=== PATIENT | male | born 1945 | race Caucasian/White ===

== ENCOUNTER → 2016-09-03 | Outpatient (CLI) | payer MEDICARE, OTHER ==
[~2016-09-03] MED LIST: BACL10TA PO; CHLORZOXAZONE PO; FAMO20TA3 PO; GEMF600T3 PO; HYDR-2890 PO; HYDR-3714 PO; LISI10TA2 PO; LISI20TA PO; LORA10TA7 PO; METH4TAB PO; NAPR220C PO; OMEG1CAP51 PO; OXYC-465 PO; OXYC10TA55 PO; PROP40TA5 PO; RELAFEN 750MG; SPRN25T PO; SULF1TAB35 PO
--- NOTE | 2016-09-03 14:09 | Diagnostic Imaging Report ---
PROCEDURE: US Bilateral lower extremity arterial. TECHNIQUE: Multiple real-time grayscale images are obtained through both lower extremity arterial systems with color Doppler imaging and color Doppler spectral analysis. INDICATION: Peripheral vascular disease, leg pain. There are no prior studies available for comparison. FINDINGS: There is diminished arterial blood flow in the right common femoral and proximal superficial femoral arteries. Monophasic waveforms are also seen in this area. This may be related to aortoiliac disease proximal to the common femoral artery on the right. Furthermore, there is occlusion of the mid and distal superficial femoral artery. There are a few collaterals providing some blood flow to the right lower leg but the arterial supply to the right lower leg is severely limited. There is atherosclerotic plaque involving the arterial system of the left lower extremity. There is some narrowing of the midportion of the superficial femoral artery but I'm not convinced that this is a hemodynamically significant stenosis. Triphasic and biphasic waveforms were seen otherwise and there is no abrupt alteration of velocities to suggest a hemodynamically significant stenosis. There seems to be fairly good arterial blood flow to the left lower extremity. IMPRESSION: 1. There is severely diminished arterial blood flow to the right lower extremity due to occlusion of the mid and distal superficial femoral artery. There is also diminished arterial blood flow with dampened monophasic waveforms in the common femoral and proximal superficial femoral artery. This may be related to aortoiliac disease. 2. There may be mild narrowing of the midportion of superficial femoral artery on the left. However, there is no sign of a hemodynamically significant stenosis in this area and there seems to be fairly good arterial blood flow to the left lower leg. 3. CTA of the aorta with bilateral run-offs would be recommended for further evaluation of both lower extremity arterial systems. Dictated by: Dictated on workstation # [id number]
== END ==
LOC: RAD 08:56
PROVIDERS: ATTEND Nurse Practitioner Community Health
DX: I73.9 Peripheral vascular disease, unspecified (principal)
CPT/HCPCS: 93925

== ENCOUNTER → 2016-09-16 | Outpatient (CLI) | payer MEDICARE, OTHER ==
[2016-09-16 08:47] LABS: BASOPHILS % (AUTO) 1 % (0-10); EOSINOPHILS # (AUTO) 0.2 10^3/uL (0.0-0.3); EOSINOPHILS % (AUTO) 3 % (0-10); LYMPHOCYTES # (AUTO) 2.9 X 10^3 (1.0-4.0); LYMPHOCYTES % (AUTO) 35 % (12-44); MEAN CORPUSCULAR HEMOGLOBIN 30 PG (25-34); MEAN CORPUSCULAR HGB CONC 34 G/DL (32-36); MEAN CORPUSCULAR VOLUME 89 FL (80-99); MEAN PLATELET VOLUME 10.1 FL (7.4-10.4); MONOCYTES # (AUTO) 0.8 X 10^3 (0.0-1.0); MONOCYTES % (AUTO) 9 % (0-12); NEUTROPHILS # (AUTO) 4.4 X 10^3 (1.8-7.8); NEUTROPHILS % (AUTO) 53 % (42-75); PLATELET COUNT 253 10^3/uL (130-400); RED BLOOD COUNT 5.64 10^6/uL (4.35-5.85); RED CELL DISTRIBUTION WIDTH 14.4 % (10.0-14.5); WHITE BLOOD COUNT 8.3 10^3/uL (4.3-11.0)
[2016-09-16 08:52] LABS: BILIRUBIN,URINE NEGATIVE (NEGATIVE); KETONES,URINE NEGATIVE (NEGATIVE); LEUKOCYTE ESTERASE ,URINE NEGATIVE (NEGATIVE); NITRITE,URINE NEGATIVE (NEGATIVE); PH,URINE 5 (5-9); PROTEIN,URINE NEGATIVE (NEGATIVE); UROBILINOGEN,URINE NORMAL (NORMAL)
[2016-09-16 09:19] LABS: ALBUMIN 4.2 G/DL (3.2-4.5); BILIRUBIN,TOTAL 0.4 MG/DL (0.1-1.0); CALCIUM 9.7 MG/DL (8.5-10.1); CREATININE SERUM 1.84 MG/DL (0.60-1.30); POTASSIUM 4.4 MMOL/L (3.6-5.0); TOTAL PROTEIN 7.3 G/DL (6.4-8.2)
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
== END ==
LOC: CARD 08:24
PROVIDERS: ATTEND Thoracic Surgery (Cardiothoracic Vascular Surgery)
DX: Z01.810 Encounter for preprocedural cardiovascular examination (principal); Z01.811 Encounter for preprocedural respiratory examination; Z01.812 Encounter for preprocedural laboratory examination; I73.9 Peripheral vascular disease, unspecified
CPT/HCPCS: 36415; 71010; 80053; 81000; 85025; 93005

== ENCOUNTER → 2016-10-30 | Outpatient (CLI) | payer MEDICARE, OTHER ==
--- NOTE | 2016-11-04 13:04 | Diagnostic Imaging Report ---
Renal ultrasound. INDICATION: Chronic renal failure. FINDINGS: The right kidney is 11.3 cm and the left kidney is 11.3 cm in length. There is no hydronephrosis or focal lesion. The parenchymal echogenicity is within normal limits. The urinary bladder appears unremarkable. IMPRESSION: Unremarkable exam. Dictated by: Dictated on workstation # [id number]
== END ==
LOC: RAD 15:12
PROVIDERS: ATTEND Internal Medicine Nephrology
DX: N18.3 Chronic kidney disease, stage 3 (moderate) (principal)

== ENCOUNTER → 2017-01-09 | Outpatient (CLI) | payer MEDICARE, OTHER ==
[2017-01-09 13:07] LABS: BASOPHILS # (AUTO) 0.1 10^3/uL (0.0-0.1); BASOPHILS % (AUTO) 1 % (0-10); EOSINOPHILS # (AUTO) 0.3 10^3/uL (0.0-0.3); EOSINOPHILS % (AUTO) 3 % (0-10); LYMPHOCYTES # (AUTO) 3.1 X 10^3 (1.0-4.0); LYMPHOCYTES % (AUTO) 33 % (12-44); MEAN CORPUSCULAR HEMOGLOBIN 30 PG (25-34); MEAN CORPUSCULAR HGB CONC 34 G/DL (32-36); MEAN CORPUSCULAR VOLUME 88 FL (80-99); MEAN PLATELET VOLUME 10.6 FL (7.4-10.4); MONOCYTES # (AUTO) 0.8 X 10^3 (0.0-1.0); MONOCYTES % (AUTO) 8 % (0-12); NEUTROPHILS # (AUTO) 5.3 X 10^3 (1.8-7.8); NEUTROPHILS % (AUTO) 56 % (42-75); PLATELET COUNT 254 10^3/uL (130-400); RED BLOOD COUNT 5.45 10^6/uL (4.35-5.85); RED CELL DISTRIBUTION WIDTH 14.2 % (10.0-14.5); WHITE BLOOD COUNT 9.6 10^3/uL (4.3-11.0)
[2017-01-09 13:09] LABS: BILIRUBIN,URINE NEGATIVE (NEGATIVE); KETONES,URINE NEGATIVE (NEGATIVE); LEUKOCYTE ESTERASE ,URINE NEGATIVE (NEGATIVE); NITRITE,URINE NEGATIVE (NEGATIVE); PH,URINE 6 (5-9); PROTEIN,URINE NEGATIVE (NEGATIVE); UROBILINOGEN,URINE 1 MG/DL (NORMAL)
[2017-01-09 13:27] LABS: PROTEIN/CREATININE RATIO 0.11
[2017-01-09 13:28] LABS: ALBUMIN 4.4 GM/DL (3.2-4.5); CREATININE SERUM 1.57 MG/DL (0.60-1.30); POTASSIUM 4.5 MMOL/L (3.6-5.0)
[2017-01-09 14:09] LABS: SQUAMOUS EPITHELIAL CELL,UR 0-2 /HPF
[2017-01-10 09:13] LABS: CALCIUM PARA THYROID HORMONE 9.8 mg/dL (8.5-10.5)
[2017-01-10 15:37] LABS: FOLIC ACID 6.9 ng/mL (1.5-24.0)
== END ==
LOC: LAB 12:37
PROVIDERS: ATTEND Internal Medicine Nephrology
DX: I12.9 Hypertensive chronic kidney disease with stage 1 through stage 4 chronic kidney disease, or unspecified chronic kidney disease (principal); N18.3 Chronic kidney disease, stage 3 (moderate); E87.2 Acidosis; F17.200 Nicotine dependence, unspecified, uncomplicated
CPT/HCPCS: 36415; 80069; 81000; 82306; 82570; 82607; 82728; 82746; 83540; 83970; 84156; 85025

== ENCOUNTER → 2017-02-03 | Outpatient (CLI) | payer MEDICARE, OTHER ==
[2017-02-03 13:08] LABS: BILIRUBIN,URINE NEGATIVE (NEGATIVE); KETONES,URINE NEGATIVE (NEGATIVE); LEUKOCYTE ESTERASE ,URINE 1+ (NEGATIVE); NITRITE,URINE NEGATIVE (NEGATIVE); PH,URINE 5 (5-9); PROTEIN,URINE NEGATIVE (NEGATIVE); UROBILINOGEN,URINE NORMAL (NORMAL)
[2017-02-03 13:12] LABS: MEAN PLATELET VOLUME 9.8 FL (7.4-10.4); RED BLOOD COUNT 5.32 10^6/uL (4.35-5.85); RED CELL DISTRIBUTION WIDTH 14.1 % (10.0-14.5); WHITE BLOOD COUNT 8.6 10^3/uL (4.3-11.0)
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
[2017-02-03 13:20] LABS: SQUAMOUS EPITHELIAL CELL,UR 0-2 /HPF; WBC,URINE RARE /HPF
[2017-02-03 13:35] LABS: ALBUMIN 4.1 GM/DL (3.2-4.5); BILIRUBIN,TOTAL 0.4 MG/DL (0.1-1.0); CALCIUM 9.6 MG/DL (8.5-10.1); CREATININE SERUM 1.63 MG/DL (0.60-1.30); POTASSIUM 4.7 MMOL/L (3.6-5.0); TOTAL PROTEIN 7.6 GM/DL (6.4-8.2)
== END ==
LOC: CARD 12:33
PROVIDERS: ATTEND Thoracic Surgery (Cardiothoracic Vascular Surgery)
DX: Z01.810 Encounter for preprocedural cardiovascular examination (principal); Z01.811 Encounter for preprocedural respiratory examination; Z01.812 Encounter for preprocedural laboratory examination; I73.9 Peripheral vascular disease, unspecified
CPT/HCPCS: 36415; 71020; 80053; 81000; 85027; 93005

== ENCOUNTER → 2017-04-24 | Outpatient (CLI) | payer MEDICARE, OTHER ==
[2017-04-24 12:58] LABS: BILIRUBIN,URINE NEGATIVE (NEGATIVE); KETONES,URINE NEGATIVE (NEGATIVE); LEUKOCYTE ESTERASE ,URINE 1+ (NEGATIVE); NITRITE,URINE NEGATIVE (NEGATIVE); PH,URINE 6 (5-9); PROTEIN,URINE NEGATIVE (NEGATIVE); UROBILINOGEN,URINE NORMAL (NORMAL)
[2017-04-24 12:59] LABS: SQUAMOUS EPITHELIAL CELL,UR RARE /HPF; WBC,URINE RARE /HPF
[2017-04-24 13:12] LABS: PROTEIN/CREATININE RATIO 0.11
[2017-04-24 13:32] LABS: BASOPHILS % (AUTO) 0 % (0-10); EOSINOPHILS # (AUTO) 0.2 10^3/uL (0.0-0.3); EOSINOPHILS % (AUTO) 3 % (0-10); LYMPHOCYTES # (AUTO) 3.2 X 10^3 (1.0-4.0); LYMPHOCYTES % (AUTO) 34 % (12-44); MEAN CORPUSCULAR HEMOGLOBIN 30 PG (25-34); MEAN CORPUSCULAR HGB CONC 34 G/DL (32-36); MEAN CORPUSCULAR VOLUME 90 FL (80-99); MEAN PLATELET VOLUME 10.2 FL (7.4-10.4); MONOCYTES # (AUTO) 0.7 X 10^3 (0.0-1.0); MONOCYTES % (AUTO) 7 % (0-12); NEUTROPHILS # (AUTO) 5.2 X 10^3 (1.8-7.8); NEUTROPHILS % (AUTO) 56 % (42-75); PLATELET COUNT 285 10^3/uL (130-400); RED BLOOD COUNT 5.46 10^6/uL (4.35-5.85); RED CELL DISTRIBUTION WIDTH 14.5 % (10.0-14.5); WHITE BLOOD COUNT 9.2 10^3/uL (4.3-11.0)
[2017-04-24 13:53] LABS: ALBUMIN 4.2 GM/DL (3.2-4.5); CALCIUM 9.9 MG/DL (8.5-10.1); CREATININE SERUM 1.56 MG/DL (0.60-1.30); MAGNESIUM 2.3 MG/DL (1.8-2.4); PHOSPHORUS 3.8 MG/DL (2.3-4.7); POTASSIUM 4.7 MMOL/L (3.6-5.0); URIC ACID 6.8 MG/DL (2.6-7.2)
[2017-04-25 07:00] LABS: FOLIC ACID 5.9 ng/mL (1.5-24.0)
== END ==
LOC: LAB 12:21
PROVIDERS: ATTEND Internal Medicine Nephrology
DX: E55.9 Vitamin D deficiency, unspecified (principal); I12.9 Hypertensive chronic kidney disease with stage 1 through stage 4 chronic kidney disease, or unspecified chronic kidney disease; N18.3 Chronic kidney disease, stage 3 (moderate); F17.200 Nicotine dependence, unspecified, uncomplicated
CPT/HCPCS: 36415; 80069; 81000; 82306; 82570; 82607; 82746; 83735; 83970; 84156; 84550; 85025

== ENCOUNTER → 2017-10-27 | Outpatient (CLI) | payer MEDICARE, OTHER ==
[~2017-10-27] MED LIST changes: +CLOP75TA28; +INHA1INH59 MC; +PRD20T PO; +PROP60TA17 PO; +RT-ALBUINH IH; +SODI650T
[2017-10-27 13:39] LABS: BASOPHILS % (AUTO) 0 % (0-10); EOSINOPHILS # (AUTO) 0.2 10^3/uL (0.0-0.3); EOSINOPHILS % (AUTO) 2 % (0-10); HEMATOCRIT 48 % (40-54); HEMOGLOBIN 16.2 G/DL (13.3-17.7); LYMPHOCYTES # (AUTO) 2.1 X 10^3 (1.0-4.0); LYMPHOCYTES % (AUTO) 20 % (12-44); MEAN CORPUSCULAR HEMOGLOBIN 31 PG (25-34); MEAN CORPUSCULAR HGB CONC 34 G/DL (32-36); MEAN CORPUSCULAR VOLUME 90 FL (80-99); MEAN PLATELET VOLUME 9.7 FL (7.4-10.4); MONOCYTES # (AUTO) 0.9 X 10^3 (0.0-1.0); MONOCYTES % (AUTO) 8 % (0-12); NEUTROPHILS # (AUTO) 7.4 X 10^3 (1.8-7.8); NEUTROPHILS % (AUTO) 70 % (42-75); PLATELET COUNT 303 10^3/uL (130-400); RED BLOOD COUNT 5.29 10^6/uL (4.35-5.85); RED CELL DISTRIBUTION WIDTH 14.3 % (10.0-14.5); WHITE BLOOD COUNT 10.7 10^3/uL (4.3-11.0)
[2017-10-27 13:45] LABS: BILIRUBIN,URINE NEGATIVE (NEGATIVE); CLARITY,URINE CLEAR; COLOR,URINE YELLOW; GLUCOSE, URINE (UA) NEGATIVE (NEGATIVE); KETONES,URINE NEGATIVE (NEGATIVE); LEUKOCYTE ESTERASE ,URINE NEGATIVE (NEGATIVE); NITRITE,URINE NEGATIVE (NEGATIVE); PH,URINE 5 (5-9); PROTEIN,URINE 1+ (NEGATIVE); UROBILINOGEN,URINE 1 MG/DL (NORMAL)
[2017-10-27 13:54] LABS: ALBUMIN 4.5 GM/DL (3.2-4.5); CALCIUM 10.3 MG/DL (8.5-10.1); CREATININE SERUM 1.66 MG/DL (0.60-1.30); MAGNESIUM 2.1 MG/DL (1.8-2.4); PHOSPHORUS 3.2 MG/DL (2.3-4.7); POTASSIUM 4.4 MMOL/L (3.6-5.0); URIC ACID 6.8 MG/DL (2.6-7.2)
[2017-10-27 13:56] LABS: BACTERIA,URINE NEGATIVE /HPF; SQUAMOUS EPITHELIAL CELL,UR RARE /HPF
== END ==
LOC: LAB 13:15
PROVIDERS: ATTEND Internal Medicine Nephrology
DX: I12.9 Hypertensive chronic kidney disease with stage 1 through stage 4 chronic kidney disease, or unspecified chronic kidney disease (principal); N18.3 Chronic kidney disease, stage 3 (moderate); E21.1 Secondary hyperparathyroidism, not elsewhere classified; F17.200 Nicotine dependence, unspecified, uncomplicated
CPT/HCPCS: 36415; 80069; 81000; 82306; 82570; 83735; 83970; 84156; 84550; 85025

== ENCOUNTER 2017-11-13 20:49 | Emergency (ER) | payer MEDICARE, OTHER ==
[~2017-11-13] VITALS: Ht 185.4 cm; Wt 80.3 kg
[~2017-11-13 20:49] MED LIST changes: -CLOP75TA28; -INHA1INH59 MC; -PRD20T PO; -PROP60TA17 PO; -RT-ALBUINH IH; -SODI650T
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
--- OUTSIDE RECORDS SUMMARY | 2017-11-13 20:54 | XMS REPORT ---
Author Author TOYA LANDRUM Organization [employer] Address Unknown Phone Unavailable Care Team Providers Care Inspector Electromechanical Name Role Phone TOYA LANDRUM CP Unavailable Allergies No Known Allergies Problems No Known Problems Medications Medication Code System Code Instructions Start Date End Date Status Dosage [facility] [address]-22 10-325 MG every 6 hrs Sep 09, 2014 1 tablet as needed Results No Known Results Summary Purpose [employer] Submission
--- OUTSIDE RECORDS SUMMARY | 2017-11-13 20:55 | XMS REPORT ---
Author Author JOHANA OWEN [facility] [employer] Address Unknown Phone Unavailable Care Team Providers Care Mammography Technologist Name Role Phone JOHANA OWEN CP Unavailable Allergies, Adverse Reactions, Alerts Substance Reaction Event Type Hydrochlorothiazide Info Not Available Drug Allergy Problems Problem Type Condition Code Onset Dates Condition Status Assessment Impacted cerumen of left ear H61.22 Active Medications Medication Code System Code Instructions Start Date End Date Status Dosage Linneus [facility] [address]-89 10-325 MG every 6 hrs Sep 09, 2014 1 tablet as needed Famotidine [facility] 10266-2017-16 20 MG Twice a day Sep 08, 2014 1 tablet Lopid [facility] 74743713594 600 Twice a day 1 tablet Lisinopril [facility] [address]-61 10 MG Orally Once a day Feb 22, 2015 1 tablet Spironolactone [facility] [address]-62 25 MG Once a day Aug 12, 2014 1 tablet Loratadine [facility] [address]-67 10 MG Once a day Aug 12, 2014 1 capsule Fish Oil [facility] [address]-66 1000 MG Orally Once a day 1 capsule Propranolol HCl [facility] [address]-51 40 MG Orally Twice a day Mar 15, 2015 1 tablet Procedures Procedure Coding System Code Date Office Visit, Est Pt., Level 2 CPT-4 78441 Jul 27, 2015 EAR IRRIGATION CPT-4 11688 Jul 27, 2015 [facility] VISIT ESTABLISHED PATIENT CPT-4 G0467 Jul 27, 2015 Vital Signs Date/Time: Jul 27, 2015 Temperature 97.4 F Weight 185.7 lbs Height 71 in BMI 25.90 Index Blood Pressure Diastolic 88 mmHg Blood Pressure Systolic 136 mmHg Cardiac Monitoring Heart Rate 84 bpm Results Name Result Date Reference Range Unit Abnormality Flag CERUMEN REMOVAL Summary Purpose [employer] Submission
--- OUTSIDE RECORDS SUMMARY | 2017-11-13 20:55 | XMS REPORT ---
Author Author ROWAN OSCAR Organization [facility] Address [address] [place] [address] Care Team Providers Care Placement Officer Name Role Phone ROWAN OSCAR Unavailable PROBLEMS Type Condition ICD9-CM Code [id number]-UW Code Onset Dates Condition Status SNOMED Code Problem Dysuria R30.0 Active 75292454 Problem PAD (peripheral artery disease) I73.9 Active 432324863 Problem PVD (peripheral vascular disease) I73.9 Active 255743825 Problem Back pain with left-sided sciatica M54.32 Active 56333811 Problem Hypertension, benign I10 Active 58237525 Problem Claudication of lower extremity I73.9 Active 394605585 Problem Other chronic gastritis without hemorrhage K29.50 Active 2372514 ALLERGIES Substance Reaction Event Type Date Status Hydrochlorothiazide Unknown Drug Allergy November, Active SOCIAL HISTORY Never Assessed PLAN OF CARE Activity Details Follow Up prn Reason: VITAL SIGNS Height 73 in 2016-12-05 Weight 177 lbs 2016-12-05 Temperature 97.8 degrees Fahrenheit 2016-12-05 Heart Rate 86 bpm 2016-12-05 Respiratory Rate 16 2016-12-05 BMI 23.35 kg/m2 2016-12-05 Blood pressure systolic 138 mmHg 2016-12-05 Blood pressure diastolic 78 mmHg 2016-12-05 MEDICATIONS Medication Instructions Dosage Frequency Start Date End Date Duration Status Loratadine 10 mg 1 capsule 24h Jul, 90 Active Fish Oil 1000 MG Orally Once a day 1 capsule 24h Active Lopid 600 1 tablet 12h 90 Active [place] 10-325 MG Orally every 6 hrs 1 tablet as needed 6h May, 28 days Active Propranolol HCl 40 1 tablet 12h 90 Active Lisinopril 10 mg Orally Once a day 1 tablet 24h Feb, 90 Active Meloxicam 15 MG Orally Once a day 1 tablet 24h May, Active Sodium Bicarbonate Active RESULTS No Results PROCEDURES Procedure Date Ordered Result Body Site [facility] VISIT ESTABLISHED PATIENT December 05, 2016 IMMUNIZATIONS No Known Immunizations MEDICAL (GENERAL) HISTORY [...]
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
--- OUTSIDE RECORDS SUMMARY | 2017-11-13 20:55 | XMS REPORT ---
Author Author TOYA LANDRUM Organization [employer] Address Unknown Phone Unavailable Care Team Providers Care Cane Piler Name Role Phone TOYA LANDRUM CP Unavailable Allergies No Known Allergies Problems No Known Problems Medications Medication Code System Code Instructions Start Date End Date Status Dosage [facility] [place] [address]-48 10-325 MG every 6 hrs Sep 09, 2014 1 tablet as needed Results No Known Results Summary Purpose [employer] Submission
--- OUTSIDE RECORDS SUMMARY | 2017-11-13 20:55 | XMS REPORT ---
Author Author TOYA LANDRUM Organization [employer] Address Unknown Phone Unavailable Care Team Providers Care Sewage Disposal Engineer Name Role Phone TOYA LANDRUM CP Unavailable Allergies, Adverse Reactions, Alerts Substance Reaction Event Type Hydrochlorothiazide Info Not Available Drug Allergy Problems Problem Type Condition Code Onset Dates Condition Status Problem Back pain with left-sided sciatica M54.32 Active Problem Hypertension, benign I10 Active Problem Other chronic gastritis without hemorrhage K29.50 Active Assessment Back pain with left-sided sciatica M54.32 Active Assessment Other chronic gastritis without hemorrhage K29.50 Active Problem Dysuria R30.0 Active Assessment Hypertension, benign I10 Active Medications Medication Code System Code Instructions Start Date End Date Status Dosage Meloxicam [facility] [address]-79 15 MG Orally Once a day Jun 07, 2016October 1 tablet Acidophilus [facility] [address]68 100 MG Orally Once a day Jun 07, 2016 1 capsule Loratadine [facility] [address]-35 10 mg Once a day Aug 12, 2014 1 capsule Propranolol HCl [facility] 71686787902 40 Twice a day 1 tablet Fish Oil [facility] [address]-24 1000 MG Orally Once a day 1 capsule Lopid [facility] 93675901837 600 Twice a day 1 tablet [place] [facility] [address]-30 10-325 MG every 6 hrs Jun 07, 2016 1 tablet as needed Lisinopril [facility] [address]-79 10 mg Orally Once a day Feb 22, 2015 1 tablet Procedures Procedure Coding System Code Date Office Visit, Est Pt., Level 3 CPT-4 45103 Jun 07, 2016 [facility] VISIT ESTABLISHED PATIENT CPT-4 G0467 Jun 07, 2016 Vital Signs Date/Time: Jun 07, 2016 Cardiac Monitoring Heart Rate 94 bpm Weight 173.0 lbs Height 73 in BMI 22.82 Index Blood Pressure Diastolic 68 mmHg Blood Pressure Systolic 144 mmHg Results No Known Results Summary Purpose [employer] Submission
--- OUTSIDE RECORDS SUMMARY | 2017-11-13 20:55 | XMS REPORT ---
Author Author TOYA LANDRUM Organization [employer] Address Unknown Phone Unavailable Care Team Providers Care Hat Model Name Role Phone TOYA LANDRUM CP Unavailable Allergies No Known Allergies Problems Problem Type Condition Code Onset Dates Condition Status Problem Hypertension, benign I10 Active Assessment Renal insufficiency N28.9 Active Problem Back pain with left-sided sciatica M54.32 Active Medications Medication Code System Code Instructions Start Date End Date Status Dosage Oxycodone HCl [facility] [address]-81 10 MG Orally every 6 hrs Sep 01, 2015 1 tablet as needed Results No Known Results Summary Purpose [employer] Submission
--- OUTSIDE RECORDS SUMMARY | 2017-11-13 20:56 | XMS REPORT ---
Author TOYA Polo [facility] eClinicalWorks Address Unknown Phone Unavailable Care Team Providers Care Dentistry Professor Name Role Phone TOYA LANDRUM CP Unavailable Allergies, Adverse Reactions, Alerts Substance Reaction Event Type Hydrochlorothiazide Info Not Available Drug Allergy Problems Problem Type Condition Code Onset Dates Condition Status Problem Hypertension, benign I10 Active Assessment Renal insufficiency N28.9 Active Problem Back pain with left-sided sciatica M54.32 Active Medications Medication Code System Code Instructions Start Date End Date Status Dosage Flonase NDC 0 50 mcg/actuation Jul 27, 2014 1 sprays by Nasal route 2 times per day in each nostril Lisinopril [facility] [address]-56 10 mg Orally Once a day Feb 22, 2015 1 tablet Loratadine [facility] [address]-23 10 MG Once a day Aug 12, 2014 1 capsule Propranolol HCl [facility] 87554268480 40 Twice a day 1 tablet Lopid [facility] 72500169423 600 Twice a day 1 tablet Oxycodone HCl [facility] [address]-33 10 MG Orally every 6 hrs Sep 01, 2015 1 tablet as needed Fish Oil [facility] [address]-76 1000 MG Orally Once a day 1 capsule Procedures Procedure Coding System Code Date Office Visit, Est Pt., Level 3 CPT-4 36022 October 30, 2015 [facility] CPT-4 NOBLL October 30, 2015 ON LICENSE OF [facility] VISIT ESTABLISHED PATIENT CPT-4 G0467 October 30, 2015 VENIPUNCT, ROUTINE* CPT-4 45036 October 30, 2015 Vital Signs Date/Time: October 30, 2015 Temperature 98.0 F Weight 174.2 lbs Height 71 in BMI 24.29 Index Blood Pressure Diastolic 68 mmHg Blood Pressure Systolic 112 mmHg Cardiac Monitoring Heart Rate 80 bpm Results Name Result Date Reference Range Unit Abnormality Flag ROUTINE VENIPUNCTURE CBC ----MCHC 31.6 58316788 31.5-35.7 g/dL ----MCH 29.4 73677982 26.6-33.0 pg ----Platelets 429 32265720 150-379 x10E3/uL H ----RDW 14.6 28454020 12.3-15.4 % ----Immature Granulocytes 0 68344679 % ----Immature Grans (Abs) 0.0 50746318 0.0-0.1 x10E3/uL ----Lymphs 32 99923378 % ----Monocytes 8 29711414 % ----Neutrophils 57 55477626 % ----Neutrophils (Absolute) 5.1 36176924 1.4-7.0 x10E3/uL ----Hematocrit 45.5 79765381 37.5-51.0 % ----Lymphs (Absolute) 2.8 49283299 0.7-3.1 x10E3/uL ----MCV 93 24935648 79-97 fL ----RBC 4.90 [id number] 4.14-5.80 x10E6/uL ----Eos 2 61372168 % ----Basos 1 47326029 % ----Hemoglobin 14.4 87667677 12.6-17.7 g/dL ----Baso (Absolute) 0.1 21074265 0.0-0.2 x10E3/uL ----WBC 8.8 61923257 3.4-10.8 x10E3/uL ----Monocytes(Absolute) 0.7 69091589 0.1-0.9 x10E3/uL ----Eos (Absolute) 0.2 54561754 0.0-0.4 x10E3/uL Summary Purpose eClinicalWorks Submission
--- OUTSIDE RECORDS SUMMARY | 2017-11-13 20:56 | XMS REPORT ---
Author Author TOYA LANDRUM Organization [employer] Address Unknown Phone Unavailable Care Team Providers Care Bdr Name Role Phone TOYA LANDRUM CP Unavailable Allergies No Known Allergies Problems No Known Problems Medications Medication Code System Code Instructions Start Date End Date Status Dosage [facility] [place] [address]-64 10-325 MG every 6 hrs Sep 09, 2014 1 tablet as needed Results No Known Results Summary Purpose eClinicalWorks Submission
--- OUTSIDE RECORDS SUMMARY | 2017-11-13 20:56 | XMS REPORT ---
Author Author TOYA LANDRUM Organization [facility] Address [address] [place] [address] Care Team Providers Care Documentation Analyst Name Role Phone TOYA LANDRUM Unavailable PROBLEMS Type Condition ICD9-CM Code LFX24-NW Code Onset Dates Condition Status SNOMED Code Problem Dysuria R30.0 Active 54893413 Problem PAD (peripheral artery disease) I73.9 Active 336891695 Problem PVD (peripheral vascular disease) I73.9 Active 942825376 Problem Back pain with left-sided sciatica M54.32 Active 26855270 Problem Hypertension, benign I10 Active 92973717 Problem Claudication of lower extremity I73.9 Active 167784435 Problem Other chronic gastritis without hemorrhage K29.50 Active 1456985 ALLERGIES No Information ENCOUNTERS Encounter Location Date Diagnosis [facility] [id number] [place] [address] 76498- 1784 Oct, [facility] [id number] [place] [address] 82546 -5610 Sep, Cough R05 and Viral URI J06.9 [facility] [id number] [place] [address] 18493- 6512 14 Aug, 2017 Medicare welcome exam Z00.00 [facility] [id number] [place] [address] 50762- 1125 Jun, Medicare welcome exam Z00.00 ; Medicare annual wellness visit, initial Z00.00 and Medicare annual wellness visit, subsequent Z00.00 [facility] [id number] [place] [address] 44535- 2199 May, [facility] [id number] [place] [address] 14355- 3494 Apr, Encounter for immunization Z23 [facility] [id number] [address] 67[address] 14 Mar, 2017 PAD (peripheral artery disease) I73.9 [facility] [id number] [place] [address] 90381- 5232 11 Mar, 2017 PAD (peripheral artery disease) I73.9 [facility] [id number] [place] [address] 68751- 8419 08 Feb, 2017 Hypertension, benign I10 [facility] [id number] [place] [address] 82413- 0828 Feb, PVD (peripheral vascular disease) I73.9 [facility] [id number] [place] [address] 38868- 7099 Feb, PVD (peripheral vascular disease) I73.9 [facility] [id number] [place] [address] 85807 -8633 Jan, Cutaneous horn L85.8 [facility] [id number] [place] [address] 72487- 0707 Dec, Hypertension, benign I10 [facility] [id number] [place] [address] 91620 -8332 November, Puncture wound of right eyeball, initial encounter S05.61XA [facility] [id number] [place] [address] 94132- 7157 Oct, Hypertension, benign I10 [facility] [address] [place] [address] 85519- 6499 Aug, [facility] [address] [place] [address] 75729- 8027 Aug, [facility] [id number] [place] [address] 21166- 1818 Aug, [facility] [address] [place] [address] 67102- 3884 Aug, [facility] [id number] [place] [address] 43373- 6164 17 Aug, 2016 PVD (peripheral vascular disease) I73.9 ; Claudication of lower extremity I73.9 and Back pain with left-sided sciatica M54.32 [facility] [id number] [place] [address] 49526- 4867 May, Hypertension, benign I10 ; Back pain with left-sided sciatica M54.32 and Other chronic gastritis without hemorrhage K29.50 [facility] [id number] [place] [address] 36207- 8360 Apr, [facility] [address] 41392- 9285 29 Mar, 2016 [facility] [id number] [place] [address] 17256- 8452 27 Mar, 2016 Hypertension, benign I10 [facility] [id number] [place] [address] 50013- 3642 26 Mar, 2016 Hypertension, benign I10 ; Back pain with left-sided sciatica M54.32 and Encounter for immunization Z23 [facility] [id number] [place] [address] 28661- 4233 16 Mar, 2016 [facility] [id number] [place] [address] 87727- 1014 14 Mar, 2016 [facility] [id number] [place] [address] 07908- 2925 Feb, [facility] [id number] [place] [address] 12218- 4651 Jan, Renal insufficiency N28.9 [facility] [id number] [place] [address] 05144- 4005 Dec, Renal insufficiency N28.9 [facility] [id number] [place] [address] 57224- 0100 Dec, Pre-op evaluation Z01.818 [facility] [id number] [place] [address] 70775- 7554 November, Renal insufficiency N28.9 [facility] [address] 71785- 7212 Oct, [facility] [id number] [place] [address] 13829- 6190 Oct, Renal insufficiency N28.9 [facility] [address] 94325- 7692 Sep, Bursitis of left elbow M70.32 [facility] [id number] [place] [address] 85226- 6591 Sep, Renal insufficiency N28.9 and Rhinitis J31.0 [facility] [id number] [place] [address] 64952 -2838 Sep, Back pain with left-sided sciatica M54.32 [facility] [address] 79287- 9005 Sep, Pharyngitis, unspecified etiology J02.9 [facility] [id number] [place] [address] 20923- 3559 Aug, [facility] [id number] [place] [address] 60556- 8469 Aug, Renal insufficiency N28.9 [facility] [id number] [place] [address] 80927- 4384 Aug, Hypertension, benign I10 [facility] [id number] [place] [address] 20117- 9941 08 Aug, 2015 Hypertension, benign I10 [facility] [id number] [place] [address] 07283- 6825 Jul, [facility] [id number] [place] [address] 67364- 5038 Jul, Impacted cerumen of left ear H61.22 [facility] [id number] [address]- 6796 May, [facility] [id number] [place] [address] 480123- 4540 Apr, Low back pain M54.5 [facility] [id number] [place] [address] 52779- 1683 Apr, [facility] [id number] [place] [address] 913536- 8680 Apr, Encounter for immunization Z23 and Low back pain M54.5 [facility] [id number] [place] [address] 47540- 8774 Mar, Tremor 781.0 and Arthritis 716.90 [facility] [id number] [place] [address] 08190- 3391 Feb, [facility] [id number] [place] [address] 13189- 6928 Jan, [facility] [id number] [place] [address] 84482- 4496 Dec, [facility] [id number] [place] [address] 73657- 8341 Oct, [facility] [address] [address]- 6619 Oct, [facility] [id number] [place] [address] 58922- 3310 Sep, [facility] [address] [place] [address] 44564- 0896 Sep, [facility] [id number] [place] [address] 28684- 7072 Aug, [facility] [address] [address]- 2096 Aug, [facility] [id number] [place] [address] 172330- 3386 Aug, [facility] [place] [facility] [address] [id number] [place] [address]- 7111 Aug, [facility] [place] [facility] [address] [id number] [place] [address]- 0530 Jul, [facility] [place] [facility] [address] [facility] [id number] [place] [address]- 9447 Jul, [facility] [place] [facility] [address] [id number] [place] [address]- 5033 Jul, [facility] [place] [facility] [address] [id number] [place] [address]- 8952 Jul, [facility] [place] [facility] [address] [id number] [place] [address]- 7534 Jul, [facility] [place] [facility] [address] [id number] [place] [address]- 1775 Jul, [facility] [place] [facility] [address] [id number] [place] [address]- 4347 Jul, [facility] [place] [facility] [address] [id number] [place] [address]- 7479 Jul, [facility] [place] [facility] [address] [id number] [place] [address]- 1373 Jun, [facility] [place] [facility] [address] [id number], [place] [address]- 1839 Jun, [facility] [place] [facility] [address] [id number], [place] [address] 1951 May, [facility] [place] [facility] [address] [id number] [place] [address]- 1998 May, [facility] [place] [facility] [address] [id number], [place] [address]- 4586 May, [facility] [place] [facility] [address] [id number] [place] [address]- 7833 May, [facility] [place] [facility] [address] [id number] [place] [address]- 7615 Apr, [facility] [place] [facility] [address] [id number] [place] [address]- 3407 Apr, [facility] [place] [facility] [address] [id number] [place] [address]- 7366 Apr, [facility] [place] [facility] [address] [id number] [place] [address]- 1760 Apr, [facility] [place] [facility] [address] [id number] [place] [address]- 5116 Mar, [facility] [place] [facility] [address] [id number] [place] [address]- 7936 Mar, [facility] [place] [facility] [address] [id number] [place] [address]- 6727 Jan, [facility] [place] [facility] [address] [id number] [place] [address]- 4300 Jan, [facility] [place] [facility] [address] [id number] [place] [address]- 5590 November, [facility] [place] [facility] [address] [id number] [place] [address]- 8433 November, [facility] [place] [facility] [address] [id number] [place] [address]- 0825 November, [facility] [place] [facility] [address] [id number] [place] [address]- 5793 November, [facility] [place] [facility] [address] [id number] [place] [address]- 7521 Sep, [facility] [place] [facility] [address] [id number] [place] [address]- 8667 Sep, [facility] [place] [facility] [address] [id number] [place] [address]- 4413 Sep, [facility] [place] [facility] [address] [id number] [place] [address]- 2937 Sep, [facility] [place] [facility] [address] [id number] [place] [address]- 3233 10 Sep, 2013 [facility] [place] [facility] [address] [id number] [place] [address]- 6091 10 Sep, 2013 [facility] [place] [facility] [address] [id number] [place] [address]- 9005 07 Sep, 2013 [facility] [place] [facility] [address] [id number] [place] [address]- 7864 07 Sep, 2013 [facility] [place] [facility] [address] [id number] [place] [address]- 4877 03 Aug, 2013 [facility] [place] [facility] [address] [id number] [place] [address]- 2699 03 Aug, 2013 [facility] [place] [facility] [address] [id number] [place] [address]- 7871 14 Jul, 2013 [facility] [place] [facility] [address] [id number] [place] [address]- 2166 14 Jul, 2013 [facility] [place] [facility] [address] [id number] [place] [address]- 5522 Jul, [facility] [place] [facility] [address] [id number] [place] [address]- 6879 13 Jul, 2013 [facility] [place] [facility] [address] [id number] [place] [address]- 3767 13 Jul, 2013 [facility] [place] [facility] [address] [id number], [place] [address]- 9337 13 Jul, 2013 [facility] [place] [facility] [address] [id number] [place] [address]- 4728 10 Jul, 2013 [facility] [place] [facility] [address] [id number] [place] [address]- 3130 10 Jul, 2013 [facility] [place] [facility] [address] [id number], [place] [address]- 2827 08 May, 2013 [facility] [place] [facility] [address] [id number], [place] [address]- 6071 May, [facility] [place] [facility] [address] [id number] [place] [address]- 8199 May, [facility] [place] [facility] [address] [id number] [place] [address]- 6254 May, [facility] [place] [facility] [address] [facility] [id number] [place] [address]- 8552 Apr, [facility] [place] [facility] [address] [id number] [place] [address]- 8825 10 Apr, 2013 [facility] [place] [facility] [address] [id number] [place] [address]- 2015 Apr, [facility] [place] [facility] [address] [id number] [place] [address]- 3562 Apr, [facility] [address] [place] [address]- 2848 16 Mar, 2013 [facility] [place] [facility] [address] [id number] [place] [address]- 3419 16 Mar, 2013 [facility] [place] [facility] [id number] [place] [address]- 5733 13 Mar, 2013 [facility] [place] [facility] [id number] [place] [address]- 0375 Feb, [facility] [place] [facility] [address] [facility] [id number] [place] [address]- 3660 Jan, [facility] [place] [facility] [address] [facility] [id number], [place] [address]- 8552 Aug, [facility] [place] [facility] [address] [facility] [id number] [place] [address]- 0291 Aug, [facility] [place] [facility] [address] [facility] [id number], [place] [address]- 9928 Jul, [facility] [place] [facility] [address] [facility] [id number], [place] [address]- 6427 Jul, [facility] [place] [facility] [address] [id number] [place] [address]- 3560 Jul, [facility] [place] [facility] [address] [id number] [place] [address]- 1484 Jul, [facility] [place] [facility] [address] [id number] [place] [address]- 7838 Jul, [facility] [place] [facility] [address] [id number] [place] [address]- 6020 Jun, [facility] [place] [facility] [address] [id number] [place] [address]- 0165 Jun, [facility] [place] [facility] [address] [id number] [place] [address]- 1551 May, [facility] [place] [facility] [address] [id number] [place] [address]- 8296 May, [facility] [place] [facility] [address] [id number] [place] [address]- 1578 May, [facility] [place] [facility] [address] [id number] [place] [address]- 1043 May, [facility] [place] [facility] [address] [id number] [place] [address]- 3582 May, [facility] [place] [facility] [address] [id number] [place] [address]- 6664 May, [facility] [place] [facility] [address] [id number] [place] [address]- 0145 Jan, [facility] [place] [facility] [address] [id number] [place] [address]- 7742 Jan, [facility] [place] [facility] [address] [id number] [place] [address]- 6249 Jan, [facility] [place] [facility] [address] [id number] [place] [address]- 4204 Jan, [facility] [place] [facility] [address] [id number] [place] [address]- 3194 Oct, [facility] [place] [facility] [address] [id number] [place] [address]- 6077 Oct, [facility] [place] [facility] [address] [id number] [place] [address]- 4066 Oct, [facility] [place] [facility] [address] [id number] [place] [address]- 1137 Sep, [facility] [place] [facility] [address] [id number] [place] [address]- 7284 Sep, [facility] [place] [facility] [address] [id number] [place] [address]- 0048 Aug, [facility] [place] [facility] [address] [id number] [place] [address]- 2959 Aug, [facility] [place] [facility] [address] [id number] [place] [address]- 9238 Jul, [facility] [place] [facility] [address] [id number] [place] [address]- 2534 Jul, [facility] [place] [facility] [address] [id number] [place] [address]- 9168 Jul, [facility] [place] [facility] [address] [id number] [place] [address]- 1994 Jul, [facility] [place] [facility] [address] [id number] [place] [address]- 4294 Jun, [facility] [place] [facility] [address] [id number] [place] [address]- 4335 Jun, [facility] [place] [facility] [address] [id number] [place] [address]- 0985 Jun, [facility] [place] [facility] [address] [id number] [place] [address]- 6848 May, [facility] [place] [facility] [address] [id number] [place] [address]- 1996 May, [facility] [place] [facility] [address] [id number] [place] [address] 10 May, 2011 [facility] [address] [id number] [place] [address] May, [facility] [address] [id number] [place] [address] May, [facility] [address] [id number] [place] [address], [place] [address] May, [facility] [address] [id number] [place] [address] Apr, [facility] [address] [id number] [place] [address], [place] [address] Sep, [facility] [address] [facility] [id number] [place] [address] Jul, [facility] [address] [facility] [id number] [place] [address], [place] [address] May, [facility] [address] [id number] [place] [address] 16 May, 2010 [facility] [address] [facility] [id number] [place] [address] November, [facility] [address] [facility] [id number] [place] [address] Jun, [facility] [address] [facility] [id number] [place] [address] May, [facility] [address] [id number] [place] [address] May, [facility] [address] [facility] [id number] [place] [address] 07 May, 2009 [facility] [address] [facility] [id number] [place] [address] 06 May, 2009 [facility] [address] [facility] [id number] [place] [address] Apr, IMMUNIZATIONS No Known Immunizations SOCIAL HISTORY Never Assessed REASON FOR VISIT Lab (walk-in)--[facility] PLAN OF CARE VITAL SIGNS MEDICATIONS Unknown Medications RESULTS No Results PROCEDURES Procedure Date Ordered Result Body Site [facility] Mar [facility], 2017 ROB, ROUTINE* Mar 27, 2017 INSTRUCTIONS MEDICATIONS ADMINISTERED No Known Medications [...]
--- OUTSIDE RECORDS SUMMARY | 2017-11-13 20:56 | XMS REPORT ---
Author Author TOYA LANDRUM [facility] Address [address] [place] [address] Care Team Providers Care Packing Attendant Name Role Phone TOYA LANDRUM Unavailable PROBLEMS Type Condition ICD9-CM Code [id number] Code Onset Dates Condition Status SNOMED Code Problem Dysuria R30.0 Active 65913588 Problem PAD (peripheral artery disease) I73.9 Active 561673942 Problem PVD (peripheral vascular disease) I73.9 Active 725269902 Problem Back pain with left-sided sciatica M54.32 Active 63179185 Problem Hypertension, benign I10 Active 00255678 Problem Claudication of lower extremity I73.9 Active 383625217 Problem Other chronic gastritis without hemorrhage K29.50 Active 0147918 ALLERGIES Substance Reaction Event Type Date Status Hydrochlorothiazide Unknown Drug Allergy Aug, Active SOCIAL HISTORY Never Assessed PLAN OF CARE VITAL SIGNS Height 73 in 2016-08-30 Weight 182.0 lbs 2016-08-30 Temperature 97.7 degrees Fahrenheit 2016-08-30 Heart Rate 80 bpm 2016-08-30 Respiratory Rate 20 2016-08-30 BMI 24.01 kg/m2 2016-08-30 Blood pressure systolic 126 mmHg 2016-08-30 Blood pressure diastolic 70 mmHg 2016-08-30 MEDICATIONS Medication Instructions Dosage Frequency Start Date End Date Duration Status Loratadine 10 mg 1 capsule 24h Jul, 90 Active Lopid 600 1 tablet 12h 90 Active Meloxicam 15 MG Orally Once a day 1 tablet 24h May, Active Propranolol HCl 40 1 tablet 12h 90 Active [facility] 10-325 MG 1 tablet as needed 6h May, Active Lisinopril 10 mg Orally Once a day 1 tablet 24h Feb, 90 Active Fish Oil 1000 MG Orally Once a day 1 capsule 24h Active RESULTS Name Result Date Reference Range AMERITOX 2016-08-30 PROCEDURES Procedure Date Ordered Result Body Site [facility] VISIT ESTABLISHED PATIENT Aug 30, 2016 No Charge Aug 30, 2016 IMMUNIZATIONS No Known Immunizations MEDICAL (GENERAL) [...]
--- OUTSIDE RECORDS SUMMARY | 2017-11-13 20:56 | XMS REPORT ---
Author Author TOYA LANDRUM [facility] eClinicalWorks Address Unknown Phone Unavailable Care Team Providers Care Radio Station Engineer Name Role Phone TOYA LANDRUM CP Unavailable Allergies, Adverse Reactions, Alerts Substance Reaction Event Type N.K.D.A. Info Not Available Non Drug Allergy Problems Problem Type Condition Code Onset Dates Condition Status Assessment Encounter for immunization Z23 Active Assessment Low back pain M54.5 Active Medications Medication Code System Code Instructions Start Date End Date Status Dosage Lisinopril [facility] [address]-22 10 MG Orally Once a day Feb 22, 2015 1 tablet Spironolactone [facility] [address]-88 25 MG Once a day Aug 12, 2014 1 tablet Propranolol HCl [facility] [address]-11 40 MG Orally Twice a day Mar 15, 2015 1 tablet [place] [facility] [address]-64 10-325 MG every 6 hrs Sep 09, 2014 1 tablet as needed Famotidine [facility] [address]-88 20 MG Twice a day Sep 08, 2014 1 tablet Loratadine [facility] [address]-13 10 MG Once a day Aug 12, 2014 1 capsule Flonase [facility] [address]-24 50 mcg/actuation Jul 27, 2014 1 sprays by Nasal route 2 times per day in each nostril Lopid [facility] 52146131777 600 Twice a day 1 tablet Procedures Procedure Coding System Code Date Office Visit, Est Pt., Level 3 CPT-4 71930 Apr 17, 2015 FLUZONE QUAD (3 & UP)-SINGLE DOSE VIAL-SANOFI PASTEUR-2014 CPT-4 03586 Apr 17, 2015 [facility] VISIT ESTABLISHED PATIENT CPT-4 G0467 Apr 17, 2015 SINGLE IMMUNIZATION ADMIN CPT-4 89178 Apr 17, 2015 Vital Signs Date/Time: Apr 17, 2015 Temperature 98.2 F Weight 177.8 lbs Height 71 in BMI 24.80 Index Blood Pressure Diastolic 75 mmHg Blood Pressure Systolic 100 mmHg Cardiac Monitoring Heart Rate 72 bpm Results No Known Results Immunizations Vaccine Administration Date FLUZONE QUAD (3 & UP)-SINGLE DOSE VIAL-S[employer]OFI PASTEUR-2014Apr 17, 2015 Summary Purpose eClinicalWorks Submission
--- OUTSIDE RECORDS SUMMARY | 2017-11-13 20:56 | XMS REPORT ---
Author Author TOYA LANDRUM Organization eClinical[employer] Address Unknown Phone Unavailable Care Team Providers Care Energy Director Name Role Phone TOYA LANDRUM CP Unavailable Allergies No Known Allergies Problems Problem Type Condition Code Onset Dates Condition Status Problem Hypertension, benign I10 Active Problem Dysuria R30.0 Active Problem Back pain with left-sided sciatica M54.32 Active Medications Medication Code System Code Instructions Start Date End Date Status Dosage Oxycodone HCl [facility] [address]-32 10 MG Orally every 6 hrs Sep 01, 2015 1 tablet as needed Results No Known Results Summary Purpose eClinicalWorks Submission
--- OUTSIDE RECORDS SUMMARY | 2017-11-13 20:57 | XMS REPORT ---
Author Author TOYA LANDRUM [facility] Address [address] [place] [address] Care Team Providers Care Retoucher Name Role Phone TOYA LANDRUM Unavailable PROBLEMS Type Condition ICD9-CM Code [id number] Code Onset Dates Condition Status SNOMED Code Problem Back pain with left-sided sciatica M54.32 Active 33910406 Problem Hypertension, benign I10 Active 97153897 Problem Dysuria R30.0 Active 20629651 ALLERGIES No Known Allergies SOCIAL HISTORY No smoking Hx information available PLAN OF CARE VITAL SIGNS MEDICATIONS Medication Instructions Dosage Frequency Start Date End Date Duration Status [place] 10-325 MG 1 tablet as needed 6h Aug, Active RESULTS No Results PROCEDURES No Known procedures IMMUNIZATIONS No Known Immunizations
--- OUTSIDE RECORDS SUMMARY | 2017-11-13 20:57 | XMS REPORT ---
Author Author TOYA LANDRUM Organization eClinicalWorks Address Unknown Phone Unavailable Care Team Providers Care Monumental Stonemason Name Role Phone TOYA LANDRUM CP Unavailable Allergies, Adverse Reactions, Alerts Substance Reaction Event Type Hydrochlorothiazide Info Not Available Drug Allergy Problems Problem Type Condition Code Onset Dates Condition Status Assessment Hypertension, benign I10 Active Problem Hypertension, benign I10 Active Medications Medication Code System Code Instructions Start Date End Date Status Dosage Propranolol HCl [facility] 97321459067 40 TAKE ONE TABLET BY MOUTH TWICE A DAY Fish Oil [facility] [address]-73 1000 MG Orally Once a day 1 capsule [place] [facility] [address]-27 10-325 MG every 6 hrs Sep 09, 2014 1 tablet as needed Lisinopril [facility] [address]-99 10 MG Orally Once a day Feb 22, 2015 1 tablet Famotidine [facility] [address]-50 20 MG Twice a day Sep 08, 2014 1 tablet Spironolactone [facility] [address]-83 25 MG Once a day Aug 12, 2014 1 tablet Loratadine [facility] [address]-64 10 MG Once a day Aug 12, 2014 1 capsule Lopid [facility] 05220815005 600 Twice a day 1 tablet Procedures Procedure Coding System Code Date Office Visit, Est Pt., Level 3 CPT-4 81120 Aug 21, 2015 [facility] VISIT ESTABLISHED PATIENT CPT-4 G0467 Aug 21, 2015 Vital Signs Date/Time: Aug 21, 2015 Temperature 97.8 F Weight 186.9 lbs Height 71 in BMI 26.06 Index Blood Pressure Diastolic 78 mmHg Blood Pressure Systolic 112 mmHg Cardiac Monitoring Heart Rate 72 bpm Results No Known Results Summary Purpose eClinicalWorks Submission
--- OUTSIDE RECORDS SUMMARY | 2017-11-13 20:57 | XMS REPORT ---
Author Author TOYA LANDRUM Organization e[employer] Address Unknown Phone Unavailable Care Team Providers Care Fishing Accessories Maker Name Role Phone TOYA LANDRUM CP Unavailable Allergies No Known Allergies Problems Problem Type Condition Code Onset Dates Condition Status Problem Hypertension, benign I10 Active Problem Back pain with left-sided sciatica M54.32 Active Medications No Known Medications Results No Known Results Summary Purpose [employer] Submission
--- OUTSIDE RECORDS SUMMARY | 2017-11-13 20:57 | XMS REPORT ---
Author Author TOYA LANDRUM Organization [facility] Address [address] [place] [address] Care Team Providers Care Campaign Consultant Name Role Phone TOYA LANDRUM Unavailable PROBLEMS Type Condition ICD9-CM Code TUU05-KC Code Onset Dates Condition Status SNOMED Code Problem Dysuria R30.0 Active 19601318 Problem PAD (peripheral artery disease) I73.9 Active 542420229 Problem PVD (peripheral vascular disease) I73.9 Active 117640558 Problem Back pain with left-sided sciatica M54.32 Active 93176613 Problem Hypertension, benign I10 Active 80283959 Problem Claudication of lower extremity I73.9 Active 588020487 Problem Other chronic gastritis without hemorrhage K29.50 Active 4314717 ALLERGIES No Information ENCOUNTERS Encounter Location Date Diagnosis [facility] [id number] [place] [address] 49879- 2249 Oct, [facility] [id number] [place] [address] 32671 -0021 Sep, Cough R05 and Viral URI J06.9 [facility] [id number] [place] [address] 71982- 1965 14 Aug, 2017 Medicare welcome exam Z00.00 [facility] [id number] [place] [address] 99019- 0257 Jun, Medicare welcome exam Z00.00 ; Medicare annual wellness visit, initial Z00.00 and Medicare annual wellness visit, subsequent Z00.00 [facility] [id number] [place] [address] 66283- 9919 May, [facility] [id number] [place] [address] 44305- 7074 Apr, Encounter for immunization Z23 [facility] [id number] [address] 3036 14 Mar, 2017 PAD (peripheral artery disease) I73.9 [facility] [id number] [place] [address] 99875- 8947 11 Mar, 2017 PAD (peripheral artery disease) I73.9 [facility] [id number] [place] [address] 69159- 6828 08 Feb, 2017 Hypertension, benign I10 [facility] [id number] [place] [address] 31212- 4494 Feb, PVD (peripheral vascular disease) I73.9 [place] [facility] [id number] [place] [address] 89951- 7529 Feb, PVD (peripheral vascular disease) I73.9 [facility] [id number] [place] [address] 98797 -2642 Jan, Cutaneous horn L85.8 [facility] [id number] [place] [address] 82870- 2488 Dec, Hypertension, benign I10 [facility] [id number] [place] [address] 72362 -5737 November, Puncture wound of right eyeball, initial encounter S05.61XA [facility] [facility] [id number] [place] [address] 82071- 4510 Oct, Hypertension, benign I10 [facility] [id number] [place] [address] 32496- 8458 Aug, [facility] [id number] [place] [address] 19394- 2835 Aug, [place] [id number] [place] [address] 21851- 0677 Aug, [facility] [id number] [place] [address] 09318- 1594 Aug, [place] [id number] [place] [address] 55990- 2582 17 Aug, 2016 PVD (peripheral vascular disease) I73.9 ; Claudication of lower extremity I73.9 and Back pain with left-sided sciatica M54.32 [place] [id number] [place] [address] 10988- 9446 May, Hypertension, benign I10 ; Back pain with left-sided sciatica M54.32 and Other chronic gastritis without hemorrhage K29.50 [place] [id number] [place] [address] 15207- 3052 Apr, [place] [address] 89380- 1289 29 Mar, 2016 [place] [id number] [place] [address] 25768- 7791 27 Mar, 2016 Hypertension, benign I10 [facility] [facility] [id number] [place] [address] 15296- 1141 26 Mar, 2016 Hypertension, benign I10 ; Back pain with left-sided sciatica M54.32 and Encounter for immunization Z23 [place] [facility] [id number] [place] [address] 38079- 8982 16 Mar, 2016 [place] [id number] [place] [address] 61213- 3948 14 Mar, 2016 [place] [id number] [place] [address] 77799- 4454 Feb, [place] [id number] [place] [address] 29772- 8057 Jan, Renal insufficiency N28.9 [place] [id number] [place] [address] 35653- 6182 Dec, Renal insufficiency N28.9 [place] [id number] [place] [address] 99713- 3141 Dec, Pre-op evaluation Z01.818 [place] [id number] [place] [address] 99215- 2187 November, Renal insufficiency N28.9 [facility] [address] 72611- 0125 Oct, [facility] [id number] [place] [address] 78123- 7373 Oct, Renal insufficiency N28.9 [facility] [address] 00274- 0658 Sep, Bursitis of left elbow M70.32 [facility] [id number] [place] [address] 42090- 5424 Sep, Renal insufficiency N28.9 and Rhinitis J31.0 [facility] [id number] [place] [address] 98960 -7449 Sep, Back pain with left-sided sciatica M54.32 [facility] [address] 02526- 4172 Sep, Pharyngitis, unspecified etiology J02.9 [facility] [id number] [place] [address] 15839- 2680 Aug, [facility] [id number] [place] [address] 61040- 0281 Aug, Renal insufficiency N28.9 [facility] [id number] [place] [address] 94005- 6932 Aug, Hypertension, benign I10 [facility] [id number] [place] [address] 99464- 0621 08 Aug, 2015 Hypertension, benign I10 [facility] [id number] [place] [address] 50693- 3652 Jul, [facility] [id number] [place] [address] 27249- 8727 Jul, Impacted cerumen of left ear H61.22 [facility] [id number] [address]- 8951 May, [facility] [id number] [place] [address] 45046- 8381 Apr, Low back pain M54.5 [facility] [id number] [place] [address] 78411- 0699 Apr, [facility] [address] 50600- 1816 Apr, Low back pain M54.5 and Encounter for immunization Z23 [facility] [address] 19433- 9421 Mar, Tremor 781.0 and Arthritis 716.90 [facility] [id number] [place] [address] 38603- 2994 Feb, [facility] [id number] [place] [address] 54560- 5796 Jan, [facility] [id number] [place] [address] 64720- 2837 Dec, [facility] [id number] [place] [address] 64406- 7246 Oct, [facility] [id number] [place] [address] 55084- 0076 Oct, [facility] [id number] [place] [address] 10790- 5658 Sep, [facility] [id number] [place] [address] 53217- 2458 Sep, [facility] [id number] [place] [address] 497682- 5701 Aug, [facility] [address] [address]- 6926 Aug, [facility] [id number] [place] [address] 23905- 9319 Aug, [facility] [place] [facility] [address] [id number] [place] [address]- 2925 Aug, [facility] [place] [facility] [address] [id number] [place] [address]- 8195 Jul, [facility] [place] [facility] [address] [facility] [id number] [place] [address]- 2138 Jul, [facility] [place] [facility] [address] [id number] [place] [address]- 6311 Jul, [facility] [place] [facility] [address] [id number] [place] [address]- 9166 Jul, [facility] [place] [facility] [address] [id number] [place] [address]- 8012 Jul, [facility] [place] [facility] [address] [id number] [place] [address]- 4526 Jul, [facility] [place] [facility] [address] [id number] [place] [address]- 8051 Jul, [facility] [place] [facility] [address] [id number] [place] [address]- 7212 Jul, [facility] [place] [facility] [address] [id number] [place] [address]- 5294 Jun, [facility] [place] [facility] [address] [id number] [address]- 6428 Jun, [facility] [place] [facility] [address] [id number] [address]- 6864 May, [facility] [place] [facility] [address] [id number] [place] [address]- 0823 May, [facility] [place] [facility] [address] [id number] [address]- 5735 May, [facility] [place] [facility] [address] [id number] [place] [address]- 5576 May, [facility] [place] [facility] [address] [id number] [place] [address]- 0746 Apr, [facility] [place] [facility] [address] [id number] [place] [address]- 7462 Apr, [facility] [place] [facility] [address] [id number] [place] [address]- 5186 Apr, [facility] [place] [facility] [address] [id number] [place] [address]- 9651 Apr, [facility] [place] [facility] [address] [id number] [place] [address]- 3621 Mar, [facility] [place] [facility] [address] [id number] [place] [address]- 3878 Mar, [facility] [place] [facility] [address] [id number] [place] [address]- 2259 Jan, [facility] [place] [facility] [address] [id number] [place] [address]- 3246 Jan, [facility] [place] [facility] [address] [id number] [place] [address]- 9239 November, [facility] [place] [facility] [address] [id number] [place] [address]- 7420 November, [facility] [place] [facility] [address] [id number] [place] [address]- 0277 November, [facility] [place] [facility] [address] [id number] [place] [address]- 8427 November, [facility] [place] [facility] [address] [id number] [place] [address]- 1264 Sep, [facility] [place] [facility] [address] [id number] [place] [address]- 9569 Sep, [facility] [place] [facility] [address] [id number] [place] [address]- 0050 Sep, [facility] [place] [facility] [address] [id number] [place] [address]- 3941 Sep, [facility] [place] [facility] [address] [id number] [place] [address]- 5305 10 Sep, 2013 [facility] [place] [facility] [address] [id number] [place] [address]- 0908 10 Sep, 2013 [facility] [place] [facility] [address] [id number] [place] [address]- 0193 07 Sep, 2013 [facility] [place] [facility] [address] [id number] [place] [address]- 1845 07 Sep, 2013 [facility] [place] [facility] [address] [id number] [place] [address]- 1180 03 Aug, 2013 [facility] [place] [facility] [address] [id number] [place] [address]- 9078 03 Aug, 2013 [facility] [place] [facility] [address] [id number] [place] [address]- 1348 14 Jul, 2013 [facility] [place] [facility] [address] [id number] [place] [address]- 2210 14 Jul, 2013 [facility] [place] [facility] [address] [id number] [place] [address]- 8593 Jul, [facility] [place] [facility] [address] [id number] [place] [address]- 1324 13 Jul, 2013 [facility] [place] [facility] [address] [id number] [place] [address]- 3209 13 Jul, 2013 [facility] [place] [facility] [address] [id number] [address]- 7961 13 Jul, 2013 [facility] [place] [facility] [address] [id number] [place] [address]- 2413 10 Jul, 2013 [facility] [place] [facility] [address] [id number] [place] [address]- 0440 10 Jul, 2013 [facility] [place] [facility] [address] [id number] [address]- 5534 08 May, 2013 [facility] [place] [facility] [address] [id number] [address]- 1284 May, [facility] [place] [facility] [address] [id number] [place] [address]- 9879 May, [facility] [place] [facility] [address] [id number] [place] [address]- 1518 May, [facility] [place] [facility] [address] [facility] [id number] [place] [address]- 7688 Apr, [facility] [place] [facility] [address] [id number] [place] [address]- 2843 10 Apr, 2013 [facility] [place] [facility] [address] [id number] [place] [address]- 4234 Apr, [facility] [place] [facility] [address] [id number] [place] [address]- 2814 Apr, [facility] [address] [place] [address]- 3372 16 Mar, 2013 [facility] [place] [facility] [address] [id number] [place] [address]- 0121 16 Mar, 2013 [facility] [place] [facility] [id number] [place] [address]- 9435 13 Mar, 2013 [facility] [place] [facility] [id number] [place] [address]- 6683 Feb, [facility] [place] [facility] [address] [facility] [id number] [place] [address]- 9385 Jan, [facility] [place] [facility] [address] [facility] [id number] [address]- 6340 Aug, [facility] [place] [facility] [address] [facility] [id number] [place] [address]- 8609 Aug, [facility] [place] [facility] [address] [facility] [id number] [address]- 0354 Jul, [facility] [place] [facility] [address] [facility] [id number] [place] [address]- 2071 Jul, [facility] [place] [facility] [address] [id number] [place] [address]- 3783 Jul, [facility] [place] [facility] [address] [id number] [place] [address]- 7728 Jul, [facility] [place] [facility] [address] [id number] [place] [address]- 8655 Jul, [facility] [place] [facility] [address] [id number] [place] [address]- 3131 Jun, [facility] [place] [facility] [address] [id number] [place] [address]- 4328 Jun, [facility] [place] [facility] [address] [id number] [place] [address]- 7063 May, [facility] [place] [facility] [address] [id number] [place] [address]- 3913 May, [facility] [place] [facility] [address] [id number] [place] [address]- 3573 May, [facility] [place] [facility] [address] [id number] [place] [address]- 9344 May, [facility] [place] [facility] [address] [id number] [place] [address]- 9357 May, [facility] [place] [facility] [address] [id number] [place] [address]- 8412 May, [facility] [place] [facility] [address] [id number] [place] [address]- 4020 Jan, [facility] [place] [facility] [address] [id number] [place] [address]- 9643 Jan, [facility] [place] [facility] [address] [id number] [place] [address]- 0426 Jan, [facility] [place] [facility] [address] [id number] [place] [address]- 8385 Jan, [facility] [place] [facility] [address] [id number] [place] [address]- 0877 Oct, [facility] [place] [facility] [address] [id number] [place] [address]- 7203 Oct, [facility] [place] [facility] [address] [id number] [place] [address]- 9656 Oct, [facility] [place] [facility] [address] [id number] [place] [address]- 6225 Sep, [facility] [place] [facility] [address] [id number] [place] [address]- 3455 Sep, [facility] [place] [facility] [address] [id number] [place] [address]- 0280 Aug, [facility] [place] [facility] [address] [id number] [place] [address]- 0590 Aug, [facility] [place] [facility] [address] [id number] [place] [address]- 8939 Jul, [facility] [place] [facility] [address] [id number] [place] [address]- 3729 Jul, [facility] [place] [facility] [address] [id number] [place] [address]- 1692 Jul, [facility] [place] [facility] [address] [id number] [place] [address]- 5301 Jul, [facility] [place] [facility] [address] [id number] [place] [address]- 7536 Jun, [facility] [place] [facility] [address] [id number] [place] [address]- 9325 Jun, [facility] [place] [facility] [address] [id number] [place] [address]- 6635 Jun, [facility] [place] [facility] [address] [id number] [place] [address]- 3106 May, [facility] [place] [facility] [address] [id number] [place] [address]- 6333 May, [facility] [place] [facility] [address] [id number] [place] [address]- 4708 10 May, 2011 [facility] [address] [id number] [place] [address]- 7268 May, [facility] [address] [id number] [place] [address]- 4212 May, [facility] [address] [id number] [place] [address], [place] [address]- 0124 May, [facility] [address] [id number] [place] [address]- 1558 Apr, [facility] [address] [id number] [place] [address], [place] [address]- 0600 Sep, [facility] [address] [facility] [id number] [place] [address]- 8496 Jul, [facility] [address] [facility] [id number] [place] [address], [place] [address]- 0554 May, [facility] [address] [id number] [place] [address]- 8140 16 May, 2010 [facility] [address] [facility] [id number] [place] [address]- 7727 November, [facility] [address] [facility] [id number] [place] [address]- 5366 Jun, [facility] [address] [facility] [id number] [place] [address]- 7841 May, [facility] [address] [id number] [place] [address]- 3494 May, [facility] [address] [facility] [id number] [place] [address]- 5059 07 May, 2009 [facility] [address] [facility] [id number] [place] [address] 06 May, 2009 [facility] [address] [facility] [id number] [place] [address] Apr, IMMUNIZATIONS No Known Immunizations SOCIAL HISTORY Never Assessed REASON FOR VISIT LAB PLAN OF CARE VITAL SIGNS MEDICATIONS Unknown Medications RESULTS No Results PROCEDURES Procedure Date Ordered Result Body Site [facility] Feb 14, 2017 MELISSA RIVAS* Feb 14, 2017 INSTRUCTIONS MEDICATIONS ADMINISTERED No Known Medications [...]
--- OUTSIDE RECORDS SUMMARY | 2017-11-13 20:57 | XMS REPORT ---
Author Author TOYA LANDRUM [facility] Address [address] [place] [address] Care Team Providers Care Scorer Single Name Role Phone TOYA LANDRUM Unavailable PROBLEMS Type Condition ICD9-CM Code [id number] Code Onset Dates Condition Status SNOMED Code Problem Dysuria R30.0 Active 02536688 Problem PAD (peripheral artery disease) I73.9 Active 894603437 Problem PVD (peripheral vascular disease) I73.9 Active 673719717 Problem Back pain with left-sided sciatica M54.32 Active 43529453 Problem Hypertension, benign I10 Active 13247607 Problem Claudication of lower extremity I73.9 Active 400789044 Problem Other chronic gastritis without hemorrhage K29.50 Active 9072609 ALLERGIES No Information SOCIAL HISTORY Never Assessed [...]
--- OUTSIDE RECORDS SUMMARY | 2017-11-13 20:57 | XMS REPORT ---
Author Author TOYA LANDRUM [facility] Address [address] [place] [address] Care Team Providers Care Special Education Aide Name Role Phone TOYA LANDRUM Unavailable PROBLEMS Type Condition ICD9-CM Code [id number] Code Onset Dates Condition Status SNOMED Code Problem Back pain with left-sided sciatica M54.32 Active 34713051 Problem Hypertension, benign I10 Active 52071144 Problem Dysuria R30.0 Active 02892868 Assessment Hypertension, benign I10 Mar, Active 59253057 ALLERGIES No Known Allergies SOCIAL HISTORY No smoking Hx information available PLAN OF CARE VITAL SIGNS MEDICATIONS No Known Medications RESULTS Name Result Date Reference Range TESTOSTERONE, TOTAL 2016-04-09 Testosterone, Serum [phone] Comment: CBC 2016-04-09 WBC 7.2 3.4-10.8 RBC 5.21 4.14-5.80 Hemoglobin 15.8 12.6-17.7 Hematocrit 46.0 37.5-51.0 MCV 88 79-97 MCH 30.3 26.6-33.0 MCHC 34.3 31.5-35.7 RDW 14.0 12.3-15.4 Platelets 287 150-379 Neutrophils 57 Lymphs 30 Monocytes 9 Eos 3 Basos 1 Neutrophils (Absolute) 4.1 1.4-7.0 Lymphs (Absolute) 2.2 0.7-3.1 Monocytes(Absolute) 0.6 0.1-0.9 Eos (Absolute) 0.2 0.0-0.4 Baso (Absolute) 0.1 0.0-0.2 Immature Granulocytes 0 Immature Grans (Abs) 0.0 0.0-0.1 LIPID PANEL 2016-04-09 Cholesterol, Total 177 100-199 Triglycerides 176 0-149 HDL Cholesterol 27 >39 VLDL Cholesterol Zoran 35 5-40 LDL Cholesterol Calc 115 0-99 Comment: CMP 2016-04-09 Glucose, Serum 94 65-99 BUN 26 8-27 Creatinine, Serum 1.67 0.76-1.27 eGFR If NonAfricn Am 41 >59 eGFR If Africn Am 47 >59 BUN/Creatinine Ratio 16 10-22 Sodium, Serum 142 134-144 Potassium, Serum 5.2 3.5-5.2 Chloride, Serum 103 97-108 Carbon Dioxide, Total 20 18-29 Calcium, Serum 10.1 8.6-10.2 Protein, Total, Serum 8.1 6.0-8.5 Albumin, Serum 4.8 3.5-4.8 Globulin, Total 3.3 1.5-4.5 A/G Ratio 1.5 1.1-2.5 Bilirubin, Total 0.5 0.0-1.2 Alkaline Phosphatase, S 142 39-117 AST (SGOT) 18 0-40 ALT (SGPT) 15 0-44 PROCEDURES Procedure Date Ordered Related Diagnosis Body Site LAB NOT BILLED BY [facility] Apr 09, 2016 VENIPUNCT, ROUTINE* Apr 09, 2016 IMMUNIZATIONS No Known Immunizations
--- OUTSIDE RECORDS SUMMARY | 2017-11-13 20:57 | XMS REPORT ---
Author Author TOYA LANDRUM Organization [employer] Address Unknown Phone Unavailable Care Team Providers Care Prepress Supervisor Name Role Phone TOYA LANDRUM CP Unavailable Allergies No Known Allergies Problems Problem Type Condition Code Onset Dates Condition Status Assessment Low back pain M54.5 Active Medications Medication Code System Code Instructions Start Date End Date Status Dosage Propranolol HCl [facility] [address]-50 40 MG Orally Twice a day Mar 15, 2015 1 tablet Results No Known Results Summary Purpose [employer] Submission
--- OUTSIDE RECORDS SUMMARY | 2017-11-13 20:58 | XMS REPORT ---
Author Author TOYA LANDRUM Organization [employer] Address Unknown Phone Unavailable Care Team Providers Care Farm Product Purchaser Name Role Phone TOYA LANDRUM CP Unavailable Allergies No Known Allergies Problems Problem Type Condition Code Onset Dates Condition Status Problem Hypertension, benign I10 Active Problem Dysuria R30.0 Active Problem Back pain with left-sided sciatica M54.32 Active Medications Medication Code System Code Instructions Start Date End Date Status Dosage [facility] [address]-30 10-325 MG every 6 hrs Sep 09, 2014 1 tablet as needed Results No Known Results Summary Purpose [employer] Submission
--- OUTSIDE RECORDS SUMMARY | 2017-11-13 20:58 | XMS REPORT ---
Author Author TOYA LANDRUM Organization [facility] Address [address] [place] [address] Care Team Providers Care Supervisor Paint Department Name Role Phone TOYA LANDRUM Unavailable PROBLEMS Type Condition ICD9-CM Code JOD02-YX Code Onset Dates Condition Status SNOMED Code Problem Dysuria R30.0 Active 44008423 Problem PAD (peripheral artery disease) I73.9 Active 443357819 Problem PVD (peripheral vascular disease) I73.9 Active 934167555 Problem Back pain with left-sided sciatica M54.32 Active 40227164 Problem Hypertension, benign I10 Active 35906934 Problem Claudication of lower extremity I73.9 Active 587540978 Problem Other chronic gastritis without hemorrhage K29.50 Active 4271907 ALLERGIES No Information ENCOUNTERS Encounter Location Date Diagnosis [facility] [id number] [place] [address] 24758- 9046 Oct, [facility] [address] 12193 -4648 Sep, Cough R05 and Viral URI J06.9 [facility] [id number] [place] [address] 80126- 7860 14 Aug, 2017 Medicare welcome exam Z00.00 [facility] [id number] [place] [address] 94342- 9672 Jun, Medicare welcome exam Z00.00 ; Medicare annual wellness visit, initial Z00.00 and Medicare annual wellness visit, subsequent Z00.00 [facility] [id number] [place] [address] 33746- 6585 May, [facility] [id number] [place] [address] 44284- 0972 Apr, Encounter for immunization Z23 [facility] [address] [id number] [address] 8182 14 Mar, 2017 PAD (peripheral artery disease) I73.9 [facility] [id number] [place] [address] 72222- 5461 11 Mar, 2017 PAD (peripheral artery disease) I73.9 [facility] [id number] [place] [address] 78769- 2921 08 Feb, 2017 Hypertension, benign I10 [facility] [id number] [place] [address] 11698- 6903 Feb, PVD (peripheral vascular disease) I73.9 [place] [id number] [place] [address] 92159- 4063 Feb, PVD (peripheral vascular disease) I73.9 [facility] [id number] [place] [address] 86000 -7317 Jan, Cutaneous horn L85.8 [facility] [id number] [place] [address] 45920- 9853 Dec, Hypertension, benign I10 [facility] [id number] [place] [address] 84067 -4100 November, Puncture wound of right eyeball, initial encounter S05.61XA [place] [id number] [place] [address] 17582- 7247 Oct, Hypertension, benign I10 [facility] [id number] [place] [address] 55287- 8269 Aug, [facility] [id number] [place] [address] 99042- 5487 Aug, [place] [id number] [place] [address] 08953- 2146 Aug, [facility] [id number] [place] [address] 44077- 3003 Aug, [place] [id number] [place] [address] 84860- 3690 17 Aug, 2016 PVD (peripheral vascular disease) I73.9 ; Claudication of lower extremity I73.9 and Back pain with left-sided sciatica M54.32 [place] [id number] [place] [address] 26131- 8387 May, Hypertension, benign I10 ; Back pain with left-sided sciatica M54.32 and Other chronic gastritis without hemorrhage K29.50 [place] [id number] [place] [address] 77776- 1051 Apr, [place] [address] 76042- 4344 29 Mar, 2016 [place] [id number] [place] [address] 67829- 4323 27 Mar, 2016 Hypertension, benign I10 [place] [id number] [place] [address] 01256- 5922 26 Mar, 2016 Hypertension, benign I10 ; Back pain with left-sided sciatica M54.32 and Encounter for immunization Z23 [place] [id number] [place] [address] 91089- 3569 16 Mar, 2016 [place] [id number] [place] [address] 60274- 2421 14 Mar, 2016 [place] [id number] [place] [address] 94499- 8160 Feb, [place] [id number] [place] [address] 49844- 1360 Jan, Renal insufficiency N28.9 [place] [id number] [place] [address] 42993- 5882 Dec, Renal insufficiency N28.9 [place] [id number] [place] [address] 59151- 9435 Dec, Pre-op evaluation Z01.818 [place] [id number] [place] [address] 50768- 5565 November, Renal insufficiency N28.9 [facility] [address] 86563- 1089 Oct, [facility] [id number] [place] [address] 30591- 8193 Oct, Renal insufficiency N28.9 [facility] [address] 95701- 9150 Sep, Bursitis of left elbow M70.32 [facility] [id number] [place] [address] 70370- 1663 Sep, Renal insufficiency N28.9 and Rhinitis J31.0 [facility] [id number] [place] [address] 87733 -0833 Sep, Back pain with left-sided sciatica M54.32 [facility] [address] 47527- 1739 Sep, Pharyngitis, unspecified etiology J02.9 [facility] [id number] [place] [address] 24822- 8326 Aug, [facility] [id number] [place] [address] 42570- 6844 Aug, Renal insufficiency N28.9 [facility] [id number] [place] [address] 80064- 6166 Aug, Hypertension, benign I10 [facility] [id number] [place] [address] 35357- 2190 08 Aug, 2015 Hypertension, benign I10 [facility] [id number] [place] [address] 92495- 8654 Jul, [facility] [id number] [place] [address] 22807- 4012 Jul, Impacted cerumen of left ear H61.22 [facility] [id number] [address]- 9383 May, [facility] [id number] [place] [address] 25234- 2482 Apr, Low back pain M54.5 [facility] [id number] [place] [address] 33675- 0220 Apr, [facility] [address] 35292- 5452 Apr, Low back pain M54.5 and Encounter for immunization Z23 [facility] [address] 25767- 6000 Mar, Tremor 781.0 and Arthritis 716.90 [facility] [id number] [place] [address] 90073- 6342 Feb, [facility] [id number] [place] [address] 06349- 0434 Jan, [facility] [id number] [place] [address] 21943- 9093 Dec, [facility] [id number] [place] [address] 46540- 0210 Oct, [facility] [address] [place] [address] 28385- 2419 Oct, [facility] [id number] [place] [address] 09271- 7112 Sep, [facility] [address] [place] [address] 44705- 2598 Sep, [facility] [id number] [place] [address] 147707- 1498 Aug, [facility] [address] [address]- 3016 Aug, [facility] [id number] [place] [address] 80210- 9687 Aug, [facility] [place] [facility] [address] [id number] [place] [address]- 1319 Aug, [facility] [place] [facility] [address] [id number] [place] [address]- 1103 Jul, [facility] [place] [facility] [address] [facility] [id number] [place] [address]- 1009 Jul, [facility] [place] [facility] [address] [id number] [place] [address]- 0355 Jul, [facility] [place] [facility] [address] [id number] [place] [address]- 9237 Jul, [facility] [place] [facility] [address] [id number] [place] [address]- 9060 Jul, [facility] [place] [facility] [address] [id number] [place] [address]- 7555 Jul, [facility] [place] [facility] [address] [id number] [place] [address]- 8006 Jul, [facility] [place] [facility] [address] [id number] [place] [address]- 2413 Jul, [facility] [place] [facility] [address] [id number] [place] [address]- 3722 Jun, [facility] [place] [facility] [address] [id number] [address]- 3303 Jun, [facility] [place] [facility] [address] [id number] [address]- 2189 May, [facility] [place] [facility] [address] [id number] [place] [address]- 5317 May, [facility] [place] [facility] [address] [id number] [address]- 7052 May, [facility] [place] [facility] [address] [id number] [place] [address]- 5119 May, [facility] [place] [facility] [address] [id number] [place] [address]- 8668 Apr, [facility] [place] [facility] [address] [id number] [place] [address]- 7203 Apr, [facility] [place] [facility] [address] [id number] [place] [address]- 4516 Apr, [facility] [place] [facility] [address] [id number] [place] [address]- 2984 Apr, [facility] [place] [facility] [address] [id number] [place] [address]- 5506 Mar, [facility] [place] [facility] [address] [id number] [place] [address]- 6294 Mar, [facility] [place] [facility] [address] [id number] [place] [address]- 7786 Jan, [facility] [place] [facility] [address] [id number] [place] [address]- 9300 Jan, [facility] [place] [facility] [address] [id number] [place] [address]- 9473 November, [facility] [place] [facility] [address] [id number] [place] [address]- 0504 November, [facility] [place] [facility] [address] [id number] [place] [address]- 8869 November, [facility] [place] [facility] [address] [id number] [place] [address]- 5962 November, [facility] [place] [facility] [address] [id number] [place] [address]- 8213 Sep, [facility] [place] [facility] [address] [id number] [place] [address]- 7919 Sep, [facility] [place] [facility] [address] [id number] [place] [address]- 0839 Sep, [facility] [place] [facility] [address] [id number] [place] [address]- 4723 Sep, [facility] [place] [facility] [address] [id number] [place] [address]- 7486 10 Sep, 2013 [facility] [place] [facility] [address] [id number] [place] [address]- 3707 10 Sep, 2013 [facility] [place] [facility] [address] [id number] [place] [address]- 0599 07 Sep, 2013 [facility] [place] [facility] [address] [id number] [place] [address]- 9292 07 Sep, 2013 [facility] [place] [facility] [address] [id number] [place] [address]- 0264 03 Aug, 2013 [facility] [place] [facility] [address] [id number] [place] [address]- 1668 03 Aug, 2013 [facility] [place] [facility] [address] [id number] [place] [address]- 9360 14 Jul, 2013 [facility] [place] [facility] [address] [id number] [place] [address]- 3423 14 Jul, 2013 [facility] [place] [facility] [address] [id number] [place] [address]- 7427 Jul, [facility] [place] [facility] [address] [id number] [place] [address]- 0770 13 Jul, 2013 [facility] [place] [facility] [address] [id number] [place] [address]- 9109 13 Jul, 2013 [facility] [place] [facility] [address] [id number] [address]- 4462 13 Jul, 2013 [facility] [place] [facility] [address] [id number] [place] [address]- 7082 10 Jul, 2013 [facility] [place] [facility] [address] [id number] [place] [address]- 5194 10 Jul, 2013 [facility] [place] [facility] [address] [id number] [place] [address]- 4063 08 May, 2013 [facility] [place] [facility] [address] [id number] [place] [address]- 0474 May, [facility] [place] [facility] [address] [id number] [place] [address]- 8775 May, [facility] [place] [facility] [address] [id number] [place] [address]- 8592 May, [facility] [place] [facility] [address] [facility] [id number] [place] [address]- 1878 Apr, [facility] [place] [facility] [address] [id number] [place] [address]- 1647 10 Apr, 2013 [facility] [place] [facility] [address] [id number] [place] [address]- 1738 Apr, [facility] [place] [facility] [address] [id number] [place] [address]- 1603 Apr, [facility] [address] [place] [address]- 8048 16 Mar, 2013 [facility] [place] [facility] [address] [id number] [place] [address]- 0199 16 Mar, 2013 [facility] [place] [facility] [id number] [place] [address]- 9965 13 Mar, 2013 [facility] [place] [facility] [id number] [place] [address]- 9330 Feb, [facility] [place] [facility] [address] [facility] [id number] [place] [address]- 1778 Jan, [facility] [place] [facility] [address] [facility] [id number] [place] [address]- 2401 Aug, [facility] [place] [facility] [address] [facility] [id number] [place] [address]- 7756 Aug, [facility] [place] [facility] [address] [facility] [id number] [place] [address]- 4649 Jul, [facility] [place] [facility] [address] [facility] [id number] [place] [address]- 0295 Jul, [facility] [place] [facility] [address] [id number] [place] [address]- 7654 Jul, [facility] [place] [facility] [address] [id number] [place] [address]- 1802 Jul, [facility] [place] [facility] [address] [id number] [place] [address]- 7932 Jul, [facility] [place] [facility] [address] [id number] [place] [address]- 0060 Jun, [facility] [place] [facility] [address] [id number] [place] [address]- 3465 Jun, [facility] [place] [facility] [address] [id number] [place] [address]- 1028 May, [facility] [place] [facility] [address] [id number] [place] [address]- 4085 May, [facility] [place] [facility] [address] [id number] [place] [address]- 6931 May, [facility] [place] [facility] [address] [id number] [place] [address]- 6055 May, [facility] [place] [facility] [address] [id number] [place] [address]- 9063 May, [facility] [place] [facility] [address] [id number] [place] [address]- 2747 May, [facility] [place] [facility] [address] [id number] [place] [address]- 8509 Jan, [facility] [place] [facility] [address] [id number] [place] [address]- 6315 Jan, [facility] [place] [facility] [address] [id number] [place] [address]- 6946 Jan, [facility] [place] [facility] [address] [id number] [place] [address]- 7991 Jan, [facility] [place] [facility] [address] [id number] [place] [address]- 6196 Oct, [facility] [place] [facility] [address] [id number] [place] [address]- 3020 Oct, [facility] [place] [facility] [address] [id number] [place] [address]- 1376 Oct, [facility] [place] [facility] [address] [id number] [place] [address]- 4991 Sep, [facility] [place] [facility] [address] [id number] [place] [address]- 4094 Sep, [facility] [place] [facility] [address] [id number] [place] [address]- 4359 Aug, [facility] [place] [facility] [address] [id number] [place] [address]- 1658 Aug, [facility] [place] [facility] [address] [id number] [place] [address]- 1102 Jul, [facility] [place] [facility] [address] [id number] [place] [address]- 0832 Jul, [facility] [place] [facility] [address] [id number] [place] [address]- 5684 Jul, [facility] [place] [facility] [address] [id number] [place] [address]- 3899 Jul, [facility] [place] [facility] [address] [id number] [place] [address]- 1565 Jun, [facility] [place] [facility] [address] [id number] [place] [address]- 1173 Jun, [facility] [place] [facility] [address] [id number] [place] [address]- 3725 Jun, [facility] [place] [facility] [address] [id number] [place] [address]- 8641 May, [facility] [place] [facility] [address] [id number] [place] [address]- 2676 May, [facility] [place] [facility] [address] [id number] [place] [address]- 7488 10 May, 2011 [facility] [address] [id number] [place] [address]- 8578 May, [facility] [address] [id number] [place] [address]- 4456 May, [facility] [id number] [place] [address], [place] [address]- 0000 May, [facility] [address] [id number] [place] [address]- 3066 Apr, [facility] [address] [id number] [place] [address], [place] [address]- 2569 Sep, [facility] [address] [facility] [id number] [place] [address]- 5106 Jul, [facility] [address] [facility] [id number] [place] [address], [place] [address]- 7936 May, [facility] [address] [id number] [place] [address]- 0664 16 May, 2010 [facility] [address] [facility] [id number] [place] [address]- 6860 November, [facility] [address] [facility] [id number] [place] [address]- 6447 Jun, [facility] [address] [facility] [id number] [place] [address]- 4817 May, [facility] [address] [id number] [place] [address]- 8848 May, [facility] [address] [facility] [id number] [place] [address]- 8002 07 May, 2009 [facility] [address] [facility] [id number] [place] [address]- 9950 06 May, 2009 [facility] [address] [facility] [id number] [place] [address]- 6113 Apr, IMMUNIZATIONS No Known Immunizations SOCIAL HISTORY Never Assessed REASON FOR VISIT lab PLAN OF CARE VITAL SIGNS MEDICATIONS Unknown Medications RESULTS No Results PROCEDURES No Known procedures INSTRUCTIONS MEDICATIONS ADMINISTERED No Known Medications MEDICAL [...]
--- OUTSIDE RECORDS SUMMARY | 2017-11-13 20:58 | XMS REPORT ---
Author Author TOYA LANDRUM [facility] Address [address] [place] [address] Care Team Providers Care Fountain Dispenser Name Role Phone TOYA LANDRUM Unavailable PROBLEMS Type Condition ICD9-CM Code ICR62-DE Code Onset Dates Condition Status SNOMED Code Problem Dysuria R30.0 Active 76773192 Problem PAD (peripheral artery disease) I73.9 Active 527845280 Problem PVD (peripheral vascular disease) I73.9 Active 603449011 Problem Back pain with left-sided sciatica M54.32 Active 43033619 Problem Hypertension, benign I10 Active 57804499 Problem Claudication of lower extremity I73.9 Active 630458853 Problem Other chronic gastritis without hemorrhage K29.50 Active 0146332 ALLERGIES No Information SOCIAL HISTORY Never Assessed [...]
--- OUTSIDE RECORDS SUMMARY | 2017-11-13 20:58 | XMS REPORT ---
Author Author TOYA LANDRUM [facility] Address [address] [place] [address] Care Team Providers Care Gum Cook Name Role Phone TOYA LANDRUM Unavailable PROBLEMS Type Condition ICD9-CM Code VYE89-PT Code Onset Dates Condition Status SNOMED Code Problem Dysuria R30.0 Active 39199714 Problem PAD (peripheral artery disease) I73.9 Active 704388544 Problem PVD (peripheral vascular disease) I73.9 Active 840873303 Problem Back pain with left-sided sciatica M54.32 Active 78540256 Problem Hypertension, benign I10 Active 61314452 Problem Claudication of lower extremity I73.9 Active 297218273 Problem Other chronic gastritis without hemorrhage K29.50 Active 7493559 ALLERGIES No Information SOCIAL HISTORY Never Assessed [...]
--- OUTSIDE RECORDS SUMMARY | 2017-11-13 21:00 | XMS REPORT | Continuity of Care Document ---
Author Author Formerly [facility] Address Unknown Phone Unavailable Allergies Active Description Code Type Severity Reaction Onset Reported/Identified Relationship to Patient Clinical Status Yes aspirin [id number] Drug Allergy Unknown N/A 03/31/2008 Yes hydrochlorothiazide Drug Allergy N/A N/A 06/12/2011 Yes naproxen Drug Allergy N/A N/A 06/12/2011 Yes hydrochlorothiazide Drug Allergy 06/12/2011 Yes naproxen Drug Allergy 06/12/2011 Yes hydrochlorothiazide [id number] Drug Allergy Unknown N/A 01/18/2016 Medications There is no data. 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 05/10/2009 272.4 DYSLIPIDEMIA 05/10/2009 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 05/10/2009 272.4 DYSLIPIDEMIA 05/10/2009 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 05/10/2009 272.4 DYSLIPIDEMIA 05/10/2009 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 05/10/2009 TOYA LANDRUM APRN 272.4 DYSLIPIDEMIA 05/10/2009 TOYA LANDRUM APRN 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 05/10/2009 272.4 DYSLIPIDEMIA 05/10/2009 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 05/10/2009 BRAYDEN G[employer]ERN[employer] OPERATIONS CONSULTANT, JOHANA S 272.4 DYSLIPIDEMIA 05/10/2009 BRAYDEN GOVERNMENT OPERATIONS CONSULTANT, JOHANA S 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 05/10/2009 DAIVLA DO, DAPHNE K 272.4 DYSLIPIDEMIA 05/10/2009 DAVILA DO, DAPHNE K 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 05/10/2009 DIALLO MOSER TOYA T 272.4 DYSLIPIDEMIA 05/10/2009 DIALLO MOSER TOYA T 401.9 COMBINED SYSTOLIC AND DIASTOLIC ELEVATION 05/10/2009 DAVILA DO, DAPHNE K 272.4 DYSLIPIDEMIA 05/10/2009 DAVILA DO, DAPHNE K 401.9 COMBINED SYSTOLIC AND DIASTOLIC ELEVATION 05/10/2009 DIALLO MOSER TOYA T 272.4 DYSLIPIDEMIA 05/10/2009 DIALLO MOSER TOYA T 401.9 COMBINED SYSTOLIC AND DIASTOLIC ELEVATION 05/10/2009 DAVILA DO, DAPHNE K 272.4 DYSLIPIDEMIA 05/10/2009 DAVILA DO, DAPHNE K 401.9 COMBINED SYSTOLIC AND DIASTOLIC ELEVATION 05/10/2009 BRAYDEN GOVERNMENT OPERATIONS CONSULTANT JOHANA S 272.4 DYSLIPIDEMIA 05/10/2009 BRAYDEN GOVERNMENT OPERATIONS CONSULTANT, JOHANA S 401.9 COMBINED SYSTOLIC AND DIASTOLIC ELEVATION 05/10/2009 DIALLO MOSER TOYA T 272.4 DYSLIPIDEMIA 05/10/2009 TOYA LANDRUM APRN T 401.9 COMBINED SYSTOLIC AND DIASTOLIC ELEVATION 05/10/2009 TOYA LANDRUM APRN T 272.4 DYSLIPIDEMIA 05/10/2009 TOYA LANDRUM APRN T 401.9 COMBINED SYSTOLIC AND DIASTOLIC ELEVATION 05/10/2009 TOYA LANDRUM APRN T 272.4 DYSLIPIDEMIA 05/10/2009 DIALLO MOSER TOYA T 401.9 COMBINED SYSTOLIC AND DIASTOLIC ELEVATION 05/10/2009 DAVILA DO, DAPHNE K 272.4 DYSLIPIDEMIA 05/10/2009 DAVILA DO, DAPHNE K 401.9 COMBINED SYSTOLIC AND DIASTOLIC ELEVATION 05/10/2009 ERICA HASSAN MD 272.4 DYSLIPIDEMIA 05/10/2009 ERICA HASSAN MD 401.9 COMBINED SYSTOLIC AND DIASTOLIC ELEVATION 05/10/2009 TOYA LANDRUM APRN T 272.4 DYSLIPIDEMIA 05/10/2009 TOYA LANDRUM APRN T 401.9 COMBINED SYSTOLIC AND DIASTOLIC ELEVATION 05/10/2009 TOYA LANDRUM APRN T 272.4 DYSLIPIDEMIA 05/10/2009 TOYA LANDRUM APRN T 401.9 COMBINED SYSTOLIC AND DIASTOLIC ELEVATION 05/10/2009 TOYA LANDRUM APRN T 272.4 DYSLIPIDEMIA 05/10/2009 TOYA LANDRUM APRN 401.9 COMBINED SYSTOLIC AND DIASTOLIC ELEVATION 05/10/2009 TIMMY DINERO APRNIA R 272.4 DYSLIPIDEMIA 05/10/2009 MELVI DINERO APRN R 401.9 COMBINED SYSTOLIC AND DIASTOLIC ELEVATION 05/10/2009 TOYA LANDRUM APRN 272.4 DYSLIPIDEMIA 05/10/2009 TOYA LANDRUM APRN 401.9 COMBINED SYSTOLIC AND DIASTOLIC ELEVATION 09/01/2009 V72.86 ENCOUNTER FOR BLOOD TYPING 09/01/2009 V72.86 ENCOUNTER FOR BLOOD TYPING 09/01/2009 V72.86 ENCOUNTER FOR BLOOD TYPING 09/01/2009 V72.86 ENCOUNTER FOR BLOOD TYPING 09/01/2009 V72.86 ENCOUNTER FOR BLOOD TYPING 09/01/2009 TOYA LANDRUM APRN V72.86 ENCOUNTER FOR BLOOD TYPING 09/01/2009 V72.86 ENCOUNTER FOR BLOOD TYPING 09/01/2009 V72.86 ENCOUNTER FOR BLOOD TYPING 09/01/2009 V72.86 ENCOUNTER FOR BLOOD TYPING 09/01/2009 TOYA LANDRUM APRN V72.86 ENCOUNTER FOR BLOOD TYPING 09/01/2009 V72.86 ENCOUNTER FOR BLOOD TYPING 09/01/2009 JOHANA OWEN APRN S V72.86 ENCOUNTER FOR BLOOD TYPING 09/01/2009 DAVILA DO, DAPHNE K V72.86 ENCOUNTER FOR BLOOD TYPING 09/01/2009 TOYA LANDRUM APRN V72.86 ENCOUNTER FOR BLOOD TYPING 09/01/2009 LOLA DO, DAPHNE K V72.86 ENCOUNTER FOR BLOOD TYPING 09/01/2009 TOYA LANDRUM APRN V72.86 ENCOUNTER FOR BLOOD TYPING 09/01/2009 DAVILA DO, DAPHNE K V72.86 ENCOUNTER FOR BLOOD TYPING 09/01/2009 JOHANA OWEN APRN S V72.86 ENCOUNTER FOR BLOOD TYPING 09/01/2009 TOYA LANDRUM APRN V72.86 ENCOUNTER FOR BLOOD TYPING 09/01/2009 TOYA LANDRUM APRN V72.86 ENCOUNTER FOR BLOOD TYPING 09/01/2009 TOYA LANDRUM APRN V72.86 ENCOUNTER FOR BLOOD TYPING 09/01/2009 DAVILA DO, DAPHNE K V72.86 ENCOUNTER FOR BLOOD TYPING 09/01/2009 ERICA HASSAN MD V72.86 ENCOUNTER FOR BLOOD TYPING 09/01/2009 TOYA LANDRUM APRN V72.86 ENCOUNTER FOR BLOOD TYPING 09/01/2009 TOYA LANDRUM APRN V72.86 ENCOUNTER FOR BLOOD TYPING 09/01/2009 TOYA LANDRUM APRN V72.86 ENCOUNTER FOR BLOOD TYPING 09/01/2009 MELVI DINERO APRN V72.86 ENCOUNTER FOR BLOOD TYPING 09/01/2009 TOYA LANDRUM APRN V72.86 ENCOUNTER FOR BLOOD TYPING 09/12/2009 465.9 UPPER RESPIRATORY INFECTION 09/12/2009 465.9 UPPER RESPIRATORY INFECTION 09/12/2009 465.9 UPPER RESPIRATORY INFECTION 09/12/2009 465.9 UPPER RESPIRATORY INFECTION 09/12/2009 465.9 UPPER RESPIRATORY INFECTION 09/12/2009 TOYA LANDRUM APRN 465.9 UPPER RESPIRATORY INFECTION 09/12/2009 465.9 UPPER RESPIRATORY INFECTION 09/12/2009 465.9 UPPER RESPIRATORY INFECTION 09/12/2009 465.9 UPPER RESPIRATORY INFECTION 09/12/2009 TOYA LANDRUM APRN 465.9 UPPER RESPIRATORY INFECTION 09/12/2009 465.9 UPPER RESPIRATORY INFECTION 09/12/2009 JOHANA OWEN APRN S 465.9 UPPER RESPIRATORY INFECTION 09/12/2009 DAVILA DO, DAPHNE K 465.9 UPPER RESPIRATORY INFECTION 09/12/2009 TOYA LANDRUM APRN T 465.9 UPPER RESPIRATORY INFECTION 09/12/2009 DAVILA DO, DAPHNE K 465.9 UPPER RESPIRATORY INFECTION 09/12/2009 TOYA LANDRUM APRN T 465.9 UPPER RESPIRATORY INFECTION 09/12/2009 DAVILA DO, DAPHNE K 465.9 UPPER RESPIRATORY INFECTION 09/12/2009 TORRES OWEN APRNA S 465.9 UPPER RESPIRATORY INFECTION 09/12/2009 TOYA LANDRUM APRN 465.9 UPPER RESPIRATORY INFECTION 09/12/2009 TOYA LANDRUM APRN 465.9 UPPER RESPIRATORY INFECTION 09/12/2009 TOYA LANDRUM APRN T 465.9 UPPER RESPIRATORY INFECTION 09/12/2009 DAVILA DO, DAPHNE K 465.9 UPPER RESPIRATORY INFECTION 09/12/2009 ERICA HASSAN MD 465.9 UPPER RESPIRATORY INFECTION 09/12/2009 TOYA LANDRUM APRN 465.9 UPPER RESPIRATORY INFECTION 09/12/2009 TOYA LANDRUM APRN T 465.9 UPPER RESPIRATORY INFECTION 09/12/2009 TOYA LANDRUM APRN T 465.9 UPPER RESPIRATORY INFECTION 09/12/2009 MELVI DINERO APRN 465.9 UPPER RESPIRATORY INFECTION 09/12/2009 DIALLO GOVERNMENT OPERATIONS CONSULTANT, TOYA T 465.9 UPPER RESPIRATORY INFECTION 11/25/2009 466.0 ACUTE BRONCHITIS 11/25/2009 466.0 ACUTE BRONCHITIS 11/25/2009 466.0 ACUTE BRONCHITIS 11/25/2009 466.0 ACUTE BRONCHITIS 11/25/2009 466.0 ACUTE BRONCHITIS 11/25/2009 DIALLO MOSER, TOYA T 466.0 ACUTE BRONCHITIS 11/25/2009 466.0 ACUTE BRONCHITIS 11/25/2009 466.0 ACUTE BRONCHITIS 11/25/2009 466.0 ACUTE BRONCHITIS 11/25/2009 TOYA LANDRUM APRN T 466.0 ACUTE BRONCHITIS 11/25/2009 466.0 ACUTE BRONCHITIS 11/25/2009 BRAYDEN GOVERNMENT OPERATIONS CONSULTANT, JOHANA S 466.0 ACUTE BRONCHITIS 11/25/2009 DAVILA DO, DAPHNE K 466.0 ACUTE BRONCHITIS 11/25/2009 TOYA LANDRUM APRN T 466.0 ACUTE BRONCHITIS 11/25/2009 DAVILA DO, DAPHNE K 466.0 ACUTE BRONCHITIS 11/25/2009 TOYA LANDRUM APRN T 466.0 ACUTE BRONCHITIS 11/25/2009 DAVILA DO, DAPHNE K 466.0 ACUTE BRONCHITIS 11/25/2009 BRAYDEN MOSER JOHANA S 466.0 ACUTE BRONCHITIS 11/25/2009 TOYA LANDRUM APRN T 466.0 ACUTE BRONCHITIS 11/25/2009 TOYA LANDRUM APRN T 466.0 ACUTE BRONCHITIS 11/25/2009 TOYA LANDRUM APRN T 466.0 ACUTE BRONCHITIS 11/25/2009 DAVILA DO, DAPHNE K 466.0 ACUTE BRONCHITIS 11/25/2009 ERICA HASSAN MD 466.0 ACUTE BRONCHITIS 11/25/2009 TOYA LANDRUM APRN T 466.0 ACUTE BRONCHITIS 11/25/2009 TOYA LANDRUM APRN T 466.0 ACUTE BRONCHITIS 11/25/2009 TOYA LANDRUM APRN T 466.0 ACUTE BRONCHITIS 11/25/2009 MELVI DINERO APRN 466.0 ACUTE BRONCHITIS 11/25/2009 TOYA LANDRMU APRN 466.0 ACUTE BRONCHITIS 07/25/2010 V70.0 GENERAL MEDICAL EXAM, ROUTINE, AT HEALTH CARE FACILITY 07/25/2010 V70.0 GENERAL MEDICAL EXAM, ROUTINE, AT HEALTH CARE FACILITY 07/25/2010 V70.0 GENERAL MEDICAL EXAM, ROUTINE, AT HEALTH CARE FACILITY 07/25/2010 V70.0 GENERAL MEDICAL EXAM, ROUTINE, AT HEALTH CARE FACILITY 07/25/2010 V70.0 GENERAL MEDICAL EXAM, ROUTINE, AT HEALTH CARE FACILITY 07/25/2010 TOYA LANDRUM APRN V70.0 GENERAL MEDICAL EXAM, ROUTINE, AT HEALTH CARE FACILITY 07/25/2010 V70.0 GENERAL MEDICAL EXAM, ROUTINE, AT HEALTH CARE FACILITY 07/25/2010 V70.0 GENERAL MEDICAL EXAM, ROUTINE, AT HEALTH CARE FACILITY 07/25/2010 V70.0 GENERAL MEDICAL EXAM, ROUTINE, AT HEALTH CARE FACILITY 07/25/2010 TOYA LANDRUM APRN V70.0 GENERAL MEDICAL EXAM, ROUTINE, AT HEALTH CARE FACILITY 07/25/2010 V70.0 GENERAL MEDICAL EXAM, ROUTINE, AT HEALTH CARE FACILITY 07/25/2010 JOHANA OWEN APRN S V70.0 GENERAL MEDICAL EXAM, ROUTINE, AT HEALTH CARE FACILITY 07/25/2010 JORDON DAVILA DOA K V70.0 GENERAL MEDICAL EXAM, ROUTINE, AT HEALTH CARE FACILITY 07/25/2010 TOYA LANDRUM APRN V70.0 GENERAL MEDICAL EXAM, ROUTINE, AT HEALTH CARE FACILITY 07/25/2010 DAPHNE DAVILA DO K V70.0 GENERAL MEDICAL EXAM, ROUTINE, AT HEALTH CARE FACILITY 07/25/2010 TOYA LANDRUM APRN V70.0 GENERAL MEDICAL EXAM, ROUTINE, AT HEALTH CARE FACILITY 07/25/2010 DAPHNE DAVILA DO K V70.0 GENERAL MEDICAL EXAM, ROUTINE, AT HEALTH CARE FACILITY 07/25/2010 JOHANA OWEN APRN S V70.0 GENERAL MEDICAL EXAM, ROUTINE, AT HEALTH CARE FACILITY 07/25/2010 TOYA LANDRUM APRN V70.0 GENERAL MEDICAL EXAM, ROUTINE, AT HEALTH CARE FACILITY 07/25/2010 TOYA LANDRUM APRN V70.0 GENERAL MEDICAL EXAM, ROUTINE, AT HEALTH CARE FACILITY 07/25/2010 TOYA LANDRUM APRN V70.0 GENERAL MEDICAL EXAM, ROUTINE, AT HEALTH CARE FACILITY 07/25/2010 DAPHNE DAVILA DO K V70.0 GENERAL MEDICAL EXAM, ROUTINE, AT HEALTH CARE FACILITY 07/25/2010 ERICA HASSAN MD V70.0 GENERAL MEDICAL EXAM, ROUTINE, AT HEALTH CARE FACILITY 07/25/2010 TOYA LANDRUM APRN V70.0 GENERAL MEDICAL EXAM, ROUTINE, AT HEALTH CARE FACILITY 07/25/2010 TOYA LANDRUM APRN V70.0 GENERAL MEDICAL EXAM, ROUTINE, AT HEALTH CARE FACILITY 07/25/2010 DIALLO GOVERNMENT OPERATIONS CONSULTANT, TOYA T V70.0 GENERAL MEDICAL EXAM, ROUTINE, AT HEALTH CARE FACILITY 07/25/2010 MELVI DINERO APRN V70.0 GENERAL MEDICAL EXAM, ROUTINE, AT HEALTH CARE FACILITY 07/25/2010 TOYA LANDRUM APRN V70.0 GENERAL MEDICAL EXAM, ROUTINE, AT HEALTH CARE FACILITY 07/26/2010 V03.82 PCV7 PCV13 PCV23, STREPTOCOCCUS PNEUMONIAE [PNEUMOCOCCUS] 07/26/2010 V03.82 PCV7 PCV13 PCV23, STREPTOCOCCUS PNEUMONIAE [PNEUMOCOCCUS] 07/26/2010 V03.82 PCV7 PCV13 PCV23, STREPTOCOCCUS PNEUMONIAE [PNEUMOCOCCUS] 07/26/2010 V03.82 PCV7 PCV13 PCV23, STREPTOCOCCUS PNEUMONIAE [PNEUMOCOCCUS] 07/26/2010 V03.82 PCV7 PCV13 PCV23, STREPTOCOCCUS PNEUMONIAE [PNEUMOCOCCUS] 07/26/2010 TOYA LANDRUM APRN V03.82 PCV7 PCV13 PCV23, STREPTOCOCCUS PNEUMONIAE [PNEUMOCOCCUS] 07/26/2010 V03.82 PCV7 PCV13 PCV23, STREPTOCOCCUS PNEUMONIAE [PNEUMOCOCCUS] 07/26/2010 V03.82 PCV7 PCV13 PCV23, STREPTOCOCCUS PNEUMONIAE [PNEUMOCOCCUS] 07/26/2010 V03.82 PCV7 PCV13 PCV23, STREPTOCOCCUS PNEUMONIAE [PNEUMOCOCCUS] 07/26/2010 TOYA LANDRUM APRN V03.82 PCV7 PCV13 PCV23, STREPTOCOCCUS PNEUMONIAE [PNEUMOCOCCUS] 07/26/2010 V03.82 PCV7 PCV13 PCV23, STREPTOCOCCUS PNEUMONIAE [PNEUMOCOCCUS] 07/26/2010 JOHANA OWEN APRN V03.82 PCV7 PCV13 PCV23, STREPTOCOCCUS PNEUMONIAE [PNEUMOCOCCUS] 07/26/2010 DAPHNE DAVILA DO V03.82 PCV7 PCV13 PCV23, STREPTOCOCCUS PNEUMONIAE [PNEUMOCOCCUS] 07/26/2010 TOYA LANDRUM APRN V03.82 PCV7 PCV13 PCV23, STREPTOCOCCUS PNEUMONIAE [PNEUMOCOCCUS] 07/26/2010 DAPHNE DAVILA DO V03.82 PCV7 PCV13 PCV23, STREPTOCOCCUS PNEUMONIAE [PNEUMOCOCCUS] 07/26/2010 TOYA LANDRUM APRN V03.82 PCV7 PCV13 PCV23, STREPTOCOCCUS PNEUMONIAE [PNEUMOCOCCUS] 07/26/2010 DAPHNE DAVILA DO V03.82 PCV7 PCV13 PCV23, STREPTOCOCCUS PNEUMONIAE [PNEUMOCOCCUS] 07/26/2010 JOHANA OWEN APRN V03.82 PCV7 PCV13 PCV23, STREPTOCOCCUS PNEUMONIAE [PNEUMOCOCCUS] 07/26/2010 TOYA LANDRUM APRN V03.82 PCV7 PCV13 PCV23, STREPTOCOCCUS PNEUMONIAE [PNEUMOCOCCUS] 07/26/2010 TYOA LANDRUM APRN V03.82 PCV7 PCV13 PCV23, STREPTOCOCCUS PNEUMONIAE [PNEUMOCOCCUS] 07/26/2010 TOYA LANDRUM APRN V03.82 PCV7 PCV13 PCV23, STREPTOCOCCUS PNEUMONIAE [PNEUMOCOCCUS] 07/26/2010 DAPHNE DAVILA DO V03.82 PCV7 PCV13 PCV23, STREPTOCOCCUS PNEUMONIAE [PNEUMOCOCCUS] 07/26/2010 ERICA HASSAN MD V03.82 PCV7 PCV13 PCV23, STREPTOCOCCUS PNEUMONIAE [PNEUMOCOCCUS] 07/26/2010 TOYA LANDRUM APRN V03.82 PCV7 PCV13 PCV23, STREPTOCOCCUS PNEUMONIAE [PNEUMOCOCCUS] 07/26/2010 TOYA LANDRUM APRN V03.82 PCV7 PCV13 PCV23, STREPTOCOCCUS PNEUMONIAE [PNEUMOCOCCUS] 07/26/2010 TOYA LANDRUM APRN V03.82 PCV7 PCV13 PCV23, STREPTOCOCCUS PNEUMONIAE [PNEUMOCOCCUS] 07/26/2010 MELVI DINERO APRN V03.82 PCV7 PCV13 PCV23, STREPTOCOCCUS PNEUMONIAE [PNEUMOCOCCUS] 07/26/2010 TOYA LANDRUM APRN V03.82 PCV7 PCV13 PCV23, STREPTOCOCCUS PNEUMONIAE [PNEUMOCOCCUS] 09/18/2010 305.1 TOBACCO ABUSE 09/18/2010 305.1 TOBACCO ABUSE 09/18/2010 305.1 TOBACCO ABUSE 09/18/2010 305.1 TOBACCO ABUSE 09/18/2010 305.1 TOBACCO ABUSE 09/18/2010 TOYA LANDRUM APRN 305.1 TOBACCO ABUSE 09/18/2010 305.1 TOBACCO ABUSE 09/18/2010 305.1 TOBACCO ABUSE 09/18/2010 305.1 TOBACCO ABUSE 09/18/2010 TOYA LANDRUM APRN 305.1 TOBACCO ABUSE 09/18/2010 305.1 TOBACCO ABUSE 09/18/2010 JOHANA OWEN APRN 305.1 TOBACCO ABUSE 09/18/2010 DAPHNE DAVILA DO 305.1 TOBACCO ABUSE 09/18/2010 TOYA LANDRUM APRN 305.1 TOBACCO ABUSE 09/18/2010 DAPHNE DAVILA DO 305.1 TOBACCO ABUSE 09/18/2010 TOYA LANDRUM APRN 305.1 TOBACCO ABUSE 09/18/2010 DAVILA DO, DAPHNE K 305.1 TOBACCO ABUSE 09/18/2010 JOHANA OWEN APRN 305.1 TOBACCO ABUSE 09/18/2010 TOYA LANDRUM APRN 305.1 TOBACCO ABUSE 09/18/2010 TOYA LANDRUM APRN 305.1 TOBACCO ABUSE 09/18/2010 TOYA LANDRUM APRN T 305.1 TOBACCO ABUSE 09/18/2010 DAVILA DO DAPHNE K 305.1 TOBACCO ABUSE 09/18/2010 ERICA HASSAN MD 305.1 TOBACCO ABUSE 09/18/2010 TOYA LANDRUM APRN 305.1 TOBACCO ABUSE 09/18/2010 TOYA LANDRUM APRN 305.1 TOBACCO ABUSE 09/18/2010 TOYA LANDRUM APRN 305.1 TOBACCO ABUSE 09/18/2010 MELVI DINERO APRN 305.1 TOBACCO ABUSE 09/18/2010 TOYA LANDRUM APRN 305.1 TOBACCO ABUSE 06/12/2011 586 RENAL FAILURE UNSPECIFIED 06/12/2011 719.47 FOOT PAIN 06/12/2011 586 RENAL FAILURE UNSPECIFIED 06/12/2011 719.47 FOOT PAIN 06/12/2011 586 RENAL FAILURE UNSPECIFIED 06/12/2011 719.47 FOOT PAIN 06/12/2011 586 RENAL FAILURE UNSPECIFIED 06/12/2011 719.47 FOOT PAIN 06/12/2011 586 RENAL FAILURE UNSPECIFIED 06/12/2011 719.47 FOOT PAIN 06/12/2011 TOYA LANDRUM APRN 586 RENAL FAILURE UNSPECIFIED 06/12/2011 TOYA LANDRUM APRN 719.47 FOOT PAIN 06/12/2011 586 RENAL FAILURE UNSPECIFIED 06/12/2011 719.47 FOOT PAIN 06/12/2011 586 RENAL FAILURE UNSPECIFIED 06/12/2011 719.47 FOOT PAIN 06/12/2011 586 RENAL FAILURE UNSPECIFIED 06/12/2011 719.47 FOOT PAIN 06/12/2011 TOYA LANDRUM APRN 586 RENAL FAILURE UNSPECIFIED 06/12/2011 TOYA LANDRUM APRN 719.47 FOOT PAIN 06/12/2011 586 RENAL FAILURE UNSPECIFIED 06/12/2011 719.47 FOOT PAIN 06/12/2011 JOHANA OWEN APRN S 586 RENAL FAILURE UNSPECIFIED 06/12/2011 BRADYEN GOVERNMENT OPERATIONS CONSULTANT, JOHANA S 719.47 FOOT PAIN 06/12/2011 DAVILA DO, DAPHNE K 586 RENAL FAILURE UNSPECIFIED 06/12/2011 DAVILA DO, DAPHNE K 719.47 FOOT PAIN 06/12/2011 TOYA LANDRUM APRN T 586 RENAL FAILURE UNSPECIFIED 06/12/2011 TOYA LANDRUM APRN T 719.47 FOOT PAIN 06/12/2011 DAVILA DO, DAPHNE K 586 RENAL FAILURE UNSPECIFIED 06/12/2011 DAVILA DO, DAPHNE K 719.47 FOOT PAIN 06/12/2011 TOYA LANDRUM APRN T 586 RENAL FAILURE UNSPECIFIED 06/12/2011 TOYA LANDRUM APRN T 719.47 FOOT PAIN 06/12/2011 DAVILA DO, DAPHNE K 586 RENAL FAILURE UNSPECIFIED 06/12/2011 DAVILA DO, DAPHNE K 719.47 FOOT PAIN 06/12/2011 BRAYDEN MOSER JOHANA S 586 RENAL FAILURE UNSPECIFIED 06/12/2011 BRAYDEN MOSER JOHANA S 719.47 FOOT PAIN 06/12/2011 TOYA LANDRUM APRN T 586 RENAL FAILURE UNSPECIFIED 06/12/2011 TOYA LANDRUM APRN 719.47 FOOT PAIN 06/12/2011 TOYA LANDRUM APRN T 586 RENAL FAILURE UNSPECIFIED 06/12/2011 TOYA LANDRUM APRN T 719.47 FOOT PAIN 06/12/2011 TOYA LANDRUM APRN T 586 RENAL FAILURE UNSPECIFIED 06/12/2011 TOYA LANDRUM APRN 719.47 FOOT PAIN 06/12/2011 DAVILA DO, DAPHNE K 586 RENAL FAILURE UNSPECIFIED 06/12/2011 DAVILA DO, DAPHNE K 719.47 FOOT PAIN 06/12/2011 ERICA HASSAN MD RENAL FAILURE UNSPECIFIED 06/12/2011 ERICA HASSAN MD 719.47 FOOT PAIN 06/12/2011 TOYA LANDRUM APRN T 586 RENAL FAILURE UNSPECIFIED 06/12/2011 TOYA LANDRUM APRN 719.47 FOOT PAIN 06/12/2011 TOYA LANDRUM APRN T 586 RENAL FAILURE UNSPECIFIED 06/12/2011 TOYA LANDRUM APRN 719.47 FOOT PAIN 06/12/2011 TOYA LANDRUM APRN T 586 RENAL FAILURE UNSPECIFIED 06/12/2011 TOYA LANDRUM APRN 719.47 FOOT PAIN 06/12/2011 ROSETTE MOSER, MELVI R 586 RENAL FAILURE UNSPECIFIED 06/12/2011 ROSETTE MOSER, MELVI R 719.47 FOOT PAIN 06/12/2011 TOYA LANDRUM APRN T 586 RENAL FAILURE UNSPECIFIED 06/12/2011 DIALLO MOSER TOYA T 719.47 FOOT PAIN 06/24/2011 465.9 UPPER RESPIRATORY INFECTION 06/24/2011 465.9 UPPER RESPIRATORY INFECTION 06/24/2011 465.9 UPPER RESPIRATORY INFECTION 06/24/2011 465.9 UPPER RESPIRATORY INFECTION 06/24/2011 465.9 UPPER RESPIRATORY INFECTION 06/24/2011 TOYA LANDRUM APRN T 465.9 UPPER RESPIRATORY INFECTION 06/24/2011 465.9 UPPER RESPIRATORY INFECTION 06/24/2011 465.9 UPPER RESPIRATORY INFECTION 06/24/2011 465.9 UPPER RESPIRATORY INFECTION 06/24/2011 TOYA LANDRUM APRN T 465.9 UPPER RESPIRATORY INFECTION 06/24/2011 465.9 UPPER RESPIRATORY INFECTION 06/24/2011 BRAYDEN HUTCHISONN JOHANA S 465.9 UPPER RESPIRATORY INFECTION 06/24/2011 DAVILA DO, DAPHNE K 465.9 UPPER RESPIRATORY INFECTION 06/24/2011 DIALLO MOSER TOYA T 465.9 UPPER RESPIRATORY INFECTION 06/24/2011 DAVILA DO, DAPHNE K 465.9 UPPER RESPIRATORY INFECTION 06/24/2011 TOYA LANDRUM APRN T 465.9 UPPER RESPIRATORY INFECTION 06/24/2011 DAVILA DO, DAPHNE K 465.9 UPPER RESPIRATORY INFECTION 06/24/2011 BRAYDEN HUTCHISONN JOHANA S 465.9 UPPER RESPIRATORY INFECTION 06/24/2011 TOYA LANDRUM APRN T 465.9 UPPER RESPIRATORY INFECTION 06/24/2011 TOYA LANDRUM APRN T 465.9 UPPER RESPIRATORY INFECTION 06/24/2011 DIALLO MOSER TOYA T 465.9 UPPER RESPIRATORY INFECTION 06/24/2011 DAVILA DO, DAPHNE K 465.9 UPPER RESPIRATORY INFECTION 06/24/2011 ERICA HASSAN MD 465.9 UPPER RESPIRATORY INFECTION 06/24/2011 TOYA LANDRUM APRN T 465.9 UPPER RESPIRATORY INFECTION 06/24/2011 TOYA LANDRUM APRN T 465.9 UPPER RESPIRATORY INFECTION 06/24/2011 TOYA LANDRUM APRN T 465.9 UPPER RESPIRATORY INFECTION 06/24/2011 TIMMY DINERO APRNIA R 465.9 UPPER RESPIRATORY INFECTION 06/24/2011 TOYA LANDRUM APRN T 465.9 UPPER RESPIRATORY INFECTION 10/11/2011 735.0 HALLUX VALGUS (ACQUIRED) 10/11/2011 735.2 HALLUX RIGIDUS 10/11/2011 735.4 HAMMER TOE ( ACQUIRED) 10/11/2011 735.0 HALLUX VALGUS (ACQUIRED) 10/11/2011 735.2 HALLUX RIGIDUS 10/11/2011 735.4 HAMMER TOE ( ACQUIRED) 10/11/2011 735.0 HALLUX VALGUS (ACQUIRED) 10/11/2011 735.2 HALLUX RIGIDUS 10/11/2011 735.4 HAMMER TOE ( ACQUIRED) 10/11/2011 735.0 HALLUX VALGUS (ACQUIRED) 10/11/2011 735.2 HALLUX RIGIDUS 10/11/2011 735.4 HAMMER TOE ( ACQUIRED) 10/11/2011 735.0 HALLUX VALGUS (ACQUIRED) 10/11/2011 735.2 HALLUX RIGIDUS 10/11/2011 735.4 HAMMER TOE ( ACQUIRED) 10/11/2011 TOYA LANDRUM APRN 735.0 HALLUX VALGUS (ACQUIRED) 10/11/2011 TOYA LANDRUM APRN 735.2 HALLUX RIGIDUS 10/11/2011 TOYA LANDRUM APRN 735.4 HAMMER TOE (ACQUIRED) 10/11/2011 735.0 HALLUX VALGUS (ACQUIRED) 10/11/2011 735.2 HALLUX RIGIDUS 10/11/2011 735.4 HAMMER TOE ( ACQUIRED) 10/11/2011 735.0 HALLUX VALGUS (ACQUIRED) 10/11/2011 735.2 HALLUX RIGIDUS 10/11/2011 735.4 HAMMER TOE ( ACQUIRED) 10/11/2011 735.0 HALLUX VALGUS (ACQUIRED) 10/11/2011 735.2 HALLUX RIGIDUS 10/11/2011 735.4 HAMMER TOE ( ACQUIRED) 10/11/2011 TOYA LANDRUM APRN 735.0 HALLUX VALGUS (ACQUIRED) 10/11/2011 TOYA LANDRUM APRN 735.2 HALLUX RIGIDUS 10/11/2011 TOYA LANDRUM APRN 735.4 HAMMER TOE (ACQUIRED) 10/11/2011 735.0 HALLUX VALGUS (ACQUIRED) 10/11/2011 735.2 HALLUX RIGIDUS 10/11/2011 735.4 HAMMER TOE ( ACQUIRED) 10/11/2011 TORRES OWEN APRNA S 735.0 HALLUX VALGUS (ACQUIRED) 10/11/2011 BRAYDEN MOSER JOHANA S 735.2 HALLUX RIGIDUS 10/11/2011 BRAYDEN MOSER JOHANA S 735.4 HAMMER TOE (ACQUIRED) 10/11/2011 DAVILA DO DAPHNE K 735.0 HALLUX VALGUS (ACQUIRED) 10/11/2011 DAVILA DO, DAPHNE K 735.2 HALLUX RIGIDUS 10/11/2011 DAVILA DO, DAPHNE K 735.4 HAMMER TOE (ACQUIRED) 10/11/2011 TOYA LANDRUM APRN 735.0 HALLUX VALGUS (ACQUIRED) 10/11/2011 TOYA LANDRUM APRN 735.2 HALLUX RIGIDUS 10/11/2011 TOYA LANDRUM APRN 735.4 HAMMER TOE (ACQUIRED) 10/11/2011 LOLA GAYTAN DAPHNE K 735.0 HALLUX VALGUS (ACQUIRED) 10/11/2011 DAVILA DO DAPHNE K 735.2 HALLUX RIGIDUS 10/11/2011 LOLA GAYTAN DAPHNE K 735.4 HAMMER TOE (ACQUIRED) 10/11/2011 TOYA LANDRUM APRN 735.0 HALLUX VALGUS (ACQUIRED) 10/11/2011 TOYA LANDRUM APRN 735.2 HALLUX RIGIDUS 10/11/2011 TOYA LANDRUM APRN 735.4 HAMMER TOE (ACQUIRED) 10/11/2011 LOLA GAYTAN DAPHNE K 735.0 HALLUX VALGUS (ACQUIRED) 10/11/2011 DAVILA DO DAPHNE K 735.2 HALLUX RIGIDUS 10/11/2011 DAVILA DO DAPHNE K 735.4 HAMMER TOE (ACQUIRED) 10/11/2011 ELE OWEN APRNNDA S 735.0 HALLUX VALGUS (ACQUIRED) 10/11/2011 ELE OWEN APRNNDA S 735.2 HALLUX RIGIDUS 10/11/2011 ELE OWEN APRNNDA S 735.4 HAMMER TOE (ACQUIRED) 10/11/2011 TOYA LANDRUM APRN 735.0 HALLUX VALGUS (ACQUIRED) 10/11/2011 TOYA LANDRUM APRN 735.2 HALLUX RIGIDUS 10/11/2011 TOYA LANDRUM APRN 735.4 HAMMER TOE (ACQUIRED) 10/11/2011 TOYA LANDRUM APRN 735.0 HALLUX VALGUS (ACQUIRED) 10/11/2011 TOYA LANDRUM APRN 735.2 HALLUX RIGIDUS 10/11/2011 TOYA LANDRUM APRN 735.4 HAMMER TOE (ACQUIRED) 10/11/2011 TOYA LANDRUM APRN 735.0 HALLUX VALGUS (ACQUIRED) 10/11/2011 TOYA LANDRUM APRN 735.2 HALLUX RIGIDUS 10/11/2011 TOYA LANDRUM APRN 735.4 HAMMER TOE (ACQUIRED) 10/11/2011 DAVILA DO DAPHNE K 735.0 HALLUX VALGUS (ACQUIRED) 10/11/2011 DAVILA DO DAPHNE K 735.2 HALLUX RIGIDUS 10/11/2011 DAVILA DO DAPHNE K 735.4 HAMMER TOE (ACQUIRED) 10/11/2011 ERICA HASSAN MD 735.0 HALLUX VALGUS (ACQUIRED) 10/11/2011 ERICA HASSAN MD 735.2 HALLUX RIGIDUS 10/11/2011 ERICA HASSAN MD 735.4 HAMMER TOE (ACQUIRED) 10/11/2011 TOYA LANDRUM APRN 735.0 HALLUX VALGUS (ACQUIRED) 10/11/2011 TOYA LANDRUM APRN 735.2 HALLUX RIGIDUS 10/11/2011 TOYA LANDRUM APRN 735.4 HAMMER TOE (ACQUIRED) 10/11/2011 TOYA LANDRUM APRN 735.0 HALLUX VALGUS (ACQUIRED) 10/11/2011 TOYA LANDRUM APRN 735.2 HALLUX RIGIDUS 10/11/2011 TOYA LANDRUM APRN 735.4 HAMMER TOE (ACQUIRED) 10/11/2011 TOYA LANDRUM APRN 735.0 HALLUX VALGUS (ACQUIRED) 10/11/2011 TOYA LANDRUM APRN 735.2 HALLUX RIGIDUS 10/11/2011 TOYA LANDRUM APRN 735.4 HAMMER TOE (ACQUIRED) 10/11/2011 MELVI DINERO APRN 735.0 HALLUX VALGUS (ACQUIRED) 10/11/2011 MELVI DINERO APRN R 735.2 HALLUX RIGIDUS 10/11/2011 MELVI DINERO APRN R 735.4 HAMMER TOE (ACQUIRED) 10/11/2011 TOYA LANDRUM APRN 735.0 HALLUX VALGUS (ACQUIRED) 10/11/2011 TOYA LANDRUM APRN 735.2 HALLUX RIGIDUS 10/11/2011 TOYA LANDRUM APRN 735.4 HAMMER TOE (ACQUIRED) 12/23/2011 Ot 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 12/23/2011 Ot 735.0 HALLUX VALGUS 12/23/2011 Ot 735.2 HALLUX RIGIDUS 12/23/2011 Ot 735.4 OTHER HAMMER TOE 12/23/2011 Ot V58.69 OTH MED,LT, CURRENT USE 06/09/2012 V04.81 FLU DX ( MEDICARE ONLY) 06/09/2012 V04.81 FLU DX ( MEDICARE ONLY) 06/09/2012 V04.81 FLU DX ( MEDICARE ONLY) 06/09/2012 V04.81 FLU DX ( MEDICARE ONLY) 06/09/2012 V04.81 FLU DX ( MEDICARE ONLY) 06/09/2012 TOYA LANDRUM APRN V04.81 FLU DX (MEDICARE ONLY) 06/09/2012 V04.81 FLU DX ( MEDICARE ONLY) 06/09/2012 V04.81 FLU DX ( MEDICARE ONLY) 06/09/2012 V04.81 FLU DX ( MEDICARE ONLY) 06/09/2012 TOYA LANDRUM APRN V04.81 FLU DX (MEDICARE ONLY) 06/09/2012 V04.81 FLU DX ( MEDICARE ONLY) 06/09/2012 JOHANA OWEN APRN V04.81 FLU DX (MEDICARE ONLY) 06/09/2012 LOLA DOJORDONA K V04.81 FLU DX (MEDICARE ONLY) 06/09/2012 TOYA LANDRUM APRN V04.81 FLU DX (MEDICARE ONLY) 06/09/2012 LOLA DOJORDONA K V04.81 FLU DX (MEDICARE ONLY) 06/09/2012 TOYA LANDRUM APRN V04.81 FLU DX (MEDICARE ONLY) 06/09/2012 DAVILA DO DAPHNE K V04.81 FLU DX (MEDICARE ONLY) 06/09/2012 BRAYDEN GOVERNMENT OPERATIONS CONSULTANT, JOHANA S V04.81 FLU DX (MEDICARE ONLY) 06/09/2012 TOYA LANDRUM APRN V04.81 FLU DX (MEDICARE ONLY) 06/09/2012 TOYA LANDRUM APRN V04.81 FLU DX (MEDICARE ONLY) 06/09/2012 TOYA LANDRUM APRN V04.81 FLU DX (MEDICARE ONLY) 06/09/2012 DAPHNE DAVILA DO V04.81 FLU DX (MEDICARE ONLY) 06/09/2012 ERICA HASSAN MD V04.81 FLU DX (MEDICARE ONLY) 06/09/2012 TOYA LANDRUM APRN V04.81 FLU DX (MEDICARE ONLY) 06/09/2012 TOYA LANDRUM APRN V04.81 FLU DX (MEDICARE ONLY) 06/09/2012 TOYA LANDRUM APRN V04.81 FLU DX (MEDICARE ONLY) 06/09/2012 MELVI DINERO APRN V04.81 FLU DX (MEDICARE ONLY) 06/09/2012 TOYA LANDRUM APRN V04.81 FLU DX (MEDICARE ONLY) 07/20/2012 V81.1 HYPERTENSION SCREENING 07/20/2012 V81.1 HYPERTENSION SCREENING 07/20/2012 V81.1 HYPERTENSION SCREENING 07/20/2012 TOYA LANDRUM APRN V81.1 HYPERTENSION SCREENING 07/20/2012 V81.1 HYPERTENSION SCREENING 07/20/2012 V81.1 HYPERTENSION SCREENING 07/20/2012 V81.1 HYPERTENSION SCREENING 07/20/2012 V81.1 HYPERTENSION SCREENING 07/20/2012 JOHANA OWEN APRN S V81.1 HYPERTENSION SCREENING 07/20/2012 DAVILA DAPHNE GAYTAN K V81.1 HYPERTENSION SCREENING 07/20/2012 TOYA LANDRUM APRN T V81.1 HYPERTENSION SCREENING 07/20/2012 DAVILA DOJORDONA K V81.1 HYPERTENSION SCREENING 07/20/2012 TOYA LANDRUM APRN V81.1 HYPERTENSION SCREENING 07/20/2012 DAVILA DOJORDONA K V81.1 HYPERTENSION SCREENING 07/20/2012 JOHANA OWEN APRN S V81.1 HYPERTENSION SCREENING 07/20/2012 TOYA LANDRUM APRN V81.1 HYPERTENSION SCREENING 07/20/2012 TOYA LANDRUM APRN V81.1 HYPERTENSION SCREENING 07/20/2012 TOYA LANDRUM APRN V81.1 HYPERTENSION SCREENING 07/20/2012 DAVILA DO, DAPHNE K V81.1 HYPERTENSION SCREENING 07/20/2012 ERICA HASSAN MD V81.1 HYPERTENSION SCREENING 07/20/2012 TOYA LANDRUM APRN V81.1 HYPERTENSION SCREENING 07/20/2012 TOYA LANDRUM APRN V81.1 HYPERTENSION SCREENING 07/20/2012 TOYA LANDRUM APRN V81.1 HYPERTENSION SCREENING 07/20/2012 MELVI DINERO APRN R V81.1 HYPERTENSION SCREENING 07/20/2012 TOYA LANDRUM APRN V81.1 HYPERTENSION SCREENING 08/04/2012 TOYA LANDRUM APRN T 401.1 HYPERTENSION, BENIGN ESSENTIAL 08/04/2012 401.1 HYPERTENSION, BENIGN ESSENTIAL 08/04/2012 401.1 HYPERTENSION, BENIGN ESSENTIAL 08/04/2012 401.1 HYPERTENSION, BENIGN ESSENTIAL 08/04/2012 401.1 HYPERTENSION, BENIGN ESSENTIAL 08/04/2012 TORRES OWEN APRNA S 401.1 HYPERTENSION, BENIGN ESSENTIAL 08/04/2012 DAVILA DO, DAPHNE K 401.1 HYPERTENSION, BENIGN ESSENTIAL 08/04/2012 TOYA LANDRUM APRN T 401.1 HYPERTENSION, BENIGN ESSENTIAL 08/04/2012 LOLA DO, DAPHNE K 401.1 HYPERTENSION, BENIGN ESSENTIAL 08/04/2012 TOYA LANDRUM APRN T 401.1 HYPERTENSION, BENIGN ESSENTIAL 08/04/2012 DAVILA DO, DAPHNE K 401.1 HYPERTENSION, BENIGN ESSENTIAL 08/04/2012 TORRES OWEN APRNA S 401.1 HYPERTENSION, BENIGN ESSENTIAL 08/04/2012 TOYA LANDRUM APRN T 401.1 HYPERTENSION, BENIGN ESSENTIAL 08/04/2012 TOYA LANDRUM APRN 401.1 HYPERTENSION, BENIGN ESSENTIAL 08/04/2012 TOYA LANDRUM APRN T 401.1 HYPERTENSION, BENIGN ESSENTIAL 08/04/2012 DAVILA DO, DAPHNE K 401.1 HYPERTENSION, BENIGN ESSENTIAL 08/04/2012 ERICA HASSAN MD 401.1 HYPERTENSION, BENIGN ESSENTIAL 08/04/2012 TOYA LANDRUM APRN T 401.1 HYPERTENSION, BENIGN ESSENTIAL 08/04/2012 TOYA LANDRUM APRN T 401.1 HYPERTENSION, BENIGN ESSENTIAL 08/04/2012 TOYA LANDRUM APRN 401.1 HYPERTENSION, BENIGN ESSENTIAL 08/04/2012 MELVI DINERO APRN R 401.1 HYPERTENSION, BENIGN ESSENTIAL 08/04/2012 TOYA LANDRUM APRN T 401.1 HYPERTENSION, BENIGN ESSENTIAL 01/27/2013 692.6 POISON MONICA 01/27/2013 692.6 POISON MONICA 01/27/2013 JOHANA OWEN APRN S 692.6 POISON MONICA 01/27/2013 DAVILA DO, DAPHNE K 692.6 POISON MONICA 01/27/2013 TOYA LANDRUM APRN 692.6 POISON MONICA 01/27/2013 DAVILA DO, DAPHNE K 692.6 POISON MONICA 01/27/2013 TOYA LANDRUM APRN 692.6 POISON MONICA 01/27/2013 DAVILA DO, DAPHNE K 692.6 POISON MONICA 01/27/2013 JOHANA OWEN APRN 692.6 POISON MONICA 01/27/2013 TOYA LANDRUM APRN 692.6 POISON MONICA 01/27/2013 TOYA LANDRUM APRN 692.6 POISON MONICA 01/27/2013 TOYA LANDRUM APRN 692.6 POISON MONICA 01/27/2013 DAVILA DO, DAPHNE K 692.6 POISON MONICA 01/27/2013 ERICA HASSAN MD 692.6 POISON MONICA 01/27/2013 TOYA LANDRUM APRN 692.6 POISON MONICA 01/27/2013 TOYA LANDRUM APRN 692.6 POISON MONICA 01/27/2013 TOYA LANDRUM APRN 692.6 POISON MONICA 01/27/2013 MELVI DINERO APRN 692.6 POISON MONICA 01/27/2013 TOYA LANDRUM APRN 692.6 POISON MONICA 03/26/2013 724.3 SCIATICA 03/26/2013 783.21 WEIGHT LOSS 03/26/2013 JOHANA OWEN APRN S 724.3 SCIATICA 03/26/2013 JOHANA OWEN APRN S 783.21 WEIGHT LOSS 03/26/2013 DAVILA DO, DAPHNE K 724.3 SCIATICA 03/26/2013 DAVILA DO, DAPHNE K 783.21 WEIGHT LOSS 03/26/2013 TOYA LANDRUM APRN 724.3 SCIATICA 03/26/2013 TOYA LANDRUM APRN 783.21 WEIGHT LOSS 03/26/2013 DAVILA DO, DAPHNE K 724.3 SCIATICA 03/26/2013 DAVILA DO, DAPHNE K 783.21 WEIGHT LOSS 03/26/2013 TOYA LANDRUM APRN 724.3 SCIATICA 03/26/2013 TOYA LANDRUM APRN 783.21 WEIGHT LOSS 03/26/2013 DAVILA DO, DAPNHE K 724.3 SCIATICA 03/26/2013 DAVILA DO, DAPHNE K 783.21 WEIGHT LOSS 03/26/2013 BRAYDEN MOSER JOHANA S 724.3 SCIATICA 03/26/2013 BRAYDEN MOSER JOHANA S 783.21 WEIGHT LOSS 03/26/2013 TOYA LANDRUM APRN 724.3 SCIATICA 03/26/2013 TOYA LANDRUM APRN 783.21 WEIGHT LOSS 03/26/2013 TOYA LANDRUM APRN 724.3 SCIATICA 03/26/2013 TOYA LANDRUM APRN 783.21 WEIGHT LOSS 03/26/2013 TOYA LANDRUM APRN 724.3 SCIATICA 03/26/2013 TOYA LANDRUM APRN 783.21 WEIGHT LOSS 03/26/2013 DAVILA DO, DAPHNE K 724.3 SCIATICA 03/26/2013 DAVILA DO, DAPHNE K 783.21 WEIGHT LOSS 03/26/2013 ERICA HASSAN MD 724.3 SCIATICA 03/26/2013 ERICA HASSAN MD 783.21 WEIGHT LOSS 03/26/2013 TOYA LANDRUM APRN 724.3 SCIATICA 03/26/2013 TOYA LANDRUM APRN 783.21 WEIGHT LOSS 03/26/2013 TOYA LANDRUM APRN 724.3 SCIATICA 03/26/2013 TOYA LANDRUM APRN 783.21 WEIGHT LOSS 03/26/2013 TOYA LANDRUM APRN 724.3 SCIATICA 03/26/2013 TOYA LANDRUM APRN 783.21 WEIGHT LOSS 03/26/2013 MELVI DINERO APRN R 724.3 SCIATICA 03/26/2013 MELVI DINERO APRN R 783.21 WEIGHT LOSS 03/26/2013 TOYA LANDRUM APRN 724.3 SCIATICA 03/26/2013 TOYA LANDRUM APRN 783.21 WEIGHT LOSS 09/24/2013 TOYA LANDRUM APRN 724.2 BACK PAIN, LOWER 09/24/2013 DAVILA DO, DAPHNE K 724.2 BACK PAIN, LOWER 09/24/2013 JOHANA OWEN APRN S 724.2 BACK PAIN, LOWER 09/24/2013 TOYA LANDRUM APRN T 724.2 BACK PAIN, LOWER 09/24/2013 TOYA LANDRUM APRN T 724.2 BACK PAIN, LOWER 09/24/2013 TOYA LANDRUM APRN T 724.2 BACK PAIN, LOWER 09/24/2013 LOLA GAYTAN, DAPHNE K 724.2 BACK PAIN, LOWER 09/24/2013 ERICA HASSAN MD 724.2 BACK PAIN, LOWER 09/24/2013 TOYA LANDRUM APRN T 724.2 BACK PAIN, LOWER 09/24/2013 TOYA LANDRUM APRN T 724.2 BACK PAIN, LOWER 09/24/2013 TOYA LANDRUM APRN T 724.2 BACK PAIN, LOWER 09/24/2013 MELVI DINERO APRN 724.2 BACK PAIN, LOWER 09/24/2013 TOYA LANDRUM APRN T 724.2 BACK PAIN, LOWER 11/16/2013 JOHANA OWEN APRN S 702.19 OTHER SEBORRHEIC KERATOSIS 11/16/2013 JOHANA OWEN APRN S 719.45 PAIN IN JOINT INVOLVING PELVIC REGION AND THIGH 11/16/2013 TOYA LANDRUM APRN 702.19 OTHER SEBORRHEIC KERATOSIS 11/16/2013 TOYA LANDRUM APRN 719.45 PAIN IN JOINT INVOLVING PELVIC REGION AND THIGH 11/16/2013 TOYA LANDRUM APRN T 702.19 OTHER SEBORRHEIC KERATOSIS 11/16/2013 TOYA LANDRUM APRN 719.45 PAIN IN JOINT INVOLVING PELVIC REGION AND THIGH 11/16/2013 TOYA LANDRUM APRN T 702.19 OTHER SEBORRHEIC KERATOSIS 11/16/2013 TOYA LANDRUM APRN 719.45 PAIN IN JOINT INVOLVING PELVIC REGION AND THIGH 11/16/2013 DAVILA DO, DAPHNE K 702.19 OTHER SEBORRHEIC KERATOSIS 11/16/2013 DAVILA DO DAPHNE K 719.45 PAIN IN JOINT INVOLVING PELVIC REGION AND THIGH 11/16/2013 ERICA HASSAN MD 702.19 OTHER SEBORRHEIC KERATOSIS 11/16/2013 ERICA HASSAN MD 719.45 PAIN IN JOINT INVOLVING PELVIC REGION AND THIGH 11/16/2013 TOYA LANDRUM APRN 702.19 OTHER SEBORRHEIC KERATOSIS 11/16/2013 TOYA LANDRUM APRN 719.45 PAIN IN JOINT INVOLVING PELVIC REGION AND THIGH 11/16/2013 TOYA LANDRUM APRN 702.19 OTHER SEBORRHEIC KERATOSIS 11/16/2013 TOYA LANDRUM APRN 719.45 PAIN IN JOINT INVOLVING PELVIC REGION AND THIGH 11/16/2013 TOYA LANDRUM APRN 702.19 OTHER SEBORRHEIC KERATOSIS 11/16/2013 TOYA LANDRUM APRN 719.45 PAIN IN JOINT INVOLVING PELVIC REGION AND THIGH 11/16/2013 MELVI DINERO APRN R 702.19 OTHER SEBORRHEIC KERATOSIS 11/16/2013 MELVI DINERO APRN R 719.45 PAIN IN JOINT INVOLVING PELVIC REGION AND THIGH 11/16/2013 TOYA LANDRUM APRN 702.19 OTHER SEBORRHEIC KERATOSIS 11/16/2013 TOYA LANDRUM APRN 719.45 PAIN IN JOINT INVOLVING PELVIC REGION AND THIGH 03/25/2014 CHASTITY DEL ROSARIO, FARNKY Lopes Ot 574.20 CHOLELITHIASIS NOS 03/25/2014 FRANKY HAYWOOD MD Ot 592.0 CALCULUS OF KIDNEY 03/25/2014 FRANKY HAYWOOD MD Ot 789.00 ABDOMINAL PAIN, UNSPECIFIED SITE 03/28/2014 TOYA LANDRUM APRN 465.9 UPPER RESPIRATORY INFECTION 03/28/2014 TOYA LANDRUM APRN 465.9 UPPER RESPIRATORY INFECTION 03/28/2014 DAPHNE DAVILA DO 465.9 UPPER RESPIRATORY INFECTION 03/28/2014 ERICA HASSAN MD 465.9 UPPER RESPIRATORY INFECTION 03/28/2014 TOYA LANDRUM APRN 465.9 UPPER RESPIRATORY INFECTION 03/28/2014 TOYA LANDRUM APRN 465.9 UPPER RESPIRATORY INFECTION 03/28/2014 TOYA LANDRUM APRN 465.9 UPPER RESPIRATORY INFECTION 03/28/2014 MELVI DINERO APRN R 465.9 UPPER RESPIRATORY INFECTION 03/28/2014 TOYA LANDRUM APRN 465.9 UPPER RESPIRATORY INFECTION 05/20/2014 ERICA HASSAN MD9.00 ABDOMINAL PAIN UNSPECIFIED SITE 05/20/2014 TOYA LANDRUM APRN 789.00 ABDOMINAL PAIN UNSPECIFIED SITE 05/20/2014 DIALLO GOVERNMENT OPERATIONS CONSULTANT, TOYA T 789.00 ABDOMINAL PAIN UNSPECIFIED SITE 05/20/2014 TOYA LANDRUM APRN 789.00 ABDOMINAL PAIN UNSPECIFIED SITE 05/20/2014 MELVI DINERO APRN R 789.00 ABDOMINAL PAIN UNSPECIFIED SITE 05/20/2014 TOYA LANDRUM APRN 789.00 ABDOMINAL PAIN UNSPECIFIED SITE 05/27/2014 TOYA LANDRUM APRN T 465.9 UPPER RESPIRATORY INFECTION 05/27/2014 TOYA LANDRUM APRN 465.9 UPPER RESPIRATORY INFECTION 05/27/2014 TOYA LANDRUM APRN 465.9 UPPER RESPIRATORY INFECTION 05/27/2014 MELVI DINERO APRN R 465.9 UPPER RESPIRATORY INFECTION 05/27/2014 TOYA LANDRUM APRN 465.9 UPPER RESPIRATORY INFECTION 06/21/2014 TOYA LANDRUM APRN 685.1 PILONIDAL CYST WITHOUT ABSCESS 06/21/2014 TOYA LANDRUM APRN 685.1 PILONIDAL CYST WITHOUT ABSCESS 06/21/2014 MELVI DINERO APRN R 685.1 PILONIDAL CYST WITHOUT ABSCESS 06/21/2014 TOYA LANDRUM APRN 685.1 PILONIDAL CYST WITHOUT ABSCESS 07/27/2014 MELVI DINERO APRN R 473.9 SINUSITIS (CHRONIC) 07/27/2014 TOYA LANDRUM APRN 473.9 SINUSITIS (CHRONIC) 08/12/2014 TOAY LANDRUM APRN 112.2 CANDIDIASIS OF OTHER UROGENITAL SITES 10/05/2014 TOYA LANDRUM APRN 578.1 BLOOD IN STOOL 10/05/2014 TOYA LANDRUM APRN V76.51 SPECIAL SCREENING FOR MALIGNANT NEOPLASMS COLON 10/25/2014 JORDYN KERN DO Ot 211.3 10/25/2014 JORDYN KERN DO Ot 558.9 NONINF GASTROENTERIT NEC 10/25/2014 JORDYN KERN DO Ot 560.9 INTESTINAL OBSTRUCT NOS 10/25/2014 JORDYN KERN DO Ot 569.0 ANAL RECTAL POLYP 12/22/2014 MALINI ALONSO DO Ot 555.9 12/22/2014 MALINI ALONSO DO Ot 560.89 12/29/2014 Ot 586 12/29/2014 Ot 735.0 12/29/2014 Ot 735.2 12/29/2014 Ot 735.4 12/29/2014 Ot V72.81 12/29/2014 Ot V74.8 12/29/2014 KERN DOJORDYN D Ot V72.84 12/29/2014 JESSICABAMUKESH DO, MALINI D Ot 555.9 12/29/2014 JESSICABAMUKESH DO, MALINI D Ot 560.89 12/29/2014 JESSICABAMUKESH DO, MALINI D Ot 574.20 12/29/2014 JESSICABAMUKESH DO, MALINI D Ot 592.0 12/29/2014 JESSICABAMUKESH DO, MALINI D Ot 574.20 12/29/2014 JESSICABAMUKESH DO, MALINI D Ot 789.00 12/29/2014 CELESTE DO, MALINI D Ot 793.4 01/02/2015 THADDEUS DEL ROSARIO, FELIPA S Ot 272.4 HYPERLIPIDEMIA NEC/NOS 01/02/2015 THADDEUS DEL ROSARIO, FELIPA Jack Ot 401.9 HYPERTENSION NOS 01/02/2015 THADDEUS DEL ROSARIO, FELIPA Jack Ot 574.10 CHOLELITH W CHOLECYS NEC 01/02/2015 THADDEUS DEL ROSARIO, FELIPA Jack Ot V12.72 PERSONAL HISTORY OF COLONIC POLYPS 01/04/2015 CELESTE GAYTAN, MALINI D Ot 574.20 01/04/2015 MALINI ALONSO DO D Ot 592.0 01/09/2015 CELESTE GAYTAN, MALINI D Ot 574.20 01/09/2015 CELESTE GAYTAN, MALINI D Ot 789.00 01/09/2015 ADARIANNAERON , MALINI D Ot 793.4 01/20/2015 THADDEUS DEL ROSARIO, FELIPA S Ot 560.9 01/20/2015 THADDEUS DEL ROSARIO, FELIPA S Ot 574.20 01/20/2015 THADDEUS DEL ROSARIO, FELIPA S Ot 575.8 01/20/2015 THADDEUS DEL ROSARIO, FELIPA Jack Ot V72.63 01/20/2015 THADDEUS DEL ROSARIO, FELIPA S Ot V72.83 01/20/2015 THADDEUS DEL ROSARIO, FELIPA S Ot V74.8 02/02/2015 Ot 780.60 02/02/2015 Ot 786.2 02/02/2015 Ot V15.59 02/02/2015 Ot 496 02/02/2015 Ot 515 02/02/2015 Ot 780.60 02/02/2015 Ot V15.59 02/02/2015 Ot 735.0 02/02/2015 Ot 735.2 02/02/2015 Ot 735.4 02/02/2015 Ot V72.81 02/02/2015 Ot V74.8 02/02/2015 JORDYN KERN DO Ot V72.84 02/02/2015 DEFFENBAMUKESH DO, MALINI D Ot 555.9 02/02/2015 DEFRIANNABAMUKESH DO, MALINI D Ot 560.89 02/02/2015 DEFFENBAUGH DO, MALINI D Ot 574.20 02/02/2015 DEFFENBAUGH DO, MALINI D Ot 592.0 02/02/2015 DEFFENBAMUKESH DO, MALINI D Ot 574.20 02/02/2015 ADAFENBAMUKESH DO MALINI D Ot 789.00 02/02/2015 ADAFENBAMUKESH DO, MALINI D Ot 793.4 02/02/2015 THADDEUS DEL ROSARIO, FELIPA S Ot 560.9 02/02/2015 THADDEUS DEL ROSARIO, FELIPA S Ot 574.20 02/02/2015 THADDEUS DEL ROSARIO, FELIPA S Ot 575.8 02/02/2015 THADDEUS DEL ROSARIO, FELIPA S Ot V72.63 02/02/2015 THADDEUS DEL ROSARIO, FELIPA S Ot V72.83 02/02/2015 THADDEUS DEL ROSARIO, FELIPA S Ot V74.8 03/02/2015 THADDEUS DEL ROSARIO, FELIPA S Ot 560.9 03/02/2015 THADDEUS DEL ROSARIO, FELIPA S Ot 574.20 03/02/2015 THADDEUS DEL ROSARIO, FELIPA S Ot 575.8 03/02/2015 THADDEUS DEL ROSARIO, FELIPA S Ot V72.63 03/02/2015 THADDEUS DEL ROSARIO, FELIPA S Ot V72.83 03/02/2015 THADDEUS DEL ROSARIO, FELIPA S Ot V74.8 10/07/2015 PRINCESS DIGGS DO Ot F17.210 NICOTINE DEPENDENCE, CIGARETTES, UNCOMPL 10/07/2015 PRINCESS DIGGS DO Ot I10 ESSENTIAL (PRIMARY) HYPERTENSION 10/07/2015 PRINCESS DIGGS DO Ot M70.32 OTHER BURSITIS OF ELBOW, LEFT ELBOW 10/09/2015 PRINCESS DIGGS DO Ot F17.210 10/09/2015 PRINCESS DIGGS DO, Ot I10 10/09/2015 PRINCESS DIGGS DO Ot M70.32 01/18/2016 Ot 586 RENAL FAILURE NOS 01/18/2016 Ot 735.0 HALLUX VALGUS 01/18/2016 Ot 735.2 HALLUX RIGIDUS 01/18/2016 Ot 735.4 OTHER HAMMER TOE 01/18/2016 Ot V72.81 EXAM-PRE- OPERATIVE CARDIOVASCULAR 01/18/2016 Ot V74.8 SCREEN- BACTERIAL DIS NEC 01/18/2016 JORDYN KERN DO Ot V72.84 EXAM PRE-OPERATIVE NOS 01/18/2016 MALINI ALONSO DO Ot 555.9 REGIONAL ENTERITIS NOS 01/18/2016 MALINI ALONSO DO Ot 560.89 INTESTINAL OBSTRUCT NEC 01/18/2016 MALINI ALONSO DO Ot 574.20 CHOLELITHIASIS NOS 01/18/2016 MALINI ALONSO DO Ot 592.0 CALCULUS OF KIDNEY 01/18/2016 MALINI ALONSO DO Ot 574.20 CHOLELITHIASIS NOS 01/18/2016 MALINI ALONSO DO Ot 789.00 ABDOMINAL PAIN, UNSPECIFIED SITE 01/18/2016 MALINI ALONSO DO Ot 793.4 NOSP (ABN) FINDINGS ON RADIOLOGICAL OT 01/18/2016 THADDEUS DEL ROSARIO, FELIPA Jack Ot 560.9 INTESTINAL OBSTRUCT NOS 01/18/2016 THADDEUS DEL ROSARIO, FELIPA Jack Ot 574.20 CHOLELITHIASIS NOS 01/18/2016 THADDEUS DEL ROSARIO, FELIPA Jack Ot 575.8 DIS OF GALLBLADDER NEC 01/18/2016 THADDEUS DEL ROSARIO, FELIPA Jack Ot V72.63 PRE-PROCEDURAL LABORATORY EXAMINATION 01/18/2016 THADDEUS DEL ROSARIO, FELIPA Jack Ot V72.83 EXAM PRE-OPERATIVE NEC 01/18/2016 THADDEUS DEL ROSARIO, FELIPA Jack Ot V74.8 SCREEN-BACTERIAL DIS NEC 01/18/2016 STEVE DEL ROSARIO, UJDITH Singh Ot M94.262 CHONDROMALACIA, LEFT KNEE 01/18/2016 STEVE DEL ROSARIO, JUDITH Singh Ot Z01.818 ENCOUNTER FOR OTHER PREPROCEDURAL EXAMIN 01/18/2016 STEVE DEL ROSARIO, JUDITH Singh Ot Z11.2 ENCOUNTER FOR SCREENING FOR OTHER BACTER 01/19/2016 JUDITH WILSON MD Ot M94.262 CHONDROMALACIA, LEFT KNEE 01/19/2016 JUDITH WILSON MD Ot Z01.818 ENCOUNTER FOR OTHER PREPROCEDURAL EXAMIN 01/19/2016 JUDITH WILSON MD Ot Z11.2 ENCOUNTER FOR SCREENING FOR OTHER BACTER 01/24/2016 JUDITH WILSON MD Ot E78.5 HYPERLIPIDEMIA, UNSPECIFIED 01/24/2016 JUDITH WILSON MD Ot I10 ESSENTIAL (PRIMARY) HYPERTENSION 01/24/2016 JUDITH WILSON MD Ot I25.10 ATHSCL HEART DISEASE OF [place] CORONARY 01/24/2016 JUDITH WILSON MD Ot M22.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, RIGHT KNEE 01/24/2016 JUDITH WILSON MD Ot M23.222 DERANG OF POST HORN OF MEDIAL MENSC D/T 01/24/2016 JUDITH WILSON MD Ot M23.252 DERANG OF POST HORN OF LAT MENSC DUE TO 01/25/2016 JUDITH WILSON MD Ot E78.5 HYPERLIPIDEMIA, UNSPECIFIED 01/25/2016 JUDITH WILSON MD Ot I10 ESSENTIAL (PRIMARY) HYPERTENSION 01/25/2016 JUDITH WILSON MD Ot I25.10 ATHSCL HEART DISEASE OF [place] CORONARY 01/25/2016 JUDITH WILSON MD Ot M22.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, RIGHT KNEE 01/25/2016 JUDITH WILSON MD Ot M23.222 DERANG OF POST HORN OF MEDIAL MENSC D/T 01/25/2016 JUDITH WILSON MD Ot M23.252 DERANG OF POST HORN OF LAT MENSC DUE TO 02/02/2016 JUDITH WILSON MD Ot E78.5 HYPERLIPIDEMIA, UNSPECIFIED 02/02/2016 JUDITH WILSON MD Ot I10 ESSENTIAL (PRIMARY) HYPERTENSION 02/02/2016 JUDITH WILSON MD Ot I25.10 ATHSCL HEART DISEASE OF [place] CORONARY 02/02/2016 JUDITH WILSON MD Ot M22.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, RIGHT KNEE 02/02/2016 JUDITH WILSON MD Ot M23.222 DERANG OF POST HORN OF MEDIAL MENSC D/T 02/02/2016 JUDITH WILSON MD Ot M23.252 DERANG OF POST HORN OF LAT MENSC DUE TO 05/10/2016 KERNJORDYN AVERY DO Ot Z01.818 ENCOUNTER FOR OTHER PREPROCEDURAL EXAMIN 05/10/2016 ERLIN GAYTANJORDYN Ot Z87.19 PERSONAL HISTORY OF OTHER DISEASES OF 05/10/2016 ERLIN GAYTAN JORDYN Lopes Ot Z01.818 ENCOUNTER FOR OTHER PREPROCEDURAL EXAMIN 05/10/2016 KERN JORDYN Ot Z87.19 PERSONAL HISTORY OF OTHER DISEASES OF 05/10/2016 ERLIN GAYTAN JORDYN Lopes Ot Z01.818 ENCOUNTER FOR OTHER PREPROCEDURAL EXAMIN 05/10/2016 ERLIN GAYTANJORDYN Ot Z87.19 PERSONAL HISTORY OF OTHER DISEASES OF 05/13/2016 ERLIN GAYTANJORDYN Ot Z01.818 ENCOUNTER FOR OTHER PREPROCEDURAL EXAMIN 05/13/2016 ERLIN GAYTANJORDYN Ot Z87.19 PERSONAL HISTORY OF OTHER DISEASES OF 05/14/2016 Ot 586 RENAL FAILURE NOS 05/14/2016 Ot 735.0 HALLUX VALGUS 05/14/2016 Ot 735.2 HALLUX RIGIDUS 05/14/2016 Ot 735.4 OTHER HAMMER TOE 05/14/2016 Ot V72.81 EXAM-PRE- OPERATIVE CARDIOVASCULAR 05/14/2016 Ot V74.8 SCREEN- BACTERIAL DIS NEC 05/14/2016 JORDYN KERN DO Ot V72.84 EXAM PRE-OPERATIVE NOS 05/14/2016 MALINI ALONSO DO Ot 555.9 REGIONAL ENTERITIS NOS 05/14/2016 MALINI ALONSO DO Ot 560.89 INTESTINAL OBSTRUCT NEC 05/14/2016 MALINI ALONSO DO Ot 574.20 CHOLELITHIASIS NOS 05/14/2016 MALINI ALONSO DO Ot 592.0 CALCULUS OF KIDNEY 05/14/2016 MALINI ALONSO DO Ot 574.20 CHOLELITHIASIS NOS 05/14/2016 MALINI ALONSO DO Ot 789.00 ABDOMINAL PAIN, UNSPECIFIED SITE 05/14/2016 MALINI ALONSO DO Ot 793.4 NOSP (ABN) FINDINGS ON RADIOLOGICAL OT 05/14/2016 THADDEUS DEL ROSARIO, FELIPA Jack Ot 560.9 INTESTINAL OBSTRUCT NOS 05/14/2016 THADDEUS DEL ROSARIO, FELIPA Jack Ot 574.20 CHOLELITHIASIS NOS 05/14/2016 THADDEUS DEL ROSARIO, FELIPA Jack Ot 575.8 DIS OF GALLBLADDER NEC 05/14/2016 THADDEUS DEL ROSARIO, FELIPA Jack Ot V72.63 PRE-PROCEDURAL LABORATORY EXAMINATION 05/14/2016 FELIPA TRAVIS MD Ot V72.83 EXAM PRE-OPERATIVE NEC 05/14/2016 THADDEUS DEL ROSARIO, FELIPA Jack Ot V74.8 SCREEN-BACTERIAL DIS NEC 05/15/2016 JORDYN KERN DO Ot K56.60 UNSPECIFIED INTESTINAL OBSTRUCTION 05/15/2016 JORDYN KERN DO Ot K57.30 DVRTCLOS OF LG INT W/O PERFORATION OR AB 05/30/2016 JORDYN KERN DO Ot K56.60 UNSPECIFIED INTESTINAL OBSTRUCTION 05/30/2016 JORDYN KERN DO Ot K57.30 DVRTCLOS OF LG INT W/O PERFORATION OR AB 06/11/2016 JORDYN KERN DO Ot K56.60 UNSPECIFIED INTESTINAL OBSTRUCTION 06/11/2016 JORDYN KERN DO Ot K57.30 DVRTCLOS OF LG INT W/O PERFORATION OR AB 06/14/2016 JORDYN KERN DO Ot K56.60 UNSPECIFIED INTESTINAL OBSTRUCTION 06/14/2016 JORDYN KERN DO Ot K57.30 DVRTCLOS OF LG INT W/O PERFORATION OR AB 09/03/2016 Ot 586 RENAL FAILURE NOS 09/03/2016 Ot 735.0 HALLUX VALGUS 09/03/2016 Ot 735.2 HALLUX RIGIDUS 09/03/2016 Ot 735.4 OTHER HAMMER TOE 09/03/2016 Ot V72.81 EXAM-PRE- OPERATIVE CARDIOVASCULAR 09/03/2016 Ot V74.8 SCREEN- BACTERIAL DIS NEC 09/03/2016 JORDYN KERN DO Ot V72.84 EXAM PRE-OPERATIVE NOS 09/03/2016 MALINI ALONSO DO Ot 555.9 REGIONAL ENTERITIS NOS 09/03/2016 MALINI ALONSO DO Ot 560.89 INTESTINAL OBSTRUCT NEC 09/03/2016 MALINI ALONSO DO Ot 574.20 CHOLELITHIASIS NOS 09/03/2016 MALINI ALONSO DO Ot 592.0 CALCULUS OF KIDNEY 09/03/2016 MALINI ALONSO DO Ot 574.20 CHOLELITHIASIS NOS 09/03/2016 ADANILESHMALINI MAYORGA DO Ot 789.00 ABDOMINAL PAIN, UNSPECIFIED SITE 09/03/2016 HADLEYMALINI MAYORGA DO Ot 793.4 NOSP (ABN) FINDINGS ON RADIOLOGICAL OT 09/03/2016 THADDEUS DEL ROSARIO, FELIPA Jack Ot 560.9 INTESTINAL OBSTRUCT NOS 09/03/2016 THADDEUS DEL ROSARIO, FELIPA Jack Ot 574.20 CHOLELITHIASIS NOS 09/03/2016 THADDEUS DEL ROSARIO, FELIPA Jack Ot 575.8 DIS OF GALLBLADDER NEC 09/03/2016 THADDEUS DEL ROSARIO, FELIPA Jack Ot V72.63 PRE-PROCEDURAL LABORATORY EXAMINATION 09/03/2016 THADDEUS DEL ROSARIO, FELIPA Jack Ot V72.83 EXAM PRE-OPERATIVE NEC 09/03/2016 THADDEUS DEL ROSARIO, FELIPA Jack Ot V74.8 SCREEN-BACTERIAL DIS NEC 09/03/2016 JORDYN KERN DO Ot K56.60 UNSPECIFIED INTESTINAL OBSTRUCTION 09/03/2016 JORDYN KERN DO Ot K57.30 DVRTCLOS OF LG INT W/O PERFORATION OR AB 09/04/2016 TOYA LANDRUM Ot I73.9 PERIPHERAL VASCULAR DISEASE, UNSPECIFIED 09/04/2016 TOYA LANDRUM Ot I73.9 PERIPHERAL VASCULAR DISEASE, UNSPECIFIED 09/09/2016 TOYA LANDRUM Ot I73.9 PERIPHERAL VASCULAR DISEASE, UNSPECIFIED 09/24/2016 TOYA LANDRUM Ot I73.9 PERIPHERAL VASCULAR DISEASE, UNSPECIFIED 10/10/2016 TY JOHNSON MD Ot I73.9 PERIPHERAL VASCULAR DISEASE, UNSPECIFIED 10/10/2016 ELIZABETH DEL ROSARIO, TY Ot Z01.810 ENCOUNTER FOR PREPROCEDURAL CARDIOVASCUL 10/10/2016 TY JOHNSON MD Ot Z01.811 ENCOUNTER FOR PREPROCEDURAL RESPIRATORY 10/10/2016 TY JOHNSON MD Ot Z01.812 ENCOUNTER FOR PREPROCEDURAL LABORATORY E 11/06/2016 AMERICO DEL ROSARIO, EBONY Garvin Ot N18.3 CHRONIC KIDNEY DISEASE, STAGE 3 (MODERAT 01/10/2017 AMERICO DEL ROSARIO, EBONY R Ot E87.2 ACIDOSIS 01/10/2017 AMERICO DEL ROSARIO, EBONY R Ot F17.200 NICOTINE DEPENDENCE, UNSPECIFIED, UNCOMP 01/10/2017 AMERICO DEL ROSARIO, EBONY R Ot I12.9 HYPERTENSIVE CHRONIC KIDNEY DISEASE W ST 01/10/2017 AMERICO DEL ROSARIO, EBONY R Ot N18.3 CHRONIC KIDNEY DISEASE, STAGE 3 (MODERAT 02/03/2017 AMERICO DEL ROSARIO, EBONY Garvin Ot E87.2 ACIDOSIS 02/03/2017 AMERICO DEL ROSARIO, EBONY R Ot F17.200 NICOTINE DEPENDENCE, UNSPECIFIED, UNCOMP 02/03/2017 AMERICO DEL ROSARIO, EBONY R Ot I12.9 HYPERTENSIVE CHRONIC KIDNEY DISEASE W ST 02/03/2017 AMERICO DEL ROSARIO, EBONY R Ot N18.3 CHRONIC KIDNEY DISEASE, STAGE 3 (MODERAT 03/07/2017 ELIZABETH DEL ROSARIO, TY Ot I73.9 PERIPHERAL VASCULAR DISEASE, UNSPECIFIED 03/07/2017 ELIZABETH DEL ROSRAIO, TY Ot Z01.810 ENCOUNTER FOR PREPROCEDURAL CARDIOVASCUL 03/07/2017 TY JOHNSON MD Ot Z01.811 ENCOUNTER FOR PREPROCEDURAL RESPIRATORY 03/07/2017 ELIZABETH DEL ROSARIO, TY Ot Z01.812 ENCOUNTER FOR PREPROCEDURAL LABORATORY E 04/25/2017 AMERICO DEL ROSARIO, EBONY Garvin Ot E55.9 VITAMIN D DEFICIENCY, UNSPECIFIED 04/25/2017 AMERICO DEL ROSARIO, EBONY Garvin Ot F17.200 NICOTINE DEPENDENCE, UNSPECIFIED, UNCOMP 04/25/2017 AMERICO DEL ROSARIO, EBONY R Ot I12.9 HYPERTENSIVE CHRONIC KIDNEY DISEASE W ST 04/25/2017 AMERICO DEL ROSARIO, EBONY R Ot N18.3 CHRONIC KIDNEY DISEASE, STAGE 3 (MODERAT 05/15/2017 AMERICO DEL ROSARIO, EBONY Garvin Ot E55.9 VITAMIN D DEFICIENCY, UNSPECIFIED 05/15/2017 AMERICO DEL ROSARIO, EBONY R Ot F17.200 NICOTINE DEPENDENCE, UNSPECIFIED, UNCOMP 05/15/2017 AMERICO DEL ROSARIO, EBONY R Ot I12.9 HYPERTENSIVE CHRONIC KIDNEY DISEASE W ST 05/15/2017 AMERICO DEL ROSARIO, EBONY R Ot N18.3 CHRONIC KIDNEY DISEASE, STAGE 3 (MODERAT 10/28/2017 AMERICO DEL ROSARIO, EBONY Garvin Ot E21.1 SECONDARY HYPERPARATHYROIDISM, NOT ELSEW 10/28/2017 EBONY DRISCOLL MD, Ot F17.200 NICOTINE DEPENDENCE, UNSPECIFIED, UNCOMP 10/28/2017 EBONY DRISCOLL MD, Ot I12.9 HYPERTENSIVE CHRONIC KIDNEY DISEASE W ST 10/28/2017 EBONY DRISCOLL MD, Ot N18.3 CHRONIC KIDNEY DISEASE, STAGE 3 (MODERAT Procedures Code Description [place] [address] XRAY FOOT LEFT 2 VIEWS 10/11/2011 19870 ROUTINE VENIPUNCTURE 06/10/2012 39508 A1C (IN-HOUSE) 06/10/2012 07420 CBC 06/10/2012 53699 CMP 06/10/2012 16027 LIPID PANEL 06/10/2012 [id number] GFR CALC (RESULT ONLY) 06/10/2012 32374 TSH 06/10/2012 Q2038 FLUZONE (MEDICARE OFFICE VISIT ONLY) 06/10/2012 19796 BLOOD PRESSURE CHECK 07/31/2012 31282 ROUTINE VENIPUNCTURE 09/04/2012 34993 BMP 09/04/2012 [id number] GFR CALC (RESULT ONLY) 09/04/2012 Cardiolog Radha Hernandez 09/07/2012 78753 ROUTINE VENIPUNCTURE 03/29/2013 84223 A1C (IN-HOUSE) 03/29/2013 28109 CBC 03/29/2013 08692 LIPID PANEL 03/29/2013 35379 CMP 03/29/2013 [id number] GFR CALC (RESULT ONLY) 03/29/2013 G0008 FLU ADMINISTRATION ( MEDICARE ONLY) 05/18/2013 30333 THERAPUTIC INJ SQ/IM 05/21/2013 J1885 TORADOL INJ 05/21/2013 27233 ROUTINE VENIPUNCTURE 07/23/2013 57237 CBC 07/23/2013 [id number] GFR CALC (RESULT ONLY) 07/23/2013 39757 CMP 07/23/2013 93793 XRAY LUMBAR SPINE 2 OR 3 VIEWS 09/24/2013 03817 THERAPUTIC INJ SQ/IM 09/24/2013 J1885 TORADOL INJ 09/24/2013 68243 THERAPUTIC INJ SQ/IM 04/13/2014 J1885 TORADOL INJ 04/13/2014 20996 ROUTINE VENIPUNCTURE 07/25/2014 15604 CMP 07/25/2014 16075 CBC 07/25/2014 11988 OXIMETRY 07/27/[address] [facility] KERN 10/05/2014 51.23 LAPAROSCOPIC CHOLECYSTECTOMY 01/02/2015 Results Test Result Range CBC With Differential/Platelet - 04/09/16 08:43 WBC 7.2 x10E3/uL 3.4-10.8 RBC 5.21 x10E6/uL 4.14-5.80 Hemoglobin 15.8 g/dL 12.6-17.7 Hematocrit 46.0 % 37.5-51.0 MCV 88 fL 79-97 MCH 30.3 pg 26.6-33.0 MCHC 34.3 g/dL 31.5-35.7 RDW 14.0 % 12.3-15.4 Platelets 287 x10E3/uL 150-379 Neutrophils 57 % Lymphs 30 % Monocytes 9 % Eos 3 % Basos 1 % Neutrophils (Absolute) 4.1 x10E3/uL 1.4-7.0 Lymphs (Absolute) 2.2 x10E3/uL 0.7-3.1 Monocytes(Absolute) 0.6 x10E3/uL 0.1-0.9 Eos (Absolute) 0.2 x10E3/uL 0.0-0.4 Baso (Absolute) 0.1 x10E3/uL 0.0-0.2 Immature Granulocytes 0 % Immature Grans (Abs) 0.0 x10E3/uL 0.0-0.1 Comp. Metabolic Panel (14) - 04/09/16 08:43 Glucose, Serum 94 mg/dL 65-99 BUN 26 mg/dL 8-27 Creatinine, Serum 1.67 mg/dL 0.76-1.27 eGFR If NonAfricn Am 41 mL/min/1.73 >59 eGFR If Africn Am 47 mL/min/1.73 >59 BUN/Creatinine Ratio 16 10-22 Sodium, Serum 142 mmol/L 134-144 Potassium, Serum 5.2 mmol/L 3.5-5.2 Chloride, Serum 103 mmol/L 97-108 Carbon Dioxide, Total 20 mmol/L 18-29 Calcium, Serum 10.1 mg/dL 8.6-10.2 Protein, Total, Serum 8.1 g/dL 6.0-8.5 Albumin, Serum 4.8 g/dL 3.5-4.8 Globulin, Total 3.3 g/dL 1.5-4.5 A/G Ratio 1.5 1.1-2.5 Bilirubin, Total 0.5 mg/dL 0.0-1.2 Alkaline Phosphatase, S 142 IU/L 39-117 AST (SGOT) 18 IU/L 0-40 ALT (SGPT) 15 IU/L 0-44 Lipid Panel - 04/09/16 08:43 Cholesterol, Total 177 mg/dL 100-199 Triglycerides 176 mg/dL 0-149 HDL Cholesterol 27 mg/dL >39 VLDL Cholesterol Zoran 35 mg/dL 5-40 LDL Cholesterol Calc 115 mg/dL 0-99 Testosterone, Serum - 04/09/16 08:43 Testosterone, Serum 582 ng/dL [phone] Comment: Comment Complete urinalysis with reflex to culture - 09/16/16 08:40 Urine color determination YELLOW NRG Urine clarity determination CLEAR NRG Urine pH measurement by test strip 5 5-9 Specific gravity of urine by test strip 1.020 1.016- 1.022 Urine protein assay by test strip, semi-quantitative NEGATIVE NEGATIVE Urine glucose detection by automated test strip NEGATIVE NEGATIVE Erythrocytes detection in urine sediment by light microscopy NEGATIVE NEGATIVE Urine ketones detection by automated test strip NEGATIVE NEGATIVE Urine nitrite detection by test strip NEGATIVE NEGATIVE Urine total bilirubin detection by test strip NEGATIVE NEGATIVE Urine urobilinogen measurement by automated test strip (mass/volume) NORMAL NORMAL Urine leukocyte esterase detection by dipstick NEGATIVE NEGATIVE Automated urine sediment erythrocyte count by microscopy (number/high power field) RARE NRG Automated urine sediment leukocyte count by microscopy (number/high power field ) NONE NRG Bacteria detection in urine sediment by light microscopy NEGATIVE NRG Squamous epithelial cells detection in urine sediment by light microscopy 2-5 NRG Crystals detection in urine sediment by light microscopy NONE NRG Casts detection in urine sediment by light microscopy NONE NRG Mucus detection in urine sediment by light microscopy NEGATIVE NRG Complete urinalysis with reflex to culture NO NRG Complete blood count (CBC) with automated white blood cell (WBC) differential - 09/16/16 08:43 Blood leukocytes automated count (number/volume) 8.3 10*3/uL 4.3-11.0 Blood erythrocytes automated count (number/volume) 5.64 10*6/uL 4.35-5.85 Venous blood hemoglobin measurement (mass/volume) 17.1 g/dL 13.3-17.7 Blood hematocrit (volume fraction) 50 % 40-54 Automated erythrocyte mean corpuscular volume 89 [foz_us] 80-99 Automated erythrocyte mean corpuscular hemoglobin (mass per erythrocyte) 30 pg 25-34 Automated erythrocyte mean corpuscular hemoglobin concentration measurement ( mass/volume) 34 g/dL 32-36 Automated erythrocyte distribution width ratio 14.4 % 10.0-14.5 Automated blood platelet count (count/volume) 253 10*3/uL 130-400 Automated blood platelet mean volume measurement 10.1 [foz_us] 7.4-10.4 Automated blood neutrophils/100 leukocytes 53 % 42-75 Automated blood lymphocytes/100 leukocytes 35 % 12-44 Blood monocytes/100 leukocytes 9 % 0-12 Automated blood eosinophils/100 leukocytes 3 % 0-10 Automated blood basophils/100 leukocytes 1 % 0-10 Blood neutrophils automated count (number/volume) 4.4 10*3 1.8-7.8 Blood lymphocytes automated count (number/volume) 2.9 10*3 1.0-4.0 Blood monocytes automated count (number/volume) 0.8 10*3 0.0-1.0 Automated eosinophil count 0.2 10*3/uL 0.0-0.3 Automated blood basophil count (count/volume) 0.0 10*3/uL 0.0-0.1 Comprehensive metabolic panel - 09/16/16 08:43 Serum or plasma sodium measurement (moles/volume) 139 mmol/L 135-145 Serum or plasma potassium measurement (moles/volume) 4.4 mmol/L 3.6-5.0 Serum or plasma chloride measurement (moles/volume) 110 mmol/L 98-107 Carbon dioxide 18 mmol/L 21-32 Serum or plasma anion gap determination (moles/volume) 11 mmol/L 5-14 Serum or plasma urea nitrogen measurement (mass/volume) 26 mg/dL 7-18 Serum or plasma creatinine measurement (mass/volume) 1.84 mg/dL 0.60-1.30 Serum or plasma urea nitrogen/creatinine mass ratio 14 NRG Serum or plasma creatinine measurement with calculation of estimated glomerular filtration rate 36 NRG Serum or plasma glucose measurement (mass/volume) 92 mg/dL 70-105 Serum or plasma calcium measurement (mass/volume) 9.7 mg/dL 8.5-10.1 Serum or plasma total bilirubin measurement (mass/volume) 0.4 mg/dL 0.1-1.0 Serum or plasma alkaline phosphatase measurement (enzymatic activity/volume) 113 U/L 40-136 Serum or plasma aspartate aminotransferase measurement (enzymatic activity/ volume) 24 U/L 5-34 Serum or plasma alanine aminotransferase measurement (enzymatic activity/volume ) 24 U/L 0-55 Serum or plasma protein measurement (mass/volume) 7.3 g/dL 6.4-8.2 Serum or plasma albumin measurement (mass/volume) 4.2 g/dL 3.2-4.5 Complete blood count (CBC) with automated white blood cell (WBC) differential - 01/09/17 12:53 Blood leukocytes automated count (number/volume) 9.6 10*3/uL 4.3-11.0 Blood erythrocytes automated count (number/volume) 5.45 10*6/uL 4.35-5.85 Venous blood hemoglobin measurement (mass/volume) 16.3 g/dL 13.3-17.7 Blood hematocrit (volume fraction) 48 % 40-54 Automated erythrocyte mean corpuscular volume 88 [foz_us] 80-99 Automated erythrocyte mean corpuscular hemoglobin (mass per erythrocyte) 30 pg 25-34 Automated erythrocyte mean corpuscular hemoglobin concentration measurement ( mass/volume) 34 g/dL 32-36 Automated erythrocyte distribution width ratio 14.2 % 10.0-14.5 Automated blood platelet count (count/volume) 254 10*3/uL 130-400 Automated blood platelet mean volume measurement 10.6 [foz_us] 7.4-10.4 Automated blood neutrophils/100 leukocytes 56 % 42-75 Automated blood lymphocytes/100 leukocytes 33 % 12-44 Blood monocytes/100 leukocytes 8 % 0-12 Automated blood eosinophils/100 leukocytes 3 % 0-10 Automated blood basophils/100 leukocytes 1 % 0-10 Blood neutrophils automated count (number/volume) 5.3 10*3 1.8-7.8 Blood lymphocytes automated count (number/volume) 3.1 10*3 1.0-4.0 Blood monocytes automated count (number/volume) 0.8 10*3 0.0-1.0 Automated eosinophil count 0.3 10*3/uL 0.0-0.3 Automated blood basophil count (count/volume) 0.1 10*3/uL 0.0-0.1 Urine protein/creatinine mass ratio - 01/09/17 12:53 Urine protein measurement (mass/volume) 15 mg/dL 6-12 Urine creatinine measurement (mass/volume) 137 mg/dL 30- 125 Urine protein/creatinine mass ratio 0.11 NRG Serum or plasma renal function panel (Na, K, Cl, CO2, BUN, Cr, glucose,Ca, phos , alb) - 01/09/17 12:53 Serum or plasma sodium measurement (moles/volume) 139 mmol/L 135-145 Serum or plasma potassium measurement (moles/volume) 4.5 mmol/L 3.6-5.0 Serum or plasma chloride measurement (moles/volume) 107 mmol/L 98-107 Carbon dioxide 21 mmol/L 21-32 Serum or plasma anion gap determination (moles/volume) 11 mmol/L 5-14 Serum or plasma urea nitrogen measurement (mass/volume) 22 mg/dL 7-18 Serum or plasma creatinine measurement (mass/volume) 1.57 mg/dL 0.60-1.30 Serum or plasma urea nitrogen/creatinine mass ratio 14 NRG Serum or plasma creatinine measurement with calculation of estimated glomerular filtration rate 44 NRG Serum or plasma glucose measurement (mass/volume) 101 mg/dL 70-105 Serum or plasma calcium measurement (mass/volume) 10.0 mg/dL 8.5-10.1 Serum or plasma albumin measurement (mass/volume) 4.4 g/dL 3.2-4.5 Serum or plasma phosphate measurement (mass/volume) 3.0 mg/dL 2.3-4.7 Complete urinalysis with reflex to culture - 01/09/17 12:53 Urine color determination YELLOW NRG Urine clarity determination CLEAR NRG Urine pH measurement by test strip 6 5-9 Specific gravity of urine by test strip 1.020 1.016- 1.022 Urine protein assay by test strip, semi-quantitative NEGATIVE NEGATIVE Urine glucose detection by automated test strip NEGATIVE NEGATIVE Erythrocytes detection in urine sediment by light microscopy NEGATIVE NEGATIVE Urine ketones detection by automated test strip NEGATIVE NEGATIVE Urine nitrite detection by test strip NEGATIVE NEGATIVE Urine total bilirubin detection by test strip NEGATIVE NEGATIVE Urine urobilinogen measurement by automated test strip (mass/volume) 1 mg/dL NORMAL Urine leukocyte esterase detection by dipstick NEGATIVE NEGATIVE Automated urine sediment erythrocyte count by microscopy (number/high power field) NONE NRG Automated urine sediment leukocyte count by microscopy (number/high power field ) NONE NRG Bacteria detection in urine sediment by light microscopy NEGATIVE NRG Squamous epithelial cells detection in urine sediment by light microscopy 0-2 NRG Crystals detection in urine sediment by light microscopy NONE NRG Casts detection in urine sediment by light microscopy NONE NRG Mucus detection in urine sediment by light microscopy NEGATIVE NRG Complete urinalysis with reflex to culture NO NRG Serum iron and total iron binding capacity panel - 01/09/17 12:53 Serum or plasma iron measurement (mass/volume) 102 % 40- 180 Total iron binding capacity and transferrin saturation measurement 26 % 15-50 Iron binding capacity [mass/volume] in serum or plasma 399 % 280-380 UIBC (unsaturated iron binding capacity) 297 % NRG Serum or plasma folate measurement (mass/volume) - 01/09/17 12:53 Serum or plasma folate measurement (mass/volume) 6.9 % 1.5-24.0 Serum or plasma intact pararthyroid hormone measurement (mass/volume) - 12:53 Serum or plasma intact parathyroid hormone measurement (mass/volume) 70.0 pg/mL 10.0-65.0 Bio-intact parathyroid hormone (PTH) measurement with calcium 9.8 % 8.5-10.5 Serum iron and total iron binding capacity panel - 01/09/17 12:53 Serum or plasma iron measurement (mass/volume) 102 % 40- 180 Total iron binding capacity and transferrin saturation measurement 26 % 15-50 Iron binding capacity [mass/volume] in serum or plasma 399 % 280-380 UIBC (unsaturated iron binding capacity) 297 % NRG Serum or plasma ferritin measurement (mass/volume) 174.0 % 25.0-300.0 25-hydroxyvitamin D measurement - 01/09/17 12:53 25-hydroxy vitamin D measurement 12 % 30-100 Serum or plasma intact pararthyroid hormone measurement (mass/volume) - 12:53 Serum or plasma intact parathyroid hormone measurement (mass/volume) 70.0 pg/mL 10.0-65.0 Bio-intact parathyroid hormone (PTH) measurement with calcium 9.8 % 8.5-10.5 Cyanocobalamin measurement - 01/09/17 12:53 Vitamin B12 555 pg/mL 200-1000 25-hydroxyvitamin D measurement - 01/09/17 12:53 25-hydroxy vitamin D measurement 12 % 30-100 Complete urinalysis with reflex to culture - 02/03/17 13:05 Urine color determination YELLOW NRG Urine clarity determination CLEAR NRG Urine pH measurement by test strip 5 5-9 Specific gravity of urine by test strip 1.015 1.016- 1.022 Urine protein assay by test strip, semi-quantitative NEGATIVE NEGATIVE Urine glucose detection by automated test strip NEGATIVE NEGATIVE Erythrocytes detection in urine sediment by light microscopy NEGATIVE NEGATIVE Urine ketones detection by automated test strip NEGATIVE NEGATIVE Urine nitrite detection by test strip NEGATIVE NEGATIVE Urine total bilirubin detection by test strip NEGATIVE NEGATIVE Urine urobilinogen measurement by automated test strip (mass/volume) NORMAL NORMAL Urine leukocyte esterase detection by dipstick 1+ NEGATIVE Automated urine sediment erythrocyte count by microscopy (number/high power field) NONE NRG Automated urine sediment leukocyte count by microscopy (number/high power field ) RARE NRG Bacteria detection in urine sediment by light microscopy NEGATIVE NRG Squamous epithelial cells detection in urine sediment by light microscopy 0-2 NRG Crystals detection in urine sediment by light microscopy NONE NRG Casts detection in urine sediment by light microscopy NONE NRG Mucus detection in urine sediment by light microscopy NEGATIVE NRG Complete urinalysis with reflex to culture NO NRG Automated blood complete blood count (hemogram) panel - 02/03/17 13:09 Blood leukocytes automated count (number/volume) 8.6 10*3/uL 4.3-11.0 Blood erythrocytes automated count (number/volume) 5.32 10*6/uL 4.35-5.85 Venous blood hemoglobin measurement (mass/volume) 15.9 g/dL 13.3-17.7 Blood hematocrit (volume fraction) 48 % 40-54 Automated erythrocyte mean corpuscular volume 90 [foz_us] 80-99 Automated erythrocyte mean corpuscular hemoglobin (mass per erythrocyte) 30 pg 25-34 Automated erythrocyte mean corpuscular hemoglobin concentration measurement ( mass/volume) 33 g/dL 32-36 Automated erythrocyte distribution width ratio 14.1 % 10.0-14.5 Automated blood platelet count (count/volume) 291 10*3/uL 130-400 Automated blood platelet mean volume measurement 9.8 [foz_us] 7.4-10.4 Comprehensive metabolic panel - 02/03/17 13:09 Serum or plasma sodium measurement (moles/volume) 139 mmol/L 135-145 Serum or plasma potassium measurement (moles/volume) 4.7 mmol/L 3.6-5.0 Serum or plasma chloride measurement (moles/volume) 108 mmol/L 98-107 Carbon dioxide 23 mmol/L 21-32 Serum or plasma anion gap determination (moles/volume) 8 mmol/L 5-14 Serum or plasma urea nitrogen measurement (mass/volume) 22 mg/dL 7-18 Serum or plasma creatinine measurement (mass/volume) 1.63 mg/dL 0.60-1.30 Serum or plasma urea nitrogen/creatinine mass ratio 13 NRG Serum or plasma creatinine measurement with calculation of estimated glomerular filtration rate 42 NRG Serum or plasma glucose measurement (mass/volume) 103 mg/dL 70-105 Serum or plasma calcium measurement (mass/volume) 9.6 mg/dL 8.5-10.1 Serum or plasma total bilirubin measurement (mass/volume) 0.4 mg/dL 0.1-1.0 Serum or plasma alkaline phosphatase measurement (enzymatic activity/volume) 115 U/L 40-136 Serum or plasma aspartate aminotransferase measurement (enzymatic activity/ volume) 19 U/L 5-34 Serum or plasma alanine aminotransferase measurement (enzymatic activity/volume ) 21 U/L 0-55 Serum or plasma protein measurement (mass/volume) 7.6 g/dL 6.4-8.2 Serum or plasma albumin measurement (mass/volume) 4.1 g/dL 3.2-4.5 Renal Panel (10) - 02/14/17 10:14 Glucose, Serum 91 mg/dL 65-99 BUN 17 mg/dL 8-27 Creatinine, Serum 1.58 mg/dL 0.76-1.27 eGFR If NonAfricn Am 43 mL/min/1.73 >59 eGFR If Africn Am 50 mL/min/1.73 >59 BUN/Creatinine Ratio 11 10-24 Sodium, Serum 139 mmol/L 134-144 Potassium, Serum 4.2 mmol/L 3.5-5.2 Chloride, Serum 99 mmol/L 96-106 Carbon Dioxide, Total 20 mmol/L 18-29 Calcium, Serum 9.5 mg/dL 8.6-10.2 Albumin, Serum 4.2 g/dL 3.5-4.8 Phosphorus, Serum 3.5 mg/dL 2.5-4.5 CBC With Differential/Platelet - 03/27/17 08:09 WBC 7.9 x10E3/uL 3.4-10.8 RBC 5.25 x10E6/uL 4.14-5.80 Hemoglobin 15.9 g/dL 12.6-17.7 Hematocrit 47.1 % 37.5-51.0 MCV 90 fL 79-97 MCH 30.3 pg 26.6-33.0 MCHC 33.8 g/dL 31.5-35.7 RDW 14.0 % 12.3-15.4 Platelets 328 x10E3/uL 150-379 Neutrophils 54 % Lymphs 35 % Monocytes 7 % Eos 3 % Basos 1 % Neutrophils (Absolute) 4.3 x10E3/uL 1.4-7.0 Lymphs (Absolute) 2.7 x10E3/uL 0.7-3.1 Monocytes(Absolute) 0.6 x10E3/uL 0.1-0.9 Eos (Absolute) 0.2 x10E3/uL 0.0-0.4 Baso (Absolute) 0.1 x10E3/uL 0.0-0.2 Immature Granulocytes 0 % Immature Grans (Abs) 0.0 x10E3/uL 0.0-0.1 Comp. Metabolic Panel () - 03/27/17 08:09 Glucose, Serum 95 mg/dL 65-99 BUN 20 mg/dL 8-27 Creatinine, Serum 1.47 mg/dL 0.76-1.27 eGFR If NonAfricn Am 47 mL/min/1.73 >59 eGFR If Africn Am 55 mL/min/1.73 >59 BUN/Creatinine Ratio 14 10-24 Sodium, Serum 141 mmol/L 134-144 Potassium, Serum 4.5 mmol/L 3.5-5.2 Chloride, Serum 101 mmol/L 96-106 Carbon Dioxide, Total 22 mmol/L 18-29 Calcium, Serum 10.1 mg/dL 8.6-10.2 Protein, Total, Serum 7.6 g/dL 6.0-8.5 Albumin, Serum 4.3 g/dL 3.5-4.8 Globulin, Total 3.3 g/dL 1.5-4.5 A/G Ratio 1.3 1.2-2.2 Bilirubin, Total 0.4 mg/dL 0.0-1.2 Alkaline Phosphatase, S 135 IU/L 39-117 AST (SGOT) 19 IU/L 0-40 ALT (SGPT) 16 IU/L 0-44 Lipid Panel - 03/27/17 08:09 Cholesterol, Total 144 mg/dL 100-199 Triglycerides 121 mg/dL 0-149 HDL Cholesterol 27 mg/dL >39 VLDL Cholesterol Zoran 24 mg/dL 5-40 LDL Cholesterol Calc 93 mg/dL 0-99 Complete urinalysis with reflex to culture - 04/24/17 12:48 Urine color determination YELLOW NRG Urine clarity determination CLEAR NRG Urine pH measurement by test strip 6 5-9 Specific gravity of urine by test strip 1.015 1.016- 1.022 Urine protein assay by test strip, semi-quantitative NEGATIVE NEGATIVE Urine glucose detection by automated test strip NEGATIVE NEGATIVE Erythrocytes detection in urine sediment by light microscopy NEGATIVE NEGATIVE Urine ketones detection by automated test strip NEGATIVE NEGATIVE Urine nitrite detection by test strip NEGATIVE NEGATIVE Urine total bilirubin detection by test strip NEGATIVE NEGATIVE Urine urobilinogen measurement by automated test strip (mass/volume) NORMAL NORMAL Urine leukocyte esterase detection by dipstick 1+ NEGATIVE Automated urine sediment erythrocyte count by microscopy (number/high power field) NONE NRG Automated urine sediment leukocyte count by microscopy (number/high power field ) RARE NRG Bacteria detection in urine sediment by light microscopy NEGATIVE NRG Squamous epithelial cells detection in urine sediment by light microscopy RARE NRG Crystals detection in urine sediment by light microscopy NONE NRG Casts detection in urine sediment by light microscopy NONE NRG Mucus detection in urine sediment by light microscopy NEGATIVE NRG Complete urinalysis with reflex to culture NO NRG Urine protein/creatinine mass ratio - 04/24/17 12:48 Urine protein measurement (mass/volume) 10 mg/dL 6-12 Urine creatinine measurement (mass/volume) 87 mg/dL 30- 125 Urine protein/creatinine mass ratio 0.11 NRG Complete blood count (CBC) with automated white blood cell (WBC) differential - 04/24/17 13:14 Blood leukocytes automated count (number/volume) 9.2 10*3/uL 4.3-11.0 Blood erythrocytes automated count (number/volume) 5.46 10*6/uL 4.35-5.85 Venous blood hemoglobin measurement (mass/volume) 16.5 g/dL 13.3-17.7 Blood hematocrit (volume fraction) 49 % 40-54 Automated erythrocyte mean corpuscular volume 90 [foz_us] 80-99 Automated erythrocyte mean corpuscular hemoglobin (mass per erythrocyte) 30 pg 25-34 Automated erythrocyte mean corpuscular hemoglobin concentration measurement ( mass/volume) 34 g/dL 32-36 Automated erythrocyte distribution width ratio 14.5 % 10.0-14.5 Automated blood platelet count (count/volume) 285 10*3/uL 130-400 Automated blood platelet mean volume measurement 10.2 [foz_us] 7.4-10.4 Automated blood neutrophils/100 leukocytes 56 % 42-75 Automated blood lymphocytes/100 leukocytes 34 % 12-44 Blood monocytes/100 leukocytes 7 % 0-12 Automated blood eosinophils/100 leukocytes 3 % 0-10 Automated blood basophils/100 leukocytes 0 % 0-10 Blood neutrophils automated count (number/volume) 5.2 10*3 1.8-7.8 Blood lymphocytes automated count (number/volume) 3.2 10*3 1.0-4.0 Blood monocytes automated count (number/volume) 0.7 10*3 0.0-1.0 Automated eosinophil count 0.2 10*3/uL 0.0-0.3 Automated blood basophil count (count/volume) 0.0 10*3/uL 0.0-0.1 Serum or plasma renal function panel (Na, K, Cl, CO2, BUN, Cr, glucose,Ca, phos , alb) - 04/24/17 13:14 Serum or plasma sodium measurement (moles/volume) 138 mmol/L 135-145 Serum or plasma potassium measurement (moles/volume) 4.7 mmol/L 3.6-5.0 Serum or plasma chloride measurement (moles/volume) 106 mmol/L 98-107 Carbon dioxide 23 mmol/L 21-32 Serum or plasma anion gap determination (moles/volume) 9 mmol/L 5-14 Serum or plasma urea nitrogen measurement (mass/volume) 21 mg/dL 7-18 Serum or plasma creatinine measurement (mass/volume) 1.56 mg/dL 0.60-1.30 Serum or plasma urea nitrogen/creatinine mass ratio 13 NRG Serum or plasma creatinine measurement with calculation of estimated glomerular filtration rate 44 NRG Serum or plasma glucose measurement (mass/volume) 103 mg/dL 70-105 Serum or plasma calcium measurement (mass/volume) 9.9 mg/dL 8.5-10.1 Serum or plasma albumin measurement (mass/volume) 4.2 g/dL 3.2-4.5 Serum or plasma phosphate measurement (mass/volume) 3.8 mg/dL 2.3-4.7 Serum or plasma uric acid measurement (mass/volume) - 04/24/17 13:14 Serum or plasma uric acid measurement (mass/volume) 6.8 mg/dL 2.6-7.2 Magnesium - 04/24/17 13:14 Magnesium 2.3 mg/dL 1.8-2.4 Serum or plasma folate measurement (mass/volume) - 04/24/17 13:14 Serum or plasma folate measurement (mass/volume) 5.9 % 1.5-24.0 Serum or plasma intact pararthyroid hormone measurement (mass/volume) - 13:14 Serum or plasma intact parathyroid hormone measurement (mass/volume) 73.0 pg/mL 10.0-65.0 Bio-intact parathyroid hormone (PTH) measurement with calcium 10.0 % 8.5-10.5 Cyanocobalamin measurement - 04/24/17 13:14 Vitamin B12 676 pg/mL 200-1000 25-hydroxyvitamin D measurement - 04/24/17 13:14 25-hydroxy vitamin D measurement 33 % 30-100 Encounters ACCT No. Visit Date/Time Discharge Status Pt. Type Provider Facility Loc./Unit Complaint [id number] 10/05/2014 10:57:00 10/05/2014 23:59:59 CLS Outpatient TOYA LANDRUM APRN [id number] 07/27/2014 15:29:00 07/27/2014 23:59:59 CLS Outpatient MELVI DINERO APRN [id number] 07/25/2014 08:11:00 07/25/2014 23:59:59 CLS Outpatient TOYA LANDRUM APRN [id number] 06/21/2014 14:57:00 06/21/2014 23:59:59 CLS Outpatient TOYA LANDRUM APRN [id number] 05/27/2014 12:40:00 05/27/2014 23:59:59 CLS Outpatient TOYA LANDRUM APRN [id number] 05/20/2014 14:42:00 05/20/2014 23:59:59 CLS Outpatient ERICA HASSAN MD [id number] 04/13/2014 10:39:00 04/13/2014 23:59:59 CLS Outpatient TOYA LANDRUM APRN [id number] 04/13/2014 10:39:00 04/13/2014 23:59:59 CLS Outpatient DAPHNE DAVILA DO [id number] 03/28/2014 15:39:00 03/28/2014 23:59:59 CLS Outpatient TOYA LANDRUM APRN [id number] 02/07/2014 16:34:00 02/07/2014 23:59:59 CLS Outpatient TOYA LANDRUM APRN [id number] 11/16/2013 13:38:00 11/16/2013 23:59:59 CLS Outpatient JOHANA OWEN APRN [id number] 09/24/2013 09:16:00 09/24/2013 23:59:59 CLS Outpatient TOYA LANDRUM APRN [id number] 09/24/2013 09:16:00 09/24/2013 23:59:59 CLS Outpatient DAPHNE DAVILA DO Jim [id number] 07/23/2013 09:06:00 07/23/2013 23:59:59 CLS Outpatient DAPHNE DAVILA DO Jim [id number] 05/21/2013 09:42:00 05/21/2013 23:59:59 CLS Outpatient TOYA LANDRUM APRN [id number] 05/18/2013 13:05:00 05/18/2013 23:59:59 CLS Outpatient DAPHNE DAVILA DO Jim [id number] 03/29/2013 08:43:00 03/29/2013 23:59:59 CLS Outpatient JOHANA OWEN APRN [id number] 09/04/2012 10:09:00 09/04/2012 23:59:59 CLS Outpatient [id number] 08/04/2012 14:27:00 08/04/2012 23:59:59 CLS Outpatient TOYA LANDRUM APRN [id number] 07/31/2012 12:10:00 07/31/2012 23:59:59 CLS Outpatient [id number] 07/21/2012 14:56:00 07/21/2012 23:59:59 CLS Outpatient [id number] 07/20/2012 10:02:00 07/20/2012 23:59:59 CLS Outpatient [id number] 07/18/2012 10:43:00 07/18/2012 23:59:59 CLS Outpatient [id number] 07/10/2012 10:25:00 07/10/2012 23:59:59 CLS Outpatient [id number] 06/09/2012 16:10:26 06/09/2012 23:59:59 CLS Outpatient TOYA LANDRUM APRN [id number] 03/26/2013 09:13:00 Document Registration [id number] 01/27/2013 11:55:00 Document Registration [id number] 09/04/2012 10:09:00 Document Registration [id number] 04/10/2016 08:42:00 Document Registration [id number] 03/28/2017 08:07:00 Document Registration [id number] 12/29/2014 10:03:56 ACT Document Registration [id number] 02/15/2017 08:35:00 Document Registration [id number] 11/06/2017 09:20:00 11/06/2017 23:59:59 CLS Outpatient TOYA LANDRUM APRN [facility] [id number] 10/27/2017 13:15:00 10/27/2017 23:59:59 CLS Outpatient EBONY DRISCOLL MD [facility] LAB I10 [id number] 04/24/2017 12:21:00 04/24/2017 23:59:59 CLS Outpatient EBONY DRISCOLL MD [facility] LAB N18.3 I10 E55.9 F17.200 [id number] 02/03/2017 12:33:00 02/03/2017 23:59:59 CLS Outpatient TY JOHNSON MD [facility] CARD Z01.810 [id number] 01/09/2017 12:37:00 01/09/2017 23:59:59 CLS Outpatient EBONY DRISCOLL MD [facility] LAB I10,N18.3,E87.2,F17.200 [id number] 10/30/2016 15:12:00 10/30/2016 23:59:59 CLS Outpatient EBONY DRISCOLL MD [facility] RAD CKD STAGE 3 [id number] 09/16/2016 08:24:00 09/16/2016 23:59:59 CLS Outpatient TY JOHNSON MD [facility] CARD CLAUDICATION, Z01.810 [id number] 09/03/2016 08:56:00 09/03/2016 23:59:59 CLS Outpatient TOYA LANDRUM [facility] RAD PVD,CLAUDICATION OF LOWER EXTREMITY [id number] 05/14/2016 09:59:00 05/14/2016 23:59:59 CLS Outpatient JORDYN KERN DO [facility] SCREENING [id number] 05/10/2016 09:30:00 05/10/2016 10:02:00 DIS Outpatient JORDYN KERN DO [facility] PREOP SCREENING [id number] 01/24/2016 10:03:00 01/24/2016 15:07:00 DIS Outpatient JUDITH WILSON MD [facility] LEFT KNEE CHONDROMALASIA [id number] 01/18/2016 10:16:00 01/18/2016 11:17:00 DIS Outpatient JUDITH WILSON MD [facility] PREOP LEFT KNEE CHONDROMALASIA [id number] 10/07/2015 04:54:00 10/07/2015 06:31:00 DIS Emergency DONTAE PRINCESS GAYTAN [facility] ER LEFT ELBOW PAIN [id number] 01/02/2015 07:55:00 01/02/2015 16:10:00 DIS Inpatient FELIPA TRAVIS MD [facility] SURGICAL BILIARY DYSKENSIA; COLON STRICTURE;CHOLELITHIASIS [id number] 12/29/2014 10:03:00 12/29/2014 23:59:59 CLS Outpatient FELIPA TRAVIS MD [facility] PREOP BILIARY DYSKENISA [id number] 12/20/2014 12:09:00 12/20/2014 23:59:59 CLS Outpatient MALINI ALONSO DO [facility] CARD ABDOMINAL PAIN ABNORMAL CT SCAN [id number] 12/14/2014 07:43:00 12/14/2014 23:59:59 CLS Outpatient MALINI ALONSO DO [facility] RAD ABNORMAL XRAY, ABD PAIN, [id number] 11/29/2014 09:44:00 11/29/2014 23:59:59 CLS Outpatient DEFFENBAUGH DO, MALINI D [facility] RAD BOWEL OBSTRUCTION, RECTAL BLEEDING [id number] 10/25/2014 13:25:00 10/25/2014 16:05:00 DIS [facility] [id number] 10/19/2014 06:10:00 10/19/2014 23:59:59 CLS Outpatient JORDYN KERN DO [facility] PREOP BLOOD IN STOOLS; SCREENING [id number] 03/25/2014 17:50:00 03/25/2014 20:18:00 DIS Emergency CHASTITY DEL ROSARIO, FRANKY Lopes [facility] ER LOWER ABD PAIN [id number] 11/14/2013 14:51:00 11/14/2013 23:59:59 CLS Outpatient RUSS PRINCE [facility] QUICK [id number] 02/02/2015 09:26:00 Document Registration [id number] 02/02/2015 09:25:00 Document Registration [id number] 02/02/2015 09:25:00 Document Registration [id number] 12/29/2014 10:02:00 Document Registration [id number] 12/23/2011 05:34:00 Document Registration [id number] 12/18/2011 13:27:00 Document Registration [id number] 07/05/2008 10:46:00 Document Registration
[2017-11-13] MEDS ORDERED: predniSONE 20 MG TAB PO ONE (21:45)
[2017-11-13] MEDS ORDERED: RT-ALBUTEROL/IPRATROPIUM 3 ML (DUONEB) VIAL INH ONE (21:45)
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
[2017-11-13 22:11] LABS: BASOPHILS % (AUTO) 0 % (0-10); EOSINOPHILS # (AUTO) 0.2 10^3/uL (0.0-0.3); EOSINOPHILS % (AUTO) 2 % (0-10); HEMATOCRIT 48 % (40-54); HEMOGLOBIN 16.5 G/DL (13.3-17.7); LYMPHOCYTES # (AUTO) 3.9 X 10^3 (1.0-4.0); LYMPHOCYTES % (AUTO) 30 % (12-44); MEAN CORPUSCULAR HEMOGLOBIN 31 PG (25-34); MEAN CORPUSCULAR HGB CONC 35 G/DL (32-36); MEAN CORPUSCULAR VOLUME 88 FL (80-99); MEAN PLATELET VOLUME 9.8 FL (7.4-10.4); MONOCYTES # (AUTO) 1.3 X 10^3 (0.0-1.0); MONOCYTES % (AUTO) 10 % (0-12); NEUTROPHILS # (AUTO) 7.5 X 10^3 (1.8-7.8); NEUTROPHILS % (AUTO) 58 % (42-75); PLATELET COUNT 366 10^3/uL (130-400); RED BLOOD COUNT 5.41 10^6/uL (4.35-5.85)
[2017-11-13 22:28] LABS: BILIRUBIN,TOTAL 0.4 MG/DL (0.1-1.0); CALCIUM 9.7 MG/DL (8.5-10.1); CREATININE SERUM 1.45 MG/DL (0.60-1.30); POTASSIUM 4.3 MMOL/L (3.6-5.0); TOTAL PROTEIN 7.1 GM/DL (6.4-8.2)
[2017-11-13] MEDS ORDERED: INHA1INH59 MC (22:49)
[2017-11-13] MEDS ORDERED: RT-ALBUINH IH (22:49)
[2017-11-13] MEDS ORDERED: PRD20T PO (22:49)
[2017-11-13 22:57] VITALS: BP 162/94
[2017-11-13] MEDS ORDERED: PROP60TA17 PO (23:46)
[2017-11-13] MEDS ORDERED: CLOP75TA28 (23:46)
[2017-11-13] MEDS ORDERED: SODI650T (23:46)
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
== END 2017-11-13 22:57 | disposition home or self-care (01) ==
LOC: EDUNIT# 20:49 → ER 20:51
DX: J40 Bronchitis, not specified as acute or chronic (principal); I25.10 Atherosclerotic heart disease of native coronary artery without angina pectoris; E78.00 Pure hypercholesterolemia, unspecified; I10 Essential (primary) hypertension; F17.290 Nicotine dependence, other tobacco product, uncomplicated; F17.210 Nicotine dependence, cigarettes, uncomplicated; Z87.442 Personal history of urinary calculi; Z87.19 Personal history of other diseases of the digestive system; Z88.8 Allergy status to other drugs, medicaments and biological substances; Z79.02 Long term (current) use of antithrombotics/antiplatelets
CPT/HCPCS: 36415; 71046; 80053; 85025; 86141; 94640

== ENCOUNTER → 2018-04-08 | Outpatient (CLI) | payer MEDICARE, OTHER ==
[~2018-04-08] MED LIST changes: +CLOP75TA28; +INHA1INH59 MC; +PRD20T PO; +PROP60TA17 PO; +RT-ALBUINH IH; +SODI650T
[2018-04-08 15:16] LABS: ALBUMIN 4.5 GM/DL (3.2-4.5); BILIRUBIN,TOTAL 0.4 MG/DL (0.1-1.0); CALCIUM 10.2 MG/DL (8.5-10.1); CREATININE SERUM 1.62 MG/DL (0.60-1.30); POTASSIUM 4.5 MMOL/L (3.6-5.0); TOTAL PROTEIN 8.3 GM/DL (6.4-8.2)
== END ==
LOC: LAB 14:32
PROVIDERS: ATTEND Thoracic Surgery (Cardiothoracic Vascular Surgery)
DX: Z01.812 Encounter for preprocedural laboratory examination (principal); I70.213 Atherosclerosis of native arteries of extremities with intermittent claudication, bilateral legs
CPT/HCPCS: 36415; 80053

== ENCOUNTER → 2018-05-01 | Outpatient (CLI) | payer MEDICARE, OTHER ==
[2018-05-01 12:16] LABS: BASOPHILS % (AUTO) 0 % (0-10); EOSINOPHILS # (AUTO) 0.3 10^3/uL (0.0-0.3); EOSINOPHILS % (AUTO) 3 % (0-10); HEMATOCRIT 42 % (40-54); HEMOGLOBIN 14.3 G/DL (13.3-17.7); LYMPHOCYTES # (AUTO) 2.7 X 10^3 (1.0-4.0); LYMPHOCYTES % (AUTO) 30 % (12-44); MEAN CORPUSCULAR HEMOGLOBIN 30 PG (25-34); MEAN CORPUSCULAR HGB CONC 34 G/DL (32-36); MEAN CORPUSCULAR VOLUME 89 FL (80-99); MEAN PLATELET VOLUME 9.2 FL (7.4-10.4); MONOCYTES # (AUTO) 0.8 X 10^3 (0.0-1.0); MONOCYTES % (AUTO) 9 % (0-12); NEUTROPHILS # (AUTO) 5.2 X 10^3 (1.8-7.8); NEUTROPHILS % (AUTO) 58 % (42-75); PLATELET COUNT 442 10^3/uL (130-400); RED BLOOD COUNT 4.72 10^6/uL (4.35-5.85); RED CELL DISTRIBUTION WIDTH 14.2 % (10.0-14.5)
[2018-05-01 12:19] LABS: BILIRUBIN,URINE NEGATIVE (NEGATIVE); CLARITY,URINE CLEAR; COLOR,URINE YELLOW; GLUCOSE, URINE (UA) NEGATIVE (NEGATIVE); KETONES,URINE NEGATIVE (NEGATIVE); LEUKOCYTE ESTERASE ,URINE 1+ (NEGATIVE); NITRITE,URINE NEGATIVE (NEGATIVE); PH,URINE 6 (5-9); PROTEIN,URINE NEGATIVE (NEGATIVE); UROBILINOGEN,URINE NORMAL (NORMAL)
[2018-05-01 12:35] LABS: BACTERIA,URINE NEGATIVE /HPF
[2018-05-01 12:38] LABS: ALBUMIN 4.1 GM/DL (3.2-4.5); CREATININE SERUM 1.43 MG/DL (0.60-1.30); PHOSPHORUS 3.5 MG/DL (2.3-4.7); POTASSIUM 4.7 MMOL/L (3.6-5.0)
== END ==
LOC: LAB 11:58
PROVIDERS: ATTEND Internal Medicine Nephrology
DX: I12.9 Hypertensive chronic kidney disease with stage 1 through stage 4 chronic kidney disease, or unspecified chronic kidney disease (principal); N18.3 Chronic kidney disease, stage 3 (moderate); E55.9 Vitamin D deficiency, unspecified; R80.8 Other proteinuria
CPT/HCPCS: 36415; 80069; 81000; 82570; 83735; 84156; 85025

== ENCOUNTER → 2018-10-20 | Outpatient (CLI) | payer MEDICARE, OTHER ==
[2018-10-20 14:09] LABS: BASOPHILS % (AUTO) 0 % (0-10); EOSINOPHILS # (AUTO) 0.2 10^3/uL (0.0-0.3); EOSINOPHILS % (AUTO) 2 % (0-10); HEMATOCRIT 47 % (40-54); HEMOGLOBIN 16.2 G/DL (13.3-17.7); LYMPHOCYTES % (AUTO) 31 % (12-44); MEAN CORPUSCULAR HEMOGLOBIN 31 PG (25-34); MEAN CORPUSCULAR HGB CONC 35 G/DL (32-36); MEAN CORPUSCULAR VOLUME 90 FL (80-99); MEAN PLATELET VOLUME 9.8 FL (7.4-10.4); MONOCYTES # (AUTO) 0.7 X 10^3 (0.0-1.0); MONOCYTES % (AUTO) 7 % (0-12); NEUTROPHILS # (AUTO) 5.7 X 10^3 (1.8-7.8); NEUTROPHILS % (AUTO) 59 % (42-75); PLATELET COUNT 363 10^3/uL (130-400); RED CELL DISTRIBUTION WIDTH 14.9 % (10.0-14.5); WHITE BLOOD COUNT 9.6 10^3/uL (4.3-11.0)
[2018-10-20 14:32] LABS: ALBUMIN 4.3 GM/DL (3.2-4.5); CREATININE SERUM 1.56 MG/DL (0.60-1.30); MAGNESIUM 2.1 MG/DL (1.8-2.4); PHOSPHORUS 3.7 MG/DL (2.3-4.7); POTASSIUM 4.3 MMOL/L (3.6-5.0); URIC ACID 7.3 MG/DL (2.6-7.2)
== END ==
LOC: LAB 13:20
PROVIDERS: ATTEND Internal Medicine Nephrology
DX: I12.9 Hypertensive chronic kidney disease with stage 1 through stage 4 chronic kidney disease, or unspecified chronic kidney disease (principal); N18.3 Chronic kidney disease, stage 3 (moderate); F17.200 Nicotine dependence, unspecified, uncomplicated; E21.1 Secondary hyperparathyroidism, not elsewhere classified; E87.2 Acidosis
CPT/HCPCS: 36415; 80069; 82164; 82306; 82570; 82652; 83519; 83735; 83883; 83970; 84155; 84156; 84165; 84166; 84550; 85025; 86335

== ENCOUNTER → 2019-04-13 | Outpatient (CLI) | payer MEDICARE, OTHER ==
[2019-04-13 13:05] LABS: ALBUMIN 4.2 GM/DL (3.2-4.5); CALCIUM 9.5 MG/DL (8.5-10.1); CREATININE SERUM 1.65 MG/DL (0.60-1.30); MAGNESIUM 2.1 MG/DL (1.6-2.4); PHOSPHORUS 3.3 MG/DL (2.3-4.7); POTASSIUM 4.5 MMOL/L (3.6-5.0)
== END ==
LOC: LAB 12:36
PROVIDERS: ATTEND Internal Medicine Nephrology
DX: N18.3 Chronic kidney disease, stage 3 (moderate) (principal)
CPT/HCPCS: 36415; 80069; 83735

== ENCOUNTER → 2019-06-25 | Outpatient (CLI) | payer MEDICARE, OTHER ==
--- NOTE | 2019-06-25 16:09 | Diagnostic Imaging Report ---
EXAMINATION: CT of the temporal bones without contrast. INDICATION: Chronic left otorrhea. COMPARISON: None. TECHNIQUE: Thin section helical CT was performed through the temporal bones without contrast and reformatted into coronal and sagittal planes. Dose reduction techniques were utilized. FINDINGS: On the right, the external auditory canal is patent. There is no evidence of thickening of the tympanic membrane. The ossicles on the right appear intact. There is no evidence of soft tissue identified within the middle ear. There is no evidence of bony erosion. The scutum appears intact. The internal auditory canal is of normal size. The course of the facial nerve is normal. There is no evidence of jugular bulb dehiscence. There is no aberrancy of the right internal carotid artery. The mastoid air cells are clear. The semicircular canals, cochlea and vestibule demonstrate normal CT appearances. There is no enlargement of the vestibular aqueduct. On the left, the external auditory canal is patent. There is thickening of the left tympanic membrane. Within the middle ear cavity, there is opacification involving the epitympanum, including Prussak's space. No evidence of ossicle dislocation or erosion. The scutum has a normal appearance. The internal auditory canal is of normal size. The course of the facial nerve is normal. There is no evidence of jugular bulb dehiscence. There is no aberrancy of the left internal carotid artery. Fluid is seen throughout the mastoid air cells. The semicircular canals, cochlea and vestibule demonstrate normal CT appearances. There is no enlargement of the vestibular aqueduct. Visualized intracranial contents demonstrate no evidence of mass effect. The basilar cisterns are patent. Temporomandibular joints are within normal limits. IMPRESSION: 1. Opacification of the epitympanum in the left middle ear with left-sided mastoid effusion. No evidence of bony erosion or ossicle disruption. These findings may represent otitis media with reactive mastoid effusion. Recommend correlation with physical exam to exclude cholesteatoma. 2. Unremarkable appearance of the right middle ear cavity. 3. Unremarkable appearance of the bilateral inner ear structures. Dictated by: Dictated on workstation # [id number]
== END ==
LOC: RAD 14:25
PROVIDERS: ATTEND Otolaryngology Otolaryngology/Facial Plastic Surgery
DX: H74.8X2 Other specified disorders of left middle ear and mastoid (principal); H92.12 Otorrhea, left ear
CPT/HCPCS: 70480

== ENCOUNTER → 2020-05-15 | Outpatient (CLI) | payer MEDICARE, OTHER ==
[~2020-05-15] MED LIST changes: +CELE-63 PO; -CLOP75TA28; +CLOP75TA28 PO; +GEMF600T8 PO; +NF-SODBICA PO; +OMEG1CAP58 PO; -OXYC-465 PO; +OXYC-556 PO; +PROP80TA3 PO; -SODI650T
[2020-05-15 12:50] LABS: BASOPHILS # (AUTO) 0.1 10^3/uL (0.0-0.1); BASOPHILS % (AUTO) 1 % (0-10); EOSINOPHILS # (AUTO) 0.2 10^3/uL (0.0-0.3); EOSINOPHILS % (AUTO) 3 % (0-10); HEMATOCRIT 50 % (40-54); HEMOGLOBIN 16.6 g/dL (13.3-17.7); LYMPHOCYTES # (AUTO) 2.3 10^3/uL (1.0-4.0); LYMPHOCYTES % (AUTO) 36 % (12-44); MEAN CORPUSCULAR HEMOGLOBIN 31 pg (25-34); MEAN CORPUSCULAR HGB CONC 33 g/dL (32-36); MEAN CORPUSCULAR VOLUME 94 fL (80-99); MONOCYTES # (AUTO) 0.6 10^3/uL (0.0-1.0); MONOCYTES % (AUTO) 9 % (0-12); NEUTROPHILS # (AUTO) 3.2 10^3/uL (1.8-7.8); NEUTROPHILS % (AUTO) 51 % (42-75); PLATELET COUNT 278 10^3/uL (130-400); WHITE BLOOD COUNT 6.3 10^3/uL (4.3-11.0)
[2020-05-15 12:53] LABS: BILIRUBIN,URINE NEGATIVE (NEGATIVE); CLARITY,URINE CLEAR; COLOR,URINE YELLOW; GLUCOSE, URINE (UA) NEGATIVE (NEGATIVE); KETONES,URINE NEGATIVE (NEGATIVE); LEUKOCYTE ESTERASE ,URINE NEGATIVE (NEGATIVE); NITRITE,URINE NEGATIVE (NEGATIVE); PROTEIN,URINE 1+ (NEGATIVE)
[2020-05-15 13:09] LABS: ALBUMIN 4.3 GM/DL (3.2-4.5); CALCIUM 9.6 MG/DL (8.5-10.1); CREATININE SERUM 1.69 MG/DL (0.60-1.30); MAGNESIUM 1.9 MG/DL (1.6-2.4); PHOSPHORUS 2.8 MG/DL (2.3-4.7); POTASSIUM 4.3 MMOL/L (3.6-5.0)
[2020-05-15 13:10] LABS: BACTERIA,URINE NEGATIVE /HPF; SQUAMOUS EPITHELIAL CELL,UR RARE /HPF
== END ==
LOC: LAB 12:01
PROVIDERS: ATTEND Internal Medicine Nephrology
DX: E21.1 Secondary hyperparathyroidism, not elsewhere classified (principal); I12.9 Hypertensive chronic kidney disease with stage 1 through stage 4 chronic kidney disease, or unspecified chronic kidney disease; N18.30 Chronic kidney disease, stage 3 unspecified; R80.8 Other proteinuria
CPT/HCPCS: 36415; 80069; 81000; 82306; 82570; 83735; 83970; 84156; 84550; 85025

== ENCOUNTER 2020-05-17 05:28 | Outpatient (RCR) | payer MEDICARE, OTHER ==
[~2020-05-17] VITALS: Ht 185.5 cm; Wt 89.1 kg
[~2020-05-17 05:28] MED LIST changes: -CELE-63 PO; -GEMF600T8 PO; -OMEG1CAP58 PO; -PROP80TA3 PO
[2020-05-17] MEDS ORDERED: GEMF600T8 PO (08:27)
[2020-05-17] MEDS ORDERED: LORA10TA7 PO (08:27)
[2020-05-17] MEDS ORDERED: CELE-63 PO (08:27)
[2020-05-17] MEDS ORDERED: PROP80TA3 PO (08:27)
[2020-05-17] MEDS ORDERED: LISI10TA2 PO (08:27)
[2020-05-17] MEDS ORDERED: OMEG1CAP58 PO (08:27)
== END 2020-05-17 09:23 | disposition home or self-care (01) ==
LOC: PREOP 05:28
PROVIDERS: ATTEND Specialist
DX: Z01.812 Encounter for preprocedural laboratory examination (principal); Z20.828 Contact with and (suspected) exposure to other viral communicable diseases
CPT/HCPCS: 87635

== ENCOUNTER 2020-05-19 06:04 | Day surgery (SDC) | payer MEDICARE, OTHER ==
[~2020-05-19] VITALS: Ht 185 cm; Wt 81.1 kg
[~2020-05-19 06:04] MED LIST changes: +CELE-63 PO; +GEMF600T8 PO; +OMEG1CAP58 PO; +PROP80TA3 PO
[2020-05-19] MEDS ORDERED: MOXIFLOXACIN OPHTH SOLN 5 MG/ML 0.3 ML SYRINGE OP ONE (06:15)
[2020-05-19] MEDS ORDERED: TIMOLOL MALEATE 0.5% 5 ML (TIMOPTIC) BTL OU PRN (06:15)
[2020-05-19] MEDS ORDERED: LIDOCAINE PF 1% 2 ML VIAL IR PRN (06:15)
[2020-05-19] MEDS ORDERED: POVIDONE (BETADINE) OPHTH SOLN 5% 30 ML OP ONE (06:15)
[2020-05-19 06:23] VITALS: BP 156/87
[2020-05-19] MEDS: TETRACAINE 0.5% OPHTH SOLN 4 ML BTL (SINGLE DOSE ONLY) OU PRN ×4 (06:44→07:02)
[2020-05-19] MEDS: TROPICAMIDE 1% OPH SOLN (MYDRIACYL) 15 ML BTL OP SCH ×3 (06:50→07:02)
[2020-05-19] MEDS: PHENYLEPHRINE 10% OPHTH (NEO-SYN) 5 ML BTL OU SCH ×3 (06:50→07:02)
[2020-05-19] MEDS ORDERED: MIDAZOLAM 2 MG/2 ML (VERSED) VIAL ONE (06:59)
--- NOTE | 2020-05-19 07:27 | Ophthalmologist Pre-Op Note ---
Pre-Operative Progress Note H&P Reviewed The H&P was reviewed, patient examined and no changes noted. Date H&P Reviewed: May 19, 2020 Time H&P Reviewed: 07:27 Pre-Op Dx Cataract, Right Eye VALORIE GARVIN MD May 19, 2020 07:27
[2020-05-19] MEDS ORDERED: acetaZOLAMIDE ER 500 MG CAP (DIAMOX SEQUELS) PO ONE (07:30)
--- NOTE | 2020-05-19 07:52 | Ophthalmology Operative Report ---
Cataract removal/placement IOL PREOPERATIVE DIAGNOSIS: Cataract Right Eye POSTOPERATIVE DIAGNOSIS: Cataract Right Eye PROCEDURE: Cataract removal and placement of posterior chamber implant, right eye SURGEON: Brent Garvin ANESTHESIA: Topical with sedation COMPLICATIONS: None ESTIMATED BLOOD LOSS: Minimal DESCRIPTION OF PROCEDURE: After proper informed consent was obtained, the patient, a 74 male, was taken to the Operating Room and the right eye was anesthetized with tetracaine. The right eye was then prepped and draped in the usual manner. A wire lid speculum was placed. A paracentesis was made at the left hand position. Preservative free lidocaine was injected into the anterior chamber followed by viscoelastic. A clear corneal incision was made in the temporal position. A capsulorrhexis was preformed and the central nuclear and cortical material were removed. The posterior capsule was polished and Boris 20.5 AU00T0 IOL was placed into the capsular bag. The residual viscoelastic was aspirated and balanced saline solution was injected into the anterior chamber. Moxifloxacin was injected into the anterior chamber. The wound was checked and found to be water tight. The patient tolerated the procedure well without complications. BRENT GARVIN MD May 19, 2020 07:52
[2020-05-19 07:58] VITALS: BP 144/88
--- NOTE | 2020-05-19 12:18 | Anesthesia-General Post-Op ---
MAC Patient Condition Mental Status/LOC: Same as Preop Cardiovascular: Satisfactory Nausea/Vomiting: Absent Respiratory: Satisfactory Pain: Controlled Complications: Absent Post Op Complications Complications None Follow Up Care/Instructions Patient Instructions None needed. Anesthesiology Discharge Order Discharge Order Patient is doing well, no complaints, stable vital signs, no apparent adverse anesthesia problems. No complications reported per nursing. LYNDSAY JOY CRNA May 19, 2020 12:18
== END 2020-05-19 08:02 ==
LOC: SDC 06:04
PROVIDERS: ATTEND Specialist
DX: H25.11 Age-related nuclear cataract, right eye (principal); I10 Essential (primary) hypertension; J44.9 Chronic obstructive pulmonary disease, unspecified; G62.9 Polyneuropathy, unspecified; Z79.899 Other long term (current) drug therapy; Z88.8 Allergy status to other drugs, medicaments and biological substances; Z95.5 Presence of coronary angioplasty implant and graft; Z87.891 Personal history of nicotine dependence
CPT/HCPCS: 66984; V2632

== ENCOUNTER 2020-05-23 05:38 | Outpatient (RCR) | payer MEDICARE, OTHER | END 2020-05-24 08:54 | disposition home or self-care (01) | LOC: PREOP 05:38 | PROVIDERS: ATTEND Specialist | DX: Z01.812 Encounter for preprocedural laboratory examination (principal); U07.1 COVID-19 | CPT/HCPCS: 87635 ==

== ENCOUNTER 2020-06-28 05:41 | Outpatient (RCR) | payer MEDICARE, OTHER ==
[~2020-06-28] VITALS: Ht 185 cm; Wt 90.2 kg
== END 2020-06-28 13:08 | disposition home or self-care (01) ==
LOC: PREOP 05:41
PROVIDERS: ATTEND Specialist
DX: Z01.812 Encounter for preprocedural laboratory examination (principal); H25.9 Unspecified age-related cataract; Z20.828 Contact with and (suspected) exposure to other viral communicable diseases
CPT/HCPCS: 87635

== ENCOUNTER 2020-06-30 07:02 | Day surgery (SDC) | payer MEDICARE, OTHER ==
[~2020-06-30] VITALS: Ht 185 cm; Wt 90.2 kg
[2020-06-30 07:15] VITALS: BP 129/79
[2020-06-30] MEDS ORDERED: MOXIFLOXACIN OPHTH SOLN 5 MG/ML 0.3 ML SYRINGE OP ONE (07:15)
[2020-06-30] MEDS ORDERED: LIDOCAINE PF 1% 2 ML VIAL IR PRN (07:15)
[2020-06-30] MEDS ORDERED: POVIDONE (BETADINE) OPHTH SOLN 5% 30 ML OP ONE (07:15)
[2020-06-30] MEDS ORDERED: TIMOLOL MALEATE 0.5% 5 ML (TIMOPTIC) BTL OU PRN (07:15)
[2020-06-30] MEDS: TETRACAINE 0.5% OPHTH SOLN 4 ML BTL (SINGLE DOSE ONLY) OU PRN ×4 (07:16→07:40)
[2020-06-30] MEDS: PHENYLEPHRINE 10% OPHTH (NEO-SYN) 5 ML BTL OU SCH ×3 (07:24→07:40)
[2020-06-30] MEDS: TROPICAMIDE 1% OPH SOLN (MYDRIACYL) 15 ML BTL OP SCH ×3 (07:24→07:40)
--- NOTE | 2020-06-30 08:18 | Ophthalmologist Pre-Op Note ---
Pre-Operative Progress Note H&P Reviewed The H&P was reviewed, patient examined and no changes noted. Date H&P Reviewed: Jun 30, 2020 Time H&P Reviewed: 08:18 Pre-Op Dx Cataract, Left Eye VALORIE GARVIN MD Jun 30, 2020 08:18
[2020-06-30] MEDS ORDERED: MIDAZOLAM 2 MG/2 ML (VERSED) VIAL ONE (08:21)
[2020-06-30] MEDS ORDERED: acetaZOLAMIDE ER 500 MG CAP (DIAMOX SEQUELS) PO ONE (08:30)
--- NOTE | 2020-06-30 08:41 | Ophthalmology Operative Report ---
Cataract removal/placement IOL PREOPERATIVE DIAGNOSIS: Cataract Left Eye POSTOPERATIVE DIAGNOSIS: Cataract Left Eye PROCEDURE: Cataract removal and placement of posterior chamber implant, left eye SURGEON: Brent Garvin ANESTHESIA: Topical with sedation COMPLICATIONS: None ESTIMATED BLOOD LOSS: Minimal DESCRIPTION OF PROCEDURE: After proper informed consent was obtained, the patient, a 75 male, was taken to the Operating Room and the left eye was anesthetized with tetracaine. The left eye was then prepped and draped in the usual manner. A wire lid speculum was placed. A paracentesis was made at the left hand position. Preservative free lidocaine was injected into the anterior chamber followed by viscoelastic. A clear corneal incision was made in the temporal position. A capsulorrhexis was preformed and the central nuclear and cortical material were removed. The posterior capsule was polished and an Boris 21.0 AU00T0 was placed into the capsular bag. The residual viscoelastic was aspirated and balanced saline solution was injected into the anterior chamber. Moxifloxacin was injected into the anterior chamber. The wound was checked and found to be water tight. The patient tolerated the procedure well without complications. BRENT GARVIN MD Jun 30, 2020 08:41
[2020-06-30 08:55] VITALS: BP 115/75
--- NOTE | 2020-06-30 10:19 | Anesthesia-General Post-Op ---
MAC Patient Condition Mental Status/LOC: Same as Preop Cardiovascular: Satisfactory Nausea/Vomiting: Absent Respiratory: Satisfactory Pain: Controlled Complications: Absent Post Op Complications Complications None Follow Up Care/Instructions Patient Instructions None needed. Anesthesiology Discharge Order Discharge Order Patient is doing well, no complaints, stable vital signs, no apparent adverse anesthesia problems. No complications reported per nursing. LUCA PANG CRNA Jun 30, 2020 10:18
== END 2020-06-30 08:58 | disposition home or self-care (01) ==
LOC: SDC 07:02
PROVIDERS: ATTEND Specialist
DX: H25.12 Age-related nuclear cataract, left eye (principal); I10 Essential (primary) hypertension; J44.9 Chronic obstructive pulmonary disease, unspecified; I73.9 Peripheral vascular disease, unspecified; G62.9 Polyneuropathy, unspecified; Z79.899 Other long term (current) drug therapy; Z95.5 Presence of coronary angioplasty implant and graft; Z87.891 Personal history of nicotine dependence
CPT/HCPCS: 66984; V2632

== ENCOUNTER 2020-08-11 09:16 | Emergency (ER) | payer MEDICARE, OTHER ==
[~2020-08-11] VITALS: Ht 185 cm; Wt 100.0 kg
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
[2020-08-11] MEDS ORDERED: NITROGLYCERIN 2% OINT 1 GM UNIT DOSE PACKET TOP ONE (10:00)
[2020-08-11 10:01] LABS: BASOPHILS % (AUTO) 0 % (0-10); EOSINOPHILS # (AUTO) 0.1 10^3/uL (0.0-0.3); EOSINOPHILS % (AUTO) 1 % (0-10); HEMATOCRIT 38 % (40-54); HEMOGLOBIN 12.4 g/dL (13.3-17.7); LYMPHOCYTES # (AUTO) 2.1 10^3/uL (1.0-4.0); LYMPHOCYTES % (AUTO) 20 % (12-44); MEAN CORPUSCULAR HEMOGLOBIN 31 pg (25-34); MEAN CORPUSCULAR HGB CONC 33 g/dL (32-36); MEAN CORPUSCULAR VOLUME 93 fL (80-99); MEAN PLATELET VOLUME 10.8 fL (9.0-12.2); MONOCYTES # (AUTO) 1.2 10^3/uL (0.0-1.0); MONOCYTES % (AUTO) 11 % (0-12); NEUTROPHILS # (AUTO) 7.1 10^3/uL (1.8-7.8); NEUTROPHILS % (AUTO) 68 % (42-75); PLATELET COUNT 286 10^3/uL (130-400); WHITE BLOOD COUNT 10.5 10^3/uL (4.3-11.0)
[2020-08-11 10:12] LABS: PROTHROMBIN TIME PATIENT 13.2 SEC (12.2-14.7)
[2020-08-11 10:16] LABS: CREATININE SERUM 1.74 MG/DL (0.60-1.30)
[2020-08-11] MEDS ORDERED: HEParin 1000 UNIT/ML (10ML VIAL) FOR BOLUS IV ONE (11:00)
--- NOTE | 2020-08-11 11:57 | Diagnostic Imaging Report ---
Indication: Right leg pain arterial Doppler right leg Duplex ultrasound of the arterial system right leg was done with grayscale, spectral wave form and color Doppler flow analysis Patient has a femoral-popliteal bypass graft. The common femoral artery is patent. The profunda femoris is patent. The [place] superficial femoral artery was occluded at its origin. The femoral popliteal bypass graft is occluded. There is flow detected in the posterior tibial artery and ankle. IMPRESSION: Patient has occlusion of the superficial femoral artery and femoral popliteal bypass graft. There appears too be some collateral perfusion [id number] via the profunda femoral artery. Dictated by: Dictated on workstation # [id number]
[2020-08-11 13:52] VITALS: BP 123/87
== END 2020-08-11 13:55 | disposition short-term general hospital (02) ==
LOC: EDUNIT# 09:16 → ER 09:18
DX: T82.898A Other specified complication of vascular prosthetic devices, implants and grafts, initial encounter (principal); I10 Essential (primary) hypertension; E78.00 Pure hypercholesterolemia, unspecified; Z82.49 Family history of ischemic heart disease and other diseases of the circulatory system; Z87.891 Personal history of nicotine dependence; Z88.8 Allergy status to other drugs, medicaments and biological substances
CPT/HCPCS: 36415; 80048; 85025; 85610; 85730; 93926

== ENCOUNTER 2020-10-18 10:28 | Inpatient (IN) | payer MEDICARE, OTHER ==
[2020-10-18] VITALS (10 sets, daily range): BP systolic 122–194; BP diastolic 65–118
[~2020-10-18] VITALS: Ht 185 cm; Wt 122.0 kg
[~2020-10-18 10:28] MED LIST changes: -GEMF600T8 PO; +GEMF600T88 PO; +LISI10TA25 PO
[2020-10-18 10:53] LABS: ABG BASE EXCESS -0.8 MMOL/L (-2.5-2.5); ABG OXYGEN SATURATION 38 % (94-100); ABG PCO2 43 MMHG (35-45); ABG PH 7.37 (7.37-7.43); ABG TCO2 25.4 MMOL/L (21.0-31.0)
[2020-10-18 10:55] LABS: ABG PO2 29 MMHG (79-93)
[2020-10-18 10:56] LABS: ALLENS TEST YES-POS; INSPIRED O2 10; PATIENT TEMP 36; VENTILATOR NO
[2020-10-18 11:08] LABS: BASOPHILS # (AUTO) 0.1 10^3/uL (0.0-0.1); BASOPHILS % (AUTO) 1 % (0-10); EOSINOPHILS # (AUTO) 0.1 10^3/uL (0.0-0.3); EOSINOPHILS % (AUTO) 1 % (0-10); HEMATOCRIT 48 % (40-54); HEMOGLOBIN 15.2 g/dL (13.3-17.7); LYMPHOCYTES # (AUTO) 1.7 10^3/uL (1.0-4.0); LYMPHOCYTES % (AUTO) 15 % (12-44); MEAN CORPUSCULAR HEMOGLOBIN 30 pg (25-34); MEAN CORPUSCULAR HGB CONC 31 g/dL (32-36); MEAN CORPUSCULAR VOLUME 96 fL (80-99); MONOCYTES # (AUTO) 0.8 10^3/uL (0.0-1.0); MONOCYTES % (AUTO) 7 % (0-12); NEUTROPHILS # (AUTO) 8.6 10^3/uL (1.8-7.8); NEUTROPHILS % (AUTO) 76 % (42-75); PLATELET COUNT 316 10^3/uL (130-400); WHITE BLOOD COUNT 11.3 10^3/uL (4.3-11.0)
[2020-10-18 11:11] LABS: ABG BASE EXCESS -3.4 MMOL/L (-2.5-2.5); ABG OXYGEN SATURATION 91 % (94-100); ABG PCO2 31 MMHG (35-45); ABG PH 7.43 (7.37-7.43); ABG PO2 61 MMHG (79-93); ABG TCO2 21.4 MMOL/L (21.0-31.0)
[2020-10-18 11:12] LABS: ALLENS TEST YES-POS; INSPIRED O2 10; PATIENT TEMP 36; VENTILATOR NO
[2020-10-18 11:12] LABS: ALBUMIN 4.1 GM/DL (3.2-4.5); POTASSIUM 4.2 MMOL/L (3.6-5.0)
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
[2020-10-18 11:13] LABS: CALCIUM 9.1 MG/DL (8.5-10.1)
[2020-10-18 11:14] LABS: INR 1.3 (0.8-1.4); PROTHROMBIN TIME PATIENT 16.8 SEC (12.2-14.7)
[2020-10-18 11:14] LABS: TOTAL PROTEIN 7.6 GM/DL (6.4-8.2)
[2020-10-18 11:16] LABS: BILIRUBIN,TOTAL 1.3 MG/DL (0.1-1.0)
[2020-10-18 11:18] LABS: CREATININE SERUM 2.05 MG/DL (0.60-1.30)
--- NOTE | 2020-10-18 11:41 | Diagnostic Imaging Report ---
EXAMINATION: Chest 1 view HISTORY: sepsis COMPARISON: Chest radiograph 11/13/2017 FINDINGS: Heart size and pulmonary vasculature are normal. There are diffuse interstitial opacities throughout both lungs. Patchy airspace opacities within the lung bases. No pleural effusion or pneumothorax. Stable calcifications overlying the left chest. The osseous structures are intact. IMPRESSION: 1. Diffuse interstitial opacities within both lungs with bibasilar atelectasis or consolidation. These findings can be seen with multifocal pneumonia or pulmonary edema. Dictated by: Dictated on workstation # [id number]
[2020-10-18] MEDS ORDERED: AZITHROMYCIN INJECTION 500 MG in NS (IVPB) 250 ML IV ONE (14:00)
[2020-10-18] MEDS ORDERED: cefTRIAXone FOR IV USE 1,000 MG in WATER (STERILE) FOR INJECTION 10 ML IV ONE (14:00)
--- NOTE | 2020-10-18 15:36 | History & Physical-Hospitalist ---
History of Present Illness HPI/Chief Complaint CC: Dypsnea HPI: This is a 75yoWM clinic patient of [facility] who had COVID 07/2020 who presented to the ER with dyspnea. Patient was found to have very low sats of 69% and placed on O2. CXR revealed bilateral infiltrates. Cardiology and Pulmonology were consulted due to findings of CHF and PNA on CXR and labs. Patient will me placed in isolation. Source: patient, RN/MD, old records Exam Limitations: clinical condition Date Seen 10/18/20 Time Seen by a Provider: 15:30 Attending Physician Maddy Bonilla DO [facility] Referring Physician Date of Admission Oct 18, 2020 at 13:07 Home Medications & Allergies Home Medications Reviewed patient Home Medication Reconciliation performed by pharmacy medication reconciliations cardiac cath technician and/or nursing. Patients Allergies have been reviewed. Allergies Allergies Coded Allergies hydrochlorothiazide (Unverified Allergy, Unknown, 01/18/16) Patient Social History Marrital Status: Employed/Student: retired Tobacco Use?: No Smoking Status: Former Smoker Alcohol Use?: No Immunizations Up To Date Date of Pneumonia Vaccine: Oct 12, 2012 Current Status Primary Language: Turkmen Past Medical History COPD CAD OA Family Medical History Family Hx: CAD Review of Systems Constitutional: see HPI, dizziness, fever, malaise, weakness Respiratory: no symptoms reported Cardiovascular: no symptoms reported Psychiatric/Neurological: See HPI Physical Exam Physical Exam Vital Signs Vital Signs - First Documented 10/18/20 10/18/20 10:28 17:04 Temp 36.0 Pulse 57 Resp 31 B/P (MAP) 162/93 (116) Pulse Ox 92 O2 Delivery OxyMask O2 Flow Rate 10.00 FiO2 100 Capillary Refill : Less Than 3 Seconds Height, Weight, BMI Height: 6'1.00" Weight: 177lbs. 0.0oz. 80.307552fv; 25.00 BMI Method:Stated General Appearance: Anxious, Chronically ill, Mild Distress Eyes: Right Eye Normal Inspection, Right Eye PERRL HEENT: PERRL/EOMI, Normal ENT Inspection, Pharynx Normal, Moist Mucous Membranes Neck: Full Range of Motion, Normal Inspection, Non Tender Respiratory: Chest Non Tender, No Respiratory Distress, Accessory Muscle Use, Decreased Breath Sounds Cardiovascular: Regular Rate, Rhythm, No Edema, No Gallop, No JVD, No Murmur, Normal Peripheral Pulses Gastrointestinal: Normal Bowel Sounds, No Organomegaly, No Pulsatile Mass, Non Tender, Soft Back: Normal Inspection, No CVA Tenderness, No Vertebral Tenderness Extremity: Normal Capillary Refill, Normal Inspection, Normal Range of Motion, Non Tender, No Calf Tenderness, No Pedal Edema Neurologic/Psychiatric: Alert, Oriented x3, No Motor/Sensory Deficits, Normal Mood/Affect Skin: Normal Color, Warm/Dry Lymphatic: No Adenopathy Results Results/Procedures Labs Laboratory Tests 10/18/20 10:05 10/18/20 10:30 10/19/20 04:25 Patient resulted labs reviewed. Assessment/Plan Admission Diagnosis Assessment: Acute hypoxic respiratory failure PNA? STEFAN on CRI HTN OA Plan: Admit Monitor O2 Vapotherm PUI Admission Status: Inpatient Order (span 2 midnights) Reason for Inpatient Admission: resp failure MADDY BONILLA DO Oct 18, 2020 15:36
--- NOTE | 2020-10-18 16:02 | Consultation-Cardiology ---
HPI-Cardiology Cardiology Consultation Date of Consultation 10/18/20 Date of Admission Time Seen by Provider: 15:30 Indication: Dyspnea HPI Patient is a 75 y/o male with hx of COPD, HTN, PVD. Presented to the ER with complaints of increased dyspnea over the past 2 days. Was hypoxemic on arrival to ED. Denies any chest pain. had COVID-19 illness and was admitted at [place] in Jul 2020. Had DVT post COVID as well as atrial fibrillation. Patient follows with Dr. Jimenez and was started on Amiodarone in addition to his Xarelto. EKG today showing SR. W/u in ER showing bilat pneumonia with pulmonary edema, elevated BNP. Home Medications & Allergies Allergies: Coded Allergies: hydrochlorothiazide (Unverified Allergy, Unknown, 01/18/16) AHT-Kfeifj-Fidhcu Hx Patient Social History Marital Status: Employed/Student: retired Recreational Drug Use: No Smoking Status: Former Smoker Type Used: Cigars Recent Hopitalizations: Yes (-JUL) Immunizations Up To Date Date of Pneumonia Vaccine: Oct 12, 2012 Date of Influenza Vaccine: Apr 13, 2016 Past Medical History COPD, extobaccoism PVD, HTN, HLP Family Medical History Family History: Alcoholism 19 FATHER Hypertension 19 FATHER No Family History of: AIDS Alzheimer's disease Aphasia Arthritis Asthma Cancer of mouth Cardiovascular disease Cataracts Colon cancer Completed stroke Dementia Diabetes mellitus Drug abuse Kidney disease Parkinson's disease Prostate cancer Psychosocial problem Respiratory disorder Seizure disorder Severe allergy Thyroid disease Tuberculosis Visual disorder Review of Systems-General Review of Systems Constitutional: see HPI; No fever, No malaise EENTM: see HPI, no symptoms reported; No blurred vision, No double vision Respiratory: cough, dyspnea on exertion, short of breath Cardiovascular: No chest pain; edema; No Hx of Intervention, No syncope, No vascular heart diseas Gastrointestinal: no symptoms reported; No abdominal pain Genitourinary: no symptoms reported Musculoskeletal: no symptoms reported Skin: no symptoms reported All Other Systems Reviewed Negative Unless Noted: Yes Reviewed Test Results Reviewed Test Results Lab Laboratory Tests 10/18/20 10:05: Sodium Level 141, Potassium Level 4.2, Chloride Level 107, Carbon Dioxide Level 22, Anion Gap 12, Blood Urea Nitrogen 20H, Creatinine 2.05H, Estimat Glomerular Filtration Rate 32, BUN/Creatinine Ratio 10, Glucose Level 114H, Calcium Level 9.1, Corrected Calcium 9.0, Total Bilirubin 1.3H, Aspartate Amino Transf (AST/SGOT) 40H, Alanine Aminotransferase (ALT/SGPT) 42, Alkaline Phosphatase 84, Total Protein 7.6, Albumin 4.1, Procalcitonin 0.07 10/18/20 10:30: White Blood Count 11.3H, Red Blood Count 5.06, Hemoglobin 15.2, Hematocrit 48, Mean Corpuscular Volume 96, Mean Corpuscular Hemoglobin 30, Mean Corpuscular Hemoglobin Concent 31L, Red Cell Distribution Width 15.0H, Platelet Count 316, Mean Platelet Volume 10.0, Immature Granulocyte % (Auto) 0, Neutrophils (%) (Auto) 76H, Lymphocytes (%) (Auto) 15, Monocytes (%) (Auto) 7, Eosinophils (%) (Auto) 1, Basophils (%) (Auto) 1, Neutrophils # (Auto) 8.6H, Lymphocytes # (Auto) 1.7, Monocytes # (Auto) 0.8, Eosinophils # (Auto) 0.1, Basophils # (Auto) 0.1, Immature Granulocyte # (Auto) 0.0, Prothrombin Time 16.8H, INR Comment 1.3, Activated Partial Thromboplast Time 36H, B-Type Natriuretic Peptide 235.3H 10/18/20 10:45: Blood Gas Puncture Site R RAD, Blood Gas Patient Temperature 36, Arterial Blood pH 7.37, Arterial Blood Partial Pressure CO2 43, Arterial Blood Partial Pressure O2 29*L, Arterial Blood HCO3 24, Arterial Blood Total CO2 25.4, Arterial Blood Oxygen Saturation 38L, Arterial Blood Base Excess -0.8, Devon Test YES-POS, Blood Gas Ventilator Setting NO, Blood Gas Inspired Oxygen 10 10/18/20 10:50: Lactic Acid Level 1.76 10/18/20 11:05: Blood Gas Puncture Site R RAD, Blood Gas Patient Temperature 36, Arterial Blood pH 7.43, Arterial Blood Partial Pressure CO2 31L, Arterial Blood Partial Pressure O2 61L, Arterial Blood HCO3 20L, Arterial Blood Total CO2 21.4, Arterial Blood Oxygen Saturation 91L, Arterial Blood Base Excess -3.4L, Devon Test YES-POS, Blood Gas Ventilator Setting NO, Blood Gas Inspired Oxygen 10 10/18/20 12:25: Coronavirus 2019 ([facility]) Negative ECG Impression ECG Initial ECG Rhythm: Normal Sinus Physical Exam Physical Exam Vital Signs Vital Signs - First Documented 10/18/20 10/18/20 10:28 17:04 Temp 36.0 Pulse 57 Resp 31 B/P (MAP) 162/93 (116) Pulse Ox 92 O2 Delivery OxyMask O2 Flow Rate 10.00 FiO2 100 Capillary Refill : Less Than 3 Seconds Height, Weight, BMI Height: 6'1.00" Weight: 177lbs. 0.0oz. 80.667666il; 25.00 BMI Method:Stated General Appearance: WD/WN, Mild Distress HEENT: PERRL/EOMI, Normal ENT Inspection Neck: Full Range of Motion, Normal Inspection, Non Tender, Supple Respiratory: Chest Non Tender, Crackles, Decreased Breath Sounds Cardiovascular: Regular Rate, Rhythm, No JVD, No Murmur, Other (+1 edema) Gastrointestinal: Non Tender, Soft Back: No CVA Tenderness A/P-Cardiology Admission Diagnosis Dyspnea PAF PNA Elevated BNP Assessment/Plan Dyspnea, acute respiratory distress with hypoxemia, slowly improving, Rapid COVID negative, patient has been made PUI at this time Pneumonia, management per medical services Elevated BNP, mild pulmonary edema on CXR, I will evaluate 2D Echo PAF, recently diagnosed while in hospital in [place] in July, follows with Dr. Jimenez. Maintained on Amiodarone and Xarelto. COPD s/p COVID in July 2020 DVT post COVID, maintained on Xarelto HTN, restart home blood pressure medications and continue to monitor HLP, monitor lipids Acute on chronic renal insufficiency, continue to monitor renal function PVD, history of stenting to RLE in past, has been maintained on Plavix. Thank you for allowing us to participate in the management of Mr. Ayers. This is Payton Cardoso PA-C, as a scribe for Dr. Mary Mckenzie, I have discussed the management and examination with Payton, reviewed the note and agree with the current scribed note Patient is having increasing dyspnea, hypoxia, rapid Covid testing was negative, patient is still PUI Receiving treatment for pneumonia and diuretic for Lasix, will evaluate 2D echo Recently diagnosed with paroxysmal atrial fibrillation while in [place], follows with Dr. Jimenez maintained on Xarelto and amiodarone Monitor blood pressure and lipids. PAYTON NGUYEN Oct 18, 2020 4:02 pm JUSTA LANZA MD Oct 18, 2020 6:16 pm
[2020-10-18] MEDS ORDERED: CATHETER FLUSH 10 ML SYR IV PRN (18:00)
[2020-10-18] MEDS: NS IV 1000 ML 1,000 ML IV SCH (18:12)
[2020-10-18] MEDS: RIVAROXABAN 20 MG TABLET (XARELTO) PO SCH (18:12)
[2020-10-18 20:20] LABS: ABG BASE EXCESS -5.3 MMOL/L (-2.5-2.5); ABG OXYGEN SATURATION 98 % (94-100); ABG PCO2 40 MMHG (35-45); ABG PO2 103 MMHG (79-93); ABG TCO2 21.2 MMOL/L (21.0-31.0)
[2020-10-18 20:38] LABS: ALLENS TEST YES-POS; INSPIRED O2 100% BIPAP; VENTILATOR NO
[2020-10-18 20:41] LABS: ABG PH 7.32 (7.37-7.43)
[2020-10-18] MEDS ORDERED: DexMEDEtomidine 250 ML DRIP 250 ML IV ONE (21:11)
[2020-10-18] MEDS: AMIODARONE 200 MG (CORDARONE) TAB PO SCH (21:31)
[2020-10-18] MEDS: lisINopril 10 MG (PRINIVIL) TABLET PO SCH (21:31)
[2020-10-18] MEDS: DexMEDEtomidine 250 ML DRIP 250 ML IV SCH (23:16)
[2020-10-19] VITALS (25 sets, daily range): BP systolic 85–138; BP diastolic 42–95
[2020-10-19] MEDS: NS IV 1000 ML 1,000 ML IV SCH (02:11)
[2020-10-19 03:43] LABS: ABG BASE EXCESS -4.4 MMOL/L (-2.5-2.5); ABG OXYGEN SATURATION 91 % (94-100); ABG PCO2 32 MMHG (35-45); ABG PO2 63 MMHG (79-93); ABG TCO2 20.4 MMOL/L (21.0-31.0)
[2020-10-19 03:45] LABS: ALLENS TEST YES-POS; INSPIRED O2 60%; VENTILATOR NO
[2020-10-19] MEDS ORDERED: cefTRIAXone FOR IV USE 1,000 MG in WATER (STERILE) FOR INJECTION 10 ML IV ONE (04:30)
[2020-10-19 04:34] LABS: BASOPHILS % (AUTO) 0 % (0-10); EOSINOPHILS % (AUTO) 0 % (0-10); HEMATOCRIT 46 % (40-54); HEMOGLOBIN 14.5 g/dL (13.3-17.7); LYMPHOCYTES % (AUTO) 7 % (12-44); MEAN CORPUSCULAR HEMOGLOBIN 30 pg (25-34); MEAN CORPUSCULAR HGB CONC 32 g/dL (32-36); MEAN CORPUSCULAR VOLUME 94 fL (80-99); MEAN PLATELET VOLUME 10.3 fL (9.0-12.2); MONOCYTES # (AUTO) 0.9 10^3/uL (0.0-1.0); MONOCYTES % (AUTO) 7 % (0-12); NEUTROPHILS # (AUTO) 11.7 10^3/uL (1.8-7.8); NEUTROPHILS % (AUTO) 85 % (42-75); PLATELET COUNT 283 10^3/uL (130-400); WHITE BLOOD COUNT 13.7 10^3/uL (4.3-11.0)
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
[2020-10-19] MEDS ORDERED: PIPERACILLIN/TAZOBACTAM (BULK) 4.5 GM in NS (IVPB) 100 ML IV SCH (04:45)
[2020-10-19 04:46] LABS: POTASSIUM 4.3 MMOL/L (3.6-5.0)
[2020-10-19 04:48] LABS: CALCIUM 8.4 MG/DL (8.5-10.1)
[2020-10-19 04:52] LABS: CREATININE SERUM 1.58 MG/DL (0.60-1.30); PHOSPHORUS 2.4 MG/DL (2.3-4.7)
[2020-10-19 04:54] LABS: ANISOCYTOSIS SLIGHT; BAND NEUTROPHILS 2 %; BASOPHILS % (MANUAL) 0 %; EOSINOPHILS % (MANUAL) 0 %; LYMPHOCYTES % (MANUAL) 6 %; MAGNESIUM 1.7 MG/DL (1.6-2.4); MONOCYTES % (MANUAL) 7 %; NEUTROPHILS % (MANUAL) 83 %; REACTIVE LYMPHOCYTES 2 %; TOXIC GRANULATION/VACUOLAZATIO 1+
[2020-10-19] MEDS ORDERED: PIPERACILLIN/TAZOBACTAM 4.5 GM in NS (IVPB) 100 ML IV ONE (05:00)
[2020-10-19] MEDS ORDERED: PIPERACILLIN/TAZO 4.5 GM VIAL (ZOSYN) IV ONE (05:05)
[2020-10-19] MEDS: methylPREDNISolone 40 MG/ML (Solu-MEDROL) VIAL IV SCH ×4 (05:33→23:43)
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
[2020-10-19] MEDS ORDERED: LACTATED RINGERS 2,000 ML IV ONE (06:37)
[2020-10-19] MEDS: LACTATED RINGERS 1,000 ML IV SCH ×5 (06:49→19:32)
[2020-10-19] MEDS: RT-ALBUTEROL/IPRATROPIUM 3 ML (DUONEB) VIAL INH SCH ×5 (07:12→22:20)
--- NOTE | 2020-10-19 08:53 | Cardiology Progress Note ---
Subjective Date Seen by Provider: Oct 19, 2020 Time Seen by Provider: 08:51 Subjective/Events-last exam Patient was seen today, on BiPAP To limit the exposure to Covid 19, I evaluated the patient and reviewed his record and discussed the management plan with the nurses and Dr. Rodgers without direct interview to the patient Review of Systems General: Fatigue Pulmonary: Dyspnea Focused Exam Lactate Level 10/18/20 10:50: Lactic Acid Level 1.76 10/19/20 06:59: Lactic Acid Level 1.13 Lactic Acid Level Laboratory Tests Test 10/19/20 06:59 Lactic Acid Level 1.13 MMOL/L (0.50-2.00) Objective-Cardiology Exam Last Set of Vital Signs Vital Signs 10/18/20 10/19/20 10/19/20 10/19/20 23:48 04:30 06:00 07:16 Temp 36.4 Pulse 53 Resp 31 B/P (MAP) 85/42 (56) Pulse Ox 93 O2 Delivery NIV Bilevel O2 Flow Rate 60.00 FiO2 60 Capillary Refill : Less Than 3 Seconds I&O Intake and Output 10/19/20 00:00 Intake Total 310 ml Output Total 275 ml Balance 35 ml Intake Oral 50 ml IV Total 260 ml Output Urine Total 275 ml Daily Weight Change No General: Other (No physical examination performed) Results Lab Laboratory Tests 10/18/20 10:05 10/18/20 10:30 10/19/20 04:25 A/P-Cardiology Admission Diagnosis Dyspnea PAF PNA Elevated BNP Assessment/Plan Dyspnea, acute respiratory distress with hypoxemia, slowly improving, Rapid COVID negative, patient has been made PUI at this time, multilobular pneumonia, chest x-ray was reviewed, started on Zosyn, managed by Dr. Rodgers Pneumonia, started on antibiotic, management per medical team Elevated BNP, mild pulmonary edema on CXR, I will do 2D echocardiogram PAF, recently diagnosed while in hospital in [place] in July, follows with Dr. Jimenez. Maintained on Amiodarone and Xarelto. COPD s/p COVID in July 2020 DVT post COVID, maintained on Xarelto HTN, restart home blood pressure medications and continue to monitor HLP, monitor lipids Acute on chronic renal insufficiency, continue to monitor renal function PVD, history of stenting to RLE in past, has been maintained on Plavix. JUSTA LANZA MD Oct 19, 2020 08:53
[2020-10-19] MEDS: PANTOPRAZOLE 40 MG (PROTONIX) VIAL IV SCH (09:35)
[2020-10-19] MEDS: AZITHROMYCIN INJECTION 250 MG in NS (IVPB) 250 ML IV SCH (09:35)
[2020-10-19] MEDS: CLOPIDOGREL 75 MG (PLAVIX) TABLET PO SCH (09:37)
[2020-10-19] MEDS: AMIODARONE 200 MG (CORDARONE) TAB PO SCH ×2 (09:37→19:33)
[2020-10-19] MEDS: lisINopril 10 MG (PRINIVIL) TABLET PO SCH ×2 (09:37→19:33)
--- NOTE | 2020-10-19 10:41 | Diagnostic Imaging Report ---
INDICATION: PICC line placement Portable chest 10:27 AM Left upper extremity PICC line tip projects over the SVC. There are diffuse interstitial infiltrates in both lungs with some focal alveolar consolidation left mid lateral chest. IMPRESSION: Stable appearance of the lungs. PICC line tip projects over the SVC. Dictated by: Dictated on workstation # [id number]
[2020-10-19] MEDS: PIPERACILLIN/TAZO 4.5 GM/NS 100 ML IV SCH ×4 (11:43→18:45)
--- NOTE | 2020-10-19 11:57 | Progress Note - Hospitalist ---
Subjective HPI/CC On Admission Date Seen by Provider: Oct 19, 2020 Time Seen by Provider: 11:00 CC: Dypsnea HPI: This is a 75yoWM clinic patient of [facility] who had COVID 07/2020 who presented to the ER with dyspnea. Patient was found to have very low sats of 69% and placed on O2. CXR revealed bilateral infiltrates. Cardiology and Pulmonology were consulted due to findings of CHF and PNA on CXR and labs. Patient will me placed in isolation. Subjective/Events-last exam Patient doing much better r/o COVID active infection Had COVID 07/2020 Weaning O2 Less dyspnea Checked meds and labs Review of Systems General: Fatigue, Malaise Pulmonary: Dyspnea, Cough Focused Exam Lactate Level 10/18/20 10:50: Lactic Acid Level 1.76 10/19/20 06:59: Lactic Acid Level 1.13 Objective Exam Vital Signs Vital Signs Date Time Temp Pulse Resp B/P (MAP) Pulse Ox O2 Delivery O2 Flow Rate FiO2 10/20/20 05:00 58 27 101/60 (74) 90 Vapotherm 40.00 100.00 10/20/20 04:04 100 10/19/20 23:42 36.4 Capillary Refill : Less Than 3 Seconds General Appearance: No Apparent Distress, WD/WN, Anxious, Chronically ill Respiratory: No Accessory Muscle Use, No Respiratory Distress, Decreased Breath Sounds Cardiovascular: Regular Rate, Rhythm Neurologic/Psychiatric: Alert, Oriented x3, No Motor/Sensory Deficits, Normal Mood/Affect Results/Procedures Lab Laboratory Tests 10/20/20 02:30 Patient resulted labs reviewed. Assessment/Plan Assessment and Plan Assess & Plan/Chief Complaint Assessment: Acute respiratory failure transferred to ICU last night for worsened status PNA AECOPD AF CHF COVID-19 07/2020 Plan: ICU O2 Abx EMMANUEL FNINEY DO Oct 19, 2020 11:57
[2020-10-19] MEDS: RIVAROXABAN 20 MG TABLET (XARELTO) PO SCH (18:46)
[2020-10-20] VITALS (24 sets, daily range): BP systolic 100–192; BP diastolic 59–93
[2020-10-20] MEDS: LACTATED RINGERS 1,000 ML IV SCH (02:28)
[2020-10-20] MEDS: PIPERACILLIN/TAZO 4.5 GM/NS 100 ML IV SCH ×6 (02:31→18:36)
[2020-10-20] MEDS: RT-ALBUTEROL/IPRATROPIUM 3 ML (DUONEB) VIAL INH SCH ×6 (02:35→22:19)
[2020-10-20 02:56] LABS: BASOPHILS % (AUTO) 0 % (0-10); EOSINOPHILS % (AUTO) 0 % (0-10); HEMATOCRIT 40 % (40-54); HEMOGLOBIN 12.8 g/dL (13.3-17.7); LYMPHOCYTES # (AUTO) 0.7 10^3/uL (1.0-4.0); LYMPHOCYTES % (AUTO) 4 % (12-44); MEAN CORPUSCULAR HEMOGLOBIN 30 pg (25-34); MEAN CORPUSCULAR HGB CONC 32 g/dL (32-36); MEAN CORPUSCULAR VOLUME 94 fL (80-99); MEAN PLATELET VOLUME 10.8 fL (9.0-12.2); MONOCYTES # (AUTO) 0.7 10^3/uL (0.0-1.0); MONOCYTES % (AUTO) 4 % (0-12); NEUTROPHILS # (AUTO) 15.4 10^3/uL (1.8-7.8); NEUTROPHILS % (AUTO) 91 % (42-75); PLATELET COUNT 238 10^3/uL (130-400); WHITE BLOOD COUNT 16.9 10^3/uL (4.3-11.0)
[2020-10-20 03:24] LABS: CALCIUM 8.5 MG/DL (8.5-10.1); CREATININE SERUM 1.67 MG/DL (0.60-1.30); MAGNESIUM 1.7 MG/DL (1.6-2.4); PHOSPHORUS 3.2 MG/DL (2.3-4.7); POTASSIUM 4.7 MMOL/L (3.6-5.0)
--- NOTE | 2020-10-20 04:43 | Pulmonary Progress Note ---
Subjective Time Seen by a Provider: 04:36 Sepsis Event Evaluation Height, Weight, BMI Height: 6'1.00" Weight: 177lbs. 0.0oz. 80.030602dk; 25.71 BMI Method:Stated Focused Exam Lactate Level 10/18/20 10:50: Lactic Acid Level 1.76 10/19/20 06:59: Lactic Acid Level 1.13 Exam Exam Vital Signs Date Time Temp Pulse Resp B/P (MAP) Pulse Ox O2 Delivery O2 Flow Rate FiO2 10/20/20 04:04 Vapotherm 40.00 100 10/20/20 04:00 59 23 103/59 (74) 90 Vapotherm 40.00 100.00 10/20/20 03:00 60 24 106/63 (77) 91 Vapotherm 40.00 100.00 10/20/20 02:35 91 Vapotherm 40.00 100 10/20/20 02:00 59 24 100/60 (73) 92 Vapotherm 40.00 100.00 10/20/20 01:00 61 23 108/59 (75) 91 Vapotherm 40.00 100.00 10/20/20 01:00 62 10/20/20 00:53 Vapotherm 40.00 100 10/20/20 00:00 70 25 130/88 (102) 89 Vapotherm 40.00 100.00 10/19/20 23:42 36.4 10/19/20 23:00 67 28 123/70 (87) 92 Vapotherm 40.00 100.00 10/19/20 22:20 90 Vapotherm 40.00 100 10/19/20 22:00 65 26 128/72 (90) 90 Vapotherm 40.00 100.00 10/19/20 21:00 69 29 138/84 (102) 91 Vapotherm 40.00 100.00 10/19/20 20:23 Vapotherm 40.00 100 10/19/20 20:00 67 32 137/91 (106) 90 Vapotherm 40.00 100.00 10/19/20 19:32 36.9 67 24 130/73 (92) 91 Vapotherm 40.00 100.00 10/19/20 19:00 68 10/19/20 18:20 91 Vapotherm 40.00 100 10/19/20 18:00 68 29 113/95 (101) 91 Vapotherm 40.00 100.00 10/19/20 17:00 66 34 138/79 (98) 91 Vapotherm 40.00 100.00 10/19/20 16:00 63 26 118/73 (88) 93 Vapotherm 40.00 100.00 10/19/20 16:00 Vapotherm 40.00 100 10/19/20 15:00 65 57 129/69 (89) 90 Vapotherm 40.00 100.00 10/19/20 14:31 92 Vapotherm 100 10/19/20 14:00 61 30 100/51 (67) 88 Vapotherm 40.00 100.00 10/19/20 13:00 62 29 120/73 (89) 92 Vapotherm 40.00 100.00 10/19/20 12:54 63 10/19/20 12:00 64 11 114/94 (101) 93 Vapotherm 40.00 100.00 10/19/20 12:00 Vapotherm 40.00 100 10/19/20 11:00 60 27 97/66 (76) 91 Vapotherm 40.00 100.00 10/19/20 10:44 90 Vapotherm 100 10/19/20 10:00 59 26 91 Vapotherm 40.00 100.00 10/19/20 09:00 61 26 122/70 (87) 91 Vapotherm 40.00 100.00 10/19/20 08:55 40 Vapotherm 100 10/19/20 08:00 NIV Bilevel 60 10/19/20 08:00 53 25 105/53 (70) 93 NIV Bilevel 60.00 10/19/20 07:16 53 31 93 60.00 10/19/20 07:00 53 54 85/55 (65) 93 NIV Bilevel 60.00 10/19/20 06:42 52 10/19/20 06:00 54 34 85/42 (56) 95 NIV Bilevel 60.00 10/19/20 05:00 56 26 94/56 (69) 92 NIV Bilevel 60.00 I & O 10/20/20 07:00 Intake Total 2930 ml Output Total 930 ml Balance 2000 ml Height & Weight Height: 6'1.00" Weight: 177lbs. 0.0oz. 80.794783dm; 25.71 BMI Method:Stated General Appearance: WD/WN, Mild Distress HEENT: PERRL/EOMI, Normal ENT Inspection Neck: Full Range of Motion, Normal Inspection, Non Tender, Supple Respiratory: Chest Non Tender, Crackles, Decreased Breath Sounds Cardiovascular: Regular Rate, Rhythm, No JVD, No Murmur, Other (+1 edema) Capillary Refill: Less Than 3 Seconds Gastrointestinal: non tender, soft Extremity: Normal Capillary Refill, Normal Inspection, Normal Range of Motion, Non Tender, No Calf Tenderness, No Pedal Edema Neurologic/Psychiatric: Alert, Oriented x3, No Motor/Sensory Deficits, Normal Mood/Affect Skin: Normal Color, Warm/Dry Lymphatic: No Adenopathy Results Lab Laboratory Tests 10/18/20 10:05 10/18/20 10:30 10/19/20 04:25 10/20/20 02:30 Assessment/Plan Assessment/Plan Acute respiratory failure -Vapotherm 100% -COVID is negative -Currently on Precedex -Check CT of chest Pneumonia Zosyn and azithromycin -Check Urine strep and Legionella ag - check vraela cultures COPDAE -Will need evaluated for home oxygen prior to discharge. -Start SOlumedrol -Duonebs Post COVID syndrome -- -Pt was dx with COVID 07/2020 and tx at [place] Acute on Chronic renal failure -Monitor Aflutter/fib - -Cardiology following -Xeralto -Pt takes ammiodarone at home COPDAE Tobacco hx -Quit 1yr ago ALYSSA MA DO Oct 20, 2020 04:43
[2020-10-20] MEDS: methylPREDNISolone 40 MG/ML (Solu-MEDROL) VIAL IV SCH ×4 (05:02→23:37)
[2020-10-20 05:19] LABS: BILIRUBIN,URINE NEGATIVE (NEGATIVE); CLARITY,URINE CLEAR; COLOR,URINE YELLOW; GLUCOSE, URINE (UA) NEGATIVE (NEGATIVE); KETONES,URINE TRACE (NEGATIVE); LEUKOCYTE ESTERASE ,URINE NEGATIVE (NEGATIVE); NITRITE,URINE NEGATIVE (NEGATIVE); PH,URINE 5.5 (5-9); PROTEIN,URINE TRACE (NEGATIVE)
[2020-10-20 05:41] LABS: AMORPHOUS SEDIMENT,UR FEW AMOR URATES /LPF; BACTERIA,URINE FEW /HPF; RBC,URINE 25-50 /HPF
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
[2020-10-20] MEDS: lisINopril 10 MG (PRINIVIL) TABLET PO SCH ×2 (08:44→20:01)
[2020-10-20] MEDS: CLOPIDOGREL 75 MG (PLAVIX) TABLET PO SCH (08:44)
[2020-10-20] MEDS: PANTOPRAZOLE 40 MG (PROTONIX) VIAL IV SCH (08:44)
[2020-10-20] MEDS: AZITHROMYCIN INJECTION 250 MG in NS (IVPB) 250 ML IV SCH (08:44)
[2020-10-20] MEDS: AMIODARONE 200 MG (CORDARONE) TAB PO SCH ×2 (08:45→20:01)
[2020-10-20] MEDS ORDERED: PROP80CA4 PO (10:04)
[2020-10-20] MEDS ORDERED: RIVA20TA PO (10:04)
[2020-10-20] MEDS ORDERED: AMIO200T6 PO (10:04)
[2020-10-20] MEDS ORDERED: ATOR40TA70 PO (10:04)
[2020-10-20] MEDS ORDERED: FLUT16SP22 NSEACH (10:04)
[2020-10-20] MEDS ORDERED: CHOL-34 PO (10:04)
[2020-10-20] MEDS ORDERED: LORA10TA7 PO (10:04)
[2020-10-20] MEDS ORDERED: ACET1TAB43 PO (10:04)
--- NOTE | 2020-10-20 10:32 | Cardiology Progress Note ---
Subjective Date Seen by Provider: Oct 20, 2020 Time Seen by Provider: 10:30 Subjective/Events-last exam Patient is laying down in bed, feeling better, breathing better. Review of Systems General: No Chills, No Night Sweats, No Fatigue, No Malaise, No Appetite, No Other HEENT: No Head Aches, No Visual Changes, No Eye Pain, No Ear Pain, No Dysphasia, No Sinus Congestion, No Post Nasal Drip, No Sore Throat, No Other Pulmonary: Dyspnea; No Cough, No Pleuritic Chest Pain, No Other Cardiovascular: No: Chest Pain, Palpitations, Orthopnea, Paroxysmal Noc. Dyspnea, Edema, Lt Headedness, Other Focused Exam Lactate Level 10/18/20 10:50: Lactic Acid Level 1.76 10/19/20 06:59: Lactic Acid Level 1.13 Objective-Cardiology Exam Last Set of Vital Signs Vital Signs 10/20/20 10/20/20 10/20/20 10/20/20 07:57 08:00 09:00 09:16 Temp 35.2 Pulse 78 Resp 35 B/P (MAP) 134/85 (101) Pulse Ox 91 O2 Delivery Vapotherm O2 Flow Rate 40.00 90.00 FiO2 90 Capillary Refill : Less Than 3 Seconds I&O Intake and Output 10/20/20 00:00 Intake Total 2980 ml Output Total 1350 ml Balance 1630 ml Intake Oral 980 ml IV Total 2000 ml Output Urine Total 1350 ml General: Other (No physical examination performed) HEENT: Atraumatic, PERRLA Neck: Supple, No JVD, No Thyromegaly Lungs: Clear to Auscultation, Normal Air Movement Heart: Regular Rate, Normal S1, Normal S2, No Murmurs Abdomen: Normal Bowel Sounds, Soft, No Tenderness, No Hepatosplenomegaly, No Masses Extremities: No Clubbing, No Cyanosis, No Edema, Normal Pulses, No Tenderness/Swelling Skin: No Rashes, No Breakdown, No Significant Lesion Neuro: Normal Gait, Normal Speech, Strength at 5/5 X4 Ext, Normal Tone, Sensation Intact Psych/Mental Status: Mental Status NL, Mood NL Results Lab Laboratory Tests 10/20/20 02:30 A/P-Cardiology Admission Diagnosis Dyspnea PAF PNA Elevated BNP Assessment/Plan Dyspnea, acute respiratory distress with hypoxemia, maintained on Vapotherm, improving slowly, multilobular pneumonia receiving antibiotics. Managed by medical team Pneumonia, started on antibiotic, management per medical team Elevated BNP, echocardiogram showed normal left ventricular size and systolic function ejection fraction 60%, normal PA pressure. PAF, recently diagnosed while in hospital in [place] in July, follows with Dr. Jimenez. Maintained on Amiodarone and Xarelto. COPD s/p COVID in July 2020 DVT post COVID, maintained on Xarelto Hypertension, continue on current medication monitor blood pressure Hyperlipidemia, monitor lipids Acute on chronic renal insufficiency, continue to monitor renal function PVD, history of stenting to RLE in past, has been maintained on Plavix. JUSTA LANZA MD Oct 20, 2020 10:32
--- NOTE | 2020-10-20 11:51 | Progress Note - Hospitalist ---
Subjective HPI/CC On Admission Date Seen by Provider: Oct 20, 2020 Time Seen by Provider: 10:30 CC: Dypsnea HPI: This is a 75yoWM clinic patient of [facility] who had COVID 07/2020 who presented to the ER with dyspnea. Patient was found to have very low sats of 69% and placed on O2. CXR revealed bilateral infiltrates. Cardiology and Pulmonology were consulted due to findings of CHF and PNA on CXR and labs. Patient will me placed in isolation. Subjective/Events-last exam Patient stable but dyspnea is noted Propanolol discussed for his tremor and beta jacob can cause disruption with his dyspnea so will hold off on that for now No pain reported Lungs are still coarse Very close to intubation if he worsens Review of Systems Pulmonary: Dyspnea Focused Exam Lactate Level 10/18/20 10:50: Lactic Acid Level 1.76 10/19/20 06:59: Lactic Acid Level 1.13 Objective Exam Vital Signs Vital Signs Date Time Temp Pulse Resp B/P (MAP) Pulse Ox O2 Delivery O2 Flow Rate FiO2 10/21/20 04:43 91 Vapotherm 40.00 90 10/21/20 02:41 63 30 10/20/20 23:38 36.5 10/20/20 23:00 174/88 (116) Capillary Refill : Less Than 3 Seconds General Appearance: No Apparent Distress, WD/WN, Chronically ill Respiratory: Accessory Muscle Use, Decreased Breath Sounds, Respiratory Distress, Wheezing Cardiovascular: Regular Rate, Rhythm Neurologic/Psychiatric: Alert, Oriented x3, No Motor/Sensory Deficits, Normal Mood/Affect Results/Procedures Lab Laboratory Tests 10/21/20 02:55 Patient resulted labs reviewed. Assessment/Plan Assessment and Plan Assess & Plan/Chief Complaint Assessment: Acute respiratory failure transferred to ICU last night for worsened status PNA AECOPD AF CHF COVID-19 07/2020 Plan: ICU O2 Abx 10/20/20: Monitor closely If worsened needs intubation EMMANUEL FINNEY DO Oct 20, 2020 11:51
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
[2020-10-20] MEDS: RIVAROXABAN 20 MG TABLET (XARELTO) PO SCH (17:49)
[2020-10-20] MEDS: DexMEDEtomidine 250 ML DRIP 250 ML IV SCH (21:21)
[2020-10-21] VITALS (25 sets, daily range): BP systolic 93–163; BP diastolic 61–98
[2020-10-21] MEDS: RT-ALBUTEROL/IPRATROPIUM 3 ML (DUONEB) VIAL INH SCH ×6 (02:27→21:10)
[2020-10-21] MEDS: PIPERACILLIN/TAZO 4.5 GM/NS 100 ML IV SCH ×6 (02:56→17:56)
[2020-10-21 03:04] LABS: BASOPHILS % (AUTO) 0 % (0-10); EOSINOPHILS % (AUTO) 0 % (0-10); HEMATOCRIT 41 % (40-54); HEMOGLOBIN 13.1 g/dL (13.3-17.7); LYMPHOCYTES # (AUTO) 0.4 10^3/uL (1.0-4.0); LYMPHOCYTES % (AUTO) 2 % (12-44); MEAN CORPUSCULAR HEMOGLOBIN 30 pg (25-34); MEAN CORPUSCULAR HGB CONC 32 g/dL (32-36); MEAN CORPUSCULAR VOLUME 93 fL (80-99); MEAN PLATELET VOLUME 10.5 fL (9.0-12.2); MONOCYTES % (AUTO) 6 % (0-12); NEUTROPHILS % (AUTO) 91 % (42-75); PLATELET COUNT 258 10^3/uL (130-400); WHITE BLOOD COUNT 16.5 10^3/uL (4.3-11.0)
[2020-10-21 03:26] LABS: CALCIUM 8.4 MG/DL (8.5-10.1); CREATININE SERUM 1.47 MG/DL (0.60-1.30); PHOSPHORUS 2.9 MG/DL (2.3-4.7); POTASSIUM 4.3 MMOL/L (3.6-5.0)
[2020-10-21 03:40] LABS: MAGNESIUM 1.8 MG/DL (1.6-2.4)
[2020-10-21 03:59] LABS: ABG BASE EXCESS -5.1 MMOL/L (-2.5-2.5); ABG OXYGEN SATURATION 90 % (94-100); ABG PCO2 38 MMHG (35-45); ABG PO2 66 MMHG (79-93); ABG TCO2 20.9 MMOL/L (21.0-31.0)
[2020-10-21 04:03] LABS: ABG PH 7.34 (7.37-7.43); ALLENS TEST YES-POS; INSPIRED O2 90% BIPAP; PATIENT TEMP 36.6; VENTILATOR NO
--- NOTE | 2020-10-21 05:28 | Pulmonary Progress Note ---
Subjective Time Seen by a Provider: 05:23 Subjective/Events-last exam Pt is currently on BiPAP Sepsis Event Evaluation Height, Weight, BMI Height: 6'1.00" Weight: 177lbs. 0.0oz. 80.740967yx; 25.71 BMI Method:Stated Focused Exam Lactate Level 10/18/20 10:50: Lactic Acid Level 1.76 10/19/20 06:59: Lactic Acid Level 1.13 Exam Exam Vital Signs Date Time Temp Pulse Resp B/P (MAP) Pulse Ox O2 Delivery O2 Flow Rate FiO2 10/21/20 04:43 91 Vapotherm 40.00 90 10/21/20 02:55 NIV Bilevel 90.00 10/21/20 02:48 NIV Bilevel 100.00 10/21/20 02:41 63 30 91 100.00 10/21/20 02:28 89 Vapotherm 40.00 100 10/21/20 01:00 67 10/20/20 23:43 91 Vapotherm 40.00 90 10/20/20 23:38 36.5 10/20/20 23:00 79 33 174/88 (116) 90 Vapotherm 40.00 100.00 10/20/20 22:17 73 30 96 70.00 10/20/20 22:00 73 33 150/76 (100) 95 NIV Bilevel 70.00 10/20/20 21:26 NIV Bilevel 70.00 10/20/20 21:21 86 178/93 10/20/20 21:00 81 33 178/93 (121) 91 Vapotherm 40.00 100.00 10/20/20 20:32 91 Vapotherm 40.00 90 10/20/20 20:00 84 34 164/87 (112) 90 Vapotherm 40.00 100.00 10/20/20 19:53 36.9 83 36 91 Vapotherm 40.00 100.00 10/20/20 19:00 75 10/20/20 19:00 75 20 140/76 (97) 90 Vapotherm 40.00 100.00 10/20/20 18:57 Vapotherm 40.00 100.00 10/20/20 18:22 91 Vapotherm 40.00 90 10/20/20 18:00 75 32 137/69 (91) 90 Vapotherm 40.00 90.00 10/20/20 16:05 91 Vapotherm 40.00 90 10/20/20 16:00 75 31 154/79 (104) 93 Vapotherm 40.00 90.00 10/20/20 15:03 36.4 10/20/20 15:00 90 37 192/85 (120) 92 Vapotherm 40.00 90.00 10/20/20 14:40 93 Vapotherm 40.00 90 10/20/20 14:00 76 30 139/79 (99) 92 Vapotherm 40.00 90.00 10/20/20 13:00 74 33 126/65 (85) 92 Vapotherm 40.00 90.00 10/20/20 12:51 81 10/20/20 12:00 80 31 130/86 (101) 93 Vapotherm 40.00 90.00 10/20/20 11:54 91 Vapotherm 40.00 90 10/20/20 11:00 73 30 132/82 (99) 93 Vapotherm 40.00 90.00 10/20/20 10:46 93 Vapotherm 40.00 90 10/20/20 10:00 75 32 137/78 (97) 90 Vapotherm 40.00 90.00 10/20/20 09:16 91 Vapotherm 40.00 90.00 10/20/20 09:00 78 35 134/85 (101) 94 Vapotherm 40.00 100.00 10/20/20 08:00 70 25 138/88 (105) 88 Vapotherm 40.00 100.00 10/20/20 08:00 91 Vapotherm 40.00 90 10/20/20 07:57 35.2 10/20/20 07:00 58 23 104/63 (77) 90 Vapotherm 40.00 100.00 10/20/20 07:00 60 10/20/20 06:34 90 Vapotherm 40.00 100 10/20/20 06:00 57 26 111/65 (80) 90 Vapotherm 40.00 100.00 I & O 10/21/20 07:00 Intake Total 1570 ml Output Total 975 ml Balance 595 ml Height & Weight Height: 6'1.00" Weight: 177lbs. 0.0oz. 80.882413ls; 25.71 BMI Method:Stated General Appearance: No Apparent Distress, WD/WN, Anxious, Chronically ill HEENT: PERRL/EOMI, Normal ENT Inspection Neck: Full Range of Motion, Normal Inspection, Non Tender, Supple Respiratory: No Accessory Muscle Use, No Respiratory Distress, Decreased Breath Sounds Cardiovascular: Regular Rate, Rhythm Capillary Refill: Less Than 3 Seconds Gastrointestinal: non tender, soft Extremity: Normal Capillary Refill, Normal Inspection, Normal Range of Motion, Non Tender, No Calf Tenderness, No Pedal Edema Neurologic/Psychiatric: Alert, Oriented x3, No Motor/Sensory Deficits, Normal Mood/Affect Skin: Normal Color, Warm/Dry Lymphatic: No Adenopathy Results Lab Laboratory Tests 10/20/20 02:30 10/21/20 02:55 Assessment/Plan Assessment/Plan Acute respiratory failure -BiPAP 85% -COVID is negative -Currently on Precedex Pneumonia Zosyn and azithromycin -Will add eraxis secondary to worsening respiratory failure infiltration on imaging -Check Urine strep and Legionella ag - check vareal cultures Bilateral pleural effusions with worsening respiratory distress -Will give Bumex 1mg x 1 COPDAE -Will need evaluated for home oxygen prior to discharge. -SOlumedrol -Duonebs Post COVID syndrome -- -Pt was dx with COVID 07/2020 and tx at [place] Acute on Chronic renal failure -Monitor Aflutter/fib - -Cardiology following -Xeralto -Pt takes ammiodarone at home COPDAE Tobacco hx -Quit 1yr ago ALYSSA MA DO Oct 21, 2020 05:28
[2020-10-21] MEDS ORDERED: ANIDULAFUNGIN INJECTION 200 MG in NS (IVPB) 250 ML IV ONE (05:30)
[2020-10-21] MEDS ORDERED: BUMETANIDE 1 MG/4 ML (BUMEX) VIAL IV ONE (05:30)
[2020-10-21] MEDS: methylPREDNISolone 40 MG/ML (Solu-MEDROL) VIAL IV SCH ×4 (06:19→23:28)
[2020-10-21] MEDS: POTASSIUM CL 10MEQ/50ML IVPB 50 ML IV SCH (06:32)
[2020-10-21] MEDS: MAGNESIUM 1 GM/100 ML IVPB 100 ML IV SCH (06:33)
[2020-10-21] MEDS: KCL 20 MEQ TAB (K-DUR) PO SCH (06:33)
[2020-10-21] MEDS: PANTOPRAZOLE 40 MG (PROTONIX) VIAL IV SCH (08:11)
[2020-10-21] MEDS: CLOPIDOGREL 75 MG (PLAVIX) TABLET PO SCH (08:11)
[2020-10-21] MEDS: lisINopril 10 MG (PRINIVIL) TABLET PO SCH ×2 (08:11→20:57)
[2020-10-21] MEDS: AMIODARONE 200 MG (CORDARONE) TAB PO SCH ×2 (08:12→20:57)
[2020-10-21] MEDS: DexMEDEtomidine 250 ML DRIP 250 ML IV SCH ×3 (08:15→23:28)
[2020-10-21] MEDS: AZITHROMYCIN INJECTION 250 MG in NS (IVPB) 250 ML IV SCH (08:20)
--- NOTE | 2020-10-21 09:44 | Cardiology Progress Note ---
Subjective Date Seen by Provider: Oct 21, 2020 Time Seen by Provider: 09:43 Subjective/Events-last exam Patient was seen at bedside, laying down comfortably, using BiPAP Review of Systems General: No Chills, No Night Sweats; Fatigue; No Malaise, No Appetite, No Other HEENT: No Head Aches, No Visual Changes, No Eye Pain, No Ear Pain, No Dysphasia, No Sinus Congestion, No Post Nasal Drip, No Sore Throat, No Other Pulmonary: Dyspnea; No Cough, No Pleuritic Chest Pain, No Other Cardiovascular: No: Chest Pain, Palpitations, Orthopnea, Paroxysmal Noc. Dyspnea, Edema, Lt Headedness, Other Focused Exam Lactate Level 10/18/20 10:50: Lactic Acid Level 1.76 10/19/20 06:59: Lactic Acid Level 1.13 Objective-Cardiology Exam Last Set of Vital Signs Vital Signs 10/21/20 10/21/20 10/21/20 10/21/20 04:43 08:30 09:00 09:33 Temp 35.9 Pulse 81 Resp 32 B/P (MAP) 107/74 (85) Pulse Ox 93 O2 Delivery NIV Bilevel O2 Flow Rate 70.00 FiO2 90 Capillary Refill : Less Than 3 Seconds I&O Intake and Output 10/21/20 00:00 Intake Total 1570 ml Output Total 1155 ml Balance 415 ml Intake Oral 1200 ml IV Total 370 ml Output Urine Total 1155 ml General: Alert, Oriented X3, Cooperative HEENT: Atraumatic, PERRLA Neck: Supple, No JVD, No Thyromegaly Lungs: Clear to Auscultation, Normal Air Movement Heart: Regular Rate, Normal S1, Normal S2, No Murmurs Abdomen: Normal Bowel Sounds, Soft, No Tenderness, No Hepatosplenomegaly, No Masses Extremities: No Clubbing, No Cyanosis, No Edema, Normal Pulses, No Tenderness/Swelling Skin: No Rashes, No Breakdown, No Significant Lesion Neuro: Normal Gait, Normal Speech, Strength at 5/5 X4 Ext, Normal Tone, Sensation Intact Psych/Mental Status: Mental Status NL, Mood NL Results Lab Laboratory Tests 10/21/20 02:55 A/P-Cardiology Admission Diagnosis Dyspnea PAF PNA Elevated BNP Assessment/Plan Dyspnea, acute respiratory distress with hypoxemia, currently on BiPAP, improving slowly, multilobular pneumonia, managed by medical team Pneumonia, started on antibiotic, management per medical team Elevated BNP, echocardiogram showed normal left ventricular size and systolic function ejection fraction 60%, normal PA pressure. Continue to monitor, no changes recommended PAF, recently diagnosed while in hospital in [place] in July, follows with Dr. Jimenez. Maintained on Amiodarone and Xarelto. COPD s/p COVID in July 2020 DVT post COVID, maintained on Xarelto Hypertension, continue on current medication monitor blood pressure Hyperlipidemia, monitor lipids Acute on chronic renal insufficiency, continue to monitor renal function PVD, history of stenting to RLE in past, has been maintained on Plavix. JUSTA LANZA MD Oct 21, 2020 09:44
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
[2020-10-21] MEDS: LACTATED RINGERS 1,000 ML IV SCH (10:11)
--- NOTE | 2020-10-21 12:20 | Progress Note - Hospitalist ---
Subjective HPI/CC On Admission Date Seen by Provider: Oct 21, 2020 Time Seen by Provider: 11:45 CC: Dypsnea HPI: This is a 75yoWM clinic patient of [facility] who had COVID 07/2020 who presented to the ER with dyspnea. Patient was found to have very low sats of 69% and placed on O2. CXR revealed bilateral infiltrates. Cardiology and Pulmonology were consulted due to findings of CHF and PNA on CXR and labs. Patient will me placed in isolation. Subjective/Events-last exam Patient maintained on biPAP and is dependent Precedex maintained Updated at bedside He would not want cane weigher helper intubation Short term intubation is reasonable Review of Systems Pulmonary: Dyspnea Focused Exam Lactate Level 10/19/20 06:59: Lactic Acid Level 1.13 Objective Exam Vital Signs Vital Signs Date Time Temp Pulse Resp B/P (MAP) Pulse Ox O2 Delivery O2 Flow Rate FiO2 10/21/20 17:00 61 36 132/70 (90) 91 Vapotherm 40.00 100.00 10/21/20 15:31 35.6 10/21/20 13:54 100 Capillary Refill : Less Than 3 Seconds General Appearance: Chronically ill, Other (biPAP, sleeping) Respiratory: Decreased Breath Sounds Cardiovascular: Regular Rate, Rhythm Results/Procedures Lab Laboratory Tests 10/21/20 02:55 Patient resulted labs reviewed. Assessment/Plan Assessment and Plan Assess & Plan/Chief Complaint Assessment: Acute respiratory failure transferred to ICU last night for worsened status PNA AECOPD AF CHF COVID-19 07/2020 Plan: ICU O2 Abx 10/20/20: Monitor closely If worsened needs intubation 10/21/20: May need intubation Monitor closely EMMANUEL FINNEY DO Oct 21, 2020 12:20
[2020-10-21] MEDS: RIVAROXABAN 20 MG TABLET (XARELTO) PO SCH (16:19)
[2020-10-22] VITALS (29 sets, daily range): BP systolic 85–173; BP diastolic 48–100
[2020-10-22] MEDS: RT-ALBUTEROL/IPRATROPIUM 3 ML (DUONEB) VIAL INH SCH ×6 (02:02→21:38)
[2020-10-22 03:29] LABS: CALCIUM 8.4 MG/DL (8.5-10.1); CREATININE SERUM 1.37 MG/DL (0.60-1.30); MAGNESIUM 1.9 MG/DL (1.6-2.4); PHOSPHORUS 3.1 MG/DL (2.3-4.7); POTASSIUM 3.9 MMOL/L (3.6-5.0)
[2020-10-22 04:02] LABS: BASOPHILS % (AUTO) 0 % (0-10); EOSINOPHILS % (AUTO) 0 % (0-10); HEMATOCRIT 41 % (40-54); LYMPHOCYTES # (AUTO) 0.2 10^3/uL (1.0-4.0); LYMPHOCYTES % (AUTO) 2 % (12-44); MEAN CORPUSCULAR HEMOGLOBIN 30 pg (25-34); MEAN CORPUSCULAR HGB CONC 32 g/dL (32-36); MEAN CORPUSCULAR VOLUME 95 fL (80-99); MEAN PLATELET VOLUME 10.9 fL (9.0-12.2); MONOCYTES # (AUTO) 0.9 10^3/uL (0.0-1.0); MONOCYTES % (AUTO) 7 % (0-12); NEUTROPHILS # (AUTO) 12.6 10^3/uL (1.8-7.8); NEUTROPHILS % (AUTO) 91 % (42-75); PLATELET COUNT 265 10^3/uL (130-400); WHITE BLOOD COUNT 13.8 10^3/uL (4.3-11.0)
[2020-10-22 04:21] LABS: ABG BASE EXCESS -5.1 MMOL/L (-2.5-2.5); ABG OXYGEN SATURATION 91 % (94-100); ABG PCO2 35 MMHG (35-45); ABG PH 7.36 (7.37-7.43); ABG PO2 64 MMHG (79-93); ABG TCO2 20.5 MMOL/L (21.0-31.0)
[2020-10-22 04:22] LABS: ALLENS TEST YES-POS; INSPIRED O2 80% BIPAP; PATIENT TEMP 36.7; VENTILATOR NO
[2020-10-22] MEDS: LACTATED RINGERS 1,000 ML IV SCH ×2 (04:30→15:51)
[2020-10-22] MEDS: PIPERACILLIN/TAZO 4.5 GM/NS 100 ML IV SCH ×6 (04:30→18:51)
[2020-10-22] MEDS: KCL 20 MEQ TAB (K-DUR) PO SCH (04:43)
[2020-10-22] MEDS: POTASSIUM CL 10MEQ/50ML IVPB 50 ML IV SCH ×5 (04:43→09:38)
[2020-10-22] MEDS: MAGNESIUM 1 GM/100 ML IVPB 100 ML IV SCH (04:43)
--- NOTE | 2020-10-22 05:29 | Pulmonary Progress Note ---
Subjective Time Seen by a Provider: 05:26 Subjective/Events-last exam Pt is requiring BiPAP Sepsis Event Evaluation Height, Weight, BMI Height: 6'1.00" Weight: 177lbs. 0.0oz. 80.275260sv; 25.71 BMI Method:Stated Focused Exam Lactate Level 10/19/20 06:59: Lactic Acid Level 1.13 Exam Exam Vital Signs Date Time Temp Pulse Resp B/P (MAP) Pulse Ox O2 Delivery O2 Flow Rate FiO2 10/22/20 05:00 71 26 134/92 (106) 93 NIV Bilevel 80.00 10/22/20 04:00 71 26 134/74 (94) 93 NIV Bilevel 80.00 10/22/20 03:00 72 31 137/85 (102) 92 NIV Bilevel 80.00 10/22/20 02:12 NIV Bilevel 80.00 10/22/20 02:02 86 Vapotherm 40.00 100 10/22/20 02:00 68 34 135/74 (94) 93 Vapotherm 40.00 100.00 10/22/20 02:00 81 Vapotherm 40.00 100.00 10/22/20 01:00 68 27 132/75 (94) 92 NIV Bilevel 80.00 10/22/20 01:00 68 10/22/20 00:00 70 26 138/78 (98) 94 NIV Bilevel 80.00 10/22/20 00:00 97 NIV Bilevel 75 10/21/20 23:28 35.9 95 NIV Bilevel 80.00 10/21/20 23:28 69 129/74 10/21/20 23:00 70 31 129/74 (92) 95 NIV Bilevel 90.00 10/21/20 22:00 71 27 129/79 (96) 96 NIV Bilevel 90.00 10/21/20 21:39 97 NIV Bilevel 90.00 10/21/20 21:10 95 NIV Bilevel 100.00 10/21/20 21:10 70 31 95 100.00 10/21/20 21:05 60 Vapotherm 40.00 100.00 10/21/20 21:00 67 27 163/98 (119) 90 Vapotherm 40.00 100.00 10/21/20 20:59 67 44 91 Vapotherm 40.00 100.00 10/21/20 20:30 36.0 10/21/20 20:30 97 NIV Bilevel 65.00 10/21/20 20:30 97 NIV Bilevel 75 10/21/20 20:00 67 26 133/71 (91) 99 NIV Bilevel 75.00 10/21/20 19:00 NIV Bilevel 75.00 10/21/20 19:00 69 29 129/91 (104) 91 NIV Bilevel 75.00 10/21/20 19:00 69 10/21/20 18:00 62 29 129/75 (93) 91 Vapotherm 40.00 100.00 10/21/20 18:00 62 36 90 75.00 10/21/20 17:00 61 36 132/70 (90) 91 Vapotherm 40.00 100.00 10/21/20 16:00 63 26 134/74 (94) 90 Vapotherm 40.00 100.00 10/21/20 15:31 35.6 10/21/20 15:00 64 28 129/74 (92) 90 Vapotherm 40.00 100.00 10/21/20 14:23 64 10/21/20 14:23 61 35 90 70.00 10/21/20 14:00 66 28 126/66 (86) 90 Vapotherm 40.00 100.00 10/21/20 13:54 83 Vapotherm 40.00 100 10/21/20 13:00 61 29 125/75 (92) 90 Vapotherm 40.00 100.00 10/21/20 12:45 62 10/21/20 12:10 36.3 10/21/20 12:00 61 28 125/70 (88) 91 Vapotherm 40.00 100.00 10/21/20 11:00 63 27 116/63 (80) 85 Vapotherm 40.00 100.00 10/21/20 10:00 64 34 126/76 (93) 91 Vapotherm 40.00 100.00 10/21/20 09:33 NIV Bilevel 70.00 10/21/20 09:00 81 32 107/74 (85) 93 Vapotherm 40.00 100.00 10/21/20 08:30 35.9 84 Vapotherm 40.00 100.00 10/21/20 08:15 60 119/65 10/21/20 08:00 61 29 119/65 (83) 90 NIV Bilevel 80.00 10/21/20 07:00 63 10/21/20 07:00 62 25 123/69 (87) 93 NIV Bilevel 80.00 10/21/20 06:50 61 29 93 70.00 10/21/20 06:32 NIV Bilevel 80.00 10/21/20 06:00 62 29 119/75 (90) 92 NIV Bilevel 90.00 I & O 10/22/20 07:00 Intake Total 1125 ml Output Total 1555 ml Balance -430 ml Height & Weight Height: 6'1.00" Weight: 177lbs. 0.0oz. 80.765968pn; 25.71 BMI Method:Stated General Appearance: Chronically ill, Other (biPAP, sleeping) HEENT: PERRL/EOMI, Normal ENT Inspection Neck: Full Range of Motion, Normal Inspection, Non Tender, Supple Respiratory: Decreased Breath Sounds Cardiovascular: Regular Rate, Rhythm Capillary Refill: Less Than 3 Seconds Gastrointestinal: non tender, soft Extremity: Normal Capillary Refill, Normal Inspection, Normal Range of Motion, Non Tender, No Calf Tenderness, No Pedal Edema Neurologic/Psychiatric: Alert, Oriented x3, No Motor/Sensory Deficits, Normal Mood/Affect Skin: Normal Color, Warm/Dry Lymphatic: No Adenopathy Results Lab Laboratory Tests 10/21/20 02:55 10/22/20 03:02 Assessment/Plan Assessment/Plan Acute respiratory failure -BiPAP 80% -COVID is negative -Currently on Precedex Pneumonia Zosyn and azithromycin -Will add eraxis secondary to worsening respiratory failure infiltration on imaging -Check Urine strep and Legionella ag - check varela cultures Bilateral pleural effusions with worsening respiratory distress -Will give Bumex 2mg x 1 COPDAE -Will need evaluated for home oxygen prior to discharge. -SOlumedrol -Duonebs Post COVID syndrome -- -Pt was dx with COVID 07/2020 and tx at [place] Acute on Chronic renal failure -Monitor Aflutter/fib - -Cardiology following -Xeralto -Pt takes ammiodarone at home COPDAE Tobacco hx -Quit 1yr ago ALYSSA MA DO Oct 22, 2020 05:29
[2020-10-22] MEDS ORDERED: BUMETANIDE 1 MG/4 ML (BUMEX) VIAL IV ONE (05:30)
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
[2020-10-22] MEDS ORDERED: PROPOFOL DRIP (ICU) 100 ML IV ONE (06:11)
[2020-10-22] MEDS: methylPREDNISolone 40 MG/ML (Solu-MEDROL) VIAL IV SCH ×4 (06:46→23:25)
[2020-10-22] MEDS: PROPOFOL DRIP (ICU) 100 ML IV SCH ×4 (07:00→21:37)
--- NOTE | 2020-10-22 07:03 | Progress Note - Hospitalist ---
Subjective HPI/CC On Admission Date Seen by Provider: Oct 22, 2020 Time Seen by Provider: 10:30 CC: Dypsnea HPI: This is a 75yoWM clinic patient of [facility] who had COVID 07/2020 who presented to the ER with dyspnea. Patient was found to have very low sats of 69% and placed on O2. CXR revealed bilateral infiltrates. Cardiology and Pulmonology were consulted due to findings of CHF and PNA on CXR and labs. Patient will me placed in isolation. Subjective/Events-last exam Patient required intubation Checked meds and labs Patient stable Review of Systems General: Fatigue Focused Exam Lactate Level 10/22/20 10:12: Lactic Acid Level 1.27 10/22/20 14:45: Lactic Acid Level 1.57 Lactic Acid Level Laboratory Tests Test 10/22/20 14:45 Lactic Acid Level 1.57 MMOL/L (0.50-2.00) Objective Exam Vital Signs Vital Signs Date Time Temp Pulse Resp B/P (MAP) Pulse Ox O2 Delivery O2 Flow Rate FiO2 10/22/20 15:01 37.0 10/22/20 14:33 77 26 50 10/22/20 13:00 162/76 (104) 95 Mechanical Ventilator 50.00 Capillary Refill : Less Than 3 Seconds General Appearance: WD/WN, Chronically ill Respiratory: Lungs Clear Cardiovascular: Regular Rate, Rhythm Results/Procedures Lab Laboratory Tests 10/22/20 03:02 10/22/20 14:45 Patient resulted labs reviewed. Assessment/Plan Assessment and Plan Assess & Plan/Chief Complaint Assessment: Acute respiratory failure transferred to ICU last night for worsened status PNA AECOPD AF CHF COVID-19 07/2020 Plan: ICU O2 Abx 10/20/20: Monitor closely If worsened needs intubation 10/21/20: May need intubation Monitor closely 10/22/20: Monitor closely Intubation EMMANUEL FINNEY DO Oct 22, 2020 07:03
[2020-10-22 07:49] LABS: ABG BASE EXCESS -5.3 MMOL/L (-2.5-2.5); ABG OXYGEN SATURATION 98 % (94-100); ABG PCO2 70 MMHG (35-45); ABG PO2 165 MMHG (79-93)
[2020-10-22 07:50] LABS: ABG PH 7.13 (7.37-7.43)
[2020-10-22 07:51] LABS: ALLENS TEST POSITIVE; INSPIRED O2 90%; PATIENT TEMP 36.4; VENTILATOR YES
[2020-10-22] MEDS: AZITHROMYCIN INJECTION 250 MG in NS (IVPB) 250 ML IV SCH (08:34)
[2020-10-22] MEDS: ANIDULAFUNGIN INJECTION 100 MG in NS (IVPB) 100 ML IV SCH (08:34)
[2020-10-22] MEDS: PANTOPRAZOLE 40 MG (PROTONIX) VIAL IV SCH (08:34)
[2020-10-22] MEDS: CLOPIDOGREL 75 MG (PLAVIX) TABLET PO SCH (08:35)
[2020-10-22] MEDS: AMIODARONE 200 MG (CORDARONE) TAB PO SCH ×2 (08:35→20:46)
[2020-10-22] MEDS: lisINopril 10 MG (PRINIVIL) TABLET PO SCH ×2 (08:35→20:46)
--- NOTE | 2020-10-22 08:55 | Diagnostic Imaging Report ---
Portable erect AP chest at 638 INDICATION: Respiratory distress This study is less than optimal as the periphery of the left lung base is not included. In the interval since the prior exam performed earlier today at 3:45 AM the patient has been intubated and an NG line has been inserted. The ET tube tip seems to be in good position overlying the tracheal air shadow approximately 4 cm cephalad to the nanyc. The tip of the NG line overlies the gastric body. The overall appearance the chest itself has not changed significantly otherwise. No new abnormality has developed. IMPRESSION: 1. There has been interval insertion of an ET tube and NG line. The supportive tubes and lines seen in good position. 2. The overall appearance of the chest itself is stable, although the left lung base peripherally is not visualized in its entirety.. 3. A follow-up exam would be recommended for continued evaluation. Dictated by: Dictated on workstation # [id number]
[2020-10-22 09:25] LABS: ABG OXYGEN SATURATION 99 % (94-100); ABG PO2 146 MMHG (79-93); ABG TCO2 25.5 MMOL/L (21.0-31.0)
[2020-10-22] MEDS ORDERED: ROCURONIUM 50 MG/5 ML (ZEMURON) VIAL IV ONE (09:25)
[2020-10-22] MEDS ORDERED: MIDAZOLAM 5 MG/5 ML (VERSED) VIAL IJ ONE (09:25)
[2020-10-22 09:28] LABS: ALLENS TEST POSITIVE; INSPIRED O2 80%; PATIENT TEMP 36.6; VENTILATOR YES
[2020-10-22 09:29] LABS: ABG PCO2 73 MMHG (35-45); ABG PH 7.13 (7.37-7.43)
--- NOTE | 2020-10-22 10:53 | Cardiology Progress Note ---
Subjective Date Seen by Provider: Oct 22, 2020 Time Seen by Provider: 10:52 Subjective/Events-last exam Patient is intubated and sedated Review of Systems General: Other (Unable to provide review of systems) Focused Exam Lactate Level 10/22/20 10:12: Lactic Acid Level 1.27 Lactic Acid Level Laboratory Tests Test 10/22/20 10:12 Lactic Acid Level 1.27 MMOL/L (0.50-2.00) Objective-Cardiology Exam Last Set of Vital Signs Vital Signs 10/22/20 10/22/20 10/22/20 10/22/20 07:33 10:00 10:04 10:48 Temp 36.4 Pulse 79 Resp 24 B/P (MAP) 132/72 (92) Pulse Ox 8 O2 Delivery Mechanical Ventilator O2 Flow Rate 50.00 FiO2 80 Capillary Refill : Less Than 3 Seconds I&O Intake and Output 10/22/20 00:00 Intake Total 1175 ml Output Total 1685 ml Balance -510 ml Intake Oral 425 ml IV Total 750 ml Output Urine Total 1685 ml General: Other (Sedated and intubated) HEENT: Atraumatic, PERRLA Neck: Supple, No JVD, No Thyromegaly Lungs: Normal Air Movement, Other (Bilateral rhonchi) Heart: Regular Rate, Normal S1, Normal S2, No Murmurs Abdomen: Normal Bowel Sounds, Soft, No Tenderness, No Hepatosplenomegaly, No Masses Extremities: No Clubbing, No Cyanosis, No Edema, Normal Pulses, No Tenderness/Swelling Skin: No Rashes, No Breakdown, No Significant Lesion Neuro: Other (Sedated and intubated) Psych/Mental Status: Other (Sedated and intubated) Results Lab Laboratory Tests 10/22/20 03:02 A/P-Cardiology Admission Diagnosis Dyspnea PAF PNA Elevated BNP Assessment/Plan Acute respiratory failure, deteriorated today, intubated this morning. Ventilator dependent, managed by Dr. Rodgers Pneumonia, receiving antibiotic, managed by primary care team Elevated BNP, echocardiogram showed normal left ventricular size and systolic function ejection fraction 60%, normal PA pressure. Continue to monitor, no changes recommended PAF, recently diagnosed while in hospital in [place] in July, follows with Dr. Jimenez. Maintained on Amiodarone and Xarelto. COPD s/p COVID in July 2020 DVT post COVID, maintained on Xarelto Hypertension, continue on current medication monitor blood pressure Hyperlipidemia, monitor lipids Acute on chronic renal insufficiency, continue to monitor renal function PVD, history of stenting to RLE in past, has been maintained on Plavix. JUSTA LANZA MD Oct 22, 2020 10:53
[2020-10-22 11:27] LABS: ABG BASE EXCESS -4.5 MMOL/L (-2.5-2.5); ABG OXYGEN SATURATION 94 % (94-100); ABG PCO2 67 MMHG (35-45); ABG PO2 86 MMHG (79-93)
[2020-10-22 11:29] LABS: ABG PH 7.16 (7.37-7.43); ALLENS TEST POSITIVE; INSPIRED O2 26; PATIENT TEMP 37.1; VENTILATOR YES
[2020-10-22] MEDS: inSUlin ASPART (NovoLOG) 1 UNIT/0.01 ML (CHARGE PER UNIT) SQ SCH ×2 (11:59→17:47)
[2020-10-22 14:42] LABS: ABG BASE EXCESS -4.2 MMOL/L (-2.5-2.5); ABG OXYGEN SATURATION 98 % (94-100); ABG PCO2 60 MMHG (35-45); ABG PO2 125 MMHG (79-93); ABG TCO2 24.4 MMOL/L (21.0-31.0)
[2020-10-22 14:46] LABS: ABG PH 7.21 (7.37-7.43); ALLENS TEST POSITIVE; INSPIRED O2 26%; PATIENT TEMP 37.2; VENTILATOR YES
[2020-10-22 14:53] LABS: BASOPHILS % (AUTO) 0 % (0-10); EOSINOPHILS % (AUTO) 0 % (0-10); HEMATOCRIT 40 % (40-54); LYMPHOCYTES # (AUTO) 0.2 X 10^3 (1.0-4.0); LYMPHOCYTES % (AUTO) 2 % (12-44); MEAN CORPUSCULAR HEMOGLOBIN 31 pg (25-34); MEAN CORPUSCULAR HGB CONC 32 g/dL (32-36); MEAN CORPUSCULAR VOLUME 96 fL (80-99); MEAN PLATELET VOLUME 10.4 fL (9.0-12.2); MONOCYTES # (AUTO) 0.4 X 10^3 (0.0-1.0); MONOCYTES % (AUTO) 4 % (0-12); NEUTROPHILS # (AUTO) 9.4 X 10^3 (1.8-7.8); NEUTROPHILS % (AUTO) 94 % (42-75); PLATELET COUNT 270 10^3/uL (130-400)
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
[2020-10-22 15:13] LABS: ALBUMIN 2.9 GM/DL (3.2-4.5)
[2020-10-22 15:14] LABS: POTASSIUM 5.7 MMOL/L (3.6-5.0)
[2020-10-22 15:15] LABS: CALCIUM 8.5 MG/DL (8.5-10.1)
[2020-10-22 15:16] LABS: TOTAL PROTEIN 6.9 GM/DL (6.4-8.2)
[2020-10-22 15:18] LABS: BILIRUBIN,TOTAL 1.8 MG/DL (0.1-1.0)
[2020-10-22 15:20] LABS: CREATININE SERUM 1.84 MG/DL (0.60-1.30)
[2020-10-22] MEDS ORDERED: inSUlin (REGULAR) HUMAN 1 UNIT/0.01 ML (CHARGE PER UNIT) IV ONE (15:45)
[2020-10-22] MEDS ORDERED: DEXTROSE 50% 50 ML (IMS) SYR IV ONE (15:45)
[2020-10-22] MEDS ORDERED: SODIUM BICARB 8.4% 50 MEQ/50 ML VIAL IV ONE (15:45)
[2020-10-22] MEDS: DexMEDEtomidine 250 ML DRIP 250 ML IV SCH (16:32)
[2020-10-22] MEDS: RIVAROXABAN 20 MG TABLET (XARELTO) PO SCH (17:23)
[2020-10-22 21:19] LABS: BASOPHILS % (AUTO) 0 % (0-10); EOSINOPHILS % (AUTO) 0 % (0-10); HEMATOCRIT 40 % (40-54); HEMOGLOBIN 12.6 g/dL (13.3-17.7); LYMPHOCYTES # (AUTO) 0.3 10^3/uL (1.0-4.0); LYMPHOCYTES % (AUTO) 4 % (12-44); MEAN CORPUSCULAR HEMOGLOBIN 30 pg (25-34); MEAN CORPUSCULAR HGB CONC 32 g/dL (32-36); MEAN CORPUSCULAR VOLUME 96 fL (80-99); MEAN PLATELET VOLUME 10.9 fL (9.0-12.2); MONOCYTES # (AUTO) 0.3 10^3/uL (0.0-1.0); MONOCYTES % (AUTO) 4 % (0-12); NEUTROPHILS % (AUTO) 91 % (42-75); PLATELET COUNT 264 10^3/uL (130-400); WHITE BLOOD COUNT 7.7 10^3/uL (4.3-11.0)
[2020-10-22 21:39] LABS: ALBUMIN 2.7 GM/DL (3.2-4.5); BILIRUBIN,TOTAL 1.6 MG/DL (0.1-1.0); CALCIUM 8.5 MG/DL (8.5-10.1); CREATININE SERUM 2.35 MG/DL (0.60-1.30); POTASSIUM 5.2 MMOL/L (3.6-5.0); TOTAL PROTEIN 6.8 GM/DL (6.4-8.2)
[2020-10-22] MEDS ORDERED: LACTATED RINGERS 1,000 ML IV SCH (22:45)
[2020-10-22] MEDS ORDERED: PHENYLEPHRINE INJECTION 10 MG in NS (IVPB) 250 ML IV SCH (23:00)
[2020-10-22] MEDS ORDERED: PHENYLEPHRINE INJ 10 MG/ML (FOR DRIP KITS ONLY) ONE (23:04)
[2020-10-22] MEDS ORDERED: NS (IVPB) 250 ML ONE (23:05)
[2020-10-23] VITALS (31 sets, daily range): BP systolic 91–172; BP diastolic 57–111
[2020-10-23] MEDS: RT-ALBUTEROL/IPRATROPIUM 3 ML (DUONEB) VIAL INH SCH ×6 (02:05→22:35)
[2020-10-23] MEDS: LACTATED RINGERS 1,000 ML IV SCH (02:23)
[2020-10-23] MEDS: D5 LR IV SOLUTION 1,000 ML IV SCH ×4 (02:23→16:27)
[2020-10-23] MEDS: inSUlin ASPART (NovoLOG) 1 UNIT/0.01 ML (CHARGE PER UNIT) SQ SCH ×4 (02:23→18:05)
[2020-10-23 02:58] LABS: ABG BASE EXCESS -2.6 MMOL/L (-2.5-2.5); ABG OXYGEN SATURATION 97 % (94-100); ABG PCO2 47 MMHG (35-45); ABG PO2 87 MMHG (79-93); ABG TCO2 24.6 MMOL/L (21.0-31.0); BASOPHILS % (AUTO) 0 % (0-10); EOSINOPHILS % (AUTO) 0 % (0-10); HEMATOCRIT 39 % (40-54); LYMPHOCYTES # (AUTO) 0.4 10^3/uL (1.0-4.0); LYMPHOCYTES % (AUTO) 6 % (12-44); MEAN CORPUSCULAR HEMOGLOBIN 30 pg (25-34); MEAN CORPUSCULAR HGB CONC 31 g/dL (32-36); MEAN CORPUSCULAR VOLUME 96 fL (80-99); MEAN PLATELET VOLUME 10.4 fL (9.0-12.2); MONOCYTES # (AUTO) 0.3 10^3/uL (0.0-1.0); MONOCYTES % (AUTO) 5 % (0-12); NEUTROPHILS # (AUTO) 6.2 10^3/uL (1.8-7.8); NEUTROPHILS % (AUTO) 89 % (42-75); PLATELET COUNT 227 10^3/uL (130-400)
[2020-10-23 02:59] LABS: ABG PH 7.31 (7.37-7.43); ALLENS TEST YES-POS; INSPIRED O2 45%; PATIENT TEMP 35.5; VENTILATOR YES
[2020-10-23 03:18] LABS: CALCIUM 8.6 MG/DL (8.5-10.1); CREATININE SERUM 2.63 MG/DL (0.60-1.30); MAGNESIUM 2.4 MG/DL (1.6-2.4); PHOSPHORUS 4.2 MG/DL (2.3-4.7); POTASSIUM 4.7 MMOL/L (3.6-5.0)
--- NOTE | 2020-10-23 03:39 | Pulmonary Progress Note ---
WILBERT BOYD MED STUDENT 10/23/20 0339: Subjective Date Seen by a Provider: Oct 23, 2020 Time Seen by a Provider: 02:35 Subjective/Events-last exam Sedated and intubated Review of Systems Limited by clinical condition Sepsis Event Evaluation Height, Weight, BMI Height: 6'1.00" Weight: 177lbs. 0.0oz. 80.671936ui; 25.71 BMI Method:Stated Focused Exam Lactate Level 10/22/20 10:12: Lactic Acid Level 1.27 10/22/20 14:45: Lactic Acid Level 1.57 Exam Exam Vital Signs Date Time Temp Pulse Resp B/P (MAP) Pulse Ox O2 Delivery O2 Flow Rate FiO2 10/23/20 02:05 66 27 45 10/23/20 01:00 92 10/23/20 00:16 100 Mechanical Ventilator 45 10/22/20 23:24 97 80/38 10/22/20 22:00 77 27 96/48 (64) 99 Mechanical Ventilator 45.00 10/22/20 21:38 75 26 45 10/22/20 21:37 77 85/53 10/22/20 21:02 74 21 91/51 (64) 96 Mechanical Ventilator 45.00 10/22/20 20:00 97 Mechanical Ventilator 50 10/22/20 20:00 78 26 85/57 (66) 99 Mechanical Ventilator 50.00 10/22/20 19:16 36.5 10/22/20 19:00 90 10/22/20 19:00 80 25 99/57 (71) 98 Mechanical Ventilator 50.00 10/22/20 18:28 77 26 50 10/22/20 18:00 77 25 108/62 (77) 98 Mechanical Ventilator 50.00 10/22/20 17:00 85 26 103/58 (73) 98 Mechanical Ventilator 50.00 10/22/20 17:00 85 113/74 10/22/20 16:32 86 119/70 10/22/20 16:17 97 Mechanical Ventilator 50 10/22/20 16:00 86 24 115/61 (79) 97 Mechanical Ventilator 50.00 10/22/20 15:01 37.0 10/22/20 15:00 83 25 116/64 (81) 96 Mechanical Ventilator 50.00 10/22/20 14:33 77 26 50 10/22/20 14:00 77 25 92/58 (69) Mechanical Ventilator 50.00 10/22/20 13:00 82 24 162/76 (104) 95 Mechanical Ventilator 50.00 10/22/20 13:00 75 10/22/20 12:26 78 144/76 10/22/20 12:15 97 Mechanical Ventilator 50 10/22/20 12:00 75 25 144/76 (98) 95 Mechanical Ventilator 50.00 10/22/20 11:00 79 22 142/67 (92) 94 Mechanical Ventilator 50.00 10/22/20 10:48 Mechanical Ventilator 50.00 10/22/20 10:04 79 24 8 80 10/22/20 10:00 79 26 132/72 (92) 99 Mechanical Ventilator 100.00 10/22/20 09:00 67 25 102/58 (73) 100 Mechanical Ventilator 100.00 10/22/20 08:07 97 Mechanical Ventilator 90 10/22/20 08:00 72 24 124/65 (84) 100 Mechanical Ventilator 100.00 10/22/20 07:33 36.4 10/22/20 07:00 71 10/22/20 07:00 71 98/57 10/22/20 07:00 71 24 96/54 (68) 94 Mechanical Ventilator 100.00 10/22/20 06:52 71 24 94 90 10/22/20 06:24 Mechanical Ventilator 100.00 10/22/20 06:00 80 26 173/94 (120) 85 NIV Bilevel 80.00 10/22/20 05:00 71 26 134/92 (106) 93 NIV Bilevel 80.00 10/22/20 04:00 97 NIV Bilevel 75 10/22/20 04:00 71 26 134/74 (94) 93 NIV Bilevel 80.00 I & O 10/23/20 07:00 Intake Total 1680 ml Output Total 950 ml Balance 730 ml Height & Weight Height: 6'1.00" Weight: 177lbs. 0.0oz. 80.595551ui; 25.71 BMI Method:Stated General Appearance: WD/WN, Chronically ill, Other (sedated and intubated) HEENT: Normal ENT Inspection Neck: Normal Inspection, Supple Respiratory: Lungs Clear Cardiovascular: No Murmur, Irregularly Irregular Capillary Refill: Less Than 3 Seconds Extremity: Normal Inspection, No Pedal Edema Neurologic/Psychiatric: Other (sedated) Skin: Normal Color, Warm/Dry Lymphatic: No Adenopathy Results Lab Laboratory Tests 10/22/20 03:02 10/22/20 14:45 10/22/20 21:01 10/23/20 02:50 Assessment/Plan Assessment/Plan Acute respiratory failure -Intubated yesterday -COVID is negative -Currently on Precedex and Propofol Pneumonia Zosyn and azithromycin -Eraxis added secondary to worsening respiratory failure infiltration on imaging -Check Urine strep and Legionella ag - check varela cultures Bilateral pleural effusions with worsening respiratory distress -Will give Bumex 2mg x 1 COPDAE -Will need evaluated for home oxygen prior to discharge. -SOlumedrol -Duonebs Post COVID syndrome -- -Pt was dx with COVID 07/2020 and tx at [facility] on Chronic renal failure -Monitor Aflutter/fib - -Cardiology following -Xarelto -Pt takes amiodarone at home COPDAE Tobacco hx -Quit 1yr ago ALYSSA MA DO 10/23/20 0427: Assessment/Plan Assessment/Plan Acute respiratory failure with ARDS -Prone pt x 16hrs -Intubated 10/22 -500// currently 40% -Decrease PEEP 10 -propofol 30, Precedex -D/C Precedex -Fentanyl gtt if needed -COVID is negative Pneumonia Zosyn and azithromycin -Eraxis added secondary to worsening respiratory failure infiltration on imaging -Check Urine strep and Legionella ag - check varela cultures Bilateral pleural effusions with worsening respiratory distress -Will give Bumex 2mg x 1 COPDAE -Will need evaluated for home oxygen prior to discharge. -SOlumedrol -Duonebs Post COVID syndrome -- -Pt was dx with COVID 07/2020 and tx at [facility] on Chronic renal failure -Monitor Increase bili and LFTs -Check Abdominal US Aflutter/fib - -Cardiology following -Xarelto -Pt takes amiodarone at home COPDAE Tobacco hx -Quit 1yr ago WILBERT BOYD MED STUDENT Oct 23, 2020 03:39 ALYSSA MA DO Oct 23, 2020 04:27
[2020-10-23] MEDS: PIPERACILLIN/TAZO 4.5 GM/NS 100 ML IV SCH ×6 (03:47→19:50)
[2020-10-23] MEDS: PROPOFOL DRIP (ICU) 100 ML IV SCH ×6 (04:00→22:22)
[2020-10-23] MEDS ORDERED: LACTATED RINGERS 1,000 ML IV SCH (04:30)
[2020-10-23] MEDS: POTASSIUM CL 10MEQ/50ML IVPB 50 ML IV SCH (05:21)
[2020-10-23] MEDS: KCL 20 MEQ TAB (K-DUR) PO SCH (05:21)
[2020-10-23] MEDS: MAGNESIUM 1 GM/100 ML IVPB 100 ML IV SCH (05:21)
[2020-10-23] MEDS: methylPREDNISolone 40 MG/ML (Solu-MEDROL) VIAL IV SCH ×3 (06:21→17:52)
--- NOTE | 2020-10-23 06:53 | Occ Therapy Progress Note ---
Therapy Progress Note Pt is on mechanical ventilator and is sedated. OT will continue to monitor pt and evaluate when pt is able to tolerate therapy. RHEA GOMEZ Oct 23, 2020 06:53
--- NOTE | 2020-10-23 07:04 | Pulmonary Procedures ---
Pulmonary Procedures Date of Procedure Date of Service: Oct 22, 2020 Time of Intubation: 07:04 Intubation Method: orotracheal Tube Size: 8 Medications: Propofol, Rocuronium, Versed Positive End Tide CO2: Yes Breath Sounds after Intubation: bilateral-equal Intubation Complications: no complications Post Intubation Xray: Yes ALYSSA MA DO Oct 23, 2020 07:04
--- NOTE | 2020-10-23 07:36 | Diagnostic Imaging Report ---
EXAMINATION: Chest 1 view HISTORY: Intubated. Pneumonia. COMPARISON: 10/22/2020. FINDINGS: Stable configuration of the endotracheal tube, enteric tube, and left PICC. There is interval increasing opacities throughout the right lung with stable opacities in the left lung. No large pleural effusion or pneumothorax. Stable cardiac silhouette. Stable radiopaque material seen overlying the left chest. IMPRESSION: 1. Increase in opacities in the right lung with stable appearance of the left lung. These findings may represent worsening infection and/or edema. 2. Stable support devices. Dictated by: Dictated on workstation # [id number]
[2020-10-23] MEDS: PANTOPRAZOLE 40 MG (PROTONIX) VIAL IV SCH (08:02)
[2020-10-23] MEDS: CLOPIDOGREL 75 MG (PLAVIX) TABLET PO SCH (08:03)
[2020-10-23] MEDS: fentaNYL DRIP PRE-MIX 250 ML IV SCH ×2 (08:03→18:46)
[2020-10-23] MEDS: lisINopril 10 MG (PRINIVIL) TABLET PO SCH ×2 (08:03→20:00)
[2020-10-23] MEDS: AMIODARONE 200 MG (CORDARONE) TAB PO SCH ×2 (08:04→20:00)
--- NOTE | 2020-10-23 08:12 | Physical Therapy Progress Note ---
Therapy Progress Note Patient currently intubated. PT will continue to monitor patient status and initiate treatment when patient is medically stable and able to actively participate with skilled therapy. MARTA ENNIS PT Oct 23, 2020 08:12
[2020-10-23] MEDS: AZITHROMYCIN INJECTION 250 MG in NS (IVPB) 250 ML IV SCH (09:30)
--- NOTE | 2020-10-23 09:37 | Cardiology Progress Note ---
Subjective Date Seen by Provider: Oct 23, 2020 Time Seen by Provider: 09:36 Subjective/Events-last exam Patient is sedated and intubated. Review of Systems General: Other (Unable to provide review of system) Focused Exam Lactate Level 10/22/20 10:12: Lactic Acid Level 1.27 10/22/20 14:45: Lactic Acid Level 1.57 Objective-Cardiology Exam Last Set of Vital Signs Vital Signs 10/22/20 10/23/20 10/23/20 10/23/20 19:16 05:51 08:00 09:20 Temp 36.5 Pulse 79 Resp 22 B/P (MAP) 126/77 Pulse Ox 93 O2 Delivery Mechanical Ventilator O2 Flow Rate 35.00 FiO2 35 Capillary Refill : Less Than 3 Seconds I&O Intake and Output 10/23/20 00:00 Intake Total 780 ml Output Total 1275 ml Balance -495 ml Intake Oral 130 ml IV Total 650 ml Output Urine Total 1275 ml General: Other (Sedated and intubated) HEENT: Atraumatic, PERRLA Neck: Supple, No JVD, No Thyromegaly Lungs: Normal Air Movement, Other (Bilateral rhonchi) Heart: Regular Rate, Normal S1, Normal S2, No Murmurs Abdomen: Normal Bowel Sounds, Soft, No Tenderness, No Hepatosplenomegaly, No Masses Extremities: No Clubbing, No Cyanosis, No Edema, Normal Pulses, No Tenderness/Swelling Skin: No Rashes, No Breakdown, No Significant Lesion Neuro: Other (Sedated and intubated) Psych/Mental Status: Other (Sedated and intubated) Results Lab Laboratory Tests 10/22/20 14:45 10/22/20 21:01 10/23/20 02:50 A/P-Cardiology Admission Diagnosis Dyspnea PAF PNA Elevated BNP Assessment/Plan Acute respiratory failure, ventilator dependent, multilobular pneumonia, receiving antibiotics, managed by Dr. Rodgers Pneumonia, receiving antibiotic, managed by primary care team Elevated BNP, echocardiogram showed normal left ventricular size and systolic function ejection fraction 60%, normal PA pressure. Continue to monitor, no changes recommended PAF, recently diagnosed while in hospital in [place] in July, follows with Dr. Jimenez. Maintained on Amiodarone and Xarelto. COPD s/p COVID in July 2020 DVT post COVID, maintained on Xarelto Hypertension, continue on current medication monitor blood pressure Hyperlipidemia, monitor lipids Acute on chronic renal insufficiency, continue to monitor renal function PVD, history of stenting to RLE in past, has been maintained on Plavix. JUSTA LANZA MD Oct 23, 2020 9:37 am
[2020-10-23] MEDS: ANIDULAFUNGIN INJECTION 100 MG in NS (IVPB) 100 ML IV SCH (12:12)
--- NOTE | 2020-10-23 13:22 | Diagnostic Imaging Report ---
INDICATION: Elevated liver function tests and bilirubin. PROCEDURE: Ultrasound abdomen complete. TECHNIQUE: Multiple real-time grayscale images were obtained of the abdomen in various projections. Liver is normal in size 15.9 cm. The portal vein is patent and shows normal direction of flow. Gallbladder is surgically absent. No definite biliary ductal dilatation is seen. Visualized pancreas unremarkable. Spleen is normal in size at 10 cm. Aorta is nonaneurysmal. Both kidneys show normal cortical thickness and echogenicity. No calculi or hydronephrosis is detected. There is no ascites. Note is made of bilateral pleural effusions. IMPRESSION: 1. Bilateral pleural effusions. 2. Otherwise unremarkable abdominal ultrasound. Dictated by: Dictated on workstation # [id number]
[2020-10-23] MEDS: ENOXAPARIN 100 MG/1 ML (LOVENOX) SYR SC SCH (17:52)
--- NOTE | 2020-10-23 20:07 | Progress Note ---
Subjective Subjective/Events-last exam Intubated and Sedated Review of Systems Unable to perform Focused Exam Lactate Level 10/22/20 10:12: Lactic Acid Level 1.27 10/22/20 14:45: Lactic Acid Level 1.57 Objective Exam Last Set of Vital Signs Vital Signs Date Time Temp Pulse Resp B/P (MAP) Pulse Ox O2 Delivery O2 Flow Rate FiO2 10/23/20 18:21 74 26 94 35 10/23/20 18:00 35.5 112/64 (80) Mechanical Ventilator 35.00 Capillary Refill : Less Than 3 Seconds I&O Intake and Output 10/23/20 00:00 Intake Total 780 ml Output Total 1275 ml Balance -495 ml Intake Oral 130 ml IV Total 650 ml Output Urine Total 1275 ml General: Other (Intubated and Sedated) Lungs: Other (course breath sounds, breathing comfortably with vent) Heart: Regular Rate, No Murmurs Abdomen: Soft Extremities: Other (2+ pitting edema bilaterally) Results/Procedures Lab Laboratory Tests 10/22/20 21:01: White Blood Count 7.7, Red Blood Count 4.18L, Hemoglobin 12.6L, Hematocrit 40, Mean Corpuscular Volume 96, Mean Corpuscular Hemoglobin 30, Mean Corpuscular Hemoglobin Concent 32, Red Cell Distribution Width 15.3H, Platelet Count 264, Mean Platelet Volume 10.9, Immature Granulocyte % (Auto) 1, Neutrophils (%) (Auto) 91H, Lymphocytes (%) (Auto) 4L, Monocytes (%) (Auto) 4, Eosinophils (%) (Auto) 0, Basophils (%) (Auto) 0, Neutrophils # (Auto) 7.0, Lymphocytes # (Auto) 0.3L, Monocytes # (Auto) 0.3, Eosinophils # (Auto) 0.0, Basophils # (Auto) 0.0, Immature Granulocyte # (Auto) 0.1, Sodium Level 139, Potassium Level 5.2H, Chloride Level 107, Carbon Dioxide Level 19L, Anion Gap 13, Blood Urea Nitrogen 42H, Creatinine 2.35H, Estimat Glomerular Filtration Rate 27, BUN/Creatinine Ratio 18, Glucose Level 119H, Calcium Level 8.5, Corrected Calcium 9.5, Total Bilirubin 1.6H, Aspartate Amino Transf (AST/SGOT) 115H, Alanine Aminotransferase (ALT/SGPT) 108H, Alkaline Phosphatase 100, Total Protein 6.8, Albumin 2.7L 10/22/20 23:30: Glucometer 133H 10/23/20 02:50: White Blood Count 7.0, Red Blood Count 4.03L, Hemoglobin 12.0L, Hematocrit 39L, Mean Corpuscular Volume 96, Mean Corpuscular Hemoglobin 30, Mean Corpuscular Hemoglobin Concent 31L, Red Cell Distribution Width 15.1H, Platelet Count 227, Mean Platelet Volume 10.4, Immature Granulocyte % (Auto) 1, Neutrophils (%) (Auto) 89H, Lymphocytes (%) (Auto) 6L, Monocytes (%) (Auto) 5, Eosinophils (%) (Auto) 0, Basophils (%) (Auto) 0, Neutrophils # (Auto) 6.2, Lymphocytes # (Auto) 0.4L, Monocytes # (Auto) 0.3, Eosinophils # (Auto) 0.0, Basophils # (Auto) 0.0, Immature Granulocyte # (Auto) 0.1, Sodium Level 143, Potassium Level 4.7, Chloride Level 111H, Carbon Dioxide Level 20L, Anion Gap 12, Blood Urea Nitrogen 49H, Creatinine 2.63H, Estimat Glomerular Filtration Rate 24, BUN/Creatinine Ratio 19, Glucose Level 142H, Calcium Level 8.6, Blood Gas Puncture Site RT RADIAL, Blood Gas Patient Temperature 35.5, Arterial Blood pH 7.31*L, Arterial Blood Partial Pressure CO2 47H, Arterial Blood Partial Pressure O2 87, Arterial Blood HCO3 23, Arterial Blood Total CO2 24.6, Arterial Blood Oxygen Saturation 97, Arterial Blood Base Excess -2.6L, Devon Test YES-POS, Blood Gas Ventilator Setting YES, Blood Gas Inspired Oxygen 45%, Phosphorus Level 4.2, Magnesium Level 2.4 10/23/20 11:16: Glucometer 165H 10/23/20 17:10: Glucometer 154H Microbiology 10/22/20 Gram Stain - Final, Resulted 10/22/20 Sputum Culture - Preliminary, Resulted Culture In Progress 10/18/20 Blood Culture - Final, Complete No growth Assessment/Plan Assessment/Plan (1) Acute and chronic respiratory failure with hypoxia Status: Acute Assessment & Plan: 10/23: Dr Rodgers consulted, patient intubated and sedated, Continue antibiotics and anti fungal, worsening CXR (2) Post-COVID syndrome Status: Acute (3) Pneumonia Status: Acute (4) [id number] kidney injury Status: Acute Assessment & Plan: 10/23: Baseline Cr 1.4, Cr 2.6 and trending up, daily CMPs, Renally dose medications Qualifiers: Qualified Codes: N17.9 - Acute kidney failure, unspecified; N18.9 - Chronic kidney disease, unspecified (5) Atrial fibrillation Status: Chronic Assessment & Plan: 10/23: on OAC, Rate controlled Qualifiers: Qualified Codes: I48.0 - Paroxysmal atrial fibrillation (6) Elevated LFTs Status: Acute Assessment & Plan: 10/23: Repeat LFTs in AM, if trending up would recommend US (7) DVT prophylaxis Status: Acute Assessment & Plan: - HAROON Boss MD Oct 23, 2020 20:07
[2020-10-24] VITALS (30 sets, daily range): BP systolic 86–178; BP diastolic 50–93
[2020-10-24] MEDS: inSUlin ASPART (NovoLOG) 1 UNIT/0.01 ML (CHARGE PER UNIT) SQ SCH ×5 (00:52→23:04)
[2020-10-24] MEDS: methylPREDNISolone 40 MG/ML (Solu-MEDROL) VIAL IV SCH ×5 (00:52→23:04)
[2020-10-24] MEDS: D5 LR IV SOLUTION 1,000 ML IV SCH ×4 (01:22→22:33)
[2020-10-24] MEDS: fentaNYL DRIP PRE-MIX 250 ML IV SCH (01:22)
[2020-10-24] MEDS: RT-ALBUTEROL/IPRATROPIUM 3 ML (DUONEB) VIAL INH SCH ×6 (02:41→21:37)
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
[2020-10-24 03:27] LABS: ABG OXYGEN SATURATION 90 % (94-100); ABG PCO2 47 MMHG (35-45); ABG PO2 61 MMHG (79-93); ABG TCO2 24.5 MMOL/L (21.0-31.0)
[2020-10-24 03:28] LABS: ALLENS TEST YES-POS; BASOPHILS % (AUTO) 0 % (0-10); EOSINOPHILS % (AUTO) 0 % (0-10); HEMATOCRIT 36 % (40-54); INSPIRED O2 30%; LYMPHOCYTES # (AUTO) 0.5 10^3/uL (1.0-4.0); LYMPHOCYTES % (AUTO) 7 % (12-44); MEAN CORPUSCULAR HEMOGLOBIN 31 pg (25-34); MEAN CORPUSCULAR HGB CONC 33 g/dL (32-36); MEAN CORPUSCULAR VOLUME 95 fL (80-99); MONOCYTES # (AUTO) 0.4 10^3/uL (0.0-1.0); MONOCYTES % (AUTO) 5 % (0-12); NEUTROPHILS # (AUTO) 6.6 10^3/uL (1.8-7.8); NEUTROPHILS % (AUTO) 87 % (42-75); PATIENT TEMP 35.1; PLATELET COUNT 233 10^3/uL (130-400); VENTILATOR YES; WHITE BLOOD COUNT 7.6 10^3/uL (4.3-11.0)
[2020-10-24] MEDS: PIPERACILLIN/TAZO 4.5 GM/NS 100 ML IV SCH ×2 (03:30)
[2020-10-24] MEDS: PROPOFOL DRIP (ICU) 100 ML IV SCH ×2 (03:35→16:57)
[2020-10-24 03:37] LABS: POTASSIUM 4.3 MMOL/L (3.6-5.0)
[2020-10-24 03:38] LABS: CALCIUM 7.8 MG/DL (8.5-10.1)
[2020-10-24 03:42] LABS: PHOSPHORUS 3.3 MG/DL (2.3-4.7)
[2020-10-24 03:43] LABS: CREATININE SERUM 2.15 MG/DL (0.60-1.30)
[2020-10-24 03:45] LABS: MAGNESIUM 2.3 MG/DL (1.6-2.4)
[2020-10-24] MEDS ORDERED: SODIUM BICARB 8.4% 50 MEQ/50 ML VIAL IV ONE (05:15)
[2020-10-24] MEDS: POTASSIUM CL 10MEQ/50ML IVPB 50 ML IV SCH (05:33)
[2020-10-24] MEDS: KCL 20 MEQ TAB (K-DUR) PO SCH (05:34)
[2020-10-24] MEDS: MAGNESIUM 1 GM/100 ML IVPB 100 ML IV SCH (05:34)
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
--- NOTE | 2020-10-24 06:49 | Occ Therapy Progress Note ---
Therapy Progress Note Pt is currently intubated and sedated. OT will continue to monitor pt's status and will initiate treatment when pt is medically stable and able to actively participate with skilled therapy. RHEA GOMEZ Oct 24, 2020 06:49
--- NOTE | 2020-10-24 07:45 | Physical Therapy Progress Note ---
Therapy Progress Note Patient currently intubated. PT will continue to monitor patient status and initiate treatment when patient is medically stable and able to actively participate with skilled therapy. MARTA ENNIS PT Oct 24, 2020 07:45
[2020-10-24] MEDS: AMIODARONE 200 MG (CORDARONE) TAB PO SCH ×2 (08:20→20:27)
[2020-10-24] MEDS: PANTOPRAZOLE 40 MG (PROTONIX) VIAL IV SCH (08:20)
[2020-10-24] MEDS: lisINopril 10 MG (PRINIVIL) TABLET PO SCH ×2 (08:20→20:27)
[2020-10-24] MEDS: ANIDULAFUNGIN INJECTION 100 MG in NS (IVPB) 100 ML IV SCH (08:20)
[2020-10-24] MEDS: CLOPIDOGREL 75 MG (PLAVIX) TABLET PO SCH (08:20)
--- NOTE | 2020-10-24 09:00 | Cardiology Progress Note ---
Subjective Date Seen by Provider: Oct 24, 2020 Time Seen by Provider: 08:58 Subjective/Events-last exam Patient is sedated and intubated Review of Systems General: Other (Unable to provide review of system) Focused Exam Lactate Level 10/22/20 10:12: Lactic Acid Level 1.27 10/22/20 14:45: Lactic Acid Level 1.57 Objective-Cardiology Exam Last Set of Vital Signs Vital Signs 10/24/20 10/24/20 07:21 08:00 Temp 36.3 Pulse 57 Resp 25 B/P (MAP) 86/50 (62) Pulse Ox 93 O2 Delivery Mechanical Ventilator O2 Flow Rate 40.00 FiO2 40 Capillary Refill : Less Than 3 Seconds I&O Intake and Output 10/24/20 00:00 Intake Total 2300 ml Output Total 1675 ml Balance 625 ml Intake Oral 0 ml IV Total 2300 ml Output Urine Total 1675 ml General: Other (Intubated and Sedated) HEENT: Atraumatic, PERRLA Neck: Supple, No JVD, No Thyromegaly Lungs: Other (course breath sounds, breathing comfortably with vent) Heart: Regular Rate, No Murmurs Abdomen: Soft Extremities: Other (2+ pitting edema bilaterally) Skin: No Rashes, No Breakdown, No Significant Lesion Neuro: Other (Sedated and intubated) Psych/Mental Status: Other (Sedated and intubated) Results Lab Laboratory Tests 10/24/20 03:20 A/P-Cardiology Admission Diagnosis Dyspnea PAF PNA Elevated BNP Assessment/Plan Acute respiratory failure, ventilator dependent, multilobular pneumonia, receiving antibiotics, managed by Dr. Rodgers Pneumonia, receiving antibiotic, managed by primary care team Sepsis with hypotensive shock, managed by Dr. Rodgers Elevated BNP, echocardiogram showed normal left ventricular size and systolic function ejection fraction 60%, normal PA pressure. Continue to monitor, no changes recommended PAF, recently diagnosed while in hospital in [place] in July, follows with Dr. Jimenez. Maintained on Amiodarone and Xarelto. COPD s/p COVID in July 2020 DVT post COVID, maintained on Xarelto Hypertension, continue on current medication monitor blood pressure Hyperlipidemia, monitor lipids Acute on chronic renal insufficiency, continue to monitor renal function PVD, history of stenting to RLE in past, has been maintained on Plavix. JUSTA LANZA MD Oct 24, 2020 09:00
[2020-10-24] MEDS ORDERED: DexMEDEtomidine 250 ML DRIP 250 ML IV ONE (10:21)
[2020-10-24] MEDS ORDERED: LACTATED RINGERS 1,000 ML IV ONE (10:21)
[2020-10-24] MEDS: DexMEDEtomidine 250 ML DRIP 250 ML IV SCH ×3 (10:37→20:28)
[2020-10-24] MEDS: LACTATED RINGERS 500 ML IV SCH ×2 (10:38→16:59)
[2020-10-24] MEDS: ENOXAPARIN 100 MG/1 ML (LOVENOX) SYR SC SCH (16:58)
--- NOTE | 2020-10-24 19:21 | Progress Note ---
Subjective Subjective/Events-last exam Patient intubated and sedated Review of Systems Unable to perform Focused Exam Lactate Level 10/22/20 10:12: Lactic Acid Level 1.27 10/22/20 14:45: Lactic Acid Level 1.57 Objective Exam Last Set of Vital Signs Vital Signs Date Time Temp Pulse Resp B/P (MAP) Pulse Ox O2 Delivery O2 Flow Rate FiO2 10/24/20 18:49 62 26 92 32 10/24/20 18:00 36.4 171/88 (115) Mechanical Ventilator 32.00 Capillary Refill : Less Than 3 Seconds I&O Intake and Output 10/24/20 00:00 Intake Total 2300 ml Output Total 1675 ml Balance 625 ml Intake Oral 0 ml IV Total 2300 ml Output Urine Total 1675 ml General: Other (Intubated and sedated) Lungs: Other (diminished breath sounds with little air movement) Heart: Regular Rate, No Murmurs Abdomen: Soft Extremities: Other (2+ pitting edema UE/LE bilaterally) Results/Procedures Lab Laboratory Tests 10/24/20 00:51: Glucometer 145H 10/24/20 03:10: Triglycerides Level 1238H 10/24/20 03:20: White Blood Count 7.6, Red Blood Count 3.82L, Hemoglobin 12.0L, Hematocrit 36L, Mean Corpuscular Volume 95, Mean Corpuscular Hemoglobin 31, Mean Corpuscular Hemoglobin Concent 33, Red Cell Distribution Width 15.2H, Platelet Count 233, Mean Platelet Volume 11.0, Immature Granulocyte % (Auto) 1, Neutrophils (%) (Auto) 87H, Lymphocytes (%) (Auto) 7L, Monocytes (%) (Auto) 5, Eosinophils (%) (Auto) 0, Basophils (%) (Auto) 0, Neutrophils # (Auto) 6.6, Lymphocytes # (Auto) 0.5L, Monocytes # (Auto) 0.4, Eosinophils # (Auto) 0.0, Basophils # (Auto) 0.0, Immature Granulocyte # (Auto) 0.1, Blood Gas Puncture Site LT RAD, Blood Gas Patient Temperature 35.1, Arterial Blood pH 7.30*L, Arterial Blood Partial Pressure CO2 47H, Arterial Blood Partial Pressure O2 61L, Arterial Blood HCO3 23, Arterial Blood Total CO2 24.5, Arterial Blood Oxygen Saturation 90L, Arterial Blood Base Excess -3.0L, Devon Test YES-POS, Blood Gas Ventilator Setting YES, Blood Gas Inspired Oxygen 30%, Sodium Level 141, Potassium Level 4.3, Chloride Level 111H, Carbon Dioxide Level 18L, Anion Gap 12, Blood Urea Nitrogen 49H, Creatinine 2.15H, Estimat Glomerular Filtration Rate 30, BUN/Creatinine Ratio 23, Glucose Level 144H, Calcium Level 7.8L, Phosphorus Level 3.3, Magnesium Level 2.3 10/24/20 13:41: Glucometer 121H 10/24/20 17:31: Glucometer 140H Microbiology 10/22/20 Gram Stain - Final, Complete 10/22/20 Sputum Culture - Final, Complete YEAST 10/18/20 Blood Culture - Final, Complete No growth Assessment/Plan Assessment/Plan (1) Acute and chronic respiratory failure with hypoxia Status: Acute Assessment & Plan: 10/23: Dr Rodgers consulted, patient intubated and sedated, Continue antibiotics and anti fungal, worsening CXR 10/24: Dr Rodgers managing (2) Sepsis with hypotension Status: Acute Assessment & Plan: 10/24: Pressors on hold at this time (3) Multiple organ system failure Status: Acute Assessment & Plan: 10/24: Acute renal and Liver failure worsening (4) Post-COVID syndrome Status: Acute (5) Pneumonia Status: Acute Qualifiers: Qualified Codes: J18.9 - Pneumonia, unspecified organism (6) [id number] kidney injury Status: Acute Assessment & Plan: 10/23: Baseline Cr 1.4, Cr 2.6 and trending up, daily CMPs, Renally dose medications Qualifiers: Qualified Codes: N17.9 - Acute kidney failure, unspecified; N18.9 - Chronic kidney disease, unspecified (7) Atrial fibrillation Status: Chronic Assessment & Plan: 10/23: on OAC, Rate controlled Qualifiers: Qualified Codes: I48.0 - Paroxysmal atrial fibrillation (8) Elevated LFTs Status: Acute Assessment & Plan: 10/23: Repeat LFTs in AM, if trending up would recommend US 10/24: Repeat CMP in AM (9) DVT prophylaxis Status: Acute Assessment & Plan: - Lovenox (10) Poor prognosis Assessment & Plan: 10/24: 45 mins spent with patient's family discussing goals of care. , son in law, nephews and his present for discussion. Discussed current acute care vs terminal extubation vs LTAC. Patient's family will discuss plans and will contact us. Continue with current plan of care at this time. Palliative Care consult placed HAROON MCGRATH MD Oct 24, 2020 19:21
[2020-10-25] VITALS (29 sets, daily range): BP systolic 147–181; BP diastolic 77–94
[2020-10-25] MEDS: fentaNYL DRIP PRE-MIX 250 ML IV SCH ×4 (01:24→22:32)
[2020-10-25 01:49] LABS: ABG BASE EXCESS -1.3 MMOL/L (-2.5-2.5); ABG OXYGEN SATURATION 91 % (94-100); ABG PCO2 45 MMHG (35-45); ABG PO2 60 MMHG (79-93); ABG TCO2 25.3 MMOL/L (21.0-31.0)
[2020-10-25 01:52] LABS: ALBUMIN 2.6 GM/DL (3.2-4.5); POTASSIUM 4.3 MMOL/L (3.6-5.0)
[2020-10-25 01:54] LABS: CALCIUM 7.8 MG/DL (8.5-10.1)
[2020-10-25 01:55] LABS: TOTAL PROTEIN 5.7 GM/DL (6.4-8.2)
[2020-10-25 01:57] LABS: BILIRUBIN,TOTAL 0.7 MG/DL (0.1-1.0)
[2020-10-25 01:58] LABS: PHOSPHORUS 3.5 MG/DL (2.3-4.7)
[2020-10-25 01:59] LABS: CREATININE SERUM 2.28 MG/DL (0.60-1.30)
[2020-10-25 01:59] LABS: ABG PH 7.34 (7.37-7.43); ALLENS TEST YES-POS
[2020-10-25 02:00] LABS: INSPIRED O2 32%; PATIENT TEMP 36.3; VENTILATOR YES
[2020-10-25 02:01] LABS: MAGNESIUM 2.3 MG/DL (1.6-2.4)
[2020-10-25 02:02] LABS: BASOPHILS % (AUTO) 0 % (0-10); EOSINOPHILS % (AUTO) 0 % (0-10); HEMATOCRIT 40 % (40-54); HEMOGLOBIN 12.7 g/dL (13.3-17.7); LYMPHOCYTES # (AUTO) 0.4 10^3/uL (1.0-4.0); LYMPHOCYTES % (AUTO) 5 % (12-44); MEAN CORPUSCULAR HEMOGLOBIN 30 pg (25-34); MEAN CORPUSCULAR HGB CONC 32 g/dL (32-36); MEAN CORPUSCULAR VOLUME 95 fL (80-99); MEAN PLATELET VOLUME 10.8 fL (9.0-12.2); MONOCYTES # (AUTO) 0.4 10^3/uL (0.0-1.0); MONOCYTES % (AUTO) 5 % (0-12); NEUTROPHILS % (AUTO) 87 % (42-75); PLATELET COUNT 257 10^3/uL (130-400)
[2020-10-25] MEDS: RT-ALBUTEROL/IPRATROPIUM 3 ML (DUONEB) VIAL INH SCH ×6 (02:23→22:19)
[2020-10-25 02:31] LABS: ANISOCYTOSIS SLIGHT; BAND NEUTROPHILS 2 %; LYMPHOCYTES % (MANUAL) 10 %; MONOCYTES % (MANUAL) 4 %; NEUTROPHILS % (MANUAL) 84 %; NUCLEATED RED BLOOD CELLS 1
[2020-10-25] MEDS: POTASSIUM CL 10MEQ/50ML IVPB 50 ML IV SCH (02:35)
[2020-10-25] MEDS: MAGNESIUM 1 GM/100 ML IVPB 100 ML IV SCH (02:35)
[2020-10-25] MEDS: KCL 20 MEQ TAB (K-DUR) PO SCH (02:35)
--- NOTE | 2020-10-25 03:21 | Pulmonary Progress Note ---
Subjective Date Seen by a Provider: Oct 25, 2020 Time Seen by a Provider: 02:50 Subjective/Events-last exam Intubated and sedated Review of Systems Limited by clinical condition Sepsis Event Evaluation Height, Weight, BMI Height: 6'1.00" Weight: 177lbs. 0.0oz. 80.282961hq; 25.71 BMI Method:Stated Focused Exam Lactate Level 10/22/20 10:12: Lactic Acid Level 1.27 10/22/20 14:45: Lactic Acid Level 1.57 Exam Exam Vital Signs Date Time Temp Pulse Resp B/P (MAP) Pulse Ox O2 Delivery O2 Flow Rate FiO2 10/25/20 03:06 91 Mechanical Ventilator 32 10/25/20 02:24 61 26 91 32 10/25/20 02:00 36.3 61 179/89 (119) 91 Mechanical Ventilator 32.00 10/25/20 01:00 36.3 62 178/92 (120) 91 Mechanical Ventilator 32.00 10/25/20 01:00 62 10/25/20 00:00 36.3 62 179/91 (120) 91 Mechanical Ventilator 32.00 10/24/20 23:08 91 Mechanical Ventilator 32 10/24/20 23:00 36.3 64 178/92 (120) 91 Mechanical Ventilator 32.00 10/24/20 22:00 36.3 63 177/90 (119) 91 Mechanical Ventilator 32.00 10/24/20 21:38 62 26 92 32 10/24/20 21:00 36.3 62 177/92 (120) 91 Mechanical Ventilator 32.00 10/24/20 20:28 63 10/24/20 20:00 36.4 63 175/90 (118) 91 Mechanical Ventilator 32.00 10/24/20 20:00 91 Mechanical Ventilator 32 10/24/20 19:54 Mechanical Ventilator 32.00 10/24/20 19:00 62 10/24/20 19:00 36.4 62 172/91 (118) 91 Mechanical Ventilator 32.00 10/24/20 18:49 62 26 92 32 10/24/20 18:00 36.4 63 171/88 (115) 91 Mechanical Ventilator 32.00 10/24/20 17:00 36.4 63 170/88 (115) 92 Mechanical Ventilator 32.00 10/24/20 16:58 64 155/85 10/24/20 16:57 63 166/93 10/24/20 16:00 95 Mechanical Ventilator 40 10/24/20 16:00 63 166/93 (117) 92 Mechanical Ventilator 32.00 10/24/20 16:00 95 Mechanical Ventilator 40 10/24/20 15:28 Mechanical Ventilator 32.00 10/24/20 15:00 36.6 64 155/85 (108) 92 Mechanical Ventilator 35.00 10/24/20 14:36 95 Mechanical Ventilator 40 10/24/20 14:27 61 26 94 32 10/24/20 14:00 36.7 62 156/87 (110) 94 Mechanical Ventilator 35.00 10/24/20 13:00 36.7 62 136/72 (93) 94 Mechanical Ventilator 35.00 10/24/20 12:30 63 10/24/20 12:00 95 Mechanical Ventilator 40 10/24/20 12:00 36.6 61 126/65 (85) 95 Mechanical Ventilator 35.00 10/24/20 11:30 Mechanical Ventilator 35.00 10/24/20 11:25 61 27 95 35 10/24/20 11:00 36.6 61 101/55 (70) 95 Mechanical Ventilator 40.00 10/24/20 10:37 64 10/24/20 10:00 36.7 63 92/51 (65) 94 Mechanical Ventilator 40.00 10/24/20 09:00 36.6 73 18 100/51 (67) 95 Mechanical Ventilator 40.00 10/24/20 08:00 95 Mechanical Ventilator 40 10/24/20 08:00 36.3 57 25 86/50 (62) 93 Mechanical Ventilator 40.00 10/24/20 07:21 55 26 93 40 10/24/20 07:00 35.9 55 25 89/53 (65) 92 Mechanical Ventilator 40.00 10/24/20 06:28 57 10/24/20 06:00 35.5 53 25 88/52 (64) 93 Mechanical Ventilator 35.00 10/24/20 05:00 35.1 52 26 91/51 (64) 92 Mechanical Ventilator 35.00 10/24/20 04:00 35.0 52 29 94/53 (67) 92 Mechanical Ventilator 35.00 10/24/20 04:00 95 Mechanical Ventilator 35 10/24/20 03:35 86/47 10/24/20 03:31 89 Mechanical Ventilator 35.00 I & O 10/25/20 07:00 Intake Total 60 ml Output Total 699 ml Balance -639 ml Height & Weight Height: 6'1.00" Weight: 177lbs. 0.0oz. 80.728186xj; 25.71 BMI Method:Stated General Appearance: WD/WN, Other (sedated and intubated) HEENT: Normal ENT Inspection Neck: Normal Inspection, Supple Respiratory: Lungs Clear, Other (ventilated) Cardiovascular: Regular Rate, Rhythm, No Murmur Capillary Refill: Less Than 3 Seconds Extremity: No Pedal Edema, Other (bilateral hand swelling) Neurologic/Psychiatric: Other (sedated) Skin: Normal Color, Warm/Dry, Other (skin tear on left dorsal forearm) Lymphatic: No Adenopathy Results Lab Laboratory Tests 10/24/20 03:20 10/25/20 01:17 Assessment/Plan Assessment/Plan Acute respiratory failure with ARDS -Intubated 10/22 -/08/05 currently 32% -propofol 20 -Fentanyl gtt if needed -COVID is negative -palliative care consulted Pneumonia Zosyn -Eraxis added secondary to worsening respiratory failure infiltration on imaging -sputum positive for yeast -Check Urine strep and Legionella ag - check varela cultures Bilateral pleural effusions with worsening respiratory distress COPDAE -SOlumedrol -Duonebs Post COVID syndrome -- -Pt was dx with COVID 07/2020 and tx at [facility] Acute on Chronic renal failure -Monitor -decreased urine output -worsening creatinine Increase bili and LFTs -Abdominal US was unremarkable besides bilateral pleural effusions Aflutter/fib - -Cardiology following -Xarelto -Pt takes amiodarone at home COPDAE Tobacco hx -Quit 1yr ago WILBERT BOYD MED STUDENT Oct 25, 2020 03:21
[2020-10-25] MEDS: PROPOFOL DRIP (ICU) 100 ML IV SCH ×3 (04:34→23:21)
[2020-10-25] MEDS: DexMEDEtomidine 250 ML DRIP 250 ML IV SCH ×4 (04:34→23:20)
--- NOTE | 2020-10-25 04:57 | Pulmonary Progress Note ---
Subjective Time Seen by a Provider: 04:54 Subjective/Events-last exam Pt is sedated on vent. Sepsis Event Evaluation Height, Weight, BMI Height: 6'1.00" Weight: 177lbs. 0.0oz. 80.945078jo; 25.71 BMI Method:Stated Focused Exam Lactate Level 10/22/20 10:12: Lactic Acid Level 1.27 10/22/20 14:45: Lactic Acid Level 1.57 Exam Exam Vital Signs Date Time Temp Pulse Resp B/P (MAP) Pulse Ox O2 Delivery O2 Flow Rate FiO2 10/25/20 04:34 60 10/25/20 04:34 179/90 10/25/20 04:00 36.3 62 176/89 (118) 91 Mechanical Ventilator 32.00 10/25/20 03:06 91 Mechanical Ventilator 32 10/25/20 03:00 36.3 64 174/89 (117) 90 Mechanical Ventilator 32.00 10/25/20 02:24 61 26 91 32 10/25/20 02:00 36.3 61 179/89 (119) 91 Mechanical Ventilator 32.00 10/25/20 01:00 36.3 62 178/92 (120) 91 Mechanical Ventilator 32.00 10/25/20 01:00 62 10/25/20 00:00 36.3 62 179/91 (120) 91 Mechanical Ventilator 32.00 10/24/20 23:08 91 Mechanical Ventilator 32 10/24/20 23:00 36.3 64 178/92 (120) 91 Mechanical Ventilator 32.00 10/24/20 22:00 36.3 63 177/90 (119) 91 Mechanical Ventilator 32.00 10/24/20 21:38 62 26 92 32 10/24/20 21:00 36.3 62 177/92 (120) 91 Mechanical Ventilator 32.00 10/24/20 20:28 63 10/24/20 20:00 36.4 63 175/90 (118) 91 Mechanical Ventilator 32.00 10/24/20 20:00 91 Mechanical Ventilator 32 10/24/20 19:54 Mechanical Ventilator 32.00 10/24/20 19:00 62 10/24/20 19:00 36.4 62 172/91 (118) 91 Mechanical Ventilator 32.00 10/24/20 18:49 62 26 92 32 10/24/20 18:00 36.4 63 171/88 (115) 91 Mechanical Ventilator 32.00 10/24/20 17:00 36.4 63 170/88 (115) 92 Mechanical Ventilator 32.00 10/24/20 16:58 64 155/85 10/24/20 16:57 63 166/93 10/24/20 16:00 95 Mechanical Ventilator 40 10/24/20 16:00 63 166/93 (117) 92 Mechanical Ventilator 32.00 10/24/20 16:00 95 Mechanical Ventilator 40 10/24/20 15:28 Mechanical Ventilator 32.00 10/24/20 15:00 36.6 64 155/85 (108) 92 Mechanical Ventilator 35.00 10/24/20 14:36 95 Mechanical Ventilator 40 10/24/20 14:27 61 26 94 32 10/24/20 14:00 36.7 62 156/87 (110) 94 Mechanical Ventilator 35.00 10/24/20 13:00 36.7 62 136/72 (93) 94 Mechanical Ventilator 35.00 10/24/20 12:30 63 10/24/20 12:00 95 Mechanical Ventilator 40 10/24/20 12:00 36.6 61 126/65 (85) 95 Mechanical Ventilator 35.00 10/24/20 11:30 Mechanical Ventilator 35.00 10/24/20 11:25 61 27 95 35 10/24/20 11:00 36.6 61 101/55 (70) 95 Mechanical Ventilator 40.00 10/24/20 10:37 64 10/24/20 10:00 36.7 63 92/51 (65) 94 Mechanical Ventilator 40.00 10/24/20 09:00 36.6 73 18 100/51 (67) 95 Mechanical Ventilator 40.00 10/24/20 08:00 95 Mechanical Ventilator 40 10/24/20 08:00 36.3 57 25 86/50 (62) 93 Mechanical Ventilator 40.00 10/24/20 07:21 55 26 93 40 10/24/20 07:00 35.9 55 25 89/53 (65) 92 Mechanical Ventilator 40.00 10/24/20 06:28 57 10/24/20 06:00 35.5 53 25 88/52 (64) 93 Mechanical Ventilator 35.00 10/24/20 05:00 35.1 52 26 91/51 (64) 92 Mechanical Ventilator 35.00 I & O 10/25/20 07:00 Intake Total 60 ml Output Total 699 ml Balance -639 ml Height & Weight Height: 6'1.00" Weight: 177lbs. 0.0oz. 80.183947tz; 25.71 BMI Method:Stated General Appearance: WD/WN, Other (sedated and intubated) HEENT: Normal ENT Inspection Neck: Normal Inspection, Supple Respiratory: Lungs Clear, Other (ventilated) Cardiovascular: Regular Rate, Rhythm, No Murmur Capillary Refill: Less Than 3 Seconds Extremity: No Pedal Edema, Other (bilateral hand swelling) Neurologic/Psychiatric: Other (sedated) Skin: Normal Color, Warm/Dry, Other (skin tear on left dorsal forearm) Lymphatic: No Adenopathy Results Lab Laboratory Tests 10/24/20 03:20 10/25/20 01:17 Assessment/Plan Assessment/Plan Acute respiratory failure with ARDS -Intubated 10/22 -/06/05 currently 32% -propofol 15,Precedex at 1.0 Fentanyl 100 gtt if needed -Start TF today if pt is not made COOK JELLY -Repeat PCT -COVID is negative -palliative care consulted Pneumonia Zosyn -Eraxis added secondary to worsening respiratory failure infiltration on imaging -sputum positive for yeast -Check Urine strep and Legionella ag - check varela cultures Bilateral pleural effusions with worsening respiratory distress COPDAE -SOlumedrol -Duonebs Post COVID syndrome -- -Pt was dx with COVID 07/2020 and tx at [place] Acute on Chronic renal failure -Monitor -decreased urine output -worsening creatinine Increase bili and LFTs -Abdominal US was unremarkable besides bilateral pleural effusions Aflutter/fib - -Cardiology following -Xarelto -Pt takes amiodarone at home COPDAE Tobacco hx -Quit 1yr ago Pt is expected to make pt COOK JELLY today. Pt's prognosis is poor. ALYSSA MA DO Oct 25, 2020 04:57
[2020-10-25] MEDS: D5 LR IV SOLUTION 1,000 ML IV SCH ×4 (05:23→19:45)
[2020-10-25] MEDS: inSUlin ASPART (NovoLOG) 1 UNIT/0.01 ML (CHARGE PER UNIT) SQ SCH ×4 (05:23→23:04)
[2020-10-25] MEDS: methylPREDNISolone 40 MG/ML (Solu-MEDROL) VIAL IV SCH ×4 (05:23→23:04)
[2020-10-25] MEDS ORDERED: hydrALAZINE (APESOLINE) 20 MG/ML VIAL IV PRN (06:15)
--- NOTE | 2020-10-25 06:53 | Occ Therapy Progress Note ---
Therapy Progress Note Pt is currently intubated and sedated. OT will continue to monitor pt's status and will initiate treatment when pt is medically stable and able to actively participate with skilled therapy. RHEA GOMEZ Oct 25, 2020 06:53
--- NOTE | 2020-10-25 07:33 | Diagnostic Imaging Report ---
INDICATION: Respiratory distress Portable chest shows the heart size and vascularity to be upper normal. There are bilateral infiltrates which are predominantly interstitial with some mixed alveolar infiltrates present as well. There is no effusion or pneumothorax. The ET tube is in good position. PICC line tip is in SVC. IMPRESSION: There has been a slight increase in the bilateral infiltrates since 10/24/2020. Dictated by: Dictated on workstation # [id number]
--- NOTE | 2020-10-25 08:02 | Physical Therapy Progress Note ---
Therapy Progress Note Patient currently intubated. PT will continue to monitor patient status and initiate treatment when patient is medically stable and able to actively participate with skilled therapy. MJ ROLON PT Oct 25, 2020 08:02
[2020-10-25] MEDS: lisINopril 10 MG (PRINIVIL) TABLET PO SCH ×2 (08:35→19:44)
[2020-10-25] MEDS: PANTOPRAZOLE 40 MG (PROTONIX) VIAL IV SCH (08:35)
[2020-10-25] MEDS: AMIODARONE 200 MG (CORDARONE) TAB PO SCH ×2 (08:35→19:45)
[2020-10-25] MEDS: ANIDULAFUNGIN INJECTION 100 MG in NS (IVPB) 100 ML IV SCH (08:35)
[2020-10-25] MEDS: CLOPIDOGREL 75 MG (PLAVIX) TABLET PO SCH (08:35)
--- NOTE | 2020-10-25 13:37 | Progress Note ---
Subjective Subjective/Events-last exam Patient intubated and sedated, no new ON events and family in room this AM. No new questions. They state that his son is in [place] and trying to get here but not sure when he will be here. They are reluctant to make and major decisions until he arrives to say his goodbyes Review of Systems Unable to perform Focused Exam Lactate Level 10/22/20 14:45: Lactic Acid Level 1.57 Objective Exam Last Set of Vital Signs Vital Signs Date Time Temp Pulse Resp B/P (MAP) Pulse Ox O2 Delivery O2 Flow Rate FiO2 10/25/20 12:00 Mechanical Ventilator 40 10/25/20 12:00 36.2 64 25 147/77 (100) 90 40.00 Capillary Refill : Less Than 3 Seconds I&O Intake and Output 10/25/20 00:00 Intake Total 2560 ml Output Total 824 ml Balance 1736 ml Intake Oral 60 ml IV Total 2500 ml Output Urine Total 824 ml General: Other (Intubated and sedated) Lungs: Other (diminished breath sounds with minimal air movement) Heart: Regular Rate, No Murmurs Abdomen: Soft, Other (mild distention) Extremities: Other (2+ pitting edema in UE/LE bilaterally) Results/Procedures Lab Laboratory Tests 10/24/20 13:41: Glucometer 121H 10/24/20 17:31: Glucometer 140H 10/24/20 22:58: Glucometer 188H 10/25/20 01:17: White Blood Count 8.0, Red Blood Count 4.18L, Hemoglobin 12.7L, Hematocrit 40, Mean Corpuscular Volume 95, Mean Corpuscular Hemoglobin 30, Mean Corpuscular Hemoglobin Concent 32, Red Cell Distribution Width 15.6H, Platelet Count 257, Mean Platelet Volume 10.8, Immature Granulocyte % (Auto) 2, Neutrophils (%) (Auto) 87H, Lymphocytes (%) (Auto) 5L, Monocytes (%) (Auto) 5, Eosinophils (%) (Auto) 0, Basophils (%) (Auto) 0, Neutrophils # (Auto) 7.0, Lymphocytes # (Auto) 0.4L, Monocytes # (Auto) 0.4, Eosinophils # (Auto) 0.0, Basophils # (Auto) 0.0, Immature Granulocyte # (Auto) 0.2H, Neutrophils % (Manual) 84, Lymphocytes % (Manual) 10, Monocytes % (Manual) 4, Band Neutrophils 2, Nucleated Red Blood Cells 1, Anisocytosis SLIGHT, Sodium Level 143, Potassium Level 4.3, Chloride Level 111H, Carbon Dioxide Level 21, Anion Gap 11, Blood Urea Nitrogen 54H, Creatinine 2.28H, Estimat Glomerular Filtration Rate 28, BUN/Creatinine Ratio 24, Glucose Level 181H, Calcium Level 7.8L, Corrected Calcium 8.9, Phosphorus Level 3.5, Magnesium Level 2.3, Total Bilirubin 0.7, Aspartate Amino Transf ( AST/SGOT) 188H, Alanine Aminotransferase (ALT/SGPT) 339H, Alkaline Phosphatase 111, Total Protein 5.7L, Albumin 2.6L, Procalcitonin 0.15H 10/25/20 01:43: Blood Gas Puncture Site R RAD, Blood Gas Patient Temperature 36.3, Arterial Blood pH 7.34*L, Arterial Blood Partial Pressure CO2 45, Arterial Blood Partial Pressure O2 60L, Arterial Blood HCO3 24, Arterial Blood Total CO2 25.3, Arterial Blood Oxygen Saturation 91L, Arterial Blood Base Excess -1.3, Devon Test YES- POS, Blood Gas Ventilator Setting YES, Blood Gas Inspired Oxygen 32% 10/25/20 05:23: Glucometer 175H 10/25/20 11:59: Glucometer 162H Microbiology 10/22/20 Gram Stain - Final, Complete 10/22/20 Sputum Culture - Final, Complete YEAST 10/18/20 Blood Culture - Final, Complete No growth Assessment/Plan Assessment/Plan (1) Acute and chronic respiratory failure with hypoxia Status: Acute Assessment & Plan: 10/23: Dr Rodgers consulted, patient intubated and sedated, Continue antibiotics and anti fungal, worsening CXR 10/24: Dr Rodgers managing 10/25: Mechanical Ventilation (2) Sepsis with hypotension Status: Acute Assessment & Plan: 10/24: Pressors on hold at this time (3) Multiple organ system failure Status: Acute Assessment & Plan: 10/24: Acute renal and Liver failure worsening 10/25: Cr and LFTs increasing at this time, patient continues to make urine, darker in color today (4) Post-COVID syndrome Status: Acute (5) Pneumonia Status: Acute Qualifiers: Qualified Codes: J18.9 - Pneumonia, unspecified organism (6) [id number] kidney injury Status: Acute Assessment & Plan: 10/23: Baseline Cr 1.4, Cr 2.6 and trending up, daily CMPs, Renally dose medications Qualifiers: Qualified Codes: N17.9 - Acute kidney failure, unspecified; N18.9 - Chronic kidney disease, unspecified (7) Atrial fibrillation Status: Chronic Assessment & Plan: 10/23: on OAC, Rate controlled Qualifiers: Qualified Codes: I48.0 - Paroxysmal atrial fibrillation (8) Elevated LFTs Status: Acute Assessment & Plan: 10/23: Repeat LFTs in AM, if trending up would recommend US 10/24: Repeat CMP in AM (9) DVT prophylaxis Status: Acute Assessment & Plan: - Lovenox (10) Poor prognosis Assessment & Plan: 10/24: 45 mins spent with patient's family discussing goals o f care. , son in law, nephews and his present for discussion. Discussed current acute care vs terminal extubation vs LTAC. Patient's family will discuss plans and will contact us. Continue with current plan of care at this time. Palliative Care consult placed 10/25: and Nephews present this AM. They are leaning toward comfort care but waiting on patient's son to travel from [place]. Encouraged family to let other members know that he is critically ill and could decompensate and if they would like to see him they need to make plans. Patient is comfortable and sedated. Answered families questions and told them to reach out to nurse if anything else comes up. HAROON MCGRATH MD Oct 25, 2020 13:37
--- NOTE | 2020-10-25 15:58 | Cardiology Progress Note ---
Subjective Date Seen by Provider: Oct 25, 2020 Time Seen by Provider: 08:00 Subjective/Events-last exam Patient is sedated and intubated Review of Systems General: Other (Unable to provide review of system) Objective-Cardiology Exam Last Set of Vital Signs Vital Signs 10/25/20 10/25/20 13:45 15:00 Temp 36.2 Pulse 64 Resp 25 B/P (MAP) 164/85 (111) Pulse Ox 89 O2 Delivery Mechanical Ventilator O2 Flow Rate 40.00 FiO2 40 Capillary Refill : Less Than 3 Seconds I&O Intake and Output 10/25/20 00:00 Intake Total 2560 ml Output Total 824 ml Balance 1736 ml Intake Oral 60 ml IV Total 2500 ml Output Urine Total 824 ml General: Other (Intubated and sedated) HEENT: Atraumatic, PERRLA Neck: Supple, No JVD, No Thyromegaly Lungs: Other (diminished breath sounds with minimal air movement) Heart: Regular Rate, No Murmurs Abdomen: Soft, Other (mild distention) Extremities: Other (2+ pitting edema in UE/LE bilaterally) Skin: No Rashes, No Breakdown, No Significant Lesion Neuro: Other (Sedated and intubated) Psych/Mental Status: Other (Sedated and intubated) Results Lab Laboratory Tests 10/25/20 01:17 A/P-Cardiology Admission Diagnosis Dyspnea PAF PNA Elevated BNP Assessment/Plan Acute respiratory failure, ventilator dependent, multilobular pneumonia, receiving antibiotics, managed by Dr. Rodgers Pneumonia, receiving antibiotic, managed by primary care team Sepsis with hypotensive shock, managed by Dr. Rodgers Elevated BNP, echocardiogram showed normal left ventricular size and systolic function ejection fraction 60%, normal PA pressure. Continue to monitor, no changes recommended PAF, recently diagnosed while in hospital in [place] in July, follows with Dr. Jimenez. Maintained on Amiodarone and Xarelto. COPD s/p COVID in July 2020 DVT post COVID, maintained on Xarelto Hypertension, continue on current medication monitor blood pressure Hyperlipidemia, monitor lipids Acute on chronic renal insufficiency, continue to monitor renal function PVD, history of stenting to RLE in past, has been maintained on Plavix. Events from today's interaction with Dr. Wilcox and the family were reviewed, possible progression to palliative care with comfort care JUSTA LANZA MD Oct 25, 2020 15:58
[2020-10-25] MEDS: ENOXAPARIN 100 MG/1 ML (LOVENOX) SYR SC SCH (17:36)
[2020-10-25] MEDS ORDERED: LACTATED RINGERS 1,000 ML IV SCH (21:00)
[2020-10-26] VITALS (31 sets, daily range): BP systolic 130–157; BP diastolic 71–89
[2020-10-26 01:39] LABS: BASOPHILS % (AUTO) 0 % (0-10); EOSINOPHILS % (AUTO) 0 % (0-10); HEMATOCRIT 38 % (40-54); LYMPHOCYTES # (AUTO) 0.3 10^3/uL (1.0-4.0); LYMPHOCYTES % (AUTO) 4 % (12-44); MEAN CORPUSCULAR HEMOGLOBIN 30 pg (25-34); MEAN CORPUSCULAR HGB CONC 32 g/dL (32-36); MEAN CORPUSCULAR VOLUME 96 fL (80-99); MEAN PLATELET VOLUME 10.6 fL (9.0-12.2); MONOCYTES # (AUTO) 0.5 10^3/uL (0.0-1.0); MONOCYTES % (AUTO) 6 % (0-12); NEUTROPHILS # (AUTO) 7.4 10^3/uL (1.8-7.8); NEUTROPHILS % (AUTO) 86 % (42-75); PLATELET COUNT 252 10^3/uL (130-400); WHITE BLOOD COUNT 8.6 10^3/uL (4.3-11.0)
[2020-10-26 01:55] LABS: ABG BASE EXCESS -2.3 MMOL/L (-2.5-2.5); ABG OXYGEN SATURATION 85 % (94-100); ABG PCO2 51 MMHG (35-45); ABG PO2 58 MMHG (79-93); ABG TCO2 25.1 MMOL/L (21.0-31.0)
[2020-10-26 02:01] LABS: ALBUMIN 2.2 GM/DL (3.2-4.5); BILIRUBIN,TOTAL 0.5 MG/DL (0.1-1.0); CREATININE SERUM 1.98 MG/DL (0.60-1.30); MAGNESIUM 2.4 MG/DL (1.6-2.4); PHOSPHORUS 3.8 MG/DL (2.3-4.7); POTASSIUM 4.3 MMOL/L (3.6-5.0); TOTAL PROTEIN 4.8 GM/DL (6.4-8.2)
[2020-10-26 02:08] LABS: ABG PH 7.28 (7.37-7.43); ALLENS TEST YES-POS; INSPIRED O2 50%; PATIENT TEMP 36.5; VENTILATOR YES
[2020-10-26] MEDS: RT-ALBUTEROL/IPRATROPIUM 3 ML (DUONEB) VIAL INH SCH ×6 (02:22→21:30)
[2020-10-26] MEDS: POTASSIUM CL 10MEQ/50ML IVPB 50 ML IV SCH (02:46)
[2020-10-26] MEDS: KCL 20 MEQ TAB (K-DUR) PO SCH (02:46)
[2020-10-26] MEDS: D5 LR IV SOLUTION 1,000 ML IV SCH ×3 (02:46→18:25)
[2020-10-26] MEDS: MAGNESIUM 1 GM/100 ML IVPB 100 ML IV SCH (02:46)
--- NOTE | 2020-10-26 03:43 | Pulmonary Progress Note ---
WILBERT BOYD MED STUDENT 10/26/20 0342: Subjective Date Seen by a Provider: Oct 26, 2020 Time Seen by a Provider: 02:55 Subjective/Events-last exam Intubated and sedated. Review of Systems Limited by clinical condition Sepsis Event Evaluation Height, Weight, BMI Height: 6'1.00" Weight: 177lbs. 0.0oz. 80.341364jk; 25.71 BMI Method:Stated Exam Exam Vital Signs Date Time Temp Pulse Resp B/P (MAP) Pulse Ox O2 Delivery O2 Flow Rate FiO2 10/26/20 03:00 91 Mechanical Ventilator 50 10/26/20 03:00 36.7 63 25 155/82 (106) 91 Mechanical Ventilator 50.00 10/26/20 02:22 62 26 91 50 10/26/20 02:00 36.6 63 25 149/77 (101) 91 Mechanical Ventilator 50.00 10/26/20 01:00 63 10/26/20 01:00 36.5 63 26 152/81 (104) 91 Mechanical Ventilator 50.00 10/26/20 00:00 36.4 63 25 153/82 (105) 91 Mechanical Ventilator 50.00 10/25/20 23:21 161/84 10/25/20 23:20 63 10/25/20 23:08 Mechanical Ventilator 50 10/25/20 23:00 36.1 63 25 160/84 (109) 92 Mechanical Ventilator 50.00 10/25/20 22:20 62 26 92 50 10/25/20 22:00 35.9 62 26 158/87 (110) 92 Mechanical Ventilator 50.00 10/25/20 21:00 36.0 63 25 160/84 (109) 93 Mechanical Ventilator 50.00 10/25/20 20:00 36.0 64 25 153/84 (107) 93 Mechanical Ventilator 50.00 10/25/20 19:14 Mechanical Ventilator 50 10/25/20 19:10 Mechanical Ventilator 50.00 10/25/20 19:00 36.0 64 26 158/84 (108) 91 Mechanical Ventilator 40.00 10/25/20 19:00 63 10/25/20 18:57 62 26 91 50 10/25/20 18:00 36.1 64 25 162/88 (112) 93 Mechanical Ventilator 40.00 10/25/20 17:44 159/83 10/25/20 17:00 36.1 65 25 160/81 (107) 93 Mechanical Ventilator 40.00 10/25/20 16:00 36.1 65 25 156/78 (104) 93 Mechanical Ventilator 40.00 10/25/20 16:00 Mechanical Ventilator 50 10/25/20 15:00 36.2 64 25 164/85 (111) 89 Mechanical Ventilator 40.00 10/25/20 14:39 160/84 10/25/20 14:00 36.2 64 25 159/81 (107) 90 Mechanical Ventilator 40.00 10/25/20 13:45 62 26 90 40 10/25/20 13:00 36.2 63 25 159/84 (109) 90 Mechanical Ventilator 40.00 10/25/20 12:24 64 10/25/20 12:00 Mechanical Ventilator 40 10/25/20 12:00 36.2 64 25 147/77 (100) 90 Mechanical Ventilator 40.00 10/25/20 11:20 63 150/77 10/25/20 11:05 62 26 90 40 10/25/20 11:00 36.3 62 26 157/83 (107) 91 Mechanical Ventilator 40.00 10/25/20 10:00 36.3 62 25 156/80 (105) 91 Mechanical Ventilator 40.00 10/25/20 09:00 36.3 63 25 159/82 (107) 91 Mechanical Ventilator 40.00 10/25/20 08:00 36.3 65 26 161/84 (109) 93 Mechanical Ventilator 40.00 10/25/20 08:00 Mechanical Ventilator 40 10/25/20 07:00 36.3 65 21 162/82 (108) 93 Mechanical Ventilator 40.00 10/25/20 06:44 63 30 91 40 10/25/20 06:38 63 10/25/20 06:23 Mechanical Ventilator 40.00 10/25/20 06:00 36.3 61 27 177/93 (121) 92 Mechanical Ventilator 32.00 10/25/20 05:00 36.3 61 26 177/91 (119) 92 Mechanical Ventilator 32.00 10/25/20 04:34 60 10/25/20 04:34 179/90 10/25/20 04:00 36.3 62 26 176/89 (118) 91 Mechanical Ventilator 32.00 I & O 10/26/20 07:00 Intake Total 3350 ml Output Total 260 ml Balance 3090 ml Height & Weight Height: 6'1.00" Weight: 177lbs. 0.0oz. 80.586043pa; 25.71 BMI Method:Stated General Appearance: WD/WN, Other (sedated and intubated) HEENT: Normal ENT Inspection Neck: Normal Inspection, Supple Respiratory: No Respiratory Distress, Other (mechanically ventilated) Cardiovascular: Regular Rate, Rhythm, No Murmur Capillary Refill: Less Than 3 Seconds Gastrointestinal: No distended; other (firm abdomen) Extremity: Normal Inspection, Other (bilateral hand swelling) Neurologic/Psychiatric: Other (sedated) Skin: Normal Color, Warm/Dry, Other (skin tear on left dorsal forearm) Lymphatic: No Adenopathy Results Lab Laboratory Tests 10/25/20 01:17 10/26/20 01:32 Assessment/Plan Assessment/Plan Acute respiratory failure with ARDS -Intubated 10/22 - currently 50% -propofol 20, Precedex at 2.0 Fentanyl 50 gtt if needed -Repeat PCT -COVID is negative -palliative care consulted Pneumonia Zosyn -Eraxis added secondary to worsening respiratory failure infiltration on imaging -sputum positive for yeast -Check Urine strep and Legionella ag - check varela cultures Bilateral pleural effusions with worsening respiratory distress -CXR worse today COPDAE -SOlumedrol -Duonebs Post COVID syndrome -- -Pt was dx with COVID 07/2020 and tx at [facility] Acute on Chronic renal failure -Monitor -decreased urine output Increase bili and LFTs -Abdominal US was unremarkable besides bilateral pleural effusions Aflutter/fib - -Cardiology following -Xarelto -Pt takes amiodarone at home COPDAE Tobacco hx -Quit 1yr ago Palliative care and Dr. Wilcox visited with family yesterday, they are waiting for other family from [place] and [place] to arrive before making pt comfort care only. ALYSSA MA DO 10/26/20 0509: Assessment/Plan Assessment/Plan Acute respiratory failure with ARDS -Intubated 10/22 - currently 50% -propofol 20, Precedex at 1.5 Fentanyl 50 gtt if needed -Repeat PCT -COVID is negative -palliative care consulted Pneumonia Zosyn -Eraxis added secondary to worsening respiratory failure infiltration on imaging -sputum positive for yeast -Check Urine strep and Legionella ag - check varela cultures Bilateral pleural effusions with worsening respiratory distress -CXR worse today Multiorgan failure COPDAE -SOlumedrol -Duonebs Post COVID syndrome -- -Pt was dx with COVID 07/2020 and tx at [facility] Acute on Chronic renal failure -Monitor -decreased urine output Increase bili and LFTs -Abdominal US was unremarkable besides bilateral pleural effusions Aflutter/fib - -Cardiology following -Xarelto -Pt takes amiodarone at home COPDAE Tobacco hx -Quit 1yr ago Poor prognosis Palliative care and Dr. Wilcox visited with family yesterday, they are waiting for other family from [place] and [place] to arrive before making pt comfort care only. Family is planning around 9AM tomorrow to make him [employer]. Will proceed with DNR status at this time. WILBERT BOYD MED STUDENT Oct 26, 2020 03:42 ALYSAS MA DO Oct 26, 2020 05:09
[2020-10-26] MEDS: fentaNYL DRIP PRE-MIX 250 ML IV SCH ×4 (04:44→23:15)
[2020-10-26] MEDS ORDERED: FUROSEMIDE 40 MG/4 ML INJ (LASIX) IVP ONE (05:15)
[2020-10-26] MEDS: methylPREDNISolone 40 MG/ML (Solu-MEDROL) VIAL IV SCH ×4 (05:21→23:17)
[2020-10-26] MEDS: inSUlin ASPART (NovoLOG) 1 UNIT/0.01 ML (CHARGE PER UNIT) SQ SCH ×3 (05:25→19:32)
[2020-10-26] MEDS: DexMEDEtomidine 250 ML DRIP 250 ML IV SCH ×4 (05:33→23:15)
[2020-10-26] MEDS: PROPOFOL DRIP (ICU) 100 ML IV SCH ×3 (05:33→19:28)
--- NOTE | 2020-10-26 06:49 | Occ Therapy Progress Note ---
Therapy Progress Note Pt is currently intubated and sedated. OT will continue to monitor pt's status. RHEA GOMEZ Oct 26, 2020 06:49
[2020-10-26] MEDS: lisINopril 10 MG (PRINIVIL) TABLET PO SCH ×2 (08:12→21:23)
[2020-10-26] MEDS: PANTOPRAZOLE 40 MG (PROTONIX) VIAL IV SCH (08:12)
[2020-10-26] MEDS: CLOPIDOGREL 75 MG (PLAVIX) TABLET PO SCH (08:12)
[2020-10-26] MEDS: AMIODARONE 200 MG (CORDARONE) TAB PO SCH ×2 (08:12→21:23)
[2020-10-26] MEDS: ANIDULAFUNGIN INJECTION 100 MG in NS (IVPB) 100 ML IV SCH (08:14)
--- NOTE | 2020-10-26 08:14 | Physical Therapy Progress Note ---
Therapy Progress Note Patient intubated and sedated. PT will continue to monitor patient status and initiate treatment when patient is medically stable and able to actively participate with skilled therapy. MARTA ENNIS PT Oct 26, 2020 08:14
--- NOTE | 2020-10-26 08:40 | Progress Note - Cardiology ---
Cardiology SOAP Progress Note Subjective: Intubated and sedated Objective: I&O/Vital Signs 10/25/20 10/25/20 10/25/20 10/25/20 21:00 22:00 22:20 23:00 Temp 36.0 35.9 36.1 Pulse 63 62 62 63 Resp B/P (MAP) 160/84 (109) 158/87 (110) 160/84 (109) Pulse Ox 93 92 92 92 O2 Delivery Mechanical Ventilator Mechanical Ventilator Mechanical Ventilator O2 Flow Rate 50.00 50.00 50.00 FiO2 50 10/25/20 10/25/20 10/25/20 10/26/20 23:08 23:20 23:21 00:00 Temp 36.4 Pulse 63 63 Resp B/P (MAP) 161/84 153/82 (105) Pulse Ox 91 O2 Delivery Mechanical Ventilator Mechanical Ventilator O2 Flow Rate 50.00 FiO2 50 10/26/20 10/26/20 10/26/20 10/26/20 01:00 01:00 02:00 02:22 Temp 36.5 36.6 Pulse 63 63 63 62 Resp B/P (MAP) 152/81 (104) 149/77 (101) Pulse Ox 91 91 91 O2 Delivery Mechanical Ventilator Mechanical Ventilator O2 Flow Rate 50.00 50.00 FiO2 50 10/26/20 10/26/20 10/26/20 10/26/20 03:00 03:00 04:00 05:00 Temp 36.7 36.7 36.7 Pulse 63 62 61 Resp B/P (MAP) 155/82 (106) 152/79 (103) 150/83 (105) Pulse Ox 91 91 91 91 O2 Delivery Mechanical Ventilator Mechanical Ventilator Mechanical Ventilator Mechanical Ventilator O2 Flow Rate 50.00 50.00 50.00 FiO2 50 10/26/20 10/26/20 10/26/20 10/26/20 05:33 05:33 06:00 07:00 Temp 36.7 36.7 Pulse 61 62 65 Resp B/P (MAP) 153/83 149/80 (103) 150/80 (103) Pulse Ox 91 91 O2 Delivery Mechanical Ventilator Mechanical Ventilator O2 Flow Rate 50.00 50.00 10/26/20 07:47 Temp 36.7 10/26/20 00:00 Intake Total 2760 ml Output Total 115 ml Balance 2645 ml Weight (Pounds): 177 Weight (Ounces): 0.0 Weight (Calculated Kilograms): 80.284380 Constitutional: well-developed, well-nourished, other (sedated) Respiratory: other (fair air entry) Cardiovascular: regular rate-rhythm; No JVD; S1 and S2 Gastrointestional: distended Extremities: other (bilat LE swelling, pitting from toes, scrotum and abdomen) Neurologic/Psychiatric: other (sedated, unable to cooperative with exam) Skin: No rash on exposed areas, No ulcerations on exposed areas Results/Procedures: Labs Laboratory Tests 10/25/20 11:59: Glucometer 162H 10/25/20 17:40: Glucometer 220H 10/25/20 23:01: Glucometer 201H 10/26/20 01:32: White Blood Count 8.6, Red Blood Count 3.96L, Hemoglobin 12.0L, Hematocrit 38L, Mean Corpuscular Volume 96, Mean Corpuscular Hemoglobin 30, Mean Corpuscular Hemoglobin Concent 32, Red Cell Distribution Width 15.6H, Platelet Count 252, Mean Platelet Volume 10.6, Immature Granulocyte % (Auto) 4, Neutrophils (%) (Auto) 86H, Lymphocytes (%) (Auto) 4L, Monocytes (%) (Auto) 6, Eosinophils (%) (Auto) 0, Basophils (%) (Auto) 0, Neutrophils # (Auto) 7.4, Lymphocytes # (Auto) 0.3L, Monocytes # (Auto) 0.5, Eosinophils # (Auto) 0.0, Basophils # (Auto) 0.0, Immature Granulocyte # (Auto) 0.3H, Sodium Level 145, Potassium Level 4.3, Chloride Level 117H, Carbon Dioxide Level 18L, Anion Gap 10, Blood Urea Nitrogen 57H, Creatinine 1.98H, Estimat Glomerular Filtration Rate 33, BUN/Creatinine Ratio 29, Glucose Level 168H, Calcium Level 7.0L, Corrected Calcium 8.4L, Phosphorus Level 3.8, Magnesium Level 2.4, Total Bilirubin 0.5, Aspartate Amino Transf (AST/SGOT) 72H, Alanine Aminotransferase (ALT/SGPT) 226H, Alkaline Phosphatase 91, Total Protein 4.8L, Albumin 2.2L 10/26/20 01:48: Blood Gas Puncture Site L RAD, Blood Gas Patient Temperature 36.5, Arterial Blood pH 7.28*L, Arterial Blood Partial Pressure CO2 51H, Arterial Blood Partial Pressure O2 58L, Arterial Blood HCO3 24, Arterial Blood Total CO2 25.1, Arterial Blood Oxygen Saturation 85L, Arterial Blood Base Excess -2.3, Devon Test YES- POS, Blood Gas Ventilator Setting YES, Blood Gas Inspired Oxygen 50% 10/26/20 05:25: Glucometer 158H Microbiology 10/22/20 Gram Stain - Final, Complete 10/22/20 Sputum Culture - Final, Complete YEAST 10/18/20 Blood Culture - Final, Complete No growth Laboratory Tests 10/25/20 01:17 10/26/20 01:32 A/P: Assessment: Acute respiratory failure, ventilator dependent, multilobular pneumonia, receiving antibiotics, managed by Dr. Rodgers Pneumonia, receiving antibiotic, managed by primary care team Sepsis with hypotensive shock, managed by Dr. Rodgers Elevated BNP, echocardiogram showed normal left ventricular size and systolic function ejection fraction 60%, normal PA pressure per Dr. Hernandez PAF, recently diagnosed while in hospital in [place] in July, follows with Dr. Jimenez - continue Amiodarone Anticoagulation with Lovenox - previously has been on Xarelto which is being withheld COPD s/p COVID in July 2020 DVT post COVID, maintained on Xarelto Hypertension- not well controlled Hyperlipidemia Acute on chronic renal insufficiency - gradually improving PVD, history of stenting to RLE in past, has been maintained on Plavix. Plan: XareManagement of pneumonia is with pulmonary/medical services Monitor lab closely Gross anasarca - received IV Lasix this morning per pulmonary services Continue current medication regimen Monitor lab closely Replace electrolytes as indicated We have reviewed Dr. Hernandez's notes MALLORY MAYS Oct 26, 2020 08:40
--- NOTE | 2020-10-26 09:00 | Diagnostic Imaging Report ---
INDICATION: Ventilator support. Time of exam: 3:20 AM Correlation is made with prior exam one day earlier. ET tube has tip above the nancy. Left upper extremity PICC line has tip overlying the SVC. Bilateral pulmonary infiltrates persist. There may be some increasing bilateral effusions. No pneumothorax is seen. Metallic densities overlie the left hemithorax. IMPRESSION: Continued bilateral pulmonary infiltrates. There appear to be some increasing pleural effusions bilaterally when compared with examination one day earlier. Dictated by: Dictated on workstation # [id number]
[2020-10-26 15:14] LABS: ALBUMIN 2.2 GM/DL (3.2-4.5); POTASSIUM 4.8 MMOL/L (3.6-5.0)
[2020-10-26 15:15] LABS: CALCIUM 6.9 MG/DL (8.5-10.1)
[2020-10-26 15:17] LABS: TOTAL PROTEIN 5.1 GM/DL (6.4-8.2)
[2020-10-26 15:19] LABS: BILIRUBIN,TOTAL 0.5 MG/DL (0.1-1.0)
[2020-10-26 15:20] LABS: CREATININE SERUM 2.61 MG/DL (0.60-1.30)
--- NOTE | 2020-10-26 15:30 | Progress Note - Cardiology ---
Cardiology SOAP Progress Note Subjective: Intubated, on mech vent, verbally unresponsive Objective: I&O/Vital Signs 10/26/20 10/26/20 10/26/20 10/26/20 04:00 05:00 05:33 05:33 Temp 36.7 36.7 Pulse 62 61 61 B/P (MAP) 152/79 (103) 150/83 (105) 153/83 Pulse Ox 91 91 O2 Delivery Mechanical Ventilator Mechanical Ventilator O2 Flow Rate 50.00 50.00 10/26/20 10/26/20 10/26/20 10/26/20 06:00 07:00 07:00 07:10 Temp 36.7 36.7 Pulse 62 65 64 65 Resp B/P (MAP) 149/80 (103) 150/80 (103) Pulse Ox 91 91 90 O2 Delivery Mechanical Ventilator Mechanical Ventilator O2 Flow Rate 50.00 50.00 FiO2 50 10/26/20 10/26/20 10/26/20 10/26/20 07:47 08:00 08:00 09:00 Temp 36.7 36.7 36.6 Pulse 65 64 Resp B/P (MAP) 142/78 (99) 139/78 (98) Pulse Ox 90 90 90 O2 Delivery Mechanical Ventilator Mechanical Ventilator Mechanical Ventilator O2 Flow Rate 50.00 50.00 FiO2 50 10/26/20 10/26/20 10/26/20 10/26/20 10:00 10:15 11:00 12:00 Temp 36.6 36.4 Pulse 65 63 65 B/P (MAP) 131/71 (91) 134/74 (94) Pulse Ox 90 90 90 O2 Delivery Mechanical Ventilator Mechanical Ventilator O2 Flow Rate 50.00 50.00 FiO2 50 10/26/20 10/26/20 10/26/20 10/26/20 12:00 12:15 13:00 13:00 Pulse 64 63 63 B/P (MAP) 149/82 (104) 153/84 (107) Pulse Ox 91 91 91 O2 Delivery Mechanical Ventilator Mechanical Ventilator Mechanical Ventilator O2 Flow Rate 50.00 50.00 FiO2 50 10/26/20 10/26/20 14:00 14:21 Pulse 62 61 Resp B/P (MAP) 155/83 (107) Pulse Ox 90 95 O2 Delivery Mechanical Ventilator O2 Flow Rate 50.00 FiO2 50 10/26/20 00:00 Intake Total 2760 ml Output Total 115 ml Balance 2645 ml Weight (Pounds): 177 Weight (Ounces): 0.0 Weight (Calculated Kilograms): 80.407654 Constitutional: well-developed, well-nourished, other (sedated) Respiratory: other (fair air entry) Cardiovascular: regular rate-rhythm; No JVD; S1 and S2 Gastrointestional: distended Extremities: other (bilat LE swelling, pitting from toes, scrotum and abdomen) Neurologic/Psychiatric: other (sedated, unable to cooperate with exam) Skin: No rash on exposed areas, No ulcerations on exposed areas Results/Procedures: Labs Laboratory Tests 10/25/20 17:40: Glucometer 220H 10/25/20 23:01: Glucometer 201H 10/26/20 01:32: White Blood Count 8.6, Red Blood Count 3.96L, Hemoglobin 12.0L, Hematocrit 38L, Mean Corpuscular Volume 96, Mean Corpuscular Hemoglobin 30, Mean Corpuscular Hemoglobin Concent 32, Red Cell Distribution Width 15.6H, Platelet Count 252, Mean Platelet Volume 10.6, Immature Granulocyte % (Auto) 4, Neutrophils (%) (Auto) 86H, Lymphocytes (%) (Auto) 4L, Monocytes (%) (Auto) 6, Eosinophils (%) (Auto) 0, Basophils (%) (Auto) 0, Neutrophils # (Auto) 7.4, Lymphocytes # (Auto) 0.3L, Monocytes # (Auto) 0.5, Eosinophils # (Auto) 0.0, Basophils # (Auto) 0.0, Immature Granulocyte # (Auto) 0.3H, Sodium Level 145, Potassium Level 4.3, Chloride Level 117H, Carbon Dioxide Level 18L, Anion Gap 10, Blood Urea Nitrogen 57H, Creatinine 1.98H, Estimat Glomerular Filtration Rate 33, BUN/Creatinine Ratio 29, Glucose Level 168H, Calcium Level 7.0L, Corrected Calcium 8.4L, Phosphorus Level 3.8, Magnesium Level 2.4, Total Bilirubin 0.5, Aspartate Amino Transf (AST/SGOT) 72H, Alanine Aminotransferase (ALT/SGPT) 226H, Alkaline Phosphatase 91, Total Protein 4.8L, Albumin 2.2L 10/26/20 01:48: Blood Gas Puncture Site L RAD, Blood Gas Patient Temperature 36.5, Arterial Blood pH 7.28*L, Arterial Blood Partial Pressure CO2 51H, Arterial Blood Partial Pressure O2 58L, Arterial Blood HCO3 24, Arterial Blood Total CO2 25.1, Arterial Blood Oxygen Saturation 85L, Arterial Blood Base Excess -2.3, Devon Test YES- POS, Blood Gas Ventilator Setting YES, Blood Gas Inspired Oxygen 50% 10/26/20 05:25: Glucometer 158H 10/26/20 14:06: Glucometer 172H 10/26/20 14:50: Sodium Level 142, Potassium Level 4.8, Carbon Dioxide Level 18L, Anion Gap 11, Blood Urea Nitrogen 69H, Estimat Glomerular Filtration Rate 24, BUN/Creatinine Ratio 26, Glucose Level 178H, Calcium Level 6.9L, Corrected Calcium 8.3L, Total Bilirubin 0.5, Aspartate Amino Transf (AST/SGOT) 59H, Alanine Aminotransferase (ALT/SGPT) 192H, Alkaline Phosphatase 86, Total Protein 5.1L, Albumin 2.2L Microbiology 10/22/20 Gram Stain - Final, Complete 10/22/20 Sputum Culture - Final, Complete YEAST 10/18/20 Blood Culture - Final, Complete No growth A/P: Assessment: Acute respiratory failure, ventilator dependent, multilobular pneumonia, receiving antibiotics, managed by Dr. Rodgers Sepsis with shock, managed by Dr. Rodgers Ac diastolic CHF. Elevated BNP, echocardiogram showed normal left ventricular size and systolic function ejection fraction 60%, normal PA pressure per Dr. Hernandez PAF, recently diagnosed while in hospital in [place] in July, follows with Dr. Jimenez - continue Amiodarone Anticoagulation with Lovenox - previously has been on Xarelto which is being withheld COPD s/p COVID in July 2020 DVT post COVID, maintained on Xarelto Hypertension- not well controlled Hyperlipidemia Acute on chronic renal insufficiency - gradually improving PVD, history of stenting to RLE in past, has been maintained on Plavix. Plan: Management of pneumonia is with pulmonary/medical services Monitor lab closely Gross anasarca - received IV Lasix this morning per pulmonary services Continue current medication regimen Monitor lab closely Replace electrolytes as indicated We have reviewed Dr. Hernandez's notes Poor prognosis I discussed his CV issues with his fam in detail and answered CV-related ques SHOBHA Walters MD FACP FAC CCDS Oct 26, 2020 15:30
[2020-10-26] MEDS: ENOXAPARIN 100 MG/1 ML (LOVENOX) SYR SC SCH (17:09)
[2020-10-26] MEDS ORDERED: LACTATED RINGERS 1,000 ML IV SCH (17:15)
--- NOTE | 2020-10-26 18:27 | Progress Note ---
Subjective Subjective/Events-last exam Patient intubated and sedated, comfortable Review of Systems Unable to perform Objective Exam Last Set of Vital Signs Vital Signs Date Time Temp Pulse Resp B/P (MAP) Pulse Ox O2 Delivery O2 Flow Rate FiO2 10/26/20 18:00 36.2 60 25 156/89 (111) 91 Mechanical Ventilator 50.00 10/26/20 14:21 50 Capillary Refill : Less Than 3 Seconds I&O Intake and Output 10/26/20 00:00 Intake Total 4700 ml Output Total 590 ml Balance 4110 ml Intake Oral 60 ml IV Total 4550 ml Other 90 ml Output Urine Total 590 ml General: Other (intubated and sedated) HEENT: Mucous Memb Moist/Hiram Lungs: Other (minimal air movement, breathing with vent) Heart: Regular Rate Extremities: Other (3+ pitting edema UE/LE bilaterally) Results/Procedures Lab Laboratory Tests 10/25/20 23:01: Glucometer 201H 10/26/20 01:32: White Blood Count 8.6, Red Blood Count 3.96L, Hemoglobin 12.0L, Hematocrit 38L, Mean Corpuscular Volume 96, Mean Corpuscular Hemoglobin 30, Mean Corpuscular Hemoglobin Concent 32, Red Cell Distribution Width 15.6H, Platelet Count 252, Mean Platelet Volume 10.6, Immature Granulocyte % (Auto) 4, Neutrophils (%) (Auto) 86H, Lymphocytes (%) (Auto) 4L, Monocytes (%) (Auto) 6, Eosinophils (%) (Auto) 0, Basophils (%) (Auto) 0, Neutrophils # (Auto) 7.4, Lymphocytes # (Auto) 0.3L, Monocytes # (Auto) 0.5, Eosinophils # (Auto) 0.0, Basophils # (Auto) 0.0, Immature Granulocyte # (Auto) 0.3H, Sodium Level 145, Potassium Level 4.3, Chloride Level 117H, Carbon Dioxide Level 18L, Anion Gap 10, Blood Urea Nitrogen 57H, Creatinine 1.98H, Estimat Glomerular Filtration Rate 33, BUN/Creatinine Ratio 29, Glucose Level 168H, Calcium Level 7.0L, Corrected Calcium 8.4L, Phosphorus Level 3.8, Magnesium Level 2.4, Total Bilirubin 0.5, Aspartate Amino Transf (AST/SGOT) 72H, Alanine Aminotransferase (ALT/SGPT) 226H, Alkaline Phosphatase 91, Total Protein 4.8L, Albumin 2.2L 10/26/20 01:48: Blood Gas Puncture Site L RAD, Blood Gas Patient Temperature 36.5, Arterial Blood pH 7.28*L, Arterial Blood Partial Pressure CO2 51H, Arterial Blood Partial Pressure O2 58L, Arterial Blood HCO3 24, Arterial Blood Total CO2 25.1, Arterial Blood Oxygen Saturation 85L, Arterial Blood Base Excess -2.3, Devon Test YES- POS, Blood Gas Ventilator Setting YES, Blood Gas Inspired Oxygen 50% 10/26/20 05:25: Glucometer 158H 10/26/20 14:06: Glucometer 172H 10/26/20 14:50: Sodium Level 142, Potassium Level 4.8, Chloride Level 113H, Carbon Dioxide Level 18L, Anion Gap 11, Blood Urea Nitrogen 69H, Creatinine 2.61#H, Estimat Glome rular Filtration Rate 24, BUN/Creatinine Ratio 26, Glucose Level 178H, Calcium Level 6.9L, Corrected Calcium 8.3L, Total Bilirubin 0.5, Aspartate Amino Transf (AST/SGOT) 59H, Alanine Aminotransferase (ALT/SGPT) 192H, Alkaline Phosphatase 86, Total Protein 5.1L, Albumin 2.2L 10/26/20 18:03: Glucometer 133H Microbiology 10/22/20 Gram Stain - Final, Complete 10/22/20 Sputum Culture - Final, Complete YEAST 10/18/20 Blood Culture - Final, Complete No growth Assessment/Plan Assessment/Plan (1) Acute and chronic respiratory failure with hypoxia Status: Acute Assessment & Plan: 10/23: Dr Rodgers consulted, patient intubated and sedated, Continue antibiotics and anti fungal, worsening CXR 10/24: Dr Rodgers managing 10/25: Mechanical Ventilation 10/26: Family plans on terminal extubation tomorrow AM (2) Sepsis with hypotension Status: Acute Assessment & Plan: 10/24: Pressors on hold at this time (3) Multiple organ system failure Status: Acute Assessment & Plan: 10/24: Acute renal and Liver failure worsening 10/25: Cr and LFTs increasing at this time, patient continues to make urine, darker in color today 10/26: UOP significantly decreased over the last 24 hrs, discussed with patient's family (4) Post-COVID syndrome Status: Acute (5) Pneumonia Status: Acute Qualifiers: Qualified Codes: J18.9 - Pneumonia, unspecified organism (6) [id number] kidney injury Status: Acute Assessment & Plan: 10/23: Baseline Cr 1.4, Cr 2.6 and trending up, daily CMPs, Renally dose medications Qualifiers: Qualified Codes: N17.9 - Acute kidney failure, unspecified; N18.9 - Chronic kidney disease, unspecified (7) Atrial fibrillation Status: Chronic Assessment & Plan: 10/23: on OAC, Rate controlled Qualifiers: Qualified Codes: I48.0 - Paroxysmal atrial fibrillation (8) Elevated LFTs Status: Acute Assessment & Plan: 10/23: Repeat LFTs in AM, if trending up would recommend US 10/24: Repeat CMP in AM (9) DVT prophylaxis Status: Acute Assessment & Plan: - Lovenox (10) Poor prognosis Assessment & Plan: 10/24: 45 mins spent with patient's family discussing goals of care. , son in law, nephews and his present for discussion. Discussed current acute care vs terminal extubation vs LTAC. Patient's family will discuss plans and will contact us. Continue with current plan of care at this time. Palliative Care consult placed 10/25: and Nephews present this AM. They are leaning toward comfort care but waiting on patient's son to travel from [place]. Encouraged family to let other members know that he is critically ill and could decompensate and if they would like to see him they need to make plans. Patient is comfortable and sedated. Answered families questions and told them to reach out to nurse if anything else comes up. 10/26: Plan for terminal extubation in AM HAROON MCGRATH MD Oct 26, 2020 18:27
[2020-10-27] VITALS (12 sets, daily range): BP systolic 132–149; BP diastolic 70–81
[2020-10-27] MEDS: D5 LR IV SOLUTION 1,000 ML IV SCH ×2 (00:47→07:34)
[2020-10-27] MEDS: inSUlin ASPART (NovoLOG) 1 UNIT/0.01 ML (CHARGE PER UNIT) SQ SCH ×2 (00:49→05:33)
[2020-10-27] MEDS: PROPOFOL DRIP (ICU) 100 ML IV SCH (02:22)
[2020-10-27] MEDS: RT-ALBUTEROL/IPRATROPIUM 3 ML (DUONEB) VIAL INH SCH ×2 (02:29→06:23)
[2020-10-27 02:35] LABS: BASOPHILS % (AUTO) 0 % (0-10); EOSINOPHILS % (AUTO) 0 % (0-10); HEMATOCRIT 42 % (40-54); HEMOGLOBIN 12.6 g/dL (13.3-17.7); LYMPHOCYTES # (AUTO) 0.4 10^3/uL (1.0-4.0); LYMPHOCYTES % (AUTO) 4 % (12-44); MEAN CORPUSCULAR HEMOGLOBIN 29 pg (25-34); MEAN CORPUSCULAR HGB CONC 30 g/dL (32-36); MEAN CORPUSCULAR VOLUME 97 fL (80-99); MEAN PLATELET VOLUME 10.5 fL (9.0-12.2); MONOCYTES # (AUTO) 0.4 10^3/uL (0.0-1.0); MONOCYTES % (AUTO) 4 % (0-12); NEUTROPHILS # (AUTO) 9.5 10^3/uL (1.8-7.8); NEUTROPHILS % (AUTO) 88 % (42-75); PLATELET COUNT 248 10^3/uL (130-400); WHITE BLOOD COUNT 10.8 10^3/uL (4.3-11.0)
[2020-10-27 02:48] LABS: POTASSIUM 5.3 MMOL/L (3.6-5.0)
[2020-10-27 02:49] LABS: CALCIUM 7.5 MG/DL (8.5-10.1)
[2020-10-27 02:53] LABS: PHOSPHORUS 5.5 MG/DL (2.3-4.7)
[2020-10-27 02:54] LABS: ABG BASE EXCESS -3.9 MMOL/L (-2.5-2.5); ABG OXYGEN SATURATION 85 % (94-100); ABG PCO2 55 MMHG (35-45); ABG PO2 57 MMHG (79-93); ABG TCO2 24.3 MMOL/L (21.0-31.0)
[2020-10-27 02:54] LABS: CREATININE SERUM 2.71 MG/DL (0.60-1.30)
[2020-10-27 02:56] LABS: ABG PH 7.24 (7.37-7.43)
[2020-10-27 02:56] LABS: MAGNESIUM 2.3 MG/DL (1.6-2.4)
[2020-10-27 02:57] LABS: ALLENS TEST YES-POS; INSPIRED O2 80%; PATIENT TEMP 36.4; VENTILATOR YES
--- NOTE | 2020-10-27 04:18 | Pulmonary Progress Note ---
Subjective Time Seen by a Provider: 04:14 Subjective/Events-last exam Pt is sedated on vent. Sepsis Event Evaluation Height, Weight, BMI Height: 6'1.00" Weight: 177lbs. 0.0oz. 80.668517ye; 25.71 BMI Method:Stated Exam Exam Vital Signs Date Time Temp Pulse Resp B/P (MAP) Pulse Ox O2 Delivery O2 Flow Rate FiO2 10/27/20 02:29 58 26 91 80 10/27/20 02:22 59 147/79 10/27/20 00:44 36.5 10/27/20 00:00 92 Mechanical Ventilator 80 10/27/20 00:00 59 26 147/79 (101) 92 Mechanical Ventilator 80.00 10/26/20 23:15 59 146/79 10/26/20 23:00 60 25 145/77 (99) 92 Mechanical Ventilator 80.00 10/26/20 22:00 61 25 149/80 (103) 93 Mechanical Ventilator 80.00 10/26/20 21:31 59 26 93 80 10/26/20 21:00 36.0 60 25 146/79 (101) 90 Mechanical Ventilator 80.00 10/26/20 20:00 89 Mechanical Ventilator 70 10/26/20 20:00 36.1 61 25 153/84 (107) 90 Mechanical Ventilator 80.00 10/26/20 19:59 90 Mechanical Ventilator 80.00 10/26/20 19:37 36.1 61 26 149/86 (107) 88 Mechanical Ventilator 70.00 10/26/20 19:28 60 151/87 10/26/20 19:16 60 26 88 60 10/26/20 19:00 60 10/26/20 19:00 36.1 60 25 151/84 (106) 90 Mechanical Ventilator 60.00 10/26/20 18:29 Mechanical Ventilator 60.00 10/26/20 18:00 36.2 60 25 156/89 (111) 91 Mechanical Ventilator 50.00 10/26/20 17:00 36.3 61 25 150/79 (102) 88 Mechanical Ventilator 50.00 10/26/20 16:00 90 Mechanical Ventilator 50 10/26/20 16:00 62 25 157/84 (108) 90 Mechanical Ventilator 50.00 10/26/20 15:00 62 25 152/84 (106) 90 Mechanical Ventilator 50.00 10/26/20 14:21 61 26 95 50 10/26/20 14:00 62 25 155/83 (107) 90 Mechanical Ventilator 50.00 10/26/20 13:00 63 22 153/84 (107) 91 Mechanical Ventilator 50.00 10/26/20 13:00 63 10/26/20 12:15 91 Mechanical Ventilator 50 10/26/20 12:00 64 20 149/82 (104) 91 Mechanical Ventilator 50.00 10/26/20 12:00 36.4 10/26/20 11:00 36.6 65 25 134/74 (94) 90 Mechanical Ventilator 50.00 10/26/20 10:15 63 26 90 50 10/26/20 10:00 65 25 131/71 (91) 90 Mechanical Ventilator 50.00 10/26/20 09:00 36.6 64 25 139/78 (98) 90 Mechanical Ventilator 50.00 10/26/20 08:00 90 Mechanical Ventilator 50 10/26/20 08:00 36.7 65 25 142/78 (99) 90 Mechanical Ventilator 50.00 10/26/20 07:47 36.7 10/26/20 07:10 65 26 90 50 10/26/20 07:00 64 10/26/20 07:00 36.7 65 25 150/80 (103) 91 Mechanical Ventilator 50.00 10/26/20 06:00 36.7 62 25 149/80 (103) 91 Mechanical Ventilator 50.00 10/26/20 05:33 61 10/26/20 05:33 153/83 10/26/20 05:00 36.7 61 25 150/83 (105) 91 Mechanical Ventilator 50.00 I & O 10/27/20 07:00 Intake Total 4950 ml Output Total 1285 ml Balance 3665 ml Height & Weight Height: 6'1.00" Weight: 177lbs. 0.0oz. 80.274088wn; 25.71 BMI Method:Stated General Appearance: WD/WN, Other (sedated and intubated) HEENT: Normal ENT Inspection Neck: Normal Inspection, Supple Respiratory: No Respiratory Distress, Other (mechanically ventilated) Cardiovascular: Regular Rate, Rhythm, No Murmur Capillary Refill: Less Than 3 Seconds Gastrointestinal: No distended; other (firm abdomen) Extremity: Normal Inspection, Other (bilateral hand swelling) Neurologic/Psychiatric: Other (sedated) Skin: Normal Color, Warm/Dry, Other (skin tear on left dorsal forearm) Lymphatic: No Adenopathy Results Lab Laboratory Tests 10/26/20 01:32 10/26/20 14:50 10/27/20 02:30 Assessment/Plan Assessment/Plan Acute respiratory failure with ARDS -Intubated 10/22 -500// currently 50% -propofol 20, Precedex at 2.0 Fentanyl 50 gtt if needed -Repeat PCT -COVID is negative -palliative care consulted Pneumonia Zosyn -Eraxis added secondary to worsening respiratory failure infiltration on imaging -sputum positive for yeast -Check Urine strep and Legionella ag - check varela cultures Bilateral pleural effusions with worsening respiratory distress -CXR worse today COPDAE -SOlumedrol -Duonebs Post COVID syndrome -- -Pt was dx with COVID 07/2020 and tx at [facility] Acute on Chronic renal failure -- worsening renal failure -Family is planning on [facility] this morning -Give Bumex 1mg X 1 -Monitor -decreased urine output Increase bili and LFTs -Abdominal US was unremarkable besides bilateral pleural effusions Aflutter/fib - -Cardiology following -Xarelto -Pt takes amiodarone at home COPDAE Tobacco hx -Quit 1yr ago Palliative care and Dr. Wilcox visited with family yesterday, they are waiting for other family from [facility] to arrive before making pt comfort care only. Plan is for [facility] this morning per family. ALYSSA MA DO Oct 27, 2020 04:18
[2020-10-27] MEDS ORDERED: BUMETANIDE 1 MG/4 ML (BUMEX) VIAL IV ONE (04:30)
[2020-10-27] MEDS: methylPREDNISolone 40 MG/ML (Solu-MEDROL) VIAL IV SCH (05:33)
[2020-10-27] MEDS: fentaNYL DRIP PRE-MIX 250 ML IV SCH (05:34)
[2020-10-27] MEDS: DexMEDEtomidine 250 ML DRIP 250 ML IV SCH (05:34)
--- NOTE | 2020-10-27 06:56 | Occ Therapy Progress Note ---
Therapy Progress Note Pt is currently intubated and sedated. OT will continue to monitor pt's status, per physicians note pt to be placed on comfort care. RHEA GOMEZ Oct 27, 2020 06:56
--- NOTE | 2020-10-27 07:19 | Diagnostic Imaging Report ---
Reason for examination: Respiratory failure and multifocal pneumonia. Semiupright AP portable view of the chest was obtained and compared to 10/26/2020. Cardiomediastinal silhouette is obscured. ET tube is between the clavicles and nancy. Left PICC line remains in place. Foreign body material over the left chest wall and left upper abdomen. Feeding tube in the left upper quadrant but the tip is not visible. Multifocal bilateral interstitial and alveolar infiltrates and probably also some right pleural effusion with no significant change or improvement. There is no pneumothorax, air-fluid level or cavitary change. Impression: 1. Support lines and tubes are in good position where visible. 2. Bilateral mixed interstitial and alveolar infiltrates and probably component of right pleural effusion with no significant change. Dictated by: Dictated on workstation # [id number]
[2020-10-27] MEDS: AMIODARONE 200 MG (CORDARONE) TAB PO SCH (09:00)
[2020-10-27] MEDS: CLOPIDOGREL 75 MG (PLAVIX) TABLET PO SCH (09:00)
[2020-10-27] MEDS ORDERED: ARTIFICAL TEARS 0.4 ML UNIT DOSE (REFRESH PLUS) OU PRN (09:00)
[2020-10-27] MEDS ORDERED: SALIVA STIMULANT MOUTH SPRAY (BIOTENE) 1.5 OZ MM PRN (09:00)
[2020-10-27] MEDS ORDERED: ACETAMINOPHEN 650 MG SUPP (TYLENOL) PR PRN (09:00)
[2020-10-27] MEDS: ANIDULAFUNGIN INJECTION 100 MG in NS (IVPB) 100 ML IV SCH (09:00)
[2020-10-27] MEDS ORDERED: RT-ALBUTEROL/IPRATROPIUM 3 ML (DUONEB) VIAL INH PRN (09:00)
[2020-10-27] MEDS ORDERED: LORazepam INJ 2 MG/ML (ATIVAN) VIAL IVP PRN (09:00)
[2020-10-27] MEDS: lisINopril 10 MG (PRINIVIL) TABLET PO SCH (09:00)
[2020-10-27] MEDS ORDERED: BISACODYL 10 MG SUPP (DULCOLAX) PR PRN (09:00)
[2020-10-27] MEDS: PANTOPRAZOLE 40 MG (PROTONIX) VIAL IV SCH (09:00)
[2020-10-27] MEDS ORDERED: ONDANSETRON 4 MG/2 ML (SDV) Z0FRAN IVP PRN (09:00)
[2020-10-27] MEDS ORDERED: morphine INJ 4 MG/ML 1 ML (VIAL/SYRINGE) IV PRN (09:00)
[2020-10-27] MEDS ORDERED: GLYCOPYRROLATE 0.2 MG/ML (ROBINUL) 2 ML VIAL IV PRN (09:00)
[2020-10-27] MEDS ORDERED: PROMETHAZINE INJ 25 MG/ML (PHENERGAN) AMP IVP PRN (09:00)
--- NOTE | 2020-10-27 11:46 | Discharge Summary ---
Discharge Summary Date of Admission Oct 18, 2020 at 13:07 Date of Discharge Admission Diagnosis Assessment: Acute hypoxic respiratory failure PNA? STEFAN on CRI HTN OA Plan: Admit Monitor O2 Vapotherm PUI Comfort Measures/ End of Life Care: Comfort Measures HAROON MCGRATH MD Oct 27, 2020 11:46
== END 2020-10-27 09:55 | disposition expired | DRG 207 ==
LOC: ER 10:28 → CSD 13:07 → ICU 20:26
PROVIDERS: ADMIT Internal Medicine; ATTEND Family Medicine
PROC: 5A09457 Assistance with Respiratory Ventilation, 24-96 Consecutive Hours, Continuous Positive Airway Pressure (ICD-10-PCS; 2020-10-18)
PROC: 5A1955Z Respiratory Ventilation, Greater than 96 Consecutive Hours (ICD-10-PCS; principal; 2020-10-22)
PROC: 0BH17EZ Insertion of Endotracheal Airway into Trachea, Via Natural or Artificial Opening (ICD-10-PCS; 2020-10-22)
DX: J18.9 Pneumonia, unspecified organism (principal); J80 Acute respiratory distress syndrome; A41.9 Sepsis, unspecified organism; N17.9 Acute kidney failure, unspecified; J44.0 Chronic obstructive pulmonary disease with (acute) lower respiratory infection; J44.1 Chronic obstructive pulmonary disease with (acute) exacerbation; J90 Pleural effusion, not elsewhere classified; I48.92 Unspecified atrial flutter; Z66 Do not resuscitate; Z51.5 Encounter for palliative care; Z20.822 Contact with and (suspected) exposure to COVID-19; I12.9 Hypertensive chronic kidney disease with stage 1 through stage 4 chronic kidney disease, or unspecified chronic kidney disease; N18.30 Chronic kidney disease, stage 3 unspecified; R57.8 Other shock; K72.90 Hepatic failure, unspecified without coma; Z86.16 Personal history of COVID-19; I48.0 Paroxysmal atrial fibrillation; I73.9 Peripheral vascular disease, unspecified; E78.00 Pure hypercholesterolemia, unspecified; E78.5 Hyperlipidemia, unspecified; M19.91 Primary osteoarthritis, unspecified site; Z79.01 Long term (current) use of anticoagulants; Z99.81 Dependence on supplemental oxygen; Z18.89 Other specified retained foreign body fragments; Z86.718 Personal history of other venous thrombosis and embolism; Z87.891 Personal history of nicotine dependence; Z95.820 Peripheral vascular angioplasty status with implants and grafts; Z88.8 Allergy status to other drugs, medicaments and biological substances
CPT/HCPCS: 36415; 36569; 71045; 71250; 76700; 76937; 80048; 80053; 81000; 82805; 82962; 83605; 83735; 83880; 84100; 84145; 84478; 85007; 85025; 85027; 85610; 85730; 87040; 87070; 87081; 87106; 87205; 87449; 87635; 87899; 93005; 93306; 94002; 94003; 94640; 94660; 94799; 96365; 96375